=== PATIENT | male | born 1945 | race Caucasian/White ===

== ENCOUNTER 2020-04-02 06:58 | Outpatient (CLI) | payer MEDICARE, OTHER, SELFPAY ==
--- NOTE | 2020-04-02 07:15 | USCV_ITS ---
José Elliott Age: 74 Gender: M : 1945 Exam Date: 04/02/2020 07:18 Ordering Phys: Dada Shafer M.D Technologist: Yanet Burks [place] [facility] [place] [facility] [place]: RECHECK ON AAA HISTORY: Diameter (cm) AP x Transverse x Length Velocity (cm/s) Waveform Prox Aorta: 2.03 x 2.18 x 85.90 Mid Aorta: 3.79 x 4.06 x 85.90 Distal Aorta: 3.06 x 3.67 x 74.20 Right Iliac Prox: 1.58 x 1.61 x 150.40 Left Iliac Prox: 1.53 x 2.27 x 137.50 Stent Prox Landing x x Aneurysmal Sac Max x x Lt Lat Sac Dim Rt Lat Sac Dim Stent Dist Landing x x Right Iliac Stent x x Left Iliac Stent x x Right Renal Art Left Renal Art FINDINGS: CONCLUSIONS Aneursymal Mid and distal aorta measuring 3.7 x 4.1cm and distal aorta 3.1 x 3.6cm Normal common iliac arteries Sulaiman Moore MD (Electronically Signed) Final Date: 04 April 2020 14:47 S
== END 2020-04-02 06:59 | disposition home or self-care (01) ==
LOC: US 07:02
PROVIDERS: PCP Emergency Medicine Emergency Medical Services; Visit Provider Internal Medicine
DX: I71.4 Abdominal aortic aneurysm, without rupture (principal)
CPT/HCPCS: 76706

== ENCOUNTER 2020-07-04 14:55 | Emergency (ER) | payer OTHER, MEDICARE, SELFPAY ==
[2020-07-04 15:45] VITALS: BP 123/73; PULSE 69; RESP 18; TEMP 36.8; O2SAT 95; BMI 38.2
--- NOTE | 2020-07-04 17:10 | W.ED.EXTPRO ---
HPI - Extremity Problem General: Chief complaint: Extremity Problem,Nontraumatic Stated complaint: L LEG INJURY/POSS INFECTION Time Seen by Provider: 07/04/20 17:04 Source: patient and family Mode of arrival: ambulatory Limitations: no limitations History of Present Illness: HPI Narrative: 75-year-old male presents to emergency room chief complaint of having left leg swelling warmth and tenderness. Patient reports that he struck his leg while wearing blue jeans approximately 7 to 10 days ago patient does report being a diabetic. The patient reports moderate warmth and swelling noted to the left anterior tang has been ongoing since that time reports no discharge he does report having a slightly low grade fever as well. MD Complaint: extremity pain and extremity swelling Onset (ago): day(s) (2) Location: left Exacerbating factors: nothing Associated symptoms: Deny chest pain, fever(s) or rash Review of Systems General: Reports: 10 or more systems reviewed and unremarkable except in HPI and below Const: Denies: fever(s), chills, fatigue or malaise Eyes: Denies: change in vision or blurry vision Card: Denies: chest pain or palpitations Resp: Denies: dyspnea or productive cough GI: Denies: abdominal pain, nausea or vomiting : Denies: flank pain Musc: Reports: extremity pain and extremity swelling (Mild swelling and erythema noted to the left tang) Skin/Breast: Denies: rash or pruritus Neuro: Denies: headache(s) Psych: Denies: anxiety or depression Jurgen/Lymph: Denies: easy bleeding All/Imm: Denies: urticaria, throat swelling or facial swelling [facility] [place] ED PFSH: Medical History (Updated 07/04/20 @ 17:24 by Jeffrey Willson) AAA (abdominal aortic aneurysm) ASHD (arteriosclerotic heart disease) Atrial fibrillation CKD (chronic kidney disease) COPD (chronic obstructive pulmonary disease) Diabetes HTN (hypertension) Hyperlipidemia Tobacco abuse, in remission Warfarin anticoagulation Surgical History S/P PTCA (percutaneous transluminal coronary angioplasty) Family History Father CAD (coronary artery disease) Hypertension Myocardial infarction Physical Exam Narrative: EXAM NARRATIVE: Patient appears nontoxic and obviously distressed appearing to have mild cellulitis noted to the left lateral tang neurovascularly intact distally. Const: COMMON NORMALS: no acute distress, patient oriented x3 and healthy appearing HENMT: COMMON NORMALS: normocephalic and atraumatic HEAD & SCALP: normocephalic and atraumatic Eye: COMMON NORMALS: Equal, round and reactive pupils present and EOMs intact bilaterally PUPIL: Yes Equal, round and reactive pupils present Neck/C-Spine: COMMON NORMALS: full ROM, supple and no JVD Lymph: LYMPHATIC: no lymphadenopathy noted Chest: COMMONS NORMALS: normal inspection of the chest and normal palpation of entire chest wall Resp: COMMON NORMALS: normal respiratory effort, No retractions and clear to auscultation bilaterally EFFORT & INSPECTION: Yes able to speak in complete sentences and Yes symmetric chest movement AUSCULTATION: clear to auscultation bilaterally Cardio: COMMON NORMALS: no JVD, regular rate and regular rhythm RATE: regular rate RHYTHM: regular rhythm GI: COMMON NORMALS: Normal to inspection, nondistended, normoactive bowel sounds present, Soft to palpation and non-tender INSPECTION: Yes normal to inspection PALPATION: Yes Soft to palpation : COMMON NORMALS: Yes no CVA tenderness BLADDER/KIDNEY EXAM: Yes no CVA tenderness Back/Pelvis: COMMON NORMALS: no CVA tenderness Extremity: COMMON NORMALS: full ROM and capillary refill normal OTHER: Mild ecchymosis and swelling noted to the left lower extremity consistent with cellulitis small area of an abrasion noted to the anterior left tang. Neurovascularly intact distally Neuro: COMMON NORMALS: patient oriented x3, CN's II-XII intact bilaterally, moves all extremities and no focal motor deficits Psych: COMMON NORMALS: mental status grossly normal, Normal thought process present, cooperative and normal affect THOUGHT PROCESS: Normal thought process present Skin: COMMON NORMALS: no rashes or lesions noted GENERAL SKIN EXAM: no rashes or lesions noted Course Vital Signs: Vital signs: Vital Signs Temperature 98.2 F 07/04/20 15:45 Pulse Rate 69 07/04/20 15:45 Respiratory Rate 18 07/04/20 15:45 Blood Pressure 123/73 07/04/20 15:45 Pulse Oximetry 95 07/04/20 15:45 MDM - Extremity (Nontraumatic) MDM Narrative: Medical decision making narrative: On exam patient appears to have cellulitis will be started him on some Bactrim for it patient was instructed to y follow-up with primary care 5 to 7 days for further assessment. Return in the interim if any of his symptoms persist or worsen. Discharge Plan Discharge Patient Disposition: Home Clinical Impression: Cellulitis of left leg Condition: Stable Prescriptions: New Bactrim DS 800-160 mg tablet 1 tab PO BID 10 Days Qty: 20 RF: 0 No Action Lantus U-100 Insulin 100 unit/mL solution 34 unit SUBCUT DAILY RF: 0 pantoprazole 40 mg tablet,delayed release (DR/EC) 40 mg PO DAILY RF: 0 metoprolol tartrate 50 mg tablet 50 mg PO BID RF: 0 citalopram 40 mg tablet 20 mg PO DAILY RF: 0 nitroglycerin [Nitrostat] 0.4 mg tablet, sublingual 0.4 mg SUBLINGUAL Q5M PRNRF: 0 insulin aspart U-100 [Novolog U-100 Insulin aspart] 100 unit/mL solution 1 sliding scale dose SUBCUT TID RF: 0 sodium bicarbonate 650 mg tablet 650 mg PO BID RF: 0 omega-3 acid ethyl esters 1 gram capsule 1 cap PO DAILY RF: 0 glipizide 10 mg tablet 10 mg PO BID RF: 0 allopurinol 300 mg tablet 300 mg PO DAILY RF: 0 pravastatin 80 mg tablet 80 mg PO DAILY RF: 0 warfarin 1 mg tablet See Rx Instructions PO DAILY RF: 0 tamsulosin 0.4 mg capsule 0.4 mg PO DAILY RF: 0 Spiriva with HandiHaler 18 mcg capsule, w/inhalation device 1 cap INHALATION DAILY RF: 0 cholecalciferol (vitamin D3) PO DAILY RF: 0 furosemide 40 mg tablet 40 mg PO BID RF: 0 psyllium husk PO RF: 0 Discharge Orders: Discharge ED (Routine); Ordered 07/04/20 Ordered By: Jeffrey Willson Referrals: Graeme Felipe DO [Primary Care Provider] - Patient Instructions: Cellulitis (ED) Coding Level of Care Code 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
[2020-07-04 17:34] VITALS: RESP 18
== END 2020-07-04 17:35 | disposition home or self-care (01) ==
PROVIDERS: Emergency Provider Emergency Medicine; PCP Emergency Medicine Emergency Medical Services
DX: L03.116 Cellulitis of left lower limb (principal); Z79.01 Long term (current) use of anticoagulants; Z79.4 Long term (current) use of insulin; I48.91 Unspecified atrial fibrillation; J44.9 Chronic obstructive pulmonary disease, unspecified; E11.9 Type 2 diabetes mellitus without complications; I10 Essential (primary) hypertension; E78.5 Hyperlipidemia, unspecified
CPT/HCPCS: 12345; 99281

== ENCOUNTER 2020-12-18 08:57 | Outpatient (CLI) | payer MEDICARE, OTHER, SELFPAY ==
--- NOTE | 2020-12-18 09:30 | USCV_ITS ---
José Elliott Age: 75 Gender: M : 1945 Exam Date: 12/18/2020 09:21 Ordering Phys: Dada Shafer M.D ([email or web address]) Technologist: RACHELL Exam Location: [facility] – [place] Indication: HISTORY: Diameter (cm) AP x Transverse x Length Velocity (cm/s) Waveform Prox Aorta: 2.18 x 2.18 x 47.40 Mid Aorta: 2.96 x 2.75 x 56.20 Distal Aorta: 3.17 x 3.97 x 48.90 Right Iliac Prox: 1.23 x x 181.30 Left Iliac Prox: 0.76 x x 169.40 Stent Prox Landing x x Aneurysmal Sac Max x x Lt Lat Sac Dim Rt Lat Sac Dim Stent Dist Landing x x Right Iliac Stent x x Left Iliac Stent x x Right Renal Art Left Renal Art FINDINGS: CONCLUSIONS Technically difficult exam due to bowel gas Iliacs not well seen Aneurysmal mid to distal aorta measures 3.1 x 3.9cm in max dimension Sulaiman Moore MD (Electronically Signed) Final Date: 18 December 2020 10:12 S
== END 2020-12-18 08:58 | disposition home or self-care (01) ==
LOC: RAD 09:03
PROVIDERS: PCP Emergency Medicine Emergency Medical Services; Visit Provider Internal Medicine
DX: I71.4 Abdominal aortic aneurysm, without rupture (principal)
CPT/HCPCS: 93978

== ENCOUNTER 2021-01-09 01:57 | Inpatient (IN) | payer MEDICARE, OTHER, SELFPAY ==
[2021-01-09] VITALS (17 sets, daily range): BP systolic 96–120; BP diastolic 59–84; PULSE 61–137; RESP 14–21; TEMP 36.6–37.4; O2SAT 93–97; BMI 37.8
--- NOTE | 2021-01-09 01:58 | XRR_ITS ---
PROCEDURE INFORMATION: Exam: XR Chest Exam date and time: 01/09/2021 1:58 AM Age: 75 years old Clinical indication: Chest pressure; Prior surgery; Surgery type: Cardiac stents; Patient HX: Chest pain; Additional info: Cp TECHNIQUE: Imaging protocol: XR of the chest. Views: 1 view. COMPARISON: CR Chest 2 views* 15600 10/20/2014 4:01 PM FINDINGS: Lungs: Mildly increased lung markings, in association with hazy perihilar airspace opacities, suggestive of mild pulmonary edema. Pneumonia should be excluded clinically. Pleural spaces: Unremarkable. No pleural effusion. No pneumothorax. Heart/Mediastinum: Stable cardiomediastinal silhouette. Bones/joints: Unremarkable. XR/XR chest 1V portable [id number] IMPRESSION: Imaging findings suggestive of mild pulmonary edema. Pneumonia should be excluded clinically.
--- NOTE | 2021-01-09 01:59 | ECG_ITS ---
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1945 Requested By: Fatmata Marina Order Number: [id number] Reading MD: LEONORA UMANZOR Measurements Intervals [place] Rate: 139 P: PA: QRS: 14 QRSD: 100 T: 52 QT: 310 QTc: 472 Interpretive Statements ATRIAL FIBRILLATION WITH RAPID VENTRICULAR RESPONSE LOW QRS VOLTAGE IN PRECORDIAL LEADS [QRS DEFLECTION < 1.0 mV IN CHEST LEADS] NONSPECIFIC ST & T-WAVE ABNORMALITY ABNORMAL RHYTHM ECG INTERPRETATION BASED ON A DEFAULT AGE OF 40 YEARS Compared to ECG 10/20/2014 17:43:01 Low QRS voltage now present T-wave abnormality now present Sinus tachycardia no longer present Electronically Signed On 01-09-2021 14:27:13 CDT by LEONORA UMANZOR [id number] f
--- NOTE | 2021-01-09 02:21 | ED_ITS ---
HPI - Chest Pain General: Chief Complaint: Chest Pain Stated Complaint: Chest Pain Time Seen by Provider: 01/09/21 01:59 Source: patient Mode of arrival: ambulatory Limitations: no limitations History of Present Illness: HPI narrative: 75-year-old male has a history of atrial fib states he woke up roughly 40 minutes ago with a sharp pain in the center of his chest. States the pain is 8 out of 10 originally took an old nitro and pain is now 4 out of 10. He is on metoprolol and Coumadin he is in A. fib with RVR with heart rate in the 130s here. He denies any dyspnea or nausea. Denies any worsening improving factors. MD complaint: chest pain Associated symptoms: Reports palpitations; Deny abdominal pain, dyspnea, fever(s), nausea or vomiting Review of Systems Const: Denies: fever(s), chills, body aches or change in appetite Eyes: Denies: blurry vision or eye discomfort ENMT: Denies: throat pain or dental pain Card: Reports: chest pain and palpitations Resp: Denies: dyspnea GI: Denies: abdominal pain, nausea, vomiting or diarrhea : Denies: dysuria Musc: Denies: neck pain or back pain Skin/Breast: Denies: rash Neuro: Denies: headache(s) Psych: Denies: depression Jurgen/Lymph: Denies: easy bruising All/Imm: Denies: urticaria PFSH ED PFSH: Medical History AAA (abdominal aortic aneurysm) ASHD (arteriosclerotic heart disease) Atrial fibrillation BPH (benign prostatic hyperplasia) CKD (chronic kidney disease) COPD (chronic obstructive pulmonary disease) Depression Diabetes GERD (gastroesophageal reflux disease) Gout [place] HTN (hypertension) Hyperlipidemia Tobacco abuse, in remission Warfarin anticoagulation Surgical History S/P appendectomy S/P cholecystectomy S/P hernia repair S/P knee replacement S/P PTCA (percutaneous transluminal coronary angioplasty) S/P tonsillectomy Family History Father CAD (coronary artery disease) Hypertension Myocardial infarction Social History (Reviewed 01/09/21 @ 17:30 by Maximo Urbano Smoking and tobacco status: former smoker Alcohol intake: never Physical Exam Const: COMMON NORMALS: no acute distress, patient oriented x3 and healthy appearing HENMT: COMMON NORMALS: normocephalic and atraumatic HEAD & SCALP: normocephalic and atraumatic Eye: COMMON NORMALS: Equal, round and reactive pupils present and EOMs intact bilaterally PUPIL: Yes Equal, round and reactive pupils present Neck/C-Spine: COMMON NORMALS: full ROM and supple Chest: COMMONS NORMALS: normal inspection of the chest and normal palpation of entire chest wall Resp: COMMON NORMALS: normal respiratory effort, No retractions, No use of accessory muscles and clear to auscultation bilaterally AUSCULTATION: clear to auscultation bilaterally Cardio: COMMON NORMALS: No murmurs present (Cardio) RATE: tachycardic RHYTHM: abnormal rhythm irregularly irregular GI: COMMON NORMALS: Normal to inspection, nondistended, normoactive bowel sounds present, Soft to palpation, non-tender and no masses PALPATION: Yes Soft to palpation Extremity: COMMON NORMALS: normal to inspection and full ROM Neuro: COMMON NORMALS: patient oriented x3, moves all extremities and no focal motor deficits Psych: COMMON NORMALS: mental status grossly normal, Normal thought process present and cooperative THOUGHT PROCESS: Normal thought process present Skin: COMMON NORMALS: no rashes or lesions noted and no wounds GENERAL SKIN EXAM: no rashes or lesions noted Course Vital Signs: Vital signs: Vital Signs Temperature 98.1 F 01/09/21 02:03 Pulse Rate 115 H 01/09/21 13:10 Respiratory Rate 18 01/09/21 13:10 Blood Pressure 109/62 01/09/21 13:10 Pulse Oximetry 94 01/09/21 13:10 MDM - Chest Pain MDM Narrative: Medical decision making narrative: Patient presents here with A. fib with RVR. Patient did not convert after Cardizem or labetalol. Patient started on a Cardizem drip in the ER. I spoke to hospitalist and will admit. He has been stable in ER. Lab Data: Labs: Lab Results 01/09/21 01/09/21 01/09/21 Range/Units 02:29 02:29 02:29 WBC 10.2 H (4.0-10.0) 10^3/ uL RBC 5.24 (4.1-5.3) 10^6/u L Hgb 15.9 (11.7-16.6) g/dL Hct 48.3 (42.0-52.0) % MCV 92.2 (80-94) fL MCH 30.3 (28.0-34.0) pg MCHC 32.9 (30.0-36.0) g/dL RDW 13.7 (12.1-15.1) % Plt Count 189 (130-400) 10^3/c mm MPV 11.8 H (7.4-10.4) fL Neut % (Auto) 66.3 % Lymph % (Auto) 17.7 % [place] % (Auto) 10.8 % Eos % (Auto) 4.4 % Baso % (Auto) 0.5 % Neut # (Auto) 6.76 (1.8-7.7) 10^3/u L Lymph # (Auto) 1.8 (0.8-4.8) 10^3/u L [place] # (Auto) 1.1 H (0.2-0.9) 10^3/u L Eos # (Auto) 0.5 (0.0-0.8) 10^3/u L Baso # (Auto) 0.1 (0.0-0.1) 10^3/u L Nucleated RBC % (a uto) 0 % Nucleated RBCs # 0.0 /100WBC PT INR Sodium Cancelled Potassium Cancelled Chloride Cancelled Carbon Dioxide Cancelled Anion Gap Cancelled BUN Cancelled Creatinine Cancelled GFR Calculation Cancelled Glucose Cancelled Calculated Osmolal ity Cancelled Calcium Cancelled Magnesium (1.7-2.3) mg/dL Total Bilirubin Cancelled AST Cancelled ALT Cancelled Alkaline Phosphata se Cancelled Troponin T Baselin e Cancelled Troponin T 120 Min [place] (0-15) ng/L Delta Troponin T (0-10) ABS# NT-Pro-B Natriuret Pep (0-125) pg/mL Total Protein Cancelled Albumin Cancelled Globulin Cancelled TSH (0.27-4.20) uIU/ mL 01/09/21 01/09/21 01/09/21 Range/Units 02:29 03:00 03:00 WBC (4.0-10.0) 10^3/ uL RBC (4.1-5.3) 10^6/u L Hgb (11.7-16.6) g/dL Hct (42.0-52.0) % MCV (80-94) fL MCH (28.0-34.0) pg MCHC (30.0-36.0) g/dL RDW (12.1-15.1) % Plt Count (130-400) 10^3/c mm MPV (7.4-10.4) fL Neut % (Auto) % Lymph % (Auto) % [place] % (Auto) % Eos % (Auto) % Baso % (Auto) % Neut # (Auto) (1.8-7.7) 10^3/u L Lymph # (Auto) (0.8-4.8) 10^3/u L [place] # (Auto) (0.2-0.9) 10^3/u L Eos # (Auto) (0.0-0.8) 10^3/u L Baso # (Auto) (0.0-0.1) 10^3/u L Nucleated RBC % (a uto) % Nucleated RBCs # /100WBC PT Cancelled 22.80 H INR Cancelled 1.96 H Sodium Potassium Chloride Carbon Dioxide Anion Gap BUN Creatinine GFR Calculation Glucose Calculated Osmolal ity Calcium Magnesium (1.7-2.3) mg/dL Total Bilirubin AST ALT Alkaline Phosphata se Troponin T Baselin e 15 Troponin T 120 Min [place] (0-15) ng/L Delta Troponin T (0-10) ABS# NT-Pro-B Natriuret Pep (0-125) pg/mL Total Protein Albumin Globulin TSH (0.27-4.20) uIU/ mL 01/09/21 01/09/21 01/09/21 Range/Units 03:00 03:00 03:00 WBC (4.0-10.0) 10^3/ uL RBC (4.1-5.3) 10^6/u L Hgb (11.7-16.6) g/dL Hct (42.0-52.0) % MCV (80-94) fL MCH (28.0-34.0) pg MCHC (30.0-36.0) g/dL RDW (12.1-15.1) % Plt Count (130-400) 10^3/c mm MPV (7.4-10.4) fL Neut % (Auto) % Lymph % (Auto) % [place] % (Auto) % Eos % (Auto) % Baso % (Auto) % Neut # (Auto) (1.8-7.7) 10^3/u L Lymph # (Auto) (0.8-4.8) 10^3/u L [place] # (Auto) (0.2-0.9) 10^3/u L Eos # (Auto) (0.0-0.8) 10^3/u L Baso # (Auto) (0.0-0.1) 10^3/u L Nucleated RBC % (a uto) % Nucleated RBCs # /100WBC PT INR Sodium 141 Potassium 3.5 Chloride 108 H Carbon Dioxide 22 Anion Gap 14.5 BUN 32 H Creatinine 1.9 H GFR Calculation Not Reportable Glucose 178 H Calculated Osmolal ity 303 H Calcium 8.4 L Magnesium 1.9 (1.7-2.3) mg/dL Total Bilirubin 0.4 AST 14 ALT 7 Alkaline Phosphata se 51 Troponin T Baselin e Troponin T 120 [address] [place] (0-15) ng/L Delta Troponin T (0-10) ABS# NT-Pro-B Natriuret Pep 86 (0-125) pg/mL Total Protein 5.6 L Albumin 3.7 Globulin 1.9 TSH 3.34 (0.27-4.20) uIU/ mL 01/09/21 Range/Units 05:00 WBC (4.0-10.0) 10^3/ uL RBC (4.1-5.3) 10^6/u L Hgb (11.7-16.6) g/dL Hct (42.0-52.0) % MCV (80-94) fL MCH (28.0-34.0) pg MCHC (30.0-36.0) g/dL RDW (12.1-15.1) % Plt Count (130-400) 10^3/c mm MPV (7.4-10.4) fL Neut % (Auto) % Lymph % (Auto) % [place] % (Auto) % Eos % (Auto) % Baso % (Auto) % Neut # (Auto) (1.8-7.7) 10^3/u L Lymph # (Auto) (0.8-4.8) 10^3/u L [place] # (Auto) (0.2-0.9) 10^3/u L Eos # (Auto) (0.0-0.8) 10^3/u L Baso # (Auto) (0.0-0.1) 10^3/u L Nucleated RBC % (a uto) % Nucleated RBCs # /100WBC PT INR Sodium Potassium Chloride Carbon Dioxide Anion Gap BUN Creatinine GFR Calculation Glucose Calculated Osmolal ity Calcium Magnesium (1.7-2.3) mg/dL Total Bilirubin AST ALT Alkaline Phosphata se Troponin T Baselin e Troponin T [address] [place] 33.68 H (0-15) ng/L Delta Troponin T 18.68 H* (0-10) ABS# NT-Pro-B Natriuret Pep (0-125) pg/mL Total Protein Albumin Globulin TSH (0.27-4.20) uIU/ mL EKG Data^: EKG 1: Attestation: I personally reviewed and interpreted this EKG as follows: EKG interpretation date: 01/09/21 EKG interpretation time: 02:11 Interpretation: afib with rvr hr [address] or t wave abnormalities qrs 100 qtc 391 EKG 2: Attestation: I personally reviewed and interpreted this EKG as follows: EKG interpretation date: 01/09/21 EKG interpretation time: 03:53 Interpretation: A. 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
[2021-01-09] MEDS: sodium chloride 0.9% 1,000 ML 999 ML IV (02:44)
[2021-01-09 02:52] LABS: Basophils # 0.1 10^3/uL (0.0-0.1); Basophils % 0.5 %; Eosinophils # 0.5 10^3/uL (0.0-0.8); Eosinophils % 4.4 %; Hematocrit 48.3 % (42.0-52.0); Hemoglobin 15.9 g/dL (11.7-16.6); Lymphocytes # 1.8 10^3/uL (0.8-4.8); Lymphocytes % 17.7 %; Mean Corpuscular HGB Conc 32.9 g/dL (30.0-36.0); Mean Corpuscular Hemoglobin 30.3 pg (28.0-34.0); Mean Corpuscular Volume 92.2 fL (80-94); Mean Platelet Volume 11.8 fL (7.4-10.4); Monocytes # 1.1 10^3/uL (0.2-0.9); Monocytes % 10.8 %; Neutrophils # 6.76 10^3/uL (1.8-7.7); Neutrophils % 66.3 %; Nucleated Red Blood Cells % 0 %; Platelet Count 189 10^3/cmm (130-400); Red Blood Count 5.24 10^6/uL (4.1-5.3); Red Cell Distribution Width 13.7 % (12.1-15.1); White Blood Count 10.2 10^3/uL (4.0-10.0)
[2021-01-09 03:24] LABS: INR 1.96 (0.8-1.2)
[2021-01-09 03:31] LABS: Troponin(5th) Baseline 15 ng/L (0-15)
[2021-01-09 03:32] LABS: Alanine Aminotransferase 7 U/L (0-41); Albumin Level 3.7 g/dL (3.5-5.2); Alkaline Phosphatase 51 IU/L (40-130); Anion Gap 14.5 (5-19); Aspartate Amino Transferase 14 U/L (0-40); Blood Urea Nitrogen 32 mg/dL (8-23); Calcium 8.4 mg/dL (8.5-10.5); Carbon Dioxide 22 mmol/L (22-29); Chloride 108 mmol/L (98-107); Globulin 1.9 g/dL (1.3-4.6); Glucose 178 mg/dL (65-115); Osmolality Calculated 303 mOsm/kg (285-295); Potassium 3.5 mmol/L (3.5-5.1); Sodium 141 mmol/L (136-145); Total Bilirubin 0.4 mg/dL (0.15-1.2); Total Protein 5.6 g/dL (6.6-8.7)
--- NOTE | 2021-01-09 03:59 | ECG_ITS ---
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1945 Requested By: Fatmata Marina Order Number: [id number] Reading MD: LEONORA UMANZOR Measurements Intervals [place] Rate: 117 P: AR: QRS: 20 QRSD: 91 T: 75 QT: 330 QTc: 462 Interpretive Statements ATRIAL FIBRILLATION WITH RAPID VENTRICULAR RESPONSE LOW QRS VOLTAGE IN PRECORDIAL LEADS [QRS DEFLECTION < 1.0 mV IN CHEST LEADS] ABNORMAL RHYTHM ECG Compared to ECG 10/20/2014 17:43:01 Low QRS voltage now present Sinus tachycardia no longer present Electronically Signed On 01-09-2021 14:30:15 CDT by LEONORA UMANZOR [id number]
[2021-01-09] MEDS: sodium chloride 0.9% 500 ML 999 ML IV ×2 (04:24→05:04)
[2021-01-09] MEDS: labetalol 5 mg/mL SDV 20mL 10 MG IVP (05:05)
[2021-01-09 05:37] LABS: Troponin 5 2HR 33.68 ng/L (0-15)
[2021-01-09 05:41] LABS: Troponin 5 2HR Delta 18.68 ABS# (0-10)
[2021-01-09 06:28] LABS: NT Pro B Type Natriuretic Pept 86 pg/mL (0-125)
--- NOTE | 2021-01-09 07:59 | ECG_ITS ---
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
[2021-01-09 08:25] LABS: Magnesium 1.9 mg/dL (1.7-2.3); Thyroid Stimulating Hormone 3.34 uIU/mL (0.27-4.20)
[2021-01-09] MEDS: potassium chloride ER 20 mEq Tablet 40 MEQ PO (09:22)
[2021-01-09] MEDS: metoprolol tartrate 50 mg Tablet PO ×2 (09:22→18:40)
--- NOTE | 2021-01-09 09:23 | PM.HP ---
Providers/Chief Complaint Primary Care Provider: Graeme Felipe DO Chief Complaint: Chest Pain History of Present Illness José Elliott is a 75 year old male who presented to the hospital with complaints of chest discomfort. He reports this started at around 1 AM when he was in bed. He is not for sure if this awoke him from sleep. He reported he had some shortness of breath with it. He denied any palpitations. He came into the emergency department and was found to be in atrial fibrillation with rapid ventricular rate. He was placed on a Cardizem drip. He denies any chest discomfort currently. He reports no recent fever, cough. He denies a history of Covid, exposure to it or vaccination for it. He reports his atrial fibrillation is paroxysmal, and last hospitalization many years ago he converted spontaneously when heart rate was lowered. Review of Systems General: Reports: 10 or more systems reviewed and unremarkable except in HPI and below Const: Denies: fever(s) or chills Eyes: Denies: change in vision ENMT: Denies: throat pain Card: Reports: chest pain; Denies: palpitations Resp: Reports: dyspnea GI: Denies: abdominal pain, nausea or vomiting : Denies: flank pain Musc: Denies: neck pain Skin/Breast: Denies: rash Neuro: Denies: headache(s) Psych: Denies: anxiety or depression Endo: Denies: polyuria Jurgen/Lymph: Denies: easy bruising All/Imm: Denies: urticaria Medications/Allergies Home Medications Medication Instructions Recorded Confirmed Last Taken Type allopurinol 300 mg tablet 300 mg PO DAILY 09/03/19 01/09/21 01/08/21 History citalopram 40 mg tablet 20 mg PO DAILY 09/03/19 01/09/21 01/08/21 History glipizide 10 mg tablet 10 mg PO BID 09/03/19 01/09/21 01/08/21 History insulin aspart U-100 100 unit/mL 1 sliding scale dose SUBCUT TID ml 09/03/19 01/09/21 Unknown History subcutaneous solution insulin glargine 100 unit/mL 45 unit SUBCUT DAILY ml 09/03/19 01/09/21 01/08/21 History subcutaneous solution metoprolol tartrate 50 mg tablet 50 mg PO BID 09/03/19 01/09/21 01/08/21 History nitroglycerin 0.4 mg sublingual 0.4 mg SUBLINGUAL Q5M PRN 09/03/19 01/09/21 Unknown History tablet omega-3 acid ethyl esters 1 gram 1 cap PO BID 09/03/19 01/09/21 01/08/21 History capsule pantoprazole 40 mg tablet,delayed 40 mg PO DAILY 09/03/19 01/09/21 01/08/21 History release pravastatin 80 mg tablet 80 mg PO DAILY 09/03/19 01/09/21 01/08/21 History tamsulosin 0.4 mg capsule 0.4 mg PO DAILY 09/03/19 01/09/21 01/08/21 History tiotropium bromide 18 mcg capsule 1 cap INHALATION DAILY 09/03/19 01/09/21 01/08/21 History with inhalation device warfarin 1 mg tablet See Rx Instructions PO DAILY 09/03/19 01/09/21 01/08/21 History 5 mg furosemide 40 mg tablet 40 mg PO BID tab 03/07/20 01/09/21 01/08/21 History albuterol sulfate 1 puff INHALATION QID PRN 01/09/21 01/09/21 Unknown History cholecalciferol (vitamin D3) 25 mcg PO DAILY 01/09/21 01/09/21 01/08/21 History [Vitamin D3] fenofibrate nanocrystallized 48 mg PO DAILY 01/09/21 01/09/21 01/08/21 History multivitamin 1 tab PO DAILY 01/09/21 01/09/21 01/08/21 History Allergies Allergy/AdvReac Type Severity Reaction Status Date / Time No Known Allergies Allergy Verified 10/30/20 13:59 PFSH Acute PFSH: Medical History (Updated 01/09/21 @ 13:01 by Jean Sumner MD) AAA (abdominal aortic aneurysm) ASHD (arteriosclerotic heart disease) Atrial fibrillation BPH (benign prostatic hyperplasia) CKD (chronic kidney disease) COPD (chronic obstructive pulmonary disease) Depression Diabetes GERD (gastroesophageal reflux disease) Gout Horseshoe kidney HTN (hypertension) Hyperlipidemia Tobacco abuse, in remission Warfarin anticoagulation Surgical History (Updated 01/09/21 @ 12:56 by Jean Sumner MD) S/P appendectomy S/P cholecystectomy S/P hernia repair S/P knee replacement S/P PTCA (percutaneous transluminal coronary angioplasty) S/P tonsillectomy Family History Father CAD (coronary artery disease) Hypertension Myocardial infarction Social History (Updated 01/09/21 @ 12:56 by Jean Sumner MD) Smoking and tobacco status: former smoker Alcohol intake: never Vitals/I&O/Wt Last Vital Signs Temp 98.1 F 01/09/21 02:03 Pulse 124 H 01/09/21 07:52 Resp 20 H 01/09/21 07:52 BP 104/84 01/09/21 07:52 Pulse Ox 96 01/09/21 07:52 01/08/21 01/09/21 01/09/21 22:59 06:59 14:59 Intake Total 1999 Balance 1999 Weight last 48 hrs Weight 99.79 kg Physical Exam Narrative: EXAM NARRATIVE: General exam is a pleasant white male in no apparent distress. Heart rate appears to be around 120. This is irregular on telemetry. HEENT: Pupils equally round. Oropharynx clear. Neck is supple no lymphadenopathy or thyromegaly Cardiovascular irregular, irregular with accelerated rate Lungs clear to auscultation bilaterally. No wheezing or crackles Abdomen is soft nontender with positive bowel sounds. No obvious organomegaly exam is deferred Extremities no cyanosis clubbing or edema, cap refill is brisk Skin no rash Neuro no obvious focal deficits. Data : 01/09/21 02:29 01/09/21 03:00 Other data: INR is 1.96 LFTs are normal Initial troponin XVIII with 120-minute troponin of 34 and 6-hour troponin of 49 BNP is 86 TSH is 3.34 Calcium is 8.4 Chest x-ray mild congestion Initial EKG demonstrates atrial fibrillation with rapid ventricular rate around 140 with normal axis and nonspecific ST-T wave changes. A&P Assessment and plan (1) Atrial fibrillation: Presented with atrial fibrillation with rapid ventricular rate. Placed on Cardizem in the emergency department. Potassium slightly on the lower end at 3.5 and will supplement Magnesium checked and normal In addition to Cardizem drip that has been ordered I will restart his home metoprolol at 50 mg twice daily. Hold Coumadin today and recheck INR tomorrow. Consider alternative anticoagulation, in case exploration of atherosclerotic disease as needed. Status: Acute Qualifiers: Atrial fibrillation type: unspecified Qualified Code(s): I48.91 - Unspecified atrial fibrillation (2) Elevated troponin: Patient presented with chest discomfort, not palpitations Increase in troponin is concerning Check echocardiogram TSH checked and normal Will have cardiology evaluate secondary to the increased troponin and presentation with chest discomfort. Aspirin, statin, beta-carl Status: Acute (3) ASHD (arteriosclerotic heart disease): Status: Acute (4) CKD (chronic kidney disease): Continue to monitor Avoid renal toxic medication Status: Acute (5) COPD (chronic obstructive pulmonary disease): DuoNeb as needed Status: Acute (6) HTN (hypertension): Continue patient's home regimen Status: Acute (7) Hyperlipidemia: Continue statin Status: Acute (8) Diabetes: Sliding scale insulin Status: Acute Additional A&P Information Full code Anticoagulated with Coumadin currently for atrial fibrillation. Holding until tomorrow to see if other anticoagulation needs initiated. Attestations Medical Necessity Statement*: Will need greater than 2 midnight stay for treatment of atrial fibrillation with rapid ventricular rate as well as elevated troponin. 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
[2021-01-09 10:20] LABS: Troponin 5 6HR 49.16 ng/L (0-15)
[2021-01-09 10:21] LABS: Troponin 5 6HR Delta 34.16 ng/L (0-12)
--- NOTE | 2021-01-09 13:07 | USCV_ITS ---
José Elliott Age: 75 Gender: M : 1945 Exam Date: 01/09/2021 13:37 Ordering Phys: Jean Sumner MD Technologist: Keon Veliz Exam Location: [facility] [place] Indication: elevated troponin BP: 120 / 80 HR: 111 Rhythm: Sinus Technical Quality: Suboptimal MEASUREMENTS (Male / Female) Normal Values 2D ECHO LV Diastolic Diameter PLAX 3.3 cm 4.2 - 5.9 / 3.9 - 5.3 cm LV Systolic Diameter PLAX 1.9 cm IVS Diastolic Thickness 0.9 cm 0.6 - 1.0 / 0.6 - 0.9 cm IVS Systolic Thickness 0.9 cm LVPW Diastolic Thickness 0.9 cm 0.6 - 1.0 / 0.6 - 0.9 cm LVPW Systolic Thickness 1.1 cm LVOT Diameter 2.0 cm LV Ejection Fraction 2D Teich 73.5 % LV Ejection Fraction MOD 2C 72.9 % LV Ejection Fraction 2C AL 74.2 % LA Diameter 4.3 cm LA Width 3.7 cm LA Height 5.2 cm RA Width 3.1 cm RA Height 4.3 cm M-MODE Aortic Annulus Diameter 3.7 cm LA Ao Ratio MM 1.3 DOPPLER AV Peak Velocity 127.0 cm/s LVOT Peak Velocity 99.0 cm/s AV Area Cont Eq vti 2.5 cm squared AV Area Cont Eq pk 2.5 cm squared MV Area PHT 5.0 cm squared Mitral E to A Ratio 1.6 MV E' Velocity 61.0 cm/s Mitral E to MV E' Ratio 12.9 Mitral E to LV E' Lateral Ratio 14.5 Mitral E to LV E' Septal Ratio 11.6 TR Peak Velocity 297.0 cm/s TR Peak Gradient 35.3 mmHg TV Peak E Velocity 158.0 cm/s Right Atrial Pressure 3.0 mmHg Pulmonary Artery Systolic Pressu 38.3 mmHg FINDINGS Left Ventricle Normal left ventricular size. LV systolic function is normal with EF of 60-65%. No regional wall motion abnormalities. Diastolic function is indeterminate because of atrial fibrillation. Right Ventricle The right ventricle is normal in size and function. Right Atrium Not well visualized Left Atrium Not well visualized Mitral Valve Not well visualized Aortic Valve Not well visualized. No significant aortic stenosis noted Tricuspid Valve Not well visualized. Insufficient TR jet to calculate RVSP Pulmonic Valve Not visualized Pericardium Normal pericardium without effusion. Aorta Aortic root is mildly dilated CONCLUSIONS Limited quality echocardiogram with poor visualization of cardiac structures. LV systolic function is normal with EF of 60-65% Diastolic function is indeterminate because of atrial fibrillation. Valvular structures are not well visualized Mildly dilated aortic root Comparison with prior studies not possible because of limited visualization Dada Shafer MD (Electronically Signed) Final Date: 09 January 2021 17:27 S
[2021-01-09] MEDS: perflutren protein-a microsphr 0.22 mg/mL SDV 3 mL IV (14:05)
[2021-01-09] MEDS: aspirin 325 mg EC Tablet PO (15:36)
--- NOTE | 2021-01-09 16:50 | PC.NURSE ---
notified pharmacy on needed cardizem bag for this pt. they said they will bring it in as soon as they can.
[2021-01-09 17:02] LABS: Glucose Point of Care 164 mg/dL (70-110)
--- NOTE | 2021-01-09 17:06 | P.CONIM_ITS ---
Providers/Reason For Consult Consulting Physician/Specialty*: Dada Shafer MD/Cardiology Reason for Consult*: Atrial fibrillation/chest pain/troponin elevation Requesting Physician: Dr Sumner Attending Physician: Jean Sumner MD Primary Care Provider: Graeme Felipe DO History of Present Illness History of Present Illness José Elliott is a 75 year old male with past medical history of coronary artery disease, atrial fibrillation, diabetes and hypertension who presented last night with chest pain. According to patient he felt chest pain substernally and in the right arm. He was found to be in A. fib with RVR. He is not sure of the right arm pain is from his arthritis. His troponin was mildly elevated and then that trended down at 6 hours. EKG did not reveal ischemic changes. He was put on Cardizem drip that has improved his heart rates. Echo performed today shows normal LV systolic function. Review of Systems General: Reports: 10 or more systems reviewed and unremarkable except in HPI and below Const: Denies: fever(s) or chills Eyes: Denies: change in vision ENMT: Denies: throat pain Card: Reports: chest pain; Denies: palpitations Resp: Reports: dyspnea GI: Denies: abdominal pain, nausea or vomiting : Denies: flank pain Musc: Denies: neck pain Skin/Breast: Denies: rash Neuro: Denies: headache(s) Psych: Denies: anxiety or depression Endo: Denies: polyuria Jurgen/Lymph: Denies: easy bruising All/Imm: Denies: urticaria Meds/Allergies Home Medications and Allergies Home Medications Medication Instructions Recorded Confirmed Last Taken Type allopurinol 300 mg tablet 300 mg PO DAILY 09/03/19 01/09/21 01/08/21 History citalopram 40 mg tablet 20 mg PO DAILY 09/03/19 01/09/21 01/08/21 History glipizide 10 mg tablet 10 mg PO BID 09/03/19 01/09/21 01/08/21 History insulin aspart U-100 100 unit/mL 1 sliding scale dose SUBCUT TID ml 09/03/19 01/09/21 Unknown History subcutaneous solution insulin glargine 100 unit/mL 45 unit SUBCUT DAILY ml 09/03/19 01/09/21 01/08/21 History subcutaneous solution metoprolol tartrate 50 mg tablet 50 mg PO BID 09/03/19 01/09/21 01/08/21 History nitroglycerin 0.4 mg sublingual 0.4 mg SUBLINGUAL Q5M PRN 09/03/19 01/09/21 Unknown History tablet omega-3 acid ethyl esters 1 gram 1 cap PO BID 09/03/19 01/09/21 01/08/21 History capsule pantoprazole 40 mg tablet,delayed 40 mg PO DAILY 09/03/19 01/09/21 01/08/21 History release pravastatin 80 mg tablet 80 mg PO DAILY 09/03/19 01/09/21 01/08/21 History tamsulosin 0.4 mg capsule 0.4 mg PO DAILY 09/03/19 01/09/21 01/08/21 History tiotropium bromide 18 mcg capsule 1 cap INHALATION DAILY 09/03/19 01/09/21 01/08/21 History with inhalation device warfarin 1 mg tablet See Rx Instructions PO DAILY 09/03/19 01/09/21 01/08/21 History 5 mg furosemide 40 mg tablet 40 mg PO BID tab 03/07/20 01/09/21 01/08/21 History albuterol sulfate 1 puff INHALATION QID PRN 01/09/21 01/09/21 Unknown History cholecalciferol (vitamin D3) 25 mcg PO DAILY 01/09/21 01/09/21 01/08/21 History [Vitamin D3] fenofibrate nanocrystallized 48 mg PO DAILY 01/09/21 01/09/21 01/08/21 History multivitamin 1 tab PO DAILY 01/09/21 01/09/21 01/08/21 History Allergies Allergy/AdvReac Type Severity Reaction Status Date / Time No Known Allergies Allergy Verified 10/30/20 13:59 Current Medications Current Medications Generic Name Dose Route Start Last Admin Trade Name Freq PRN Reason Stop Dose Admin Aspirin 325 mg 01/09/21 13:15 01/09/21 15:36 Aspirin 325 Mg Ec Tablet PO 325 mg DAILY OMAR Administration Diltiazem HCl 125 mg/ Sodium 125 mls @ 10 mls/hr 01/09/21 05:30 01/09/21 05:35 Chloride IV 10 mg/hr .[id number] OMAR 10 mls/hr Administration 10 MG/HR Insulin Aspart 0 unit 01/09/21 12:00 01/09/21 15:00 Insulin Aspart 100 Unit/1 Ml SUBCUT Not Given WM&BEDTIME [facility] Protocol Metoprolol Tartrate 50 mg 01/09/21 09:00 01/09/21 09:22 Metoprolol Tartrate 50 Mg Tablet PO 50 mg BID OMAR Administration PFSH Acute PFSH: Medical History AAA (abdominal aortic aneurysm) ASHD (arteriosclerotic heart disease) Atrial fibrillation BPH (benign prostatic hyperplasia) CKD (chronic kidney disease) COPD (chronic obstructive pulmonary disease) Depression Diabetes GERD (gastroesophageal reflux disease) Gout [place]orseshoe kidney HTN (hypertension) Hyperlipidemia Tobacco abuse, in remission Warfarin anticoagulation Surgical History S/P appendectomy S/P cholecystectomy S/P hernia repair S/P knee replacement S/P PTCA (percutaneous transluminal coronary angioplasty) S/P tonsillectomy Family History Father CAD (coronary artery disease) Hypertension Myocardial infarction Social History Smoking and tobacco status: former smoker Alcohol intake: never Vitals/I&O/Wt Last Vital Signs Temp 98.1 F 01/09/21 02:03 Pulse 115 H 01/09/21 13:10 Resp 18 01/09/21 13:10 BP 109/62 01/09/21 13:10 Pulse Ox 94 01/09/21 13:10 01/09/21 01/09/21 01/09/21 06:59 14:59 22:59 Intake Total 1999 Balance 1999 Weight last 48 hrs Weight 220 lb Physical Exam Narrative: EXAM NARRATIVE: GENERAL: Patient is alert, awake and oriented x3. [] NECK: No jugular vein distension. [] HEENT: No cyanosis. No icterus. No pallor. [] HEART: Irregularly irregular, S1 and S2. No murmur, rub or gallop. [] LUNGS: Clear to auscultate bilaterally. [] ABDOMEN: Soft, nontender and nondistended. Positive bowel sounds. No guarding, rebound or tenderness. [] CENTRAL NERVOUS SYSTEM: Grossly nonfocal. [] EXTREMITIES: Lower extremities with 1+ edema bilaterally. Pulses palpable in the lower extremities, both dorsalis pedis and posterior tibial. [] A&P Assessment and plan (1) Elevated troponin: Status: Acute (2) Chest pain: Status: Acute Qualifiers: Chest pain type: unspecified Qualified Code(s): R07.9 - Chest pain, unspecified (3) Tobacco abuse, in remission: Status: Acute (4) Warfarin anticoagulation: Status: Acute (5) Diabetes: Status: Acute (6) CKD (chronic kidney disease): Status: Acute (7) HTN (hypertension): Status: Acute (8) Atrial fibrillation: Status: Acute Qualifiers: Atrial fibrillation type: unspecified Qualified Code(s): I48.91 - Unspecified atrial fibrillation (9) ASHD (arteriosclerotic heart disease): Status: Acute (10) AAA (abdominal aortic aneurysm): Status: Acute Patient has presented with chest discomfort and was found to be in A. fib with RVR. This could be secondary to A. fib or unmasking of ischemia in setting of fast heart rates. Given his significantly elevated creatinine(has CKD with baseline creatinine around 1.9), will recommend performing a stress test initially. If stress test shows significantly area of reversible perfusion abnormality, we will proceed with coronary angiogram. Hold Coumadin. Start heparin drip in anticipation of possible coronary angiogram in case stress test is abnormal. Echocardiogram performed that shows normal LV systolic function. Continue Cardizem drip for now. Heart rate is improved however he is still g oing into 100s. If heart rate is better controlled by tomorrow, can switch to p.o. Cardizem. If patient has continued chest pain symptoms over the weekend, may perform coronary angiogram. Enck you for involving us with care of this patient. We will continue to follow. Please call with questions. 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
[2021-01-09] MEDS: FUROsemide 40 mg Tablet PO (18:40)
[2021-01-09] MEDS: heparin drip 25,000 UNIT/500 ML PREMIX 29 UNIT IV (20:06)
[2021-01-09 20:26] LABS: Glucose Point of Care 148 mg/dL (70-110)
--- NOTE | 2021-01-09 20:45 | PC.NURSE ---
Per Dr. Sumner no bolus upon starting Heparin drip. Follow protocol as normal with boluses after starting.
--- NOTE | 2021-01-09 22:31 | PC.NURSE ---
Patient converted to SR at 2157. Cardizem drip titrated down and off per protocol.
[2021-01-10] VITALS (13 sets, daily range): BP systolic 103–137; BP diastolic 52–80; PULSE 63–73; RESP 14–20; TEMP 36.3–37.1; O2SAT 93–95
[2021-01-10 02:24] LABS: Basophils % 0.3 %; Eosinophils # 0.4 10^3/uL (0.0-0.8); Hematocrit 43.2 % (42.0-52.0); Lymphocytes # 1.7 10^3/uL (0.8-4.8); Lymphocytes % 14.2 %; Mean Corpuscular HGB Conc 32.4 g/dL (30.0-36.0); Mean Corpuscular Hemoglobin 30.6 pg (28.0-34.0); Mean Corpuscular Volume 94.5 fL (80-94); Mean Platelet Volume 10.6 fL (7.4-10.4); Monocytes % 8.7 %; Neutrophils # 8.56 10^3/uL (1.8-7.7); Neutrophils % 73.4 %; Nucleated Red Blood Cells % 0 %; Platelet Count 165 10^3/cmm (130-400); Red Blood Count 4.57 10^6/uL (4.1-5.3); Red Cell Distribution Width 14.1 % (12.1-15.1); White Blood Count 11.7 10^3/uL (4.0-10.0)
[2021-01-10 02:39] LABS: INR 2.22 (0.8-1.2)
[2021-01-10 02:43] LABS: Alanine Aminotransferase 7 U/L (0-41); Albumin Level 3.6 g/dL (3.5-5.2); Alkaline Phosphatase 48 IU/L (40-130); Anion Gap 14.9 (5-19); Aspartate Amino Transferase 16 U/L (0-40); Blood Urea Nitrogen 34 mg/dL (8-23); Calcium 8.6 mg/dL (8.5-10.5); Carbon Dioxide 23 mmol/L (22-29); Chloride 109 mmol/L (98-107); Globulin 1.9 g/dL (1.3-4.6); Glucose 122 mg/dL (65-115); Magnesium 1.7 mg/dL (1.7-2.3); Osmolality Calculated 305 mOsm/kg (285-295); Potassium 3.9 mmol/L (3.5-5.1); Sodium 143 mmol/L (136-145); Total Bilirubin 0.4 mg/dL (0.15-1.2); Total Protein 5.5 g/dL (6.6-8.7)
--- NOTE | 2021-01-10 03:08 | PC.NURSE ---
Dr. Bravo notified of PTT of 205. Ordered to stop drip and redraw PTT.
--- NOTE | 2021-01-10 03:51 | PC.NURSE ---
PTT draw at 0320 is currently pending result.
[2021-01-10 04:08] LABS: Partial Thromboplastin Time 173.1 SECONDS (23.9-36.7)
--- NOTE | 2021-01-10 04:54 | PC.NURSE ---
Dr. Bravo ordered to restarted Heparin drip at 22 ml/hr now.
[2021-01-10 06:39] LABS: Glucose Point of Care 139 mg/dL (70-110)
[2021-01-10] MEDS: allopurinol 300 mg Tablet PO (08:45)
[2021-01-10] MEDS: tamsulosin 0.4 mg Capsule PO (08:45)
[2021-01-10] MEDS: metoprolol tartrate 50 mg Tablet PO ×2 (08:45→17:36)
[2021-01-10] MEDS: citalopram 20 mg Tablet PO (08:45)
[2021-01-10] MEDS: atorvastatin 40 mg Tablet 20 MG PO (08:45)
[2021-01-10] MEDS: aspirin 325 mg EC Tablet PO (08:45)
[2021-01-10] MEDS: pantoprazole DR 40 mg Tablet PO (08:45)
[2021-01-10] MEDS: FUROsemide 40 mg Tablet PO ×2 (08:45→17:36)
--- NOTE | 2021-01-10 08:55 | PC.NURSE ---
Bedside report received from Subha ENG. Patient is resting in bed, A & O. No C/O of pain or other needs at this time.
[2021-01-10 11:28] LABS: Partial Thromboplastin Time 106.7 SECONDS (23.9-36.7)
[2021-01-10 11:39] LABS: Glucose Point of Care 160 mg/dL (70-110)
--- NOTE | 2021-01-10 12:05 | P.PN_ITS ---
Subjective Subjective: Interval history: Patient is doing well. Denies any complaints of chest pain, shortness of breath or palpitations. On heparin drip. Heart rates are better controlled. Vitals/I&O/Wt Last Vital Signs Temp 98.7 F 01/10/21 11:54 Pulse 67 01/10/21 11:54 Resp 19 H 01/10/21 11:54 BP 125/67 01/10/21 11:54 Pulse Ox 95 01/10/21 11:54 01/09/21 01/10/21 01/10/21 22:59 06:59 14:59 Intake Total 352.584 / 352.584 254.933 / 607.517 120 / 120 Output Total 200 / 200 150 / 350 Balance 152.584 / 152.584 104.933 / 257.517 120 / 120 Weight last 48 hrs Weight 222 lb 11.2 oz Weight 226 lb Weight 220 lb Physical Exam Narrative: EXAM NARRATIVE: GENERAL: Patient is alert, awake and oriented x3. [] NECK: No jugular vein distension. [] HEENT: No cyanosis. No icterus. No pallor. [] HEART: Irregularly irregular, S1 and S2. No murmur, rub or gallop. [] LUNGS: Clear to auscultate bilaterally. [] ABDOMEN: Soft, nontender and nondistended. Positive bowel sounds. No guarding, rebound or tenderness. [] CENTRAL NERVOUS SYSTEM: Grossly nonfocal. [] EXTREMITIES: Lower extremities with 1+ edema bilaterally. Pulses palpable in the lower extremities, both dorsalis pedis and posterior tibial. [] Data : 01/11/21 01:55 01/11/21 01:55 A&P Assessment and plan (1) Elevated troponin: Status: Acute (2) Chest pain: Status: Acute Qualifiers: Chest pain type: unspecified Qualified Code(s): R07.9 - Chest pain, unspecified (3) Tobacco abuse, in remission: Status: Acute (4) Warfarin anticoagulation: Status: Acute (5) Diabetes: Status: Acute (6) CKD (chronic kidney disease): Status: Acute (7) HTN (hypertension): Status: Acute (8) Atrial fibrillation: Status: Acute Qualifiers: Atrial fibrillation type: unspecified Qualified Code(s): I48.91 - Unspecified atrial fibrillation (9) ASHD (arteriosclerotic heart disease): Status: Acute (10) AAA (abdominal aortic aneurysm): Status: Acute Patient has presented with chest discomfort and was found to be in A. fib with RVR. This could be secondary to A. fib or unmasking of ischemia in setting of fast heart rates. Given his significantly elevated creatinine(has CKD with baseline creatinine around 1.9), will recommend performing a stress test initially. If stress test shows significantly area of reversible perfusion abnormality, we will proceed with coronary angiogram. Holding coumadin. On Heparin gtt. Continue Echocardiogram performed that shows normal LV systolic function. Switched to PO cardizem. Heart rate is controlled. If patient has continued chest pain symptoms over the weekend, may perform coronary angiogram. Thank you for involving us with care of this patient. We will continue to follow. Please call with questions. Attestations Medical Necessity Statement*: Care expected to cross 2 midnights Coding Level of Care Code Acute Registered Nurse Nursery for g Fwd Diagnoses Elevated troponin R77.8 Chest pain R07.9 Chest pain type: unspecified Tobacco abuse, in remission F17.201 Warfarin anticoagulation Z79.01 Diabetes E11.9 CKD (chronic kidney disease) N18.9 HTN (hypertension) I10 Atrial fibrillation I48.91 Atrial fibrillation type: unspecified ASHD (arteriosclerotic heart disease) I25.10 AAA (abdominal aortic aneurysm) I71.4
--- NOTE | 2021-01-10 13:10 | PC.NURSE ---
Heparin decreased by 6 mL 22 to 16 per Heparin Protocol.
[2021-01-10 16:50] LABS: Glucose Point of Care 150 mg/dL (70-110)
[2021-01-10] MEDS: dilTIAZem 30 mg Tablet PO ×2 (17:36→20:06)
--- NOTE | 2021-01-10 19:29 | P.PN_ITS ---
Subjective Subjective: Interval history: He states he is doing all right currently. Denies any complaints. Denies any chest pain or pressure. Is not short of breath. He has had a good discussion with cardiology today with regards to additional plans, and they have agreed for additional risk stratification with stress testing once it is available on Tuesday. Continued anticoagulation with heparin drip. Vitals/I&O/Wt Last Vital Signs Temp 98.0 F 01/10/21 18:58 Pulse 73 01/10/21 18:58 Resp 20 H 01/10/21 18:58 BP 116/73 01/10/21 18:58 Pulse Ox 94 01/10/21 18:58 01/10/21 01/10/21 01/10/21 06:59 14:59 22:59 Intake Total 254.933 / 607.517 525.867 / 525.867 200 / 725.867 Output Total 150 / 350 Balance 104.933 / 257.517 525.867 / 525.867 200 / 725.867 Weight last 48 hrs Weight 101.015 kg Weight 102.512 kg Weight 99.79 kg Data : 01/10/21 02:15 01/10/21 02:15 A&P Assessment and plan (1) Atrial fibrillation: As per discussion with cardiology transitioned to oral Cardizem. Drip discontinued. Continue metoprolol. Continue telemetry monitoring. Coumadin is on hold. Consider alternative anticoagulation, in case exploration of atherosclerotic disease as needed. Status: Acute Qualifiers: Atrial fibrillation type: unspecified Qualified Code(s): I48.91 - Unspecified atrial fibrillation (2) Elevated troponin: Appreciate cardiology recommendations. Continue heparin drip. Continue cardiac meds. Plans for additional risk stratification with stress test on Tuesday. Concern for possible ischemia unmasked by Madison edward with RVR. Status: Acute (3) ASHD (arteriosclerotic heart disease): Status: Acute (4) CKD (chronic kidney disease): Creatinine with mild elevation to 2.1. Monitor. Baseline not entirely clear. Prior creatinine levels very variable with no recent values available. Continue to monitor Avoid renal toxic medication Status: Acute (5) COPD (chronic obstructive pulmonary disease): DuoNeb as needed Status: Acute (6) HTN (hypertension): Blood pressure slightly soft. Monitor. With Cardizem, metoprolol on board. He is also on tamsulosin. Status: Acute (7) Hyperlipidemia: Continue statin Status: Acute (8) Diabetes: Sliding scale insulin Status: Acute Additional A&P Information Full code Attestations Medical Necessity Statement*: Continue admission for optimization of control of atrial fibrillation with RVR, assessment for coronary artery disease with A. fib with RVR triggered ischemia. Coding Level of Care Code Acute Drug Safety Specialist for [facility] Fwd Diagnoses Atrial fibrillation I48.91 Atrial fibrillation type: unspecified Elevated troponin R77.8 ASHD (arteriosclerotic heart disease) I25.10 CKD (chronic kidney disease) N18.9 COPD (chronic obstructive pulmonary disease) J44.9 HTN (hypertension) I10 Hyperlipidemia E78.5 Diabetes E11.9
[2021-01-10 19:49] LABS: Partial Thromboplastin Time 77.9 SECONDS (23.9-36.7)
[2021-01-10] MEDS: heparin drip 25,000 UNIT/500 ML PREMIX 14 UNIT IV (19:56)
[2021-01-10 20:02] LABS: Glucose Point of Care 150 mg/dL (70-110)
[2021-01-11] VITALS (11 sets, daily range): BP systolic 121–146; BP diastolic 64–75; PULSE 58–74; RESP 13–23; TEMP 36.6–36.9; O2SAT 92–96
[2021-01-11 02:43] LABS: Basophils % 0.4 %; Eosinophils # 0.4 10^3/uL (0.0-0.8); Hematocrit 43.7 % (42.0-52.0); Lymphocytes # 1.2 10^3/uL (0.8-4.8); Lymphocytes % 12.3 %; Mean Corpuscular Hemoglobin 30.1 pg (28.0-34.0); Mean Platelet Volume 11.5 fL (7.4-10.4); Monocytes # 0.9 10^3/uL (0.2-0.9); Monocytes % 9.9 %; Neutrophils # 6.91 10^3/uL (1.8-7.7); Neutrophils % 73.1 %; Nucleated Red Blood Cells % 0 %; Platelet Count 158 10^3/cmm (130-400); Red Blood Count 4.65 10^6/uL (4.1-5.3); Red Cell Distribution Width 13.9 % (12.1-15.1); White Blood Count 9.5 10^3/uL (4.0-10.0)
[2021-01-11 02:54] LABS: Partial Thromboplastin Time 64.7 SECONDS (23.9-36.7)
[2021-01-11 03:03] LABS: Blood Urea Nitrogen 33 mg/dL (8-23); Calcium 8.8 mg/dL (8.5-10.5); Carbon Dioxide 24 mmol/L (22-29); Chloride 108 mmol/L (98-107); Glucose 157 mg/dL (65-115); Osmolality Calculated 305 mOsm/kg (285-295); Sodium 142 mmol/L (136-145)
[2021-01-11 03:05] LABS: Anion Gap 13.6 (5-19); Potassium 3.6 mmol/L (3.5-5.1)
[2021-01-11 06:34] LABS: Glucose Point of Care 157 mg/dL (70-110)
[2021-01-11] MEDS: tamsulosin 0.4 mg Capsule PO (09:37)
[2021-01-11] MEDS: citalopram 20 mg Tablet PO (09:37)
[2021-01-11] MEDS: metoprolol tartrate 50 mg Tablet PO ×2 (09:37→16:47)
[2021-01-11] MEDS: dilTIAZem 30 mg Tablet PO ×4 (09:37→21:28)
[2021-01-11] MEDS: FUROsemide 40 mg Tablet PO ×2 (09:37→16:47)
[2021-01-11] MEDS: pantoprazole DR 40 mg Tablet PO (09:37)
[2021-01-11] MEDS: aspirin 325 mg EC Tablet PO (09:37)
[2021-01-11] MEDS: atorvastatin 40 mg Tablet 20 MG PO (09:37)
[2021-01-11] MEDS: allopurinol 300 mg Tablet PO (09:38)
[2021-01-11 10:20] LABS: Partial Thromboplastin Time 59.4 SECONDS (23.9-36.7)
[2021-01-11 11:33] LABS: Glucose Point of Care 178 mg/dL (70-110)
[2021-01-11 15:32] LABS: Partial Thromboplastin Time 54.2 SECONDS (23.9-36.7)
[2021-01-11 17:16] LABS: Glucose Point of Care 167 mg/dL (70-110)
--- NOTE | 2021-01-11 18:35 | PM.PN ---
Subjective Subjective: Interval history: Patient is doing well. No complaints of chest pain or shortness of breath or palpitations. Creatinine has gone up slightly. Vitals/I&O/Wt Last Vital Signs Temp 97.8 F 01/11/21 15:29 Pulse 65 01/11/21 15:47 Resp 23 H 01/11/21 15:47 BP 129/68 01/11/21 15:47 Pulse Ox 93 01/11/21 15:47 01/11/21 01/11/21 01/11/21 06:59 14:59 22:59 Intake Total 480 / 480 276.5 / 756.5 Output Total 300 / 300 Balance 180 / 180 276.5 / 456.5 Weight last 48 hrs Weight 220 lb 1.6 oz Weight 222 lb 11.2 oz Weight 226 lb Physical Exam Narrative: EXAM NARRATIVE: GENERAL: Patient is alert, awake and oriented x3. [] NECK: No jugular vein distension. [] HEENT: No cyanosis. No icterus. No pallor. [] HEART: Irregularly irregular, S1 and S2. No murmur, rub or gallop. [] LUNGS: Clear to auscultate bilaterally. [] ABDOMEN: Soft, nontender and nondistended. Positive bowel sounds. No guarding, rebound or tenderness. [] CENTRAL NERVOUS SYSTEM: Grossly nonfocal. [] EXTREMITIES: Lower extremities with 1+ edema bilaterally. Pulses palpable in the lower extremities, both dorsalis pedis and posterior tibial. [] Data : 01/11/21 01:55 01/11/21 01:55 A&P Assessment and plan (1) Elevated troponin: Status: Acute (2) Chest pain: Status: Acute Qualifiers: Chest pain type: unspecified Qualified Code(s): R07.9 - Chest pain, unspecified (3) Tobacco abuse, in remission: Status: Acute (4) Warfarin anticoagulation: Status: Acute (5) Diabetes: Status: Acute (6) CKD (chronic kidney disease): Status: Acute (7) HTN (hypertension): Status: Acute (8) Atrial fibrillation: Status: Acute Qualifiers: Atrial fibrillation type: unspecified Qualified Code(s): I48.91 - Unspecified atrial fibrillation (9) ASHD (arteriosclerotic heart disease): Status: Acute (10) AAA (abdominal aortic aneurysm): Status: Acute Patient has presented with chest discomfort and was found to be in A. fib with RVR. This could be secondary to A. fib or unmasking of ischemia in setting of fast heart rates. Given his significantly elevated creatinine(has CKD with baseline creatinine around 1.9), will recommend performing a stress test initially. If stress test shows significantly area of reversible perfusion abnormality, we will proceed with coronary angiogram. Holding coumadin. On Heparin gtt. Continue Echocardiogram performed that shows normal LV systolic function. Switched to PO cardizem. Heart rate is controlled. Creatinine has worsened today. We will hold diuretics for now in anticipation of possible coronary angiogram if stress test is abnormal. Thank you for involving us with care of this patient. We will continue to follow. Please call with questions. Attestations Medical Necessity Statement*: Care expected to cross 2 midnights. 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
--- NOTE | 2021-01-11 21:42 | P.PN_ITS ---
Subjective Subjective: Interval history: Today he is doing well. Denies chest pain or pressure. No shortness of breath. Denies any complaints. Vitals/I&O/Wt Last Vital Signs Temp 98 F 01/11/21 20:00 Pulse 58 L 01/11/21 20:00 Resp 19 H 01/11/21 20:00 BP 131/67 01/11/21 20:00 Pulse Ox 95 01/11/21 20:00 01/11/21 01/11/21 01/11/21 06:59 14:59 22:59 Intake Total 480 / 480 276.5 / 756.5 Output Total 300 / 300 Balance 180 / 180 276.5 / 456.5 Weight last 48 hrs Weight 99.836 kg Weight 101.015 kg Weight 102.512 kg Physical Exam Const: COMMON NORMALS: no acute distress and patient oriented x3 HENMT: COMMON NORMALS: oropharynx normal Neck/C-Spine: COMMON NORMALS: no JVD Resp: COMMON NORMALS: normal respiratory effort and clear to auscultation bilaterally AUSCULTATION: clear to auscultation bilaterally Cardio: COMMON NORMALS: no JVD, regular rhythm, S1 normal heart sound present, S2 normal heart sound present and No murmurs present (Cardio) RHYTHM: regular rhythm HEART SOUNDS: S1 normal heart sound present and S2 normal heart sound present GI: COMMON NORMALS: Normal to inspection, nondistended, normoactive bowel sounds present, Soft to palpation and non-tender PALPATION: Yes Soft to palpa tion Extremity: COMMON NORMALS: no joint enlargement and no pedal edema Neuro: COMMON NORMALS: patient oriented x3 and moves all extremities Skin: COMMON NORMALS: no rashes or lesions noted GENERAL SKIN EXAM: no rashes or lesions noted Data : 01/11/21 01:55 01/11/21 01:55 A&P Assessment and plan (1) Elevated troponin: Stress test scheduled for tomorrow. Discussed with him. Denies any questions. Appreciate cardiology recommendations. Continue heparin drip. Continue cardiac meds. Concern for possible ischemia unmasked by Madison edward with RVR. Status: Acute (2) Atrial fibrillation: Doing well on oral Cardizem. Continue metoprolol. Continue telemetry monitoring. Coumadin is on hold. On heparin drip. Status: Acute Qualifiers: Atrial fibrillation type: unspecified Qualified Code(s): I48.91 - Unspecified atrial fibrillation (3) ASHD (arteriosclerotic heart disease): Status: Acute (4) CKD (chronic kidney disease): Creatinine with mild elevation to 2.2. Monitor. Baseline not entirely clear. Prior creatinine levels very variable with no recent values available. Continue to monitor Avoid renal toxic medication Status: Acute (5) COPD (chronic obstructive pulmonary disease): DuoNeb as needed Status: Acute (6) HTN (hypertension): Blood pressure at goal with Cardizem, metoprolol on board. He is also on tamsulosin. Status: Acute (7) Hyperlipidemia: Continue statin Status: Acute (8) Diabetes: Sliding scale insulin Status: Acute Additional A&P Information Full code Attestations Medical Necessity Statement*: Continue admission for assessment management for progression of coronary disease with troponin elevation, chest discomfort, atrial fibrillation with RVR on presentation. Coding Level of Care Code Acute Data Collection Associate for [facility] Fwd Diagnoses Elevated troponin R77.8 Atrial fibrillation I48.91 Atrial fibrillation type: unspecified ASHD (arteriosclerotic heart disease) I25.10 CKD (chronic kidney disease) N18.9 COPD (chronic obstructive pulmonary disease) J44.9 HTN (hypertension) I10 Hyperlipidemia E78.5 Diabetes E11.9
[2021-01-11 22:22] LABS: Glucose Point of Care 155 mg/dL (70-110)
[2021-01-11 22:28] LABS: Partial Thromboplastin Time 68.1 SECONDS (23.9-36.7)
[2021-01-12] VITALS (9 sets, daily range): BP systolic 120–145; BP diastolic 69–87; PULSE 61–72; RESP 15–18; TEMP 36.6–37.1; O2SAT 94–96; BMI 37.8
[2021-01-12 04:21] LABS: Basophils % 0.3 %; Eosinophils # 0.3 10^3/uL (0.0-0.8); Eosinophils % 2.8 %; Hematocrit 45.4 % (42.0-52.0); Hemoglobin 14.8 g/dL (11.7-16.6); Lymphocytes # 1.4 10^3/uL (0.8-4.8); Lymphocytes % 12.3 %; Mean Corpuscular HGB Conc 32.6 g/dL (30.0-36.0); Mean Corpuscular Hemoglobin 30.6 pg (28.0-34.0); Mean Corpuscular Volume 93.8 fL (80-94); Mean Platelet Volume 11.4 fL (7.4-10.4); Monocytes # 1.1 10^3/uL (0.2-0.9); Monocytes % 9.8 %; Neutrophils # 8.36 10^3/uL (1.8-7.7); Neutrophils % 74.4 %; Nucleated Red Blood Cells % 0 %; Platelet Count 158 10^3/cmm (130-400); Red Blood Count 4.84 10^6/uL (4.1-5.3); Red Cell Distribution Width 13.9 % (12.1-15.1); White Blood Count 11.2 10^3/uL (4.0-10.0)
[2021-01-12 04:42] LABS: Anion Gap 16.7 (5-19); Blood Urea Nitrogen 34 mg/dL (8-23); Calcium 8.3 mg/dL (8.5-10.5); Carbon Dioxide 25 mmol/L (22-29); Chloride 105 mmol/L (98-107); Glucose 151 mg/dL (65-115); Osmolality Calculated 307 mOsm/kg (285-295); Potassium 3.7 mmol/L (3.5-5.1); Sodium 143 mmol/L (136-145)
[2021-01-12 04:55] LABS: INR 1.56 (0.8-1.2); Partial Thromboplastin Time 57.2 SECONDS (23.9-36.7)
[2021-01-12 06:55] LABS: Glucose Point of Care 142 mg/dL (70-110)
--- NOTE | 2021-01-12 07:00 | ECG_ITS ---
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 Interpretive Statements NAME OF STUDY: LEXISCAN SESTAMIBI STRESS TEST INDICATION: [Chest Pain, ] Procedure: At the baseline, the blood pressure was 136/61mmHg with a heart rate of 61 bpm. The electrocardiogram showed normal sinus rhythm, normal axis with normal ST and T's. The Lexiscan was infused over a period of 20 seconds. A total of 0.4 mg of Lexiscan was infused. The stress phase was continued for a total of 5 minutes. Heart rate was at the end of stress phase was 70 bpm and a blood pressure of 143/67 mmHg. The EKG at the peak infusion revealed since normal sinus rhythm with no significant ST-T wave changes. Sestamibi was injected 20 seconds after the Lexiscan infusion. Blood pressure at the end of recovery phase was 129/69 mmHg with a heart rate of 69 bpm. Conclusion: 1. Normal EKG response to Lexiscan infusion 2. No Lexiscan induced chest pain or cardiac arrhythmia. 3. Normal blood pressure and heart rate response. 4. Sestamibi/sestamibi perfusion scan pending; see separate report. Electronically Signed On 01-28-2021 13:20:40 CDT by Dada Shafer M.D. [id number]
--- NOTE | 2021-01-12 08:48 | PC.RESP ---
PULMONARY REHAB INFORMATION SENT TO PATIENT.
[2021-01-12] MEDS: dilTIAZem 30 mg Tablet PO ×2 (09:02→13:47)
[2021-01-12] MEDS: aspirin 325 mg EC Tablet PO (09:02)
[2021-01-12] MEDS: metoprolol tartrate 50 mg Tablet PO (09:02)
[2021-01-12] MEDS: citalopram 20 mg Tablet PO (09:03)
[2021-01-12] MEDS: tamsulosin 0.4 mg Capsule PO (09:03)
[2021-01-12] MEDS: atorvastatin 40 mg Tablet 20 MG PO (09:04)
[2021-01-12] MEDS: allopurinol 300 mg Tablet PO (09:04)
[2021-01-12] MEDS: pantoprazole DR 40 mg Tablet PO (09:04)
[2021-01-12] MEDS: regadenoson 0.4 Mg/5 ml Syringe IVP (11:25)
--- NOTE | 2021-01-12 11:30 | PC.NURSE ---
Stress test Pt left unit at 1020 for stress test
[2021-01-12 12:36] LABS: Glucose Point of Care 171 mg/dL (70-110)
[2021-01-12 13:34] LABS: Partial Thromboplastin Time 51.2 SECONDS (23.9-36.7)
[2021-01-12] MEDS: heparin 5,000 unit/mL INJ 1 mL IV (13:48)
[2021-01-12] MEDS: heparin drip 25,000 UNIT/500 ML PREMIX 18 UNIT IV (13:49)
--- NOTE | 2021-01-12 15:33 | PM.PN ---
Subjective Subjective: Interval history: Patient is doing well. No complaints of chest pain, shortness of breath or palpitations. Stress test was performed today that was normal. Vitals/I&O/Wt Last Vital Signs Temp 98.7 F 01/12/21 12:00 Pulse 70 01/12/21 11:26 Resp 16 01/12/21 12:00 BP 130/85 01/12/21 12:00 Pulse Ox 94 01/12/21 12:00 01/12/21 01/12/21 01/12/21 06:59 14:59 22:59 Intake Total 343.5 / 343.5 Output Total 350 / 1200 200 / 200 Balance -350 / -443.5 143.5 / 143.5 Weight last 48 hrs Weight 220 lb 8 oz Weight 220 lb 1.6 oz Physical Exam Narrative: EXAM NARRATIVE: GENERAL: Patient is alert, awake and oriented x3. [] NECK: No jugular vein distension. [] HEENT: No cyanosis. No icterus. No pallor. [] HEART: Irregularly irregular, S1 and S2. No murmur, rub or gallop. [] LUNGS: Clear to auscultate bilaterally. [] ABDOMEN: Soft, nontender and nondistended. Positive bowel sounds. No guarding, rebound or tenderness. [] CENTRAL NERVOUS SYSTEM: Grossly nonfocal. [] EXTREMITIES: Lower extremities with 1+ edema bilaterally. Pulses palpable in the lower extremities, both dorsalis pedis and posterior tibial. [] Data : 01/12/21 03:45 01/12/21 03:45 A&P Assessment and plan (1) Elevated troponin: Status: Resolved (2) Chest pain: Status: Resolved Qualifiers: Chest pain type: unspecified Qualified Code(s): R07.9 - Chest pain, unspecified (3) Tobacco abuse, in remission: Status: Resolved (4) Warfarin anticoagulation: (5) Diabetes: (6) CKD (chronic kidney disease): (7) HTN (hypertension): (8) Atrial fibrillation: Qualifiers: Atrial fibrillation type: unspecified Qualified Code(s): I48.91 - Unspecified atrial fibrillation (9) ASHD (arteriosclerotic heart disease): (10) AAA (abdominal aortic aneurysm): Patient has presented with chest discomfort and was found to be in A. fib with RVR. We will proceed with a Lexiscan to rule out ischemia. His Lexiscan did not reveal any significant area of ischemia. Resume Coumadin. Echocardiogram performed that shows normal LV systolic function. Switched to PO cardizem. Heart rate is controlled. Thank you for involving us with care of this patient. Patient is ready to be discharged from cardiology standpoint with outpatient followup. Please call with questions. Attestations Medical Necessity Statement*: Care expected to cross 2 midnights. Coding Level of Care Code Acute Personal Computer Network Analyst for [facility] Ila Diagnoses Elevated troponin R77.8 Chest pain R07.9 Chest pain type: unspecified Tobacco abuse, in remission F17.201 Warfarin anticoagulation Z79.01 Diabetes E11.9 CKD (chronic kidney disease) N18.9 HTN (hypertension) I10 Atrial fibrillation I48.91 Atrial fibrillation type: unspecified ASHD (arteriosclerotic heart disease) I25.10 AAA (abdominal aortic aneurysm) I71.4
--- NOTE | 2021-01-12 16:00 | PC.NURSE ---
Called [facility] pharmacy on pt's new med.
--- NOTE | 2021-01-12 16:30 | PC.NURSE ---
Discharge to home Instructed pt to follow-up with his pcp, information security and internet researcher. Notified Dr. Stein via phone regarding his lasix BID to be continued on his discharge meds. Dr. Stein order to let pt hold the lasix until he talk to his internet researcher tomorrow. Pt informed on this and he verbalizes understanding. Informed pt on his new med and the rest of his continued meds. Instructed pt to take his evening meds and his coumadin today as instructed. Pt verbalizes understanding.
--- NOTE | 2021-01-12 18:33 | NMCV_ITS ---
NM indra perf SPECT r/s* [id number] José Elliott Age: 75 Gender: M : 1945 Exam Date: 01/12/2021 10:13 Ordering Phys: Dada Shafer M.D ([email or web address]) Technologist: DONNA Linn Exam Location: [facility] Indications: CHEST PAIN STRESS TEST Please see separate stress test report in [facility] for full findings IMAGE PROTOCOL Rest/Stress 1 Lexiscan Day Radiopharmaceutical Dose (mCi) Administration Site Administered by Rest: Tc-99m 10.7 IV DONNA Linn Sestamibi Stress:Tc-99m 32.5 IV DONNA Linn Sestamibi Rest: 12-Jan-2021 60 Discovery 630 Stress: 12-Jan-2021 30 Discovery 630 0.4mg Lexiscan. Images obtained in supine and prone position. SPECT RESULTS Technical Quality: Excellent Raw Data Analysis: Normal Image Corrections: No attenuation or motion correction applied Summed Stress Score: 2 Summed Rest Score: 6 Summed Difference Score: 0 PERFUSION FINDINGS There is a small area of low radiotracer uptake in the apical and apical inferior waddell. However it improves on stress. Likely represents diaphragmatic attenuation artifact. No evidence of ischemia FUNCTIONAL RESULTS (calculated via Gated SPECT) Stress Image LV EF (%): 82 Stress EDV (mL):73 TID: 1.19 Stress ESV (mL):13 FUNCTIONAL FINDINGS: There is normal left ventricular systolic function. IMPRESSIONS 1. Low radiotracer uptake in the apical and apical inferior waddell. This improves with stress. Likely represents attenuation artifact. No evidence of ischemia. 2. LV systolic function is normal Dada Shafer MD (Electronically Signed) Final Date: 12 January 2021 13:57 S
--- NOTE | 2021-01-19 13:18 | P.DS_ITS ---
Discharge Providers Date of Admission: 01/09/21 07:34 Attending Provider at Admission: Jean Sumner MD Attending Provider at Discharge: Jay Stein MD Primary Care Provider: Graeme Felipe DO Diagnoses at Discharge Discharge Diagnosis (1) Elevated troponin: Status: Resolved (2) Atrial fibrillation: Qualifiers: Atrial fibrillation type: unspecified Qualified Code(s): I48.91 - Unspecified atrial fibrillation (3) ASHD (arteriosclerotic heart disease): (4) CKD (chronic kidney disease): (5) COPD (chronic obstructive pulmonary disease): (6) HTN (hypertension): (7) Hyperlipidemia: (8) Diabetes: Reason for Visit Reason for Visit: Chest Pain Hospital Course Hospital Course José Elliott is a 75 year old male who presented to the hospital with complaints of chest discomfort. He reports this started at around 1 AM when he was in bed. He is not for sure if this awoke him from sleep. He reported he had some shortness of breath with it. He denied any palpitations. He came into the emergency department and was found to be in atrial fibrillation with rapid ventricular rate. He was placed on a Cardizem drip. He denies any chest discomfort currently. He reports no recent fever, cough. He denies a history of Covid, exposure to it or vaccination for it. He reports his atrial fibrillation is paroxysmal, and last hospitalization many years ago he converted spontaneously when heart rate was lowered. date of discharge 01/12 he was admitted for chest pain, seen by cardiology . given ACS medications. Heparin gtt was started medications. had stress test. reviewed by parts salvager. discharged home in stable condition. stress test IMPRESSIONS 1. Low radiotracer uptake in the apical and apical inferior waddell. This improves with stress. Likely represents attenuation artifact. No evidence of ischemia. 2. LV systolic function is normal Physical Exam Const: COMMON NORMALS: no acute distress Chest: COMMONS NORMALS: normal inspection of the chest Resp: COMMON NORMALS: normal respiratory effort and No retractions Cardio: COMMON NORMALS: regular rate and regular rhythm RATE: regular rate RHYTHM: regular rhythm GI: COMMON NORMALS: Soft to palpation and non-tender PALPATION: Yes Soft to palpation Discharge Data Data Completed and Pending: Completed Studies During Hospitalization Category Date Time Status Cardiac Stress Te st MIBI [Sestamibi Stress Test Reque st Exams 01/12/21 07:00 Draft ] Routine XR chest 1V natanael ble [id number] Stat Exams 01/09/21 01:58 Completed NM indra perf SPECT r/s* [id number] Routin e Nuc Med 01/12/21 18:33 Completed CV. echo wo/w con trast [id number] Routin e Ultrasound 01/09/21 13:07 Completed Vitals: Last Vital Signs Temp 98 F 01/12/21 16:13 Pulse 72 01/12/21 16:13 Resp 16 01/12/21 16:13 BP 145/87 01/12/21 16:13 Pulse Ox 94 01/12/21 16:13 Discharge Plan Discharge Patient Disposition: Home Condition: Stable Prescriptions: New Cardizem CD 120 mg capsule,extended release 24hr 120 mg PO DAILY Qty: 30 RF: 0 Continued Lantus U-100 Insulin 100 unit/mL solution 45 unit SUBCUT DAILY RF: 0 pantoprazole 40 mg tablet,delayed release (DR/EC) 40 mg PO DAILY RF: 0 metoprolol tartrate 50 mg tablet 50 mg PO BID RF: 0 citalopram 40 mg tablet 20 mg PO DAILY RF: 0 nitroglycerin [Nitrostat] 0.4 mg tablet, sublingual 0.4 mg SUBLINGUAL Q5M PRN (Reason: Chest Pain) RF: 0 insulin aspart U-100 [Novolog U-100 Insulin aspart] 100 unit/mL solution 1 sliding scale dose SUBCUT TID RF: 0 omega-3 acid ethyl esters 1 gram capsule 1 cap PO BID RF: 0 glipizide 10 mg tablet 10 mg PO BID RF: 0 allopurinol 300 mg tablet 300 mg PO DAILY RF: 0 pravastatin 80 mg tablet 80 mg PO DAILY RF: 0 warfarin 1 mg tablet See Rx Instructions PO DAILY RF: 0 tamsulosin 0.4 mg capsule 0.4 mg PO DAILY RF: 0 Spiriva with HandiHaler 18 mcg capsule, w/inhalation device 1 cap INHALATION DAILY RF: 0 furosemide 40 mg tablet 40 mg PO BID RF: 0 Vitamin D3 25 mcg (1,000 unit) Tablet 25 mcg PO DAILY RF: 0 multivitamin Tablet 1 tab PO DAILY RF: 0 albuterol sulfate 90 mcg/actuation Hfa Aerosol Inhaler 1 puff INHALATION QID PRN (Reason: Shortness Of Breath) RF: 0 fenofibrate nanocrystallized 48 mg Tablet 48 mg PO DAILY RF: 0 Discharge Orders: Discharge Order (Routine); Ordered 01/12/21 Ordered By: Jay Stein Referrals: Dada Shafer M.D [Physician] - 02/12/21 2:45 pm (You Have a cardiology followup with Dr. Shafer at [facility] on February 12 at 2:45pm ) Graeme Felipe DO [Primary Care Provider] - 01/19/21 9:30 am (You have a hospital followup at [facility] with Dr. Jeffery on Tuesday, January 19 at 9:30am) Discharge Diet: Cardiac Discharge Activity: Resume usual activity Patient Instructions: Diltiazem (By mouth), Atrial Fibrillation (DC), Chest Pain Stoplight Discharge Attestations Time Spent in Discharge Care*: less than 30 min Quality Metrics Clinical Quality Measures During this hospital stay, did patient experience: None Coding Level of Care Code Acute Chg FW DC note Diagnoses Elevated troponin R77.8 Atrial fibrillation I48.91 Atrial fibrillation type: unspecified ASHD (arteriosclerotic heart disease) I25.10 CKD (chronic kidney disease) N18.9 COPD (chronic obstructive pulmonary disease) J44.9 HTN (hypertension) I10 Hyperlipidemia E78.5 Diabetes E11.9
== END 2021-01-12 16:55 | disposition home or self-care (01) | DRG 310 ==
LOC: ER 05:23 → CSU 12:23
PROVIDERS: Internal Medicine; Admitting Provider Internal Medicine; Emergency Provider Emergency Medicine; PCP Emergency Medicine Emergency Medical Services; Visit Provider Internal Medicine
DX: I48.0 Paroxysmal atrial fibrillation (principal); I71.4 Abdominal aortic aneurysm, without rupture; I25.10 Atherosclerotic heart disease of native coronary artery without angina pectoris; Z98.61 Coronary angioplasty status; N40.0 Benign prostatic hyperplasia without lower urinary tract symptoms; E11.22 Type 2 diabetes mellitus with diabetic chronic kidney disease; I12.9 Hypertensive chronic kidney disease with stage 1 through stage 4 chronic kidney disease, or unspecified chronic kidney disease; N18.9 Chronic kidney disease, unspecified; J44.9 Chronic obstructive pulmonary disease, unspecified; F32.9 Major depressive disorder, single episode, unspecified; K21.9 Gastro-esophageal reflux disease without esophagitis; M10.9 Gout, unspecified; Q63.1 Lobulated, fused and horseshoe kidney; E78.5 Hyperlipidemia, unspecified; Z87.891 Personal history of nicotine dependence; Z96.659 Presence of unspecified artificial knee joint; Z79.4 Long term (current) use of insulin; Z79.01 Long term (current) use of anticoagulants
CPT/HCPCS: 36415; 36416; 71045; 78452; 80048; 80053; 82962; 83735; 83880; 84443; 84484; 85025; 85610; 85730; 93005; 93017; 96365; 96366; 96372; 99285; A9500; C8929; J1644; J1815; J2250; J2785; J3010; J3490; J7030; J7040; Q9956

== ENCOUNTER → 2021-05-25 10:46 | Outpatient (BNVA) | payer MEDICARE, OTHER, SELFPAY | PROVIDERS: PCP Emergency Medicine Emergency Medical Services; Visit Provider Internal Medicine | DX: E11.22 Type 2 diabetes mellitus with diabetic chronic kidney disease (principal); E11.65 Type 2 diabetes mellitus with hyperglycemia; N18.4 Chronic kidney disease, stage 4 (severe) | CPT/HCPCS: 83036 ==

== ENCOUNTER → 2021-06-09 10:38 | Outpatient (BNVA) | payer MEDICARE, OTHER, SELFPAY | PROVIDERS: PCP Emergency Medicine Emergency Medical Services; Visit Provider Internal Medicine | DX: E11.22 Type 2 diabetes mellitus with diabetic chronic kidney disease (principal); E11.65 Type 2 diabetes mellitus with hyperglycemia; E11.40 Type 2 diabetes mellitus with diabetic neuropathy, unspecified; I25.10 Atherosclerotic heart disease of native coronary artery without angina pectoris; N18.4 Chronic kidney disease, stage 4 (severe); Z79.4 Long term (current) use of insulin | CPT/HCPCS: 99214 ==

== ENCOUNTER 2021-06-24 09:38 | Outpatient (CLI) | payer MEDICARE, OTHER, SELFPAY ==
--- NOTE | 2021-06-24 09:30 | USCV_ITS ---
José Elliott Age: 75 Gender: M : 1945 Exam Date: 06/24/2021 10:05 Ordering Phys: Dada Shafer M.D ([email or web address]) Technologist: Exam Location: [facility] Indication: AAA HISTORY: Diameter (cm) AP x Transverse x Length Velocity (cm/s) Waveform Prox Aorta: 2.35 x 2.42 x 63.30 Biphasic Mid Aorta: 3.45 x 2.67 x 60.30 Biphasic Distal Aorta: 3.48 x 3.70 x 72.80 Biphasic Right Iliac Prox: 1.10 x 1.13 x 85.90 Biphasic Left Iliac Prox: 1.13 x 1.32 x 93.70 Biphasic Stent Prox Landing x x Aneurysmal Sac Max x x Lt Lat Sac Dim Rt Lat Sac Dim Stent Dist Landing x x Right Iliac Stent x x Left Iliac Stent x x Right Renal Art Left Renal Art FINDINGS: Comparison:. 12/18/20 A complete assessment of the abdominal aorta was not possible. Mildly dilated aorta to 3.7 cm. Similar to the prior exam. Mild atherosclerotic plaque. CONCLUSIONS Technically very limited exam. Maximum diameter of the aorta is 3.[address] Sravanthi Collins DO (Electronically Signed) Final Date: 24 June 2021 11:59 S
== END 2021-06-24 09:39 | disposition home or self-care (01) ==
LOC: RAD 09:42
PROVIDERS: PCP Emergency Medicine Emergency Medical Services; Visit Provider Internal Medicine
DX: I71.4 Abdominal aortic aneurysm, without rupture (principal)
CPT/HCPCS: 93978

== ENCOUNTER → 2021-09-08 09:58 | Outpatient (BNVA) | payer MEDICARE, OTHER, SELFPAY | PROVIDERS: PCP Emergency Medicine Emergency Medical Services; Visit Provider Internal Medicine | DX: E11.22 Type 2 diabetes mellitus with diabetic chronic kidney disease (principal); E11.65 Type 2 diabetes mellitus with hyperglycemia; E11.40 Type 2 diabetes mellitus with diabetic neuropathy, unspecified; N18.4 Chronic kidney disease, stage 4 (severe); E78.2 Mixed hyperlipidemia; I25.10 Atherosclerotic heart disease of native coronary artery without angina pectoris; Z79.4 Long term (current) use of insulin; Z87.891 Personal history of nicotine dependence | CPT/HCPCS: 99214 ==

== ENCOUNTER → 2021-12-10 08:16 | Outpatient (BNVA) | payer OTHER, SELFPAY | PROVIDERS: PCP Emergency Medicine Emergency Medical Services; Visit Provider Internal Medicine | DX: E11.22 Type 2 diabetes mellitus with diabetic chronic kidney disease (principal); E11.65 Type 2 diabetes mellitus with hyperglycemia; N18.4 Chronic kidney disease, stage 4 (severe); E78.2 Mixed hyperlipidemia; Z87.891 Personal history of nicotine dependence; Z79.4 Long term (current) use of insulin; Z79.899 Other long term (current) drug therapy | CPT/HCPCS: 99214 ==

== ENCOUNTER 2021-12-19 14:02 | Emergency (ER) | payer OTHER, MEDICARE, SELFPAY ==
[2021-12-19] VITALS (7 sets, daily range): BP systolic 130–161; BP diastolic 68–126; PULSE 59–82; RESP 14–21; TEMP 37.5; O2SAT 94–97
--- NOTE | 2021-12-19 14:42 | ED_ITS ---
HPI - General Adult General: Chief complaint: General Medical Stated complaint: can't urinate Time Seen by Provider: 12/19/21 14:29 Source: patient and family Mode of arrival: ambulatory Limitations: no limitations History of Present Illness: Patient is a nice 76-year-old male who presents to ED today along with 2 other family members for concerns of accidental insulin overdose. Patient states he normally takes 47 units of his basal insulin which he did this morning. He states he also takes 4 units of NovoLog with/after meals but states he accidentally took 47 units of this as well. This occurred approximately 60 minutes prior to the time of my initial examination. Patient states once he noticed he had accidentally overdosed he immediately began drinking juice and peanut butter to keep his sugars up. Glucose in the 190s upon arrival to the ED and during my initial assessment. Patient has no physical complaints currently. Normal blood sugars for him are roughly 200s. Onset (ago): hour(s) Associated symptoms: Deny chest pain, dyspnea, headache(s), nausea, palpitations, syncope or vomiting Review of Systems Eyes: Denies: change in vision or blurry vision Card: Denies: chest pain, palpitations, lightheadedness, syncope or pre- syncope Resp: Denies: dyspnea GI: Denies: abdominal pain, nausea, vomiting or diarrhea Neuro: Denies: headache(s) or dizziness PFS ED PFSH: Medical History AAA (abdominal aortic aneurysm) ASHD (arteriosclerotic heart disease) Atrial fibrillation BPH (benign prostatic hyperplasia) CKD (chronic kidney disease) COPD (chronic obstructive pulmonary disease) Depression Diabetes GERD (gastroesophageal reflux disease) GERD (gastroesophageal reflux disease) Gout Horseshoe kidney HTN (hypertension) Hyperlipidemia Tobacco abuse, in remission Warfarin anticoagulation Surgical History S/P appendectomy S/P cholecystectomy S/P hernia repair S/P knee replacement S/P PTCA (percutaneous transluminal coronary angioplasty) S/P tonsillectomy Family History Father CAD (coronary artery disease) Hypertension Myocardial infarction Social History Smoking and tobacco status: former smoker Alcohol intake: never Physical Exam Const: COMMON NORMALS: no acute distress, patient oriented x3, no limitations and alert GENERAL APPEARANCE: cooperative NUTRITIONAL APPEARANCE: overweight ORIENTATION/CONSCIOUSNESS: Yes awake, Yes oriented to person, Yes oriented to place and Yes oriented to time HENMT: COMMON NORMALS: normocephalic and atraumatic HEAD & SCALP: normal to inspection, normocephalic and atraumatic Resp: COMMON NORMALS: normal respiratory effort and clear to auscultation bilaterally AUSCULTATION: clear to auscultation bilaterally Cardio: COMMON NORMALS: regular rate and regular rhythm RATE: regular rate RHYTHM: regular rhythm Extremity: COMMON NORMALS: normal to inspection GENERAL: Yes normal exam except as noted Neuro: SUNSHINE COMA SCALE: document GCS findings Sunshine coma scale eye openin g: Spontaneous [place] coma scale verbal response: Orientated [place] coma scale motor response: Obey commands Sunshine coma scale total score: 15 COMMON NORMALS: patient oriented x3, moves all extremities, no focal motor deficits and no sensory deficits noted SENSORIUM/ORIENTATION: Yes alert, Yes oriented to person, Yes oriented to place and Yes oriented to time GAIT: Yes Normal gait present Course Vital Signs: Vital signs: Vital Signs Temperature 99.5 F 12/19/21 14:10 Pulse Rate 78 12/19/21 19:30 Respiratory Rate 16 12/19/21 19:30 Blood Pressure 130/68 12/19/21 19:30 Pulse Oximetry 95 12/19/21 19:30 MDM - General Adult Medical Decision Making Patient here after accidental insulin overdose of his NovoLog. Patient was able to eat/drink here and given IV dextrose to keep glucose up. Peak effect of NovoLog is roughly 80 minutes. Patient was kept in our facility for several hours for glucose monitoring. Patient has been stable now over the past two hours and wants to go home. Patient has a continuous glucose monitor he can use to carefully monitor symptoms at home. He has an emergency glucagon pen for cases of severe hypoglycemia. Dr. Butcher has followed along in patient's case throughout his stay and agrees with assessment, treatment, and plan for discharge at this time. Lab Data : 12/19/21 14:34 12/19/21 14:34 Laboratory Results WBC 9.0 10^3/uL (4.0-10.0) 12/19/21 14:34 RBC 5.25 10^6/uL (4.1-5.3) 12/19/21 14:34 Hgb 15.8 g/dL (11.7-16.6) 12/19/21 14:34 Hct 46.9 % (42.0-52.0) 12/19/21 14:34 MCV 89.3 fl (80-94) 12/19/21 14:34 MCH 30.1 pg (28.0-34.0) 12/19/21 14:34 MCHC 33.7 g/dL (30.0-36.0) 12/19/21 14:34 RDW 13.5 % (12.1-15.1) 12/19/21 14:34 Plt Count 233 10^3/cmm (130-400) 12/19/21 14:34 MPV 11.4 fL (7.4-10.4) H 12/19/21 14:34 Neut % (Auto) 73.9 % 12/19/21 14:34 Lymph % (Auto) 15.7 % 12/19/21 14:34 Webb % (Auto) 7.1 % 12/19/21 14:34 Eos % (Auto) 2.5 % 12/19/21 14:34 Baso % (Auto) 0.4 % 12/19/21 14:34 Neut # (Auto) 6.61 10^3/uL (1.8-7.7) 12/19/21 14:34 Lymph # (Auto) 1.4 10^3/uL (0.8-4.8) 12/19/21 14:34 Webb # (Auto) 0.6 10^3/uL (0.2-0.9) 12/19/21 14:34 Eos # (Auto) 0.2 10^3/uL (0.0-0.8) 12/19/21 14:34 Baso # (Auto) 0.0 10^3/uL (0.0-0.1) 12/19/21 14:34 Nucleated RBC % (auto) 0 % 12/19/21 14:34 Nucleated RBCs # 0.0 /100WBC 12/19/21 14:34 Sodium 142 mmol/L (136-145) 12/19/21 14:34 Potassium 3.9 mmol/L (3.5-5.1) 12/19/21 14:34 Chloride 103 mmol/L (98-107) 12/19/21 14:34 Carbon Dioxide 24 mmol/L (22-29) 12/19/21 14:34 Anion Gap 18.9 (5-19) 12/19/21 14:34 BUN 49 mg/dL (8-23) H 12/19/21 14:34 Creatinine 2.3 mg/dL (0.7-1.2) H 12/19/21 14:34 GFR Calculation Not Reportable 12/19/21 14:34 Glucose 151 mg/dL (65-115) H 12/19/21 14:34 POC Glucose 130 mg/dL (70-110) H 12/19/21 16:06 Calculated Osmolality 310 mOsm/kg (285-295) H 12/19/21 14:34 Calcium 9.4 mg/dL (8.5-10.5) 12/19/21 14:34 Total Bilirubin 0.5 mg/dL (0.15-1.2) 12/19/21 14:34 AST 19 U/L (0-40) 12/19/21 14:34 ALT 8 U/L (0-41) 12/19/21 14:34 Alkaline Phosphatase 47 IU/L (40-130) 12/19/21 14:34 Total Protein 7.1 g/dL (6.6-8.7) 12/19/21 14:34 Albumin 4.5 g/dL (3.5-5.2) 12/19/21 14:34 Globulin 2.6 g/dL (1.3-4.6) 12/19/21 14:34 Discharge Plan Discharge Patient Disposition: Home Clinical Impression: Accidental overdose of insulin Condition: Stable Prescriptions: No Action pantoprazole 40 mg tablet,delayed release (DR/EC) 40 mg PO DAILY 0RF metoprolol tartrate 50 mg tablet 50 mg PO BID 0RF citalopram 40 mg tablet 20 mg PO DAILY 0RF insulin aspart U-100 [Novolog U-100 Insulin aspart] 100 unit/mL solution 1 sliding scale dose SUBCUT TID 0RF allopurinol 300 mg tablet 300 mg PO DAILY 0RF warfarin 1 mg tablet See Rx Instructions PO DAILY 0RF Rx Instructions: 2.5 mg po Mon, Weds, Tuesday - 5 mg po on , , Sat, Sun tamsulosin 0.4 mg capsule 0.4 mg PO DAILY 0RF Spiriva with HandiHaler 18 mcg capsule, w/inhalation device 1 cap INHALATION DAILY 0RF furosemide 40 mg tablet 40 mg PO DAILY 0RF Lantus U-100 Insulin 100 unit/mL solution 42 unit SUBCUT DAILY 0RF omega-3 acid ethyl esters 1 gram capsule 2 cap PO BID 0RF nitroglycerin [Nitrostat] 0.4 mg tablet, sublingual 0.4 mg SUBLINGUAL Q5M PRN (Reason: Chest Pain) Qty: 25 1RF (DME) Dexcom G6 Lieutenant Ballistics Misc See Rx Instructions .Route Qty: 1 0RF Rx Instructions: Check BS 4-6 times a day. (DME) Dexcom G6 Sensor Device See Rx Instructions .Route Qty: 3 3RF Rx Instructions: Change every 10 days. (DME) Dexcom G6 Transmitter Device See Rx Instructions .Route Qty: 1 3RF Rx Instructions: Change every 90 days. Glucagon Emergency Kit (human) 1 mg recon soln 1 mg SUBCUT Q20M PRN (Reason: hypoglycemia) Qty: 1 3RF Rx Instructions: until target blood sugar attained Vitamin D3 25 mcg (1,000 unit) Tablet 25 mcg PO DAILY 0RF multivitamin Tablet 1 tab PO DAILY 0RF albuterol sulfate 90 mcg/actuation Hfa Aerosol Inhaler 1 puff INHALATION QID PRN (Reason: Shortness Of Breath) 0RF Cardizem CD 120 mg capsule,extended release 24hr 120 mg PO DAILY Qty: 30 0RF fenofibrate nanocrystallized 48 mg tablet 145 mg PO DAILY 0RF Discharge Orders: Discharge ED (Routine); Ordered 12/19/21 Ordered By: Sally Reyes Referrals: Graeme Felipe DO [Primary Care Provider] - Coding Level of Care Code ED Credit Control Assistant for Chg Fwd Exam Detailed
[2021-12-19 14:45] LABS: Glucose Point of Care 144 mg/dL (70-110)
[2021-12-19] MEDS: dextrose 50% syringe 50 mL 25 ML IVP ×2 (14:50→16:19)
[2021-12-19 14:52] LABS: Basophils % 0.4 %; Eosinophils # 0.2 10^3/uL (0.0-0.8); Eosinophils % 2.5 %; Hematocrit 46.9 % (42.0-52.0); Hemoglobin 15.8 g/dL (11.7-16.6); Lymphocytes # 1.4 10^3/uL (0.8-4.8); Lymphocytes % 15.7 %; Mean Corpuscular HGB Conc 33.7 g/dL (30.0-36.0); Mean Corpuscular Hemoglobin 30.1 pg (28.0-34.0); Mean Corpuscular Volume 89.3 fl (80-94); Mean Platelet Volume 11.4 fL (7.4-10.4); Monocytes # 0.6 10^3/uL (0.2-0.9); Monocytes % 7.1 %; Neutrophils # 6.61 10^3/uL (1.8-7.7); Neutrophils % 73.9 %; Nucleated Red Blood Cells % 0 %; Platelet Count 233 10^3/cmm (130-400); Red Blood Count 5.25 10^6/uL (4.1-5.3); Red Cell Distribution Width 13.5 % (12.1-15.1)
[2021-12-19 15:11] LABS: Alanine Aminotransferase 8 U/L (0-41); Albumin Level 4.5 g/dL (3.5-5.2); Alkaline Phosphatase 47 IU/L (40-130); Anion Gap 18.9 (5-19); Aspartate Amino Transferase 19 U/L (0-40); Blood Urea Nitrogen 49 mg/dL (8-23); Calcium 9.4 mg/dL (8.5-10.5); Carbon Dioxide 24 mmol/L (22-29); Chloride 103 mmol/L (98-107); Globulin 2.6 g/dL (1.3-4.6); Glucose 151 mg/dL (65-115); Osmolality Calculated 310 mOsm/kg (285-295); Potassium 3.9 mmol/L (3.5-5.1); Sodium 142 mmol/L (136-145); Total Bilirubin 0.5 mg/dL (0.15-1.2); Total Protein 7.1 g/dL (6.6-8.7)
--- NOTE | 2021-12-19 15:23 | PC.NURSE ---
blood sugar 163, down from 218. Notified Sally that sugar was going down, instructed to give juice, and to give half of the d50 that is left from first dose if family wants to. Family states they would like to have the d50.
[2021-12-19 16:08] LABS: Glucose Point of Care 130 mg/dL (70-110)
--- NOTE | 2021-12-19 16:20 | PC.NURSE ---
blood sugar of 130, notified Sally. Orders were placed.
--- NOTE | 2021-12-19 16:30 | PC.NURSE ---
Patient blood sugar 180. Dr. Butcher states to give it 30 minutes and then check again if stable can stretch out timing of accu checks.
--- NOTE | 2021-12-19 17:07 | PC.NURSE ---
170 at 1700.
--- NOTE | 2021-12-19 18:27 | PC.NURSE ---
194 at 1800
--- NOTE | 2021-12-19 18:45 | PC.NURSE ---
blood sugar 145.
[2021-12-21 07:28] LABS: Glucose Point of Care 218 mg/dL (70-110)
[2021-12-21 07:28] LABS: Glucose Point of Care 140 mg/dL (70-110)
[2021-12-21 07:28] LABS: Glucose Point of Care 163 mg/dL (70-110)
[2021-12-21 07:28] LABS: Glucose Point of Care 197 mg/dL (70-110)
[2021-12-21 07:28] LABS: Glucose Point of Care 145 mg/dL (70-110)
[2021-12-21 07:28] LABS: Glucose Point of Care 154 mg/dL (70-110)
[2021-12-21 07:28] LABS: Glucose Point of Care 180 mg/dL (70-110)
[2021-12-21 07:28] LABS: Glucose Point of Care 172 mg/dL (70-110)
[2021-12-21 07:28] LABS: Glucose Point of Care 179 mg/dL (70-110)
[2021-12-21 07:28] LABS: Glucose Point of Care 170 mg/dL (70-110)
== END 2021-12-19 19:30 | disposition home or self-care (01) ==
PROVIDERS: Emergency Provider Physician Assistant; PCP Emergency Medicine Emergency Medical Services
DX: T38.3X1A Poisoning by insulin and oral hypoglycemic [antidiabetic] drugs, accidental (unintentional), initial encounter (principal)
CPT/HCPCS: 36416; 80053; 82962; 85025; 96374; 96376; 99284

== ENCOUNTER → 2022-01-01 08:33 | Outpatient (BNVA) | payer OTHER, SELFPAY | PROVIDERS: PCP Emergency Medicine Emergency Medical Services; Visit Provider Internal Medicine | DX: E11.65 Type 2 diabetes mellitus with hyperglycemia (principal); E11.22 Type 2 diabetes mellitus with diabetic chronic kidney disease; N18.4 Chronic kidney disease, stage 4 (severe); E78.2 Mixed hyperlipidemia; Z79.4 Long term (current) use of insulin; Z87.891 Personal history of nicotine dependence | CPT/HCPCS: 99214 ==

== ENCOUNTER → 2022-02-18 15:01 | Outpatient (BNVA) | payer MEDICARE, OTHER, SELFPAY | PROVIDERS: PCP Emergency Medicine Emergency Medical Services; Visit Provider Internal Medicine | DX: I71.4 Abdominal aortic aneurysm, without rupture (principal); E78.5 Hyperlipidemia, unspecified; I12.9 Hypertensive chronic kidney disease with stage 1 through stage 4 chronic kidney disease, or unspecified chronic kidney disease; E11.22 Type 2 diabetes mellitus with diabetic chronic kidney disease; N18.9 Chronic kidney disease, unspecified; Z87.891 Personal history of nicotine dependence; Z79.4 Long term (current) use of insulin; Z79.84 Long term (current) use of oral hypoglycemic drugs; I48.91 Unspecified atrial fibrillation; Z79.01 Long term (current) use of anticoagulants; E11.65 Type 2 diabetes mellitus with hyperglycemia; N18.4 Chronic kidney disease, stage 4 (severe); E78.2 Mixed hyperlipidemia; L25.9 Unspecified contact dermatitis, unspecified cause | CPT/HCPCS: 99214 ==

== ENCOUNTER → 2022-03-16 10:52 | Outpatient (BNVA) | payer MEDICARE, OTHER, SELFPAY | PROVIDERS: PCP Emergency Medicine Emergency Medical Services; Visit Provider Internal Medicine | DX: E11.65 Type 2 diabetes mellitus with hyperglycemia (principal); E11.22 Type 2 diabetes mellitus with diabetic chronic kidney disease; N18.4 Chronic kidney disease, stage 4 (severe); E78.2 Mixed hyperlipidemia; Z79.4 Long term (current) use of insulin; Z87.891 Personal history of nicotine dependence | CPT/HCPCS: 99214 ==

== ENCOUNTER → 2022-04-01 09:47 | Outpatient (BNVA) | payer MEDICARE, OTHER, SELFPAY | PROVIDERS: PCP Emergency Medicine Emergency Medical Services; Visit Provider Internal Medicine | DX: E11.22 Type 2 diabetes mellitus with diabetic chronic kidney disease (principal); E11.65 Type 2 diabetes mellitus with hyperglycemia; E78.2 Mixed hyperlipidemia; N18.4 Chronic kidney disease, stage 4 (severe) | CPT/HCPCS: 80053; 80061; 83036 ==

== ENCOUNTER → 2022-04-05 08:40 | Outpatient (BNVA) | payer MEDICARE, OTHER, SELFPAY | PROVIDERS: PCP Emergency Medicine Emergency Medical Services; Visit Provider Internal Medicine | DX: E11.22 Type 2 diabetes mellitus with diabetic chronic kidney disease (principal); E11.65 Type 2 diabetes mellitus with hyperglycemia; N18.4 Chronic kidney disease, stage 4 (severe); E78.2 Mixed hyperlipidemia; L25.9 Unspecified contact dermatitis, unspecified cause; Z79.4 Long term (current) use of insulin; Z87.891 Personal history of nicotine dependence | CPT/HCPCS: 99214 ==

== ENCOUNTER 2022-05-15 18:46 | Emergency (ER) | payer MEDICARE, OTHER, SELFPAY ==
--- NOTE | 2022-05-15 18:57 | XRR_ITS ---
PROCEDURE INFORMATION: Exam: XR Chest Exam date and time: 05/15/2022 8:20 PM Age: 76 years old Clinical indication: Pain; Chest pressure; Additional info: Cp TECHNIQUE: Imaging protocol: Radiologic exam of the chest. Views: 1 view. COMPARISON: CR (CHEST, ) 01/09/2021 2:18 AM FINDINGS: Lungs: Unremarkable. No consolidation. Pleural spaces: Unremarkable. No pleural effusion. No pneumothorax. Heart/Mediastinum: Unremarkable. No cardiomegaly. Bones/joints: Unremarkable. XR/XR chest 1V portable [id number] IMPRESSION: No acute findings.
[2022-05-15 19:02] VITALS: PULSE 73; RESP 16; TEMP 36.9; O2SAT 94
--- NOTE | 2022-05-15 19:15 | ECG_ITS ---
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 Measurements Intervals Cashion Rate: 66 P: 41 RI: 152 QRS: 7 QRSD: 96 T: 50 QT: 375 QTc: 393 Interpretive Statements SINUS RHYTHM Compared to ECG 01/09/2021 09:22:46 Atrial fibrillation no longer present T-wave abnormality no longer present Electronically Signed On 05-16-2022 22:05:02 CASINO ASSISTANT MANAGER by Maryellen Sierra M.D. [id number]
--- NOTE | 2022-05-15 19:23 | W.ED.CHESTPA ---
HPI - Chest Pain General: Chief Complaint: Chest Pain Stated Complaint: Chest Pain\Fever\Weakness Time Seen by Provider: 05/15/22 19:09 Source: patient History of Present Illness: 76-year-old gentleman here with multiple complaints including chest discomfort, epigastric and back discomfort, and pain in his neck. He had a fever up to 103 at home. Said a mild cough. Some nausea no vomiting. Mild shortness of breath he has a history of coronary disease and atrial fibrillation. MD complaint: chest pain Pertinent past history: coronary artery disease and other Onset (ago): day(s) Timing of current episode: episodic Prior episodes: Yes Pain radiation: back and neck Quality: aching Relieving factors: nothing Exacerbating factors: nothing Context: recent illness Associated symptoms: Reports abdominal pain, dyspnea, fever(s) and nausea; Deny diaphoresis, leg edema, palpitations or vomiting Treatment prior to arrival: none Review of Systems Const: Reports: fever(s); Denies: diaphoresis Eyes: Denies: change in vision ENMT: Reports: throat pain Card: Reports: chest pain; Denies: palpitations Resp: Reports: dyspnea and non-productive cough GI: Reports: abdominal pain and nausea; Denies: vomiting Musc: Reports: neck pain and back pain PFSH ED PFSH: Medical History AAA (abdominal aortic aneurysm) ASHD (arteriosclerotic heart disease) Atrial fibrillation BPH (benign prostatic hyperplasia) CKD (chronic kidney disease) COPD (chronic obstructive pulmonary disease) Depression Diabetes GERD (gastroesophageal reflux disease) GERD (gastroesophageal reflux disease) Gout [place]orseshoe kidney HTN (hypertension) Hyperlipidemia Tobacco abuse, in remission Warfarin anticoagulation Surgical History S/P appendectomy S/P cholecystectomy S/P hernia repair S/P knee replacement S/P PTCA (percutaneous transluminal coronary angioplasty) S/P tonsillectomy Family History Father CAD (coronary artery disease) Hypertension Myocardial infarction Social History Smoking and tobacco status: former smoker Alcohol intake: never Physical Exam Const: COMMON NORMALS: no acute distress GENERAL APPEARANCE: cooperative HENMT: COMMON NORMALS: normocephalic, atraumatic and Normal external nose present HEAD & SCALP: normocephalic and atraumatic FACE & SINUS: normal facial exam NOSE: Normal external nose present Eye: COMMON NORMALS: Equal, round and reactive pupils present and EOMs intact bilaterally PUPIL: Yes Equal, round and reactive pupils present Chest: CHEST: Yes Symmetrical chest wall rise Resp: COMMON NORMALS: normal respiratory effort, No use of accessory muscles and clear to auscultation bilaterally AUSCULTATION: clear to auscultation bilaterally Cardio: COMMON NORMALS: regular rate and regular rhythm RATE: regular rate RHYTHM: regular rhythm GI: COMMON NORMALS: Normal to inspection, nondistended, normoactive bowel sounds present, Soft to palpation and non-tender PALPATION: Yes Soft to palpation Extremity: GENERAL: Yes edema (slight) Neuro: SUNSHINE COMA SCALE: document GCS findings [place] coma scale eye opening: Spontaneous [place] coma scale verbal response: Orientated [place] coma scale motor response: Obey commands [place] coma scale total score: 15 Course Vital Signs: Vital signs: Vital Signs Temperature 98.4 F 05/15/22 19:02 Pulse Rate 58 L 05/15/22 21:47 Respiratory Rate 16 05/15/22 21:47 Blood Pressure 115/68 05/15/22 21:47 Pulse Oximetry 93 05/15/22 21:47 Oxygen Delivery Me thod 05/15/22 21:47 MDM - Chest Pain Medical Decision Making Patient feeling improved after IV fluid here. EKG is not remarkable. Chest x-ray reveals no acute findings. Creatinine is stable at 2.2. CBC is normal. Patient is positive for coronavirus 19. Likely the cause of his fever and symptoms. Because of his comorbid conditions, he will be prescribed antiviral therapy. He was counseled on this. Troponin did not change at 2 hours. Lab Data : 05/15/22 19:15 05/15/22 19:15 Radiology Impressions Chest X-Ray 05/15/22 18:57 IMPRESSION: No acute findings. Laboratory Results WBC 4.6 10^3/uL (4.0-10.0) 05/15/22 19:15 RBC 5.16 10^6/uL (4.1-5.3) 05/15/22 19:15 Hgb 15.6 g/dL (11.7-16.6) 05/15/22 19:15 Hct 47.8 % (42.0-52.0) 05/15/22 19:15 MCV 92.6 fl (80-94) 05/15/22 19:15 MCH 30.2 pg (28.0-34.0) 05/15/22 19:15 MCHC 32.6 g/dL (30.0-36.0) 05/15/22 19:15 RDW 13.9 % (12.1-15.1) 05/15/22 19:15 Plt Count 173 10^3/cmm (130-400) 05/15/22 19:15 MPV 10.8 fL (7.4-10.4) H 05/15/22 19:15 Neut % (Auto) 62.9 % 05/15/22 19:15 Lymph % (Auto) 14.9 % 05/15/22 19:15 [place] % (Auto) 21.2 % 05/15/22 19:15 Eos % (Auto) 0.2 % 05/15/22 19:15 Baso % (Auto) 0.2 % 05/15/22 19:15 Neut # (Auto) 2.91 10^3/uL (1.8-7.7) 05/15/22 19:15 Lymph # (Auto) 0.7 10^3/uL (0.8-4.8) L 05/15/22 19:15 [place] # (Auto) 1.0 10^3/uL (0.2-0.9) H 05/15/22 19:15 Eos # (Auto) 0.0 10^3/uL (0.0-0.8) 05/15/22 19:15 Baso # (Auto) 0.0 10^3/uL (0.0-0.1) 05/15/22 19:15 Nucleated RBC % (auto) 0 % 05/15/22 19:15 Nucleated RBCs # 0.0 /100WBC 05/15/22 19:15 Sodium 134 mmol/L (136-145) L 05/15/22 19:15 Potassium 3.6 mmol/L (3.5-5.1) 05/15/22 19:15 Chloride 98 mmol/L (98-107) 05/15/22 19:15 Carbon Dioxide 23 mmol/L (22-29) 05/15/22 19:15 Anion Gap 16.6 (5-19) 05/15/22 19:15 BUN 36 mg/dL (8-23) H 05/15/22 19:15 Creatinine 2.2 mg/dL (0.7-1.2) H 05/15/22 19:15 GFR Calculation Not Reportable 05/15/22 19:15 Glucose 200 mg/dL (65-115) H 05/15/22 19:15 Calculated Osmolality 292 mOsm/kg (285-295) 05/15/22 19:15 Calcium 9.0 mg/dL (8.5-10.5) 05/15/22 19:15 Total Bilirubin 0.3 mg/dL (0.15-1.2) 05/15/22 19:15 AST 87 U/L (0-40) H 05/15/22 19:15 ALT 24 U/L (0-41) 05/15/22 19:15 Alkaline Phosphatase 43 U/L (40-130) 05/15/22 19:15 Troponin T Baseline 20 ng/L (0-15) H 05/15/22 19:15 Troponin T 120 Minute 18.69 ng/L (0-15) H 05/15/22 21:00 Delta Troponin T -1.31 ABS# (0-10) L 05/15/22 21:00 Total Protein 6.2 g/dL (6.6-8.7) L 05/15/22 19:15 Albumin 4.2 g/dL (3.5-5.2) 05/15/22 19:15 Globulin 2.0 g/dL (1.3-4.6) 05/15/22 19:15 Lipase 74 U/L (13-60) H 05/15/22 19:15 Nasal Influ A H1 2009 PCR Not detected (NOT DETECT) 05/15/22 19:25 Adenovirus (PCR) Not detected (NOT DETECT) 05/15/22:25 C. pneumoniae DNA (PCR) Not detected (NOT DETECT) 05/15/22 19:25 Coronavirus 229E (PCR) Not detected (NOT DETECT) 05/15/22:25 Human Metapneumovir PCR Not detected (NOT DETECT) 05/15/22 19:25 Influenza A (H1) PCR Not detected (NOT DETECT) 05/15/22 19:25 Influenza A (H3) PCR Not detected (NOT DETECT) 05/15/22 19:25 Influenza Type A (PCR) Not detected (NOT DETECT) 05/15/22 19:25 Influenza Type B (PCR) Not detected (NOT DETECT) 05/15/22 19:25 M. pneumoniae (PCR) Not detected (NOT DETECT) 05/15/22 19:25 Parainfluenza 1 (PCR) Not detected (NOT DETECT) 05/15/22 19:25 Parainfluenza 2 (PCR) Not detected (NOT DETECT) 05/15/22 19:25 Parainfluenza 3 (PCR) Not detected (NOT DETECT) 05/15/22 19:25 Parainfluenza 4 (PCR) Not detected (NOT DETECT) 05/15/22 19:25 RSV Type A (PCR) Not detected (NOT DETECT) 05/15/22 19:25 RSV Type B (PCR) Not detected (NOT DETECT) 05/15/22 19:25 Entero/Rhino (PCR) Not detected (NOT DETECT) 05/15/22 19:25 SARS-CoV-2 (PCR) Detected (NOT DETECT) A 05/15/22 19:25 Discharge Plan Discharge Patient Disposition: Home Clinical Impression: COVID-19 Condition: Stable Prescriptions: New Paxlovid (EUA) 300 mg (150 mg x 2)-100 mg tablets,dose pack See Rx Instructions .ROUTE .COMPLEX Qty: 30 0RF Rx Instructions: take TWO 150 mg tablets of nirmatrelvir with ONE 100 mg tablet of ritonavir twice daily for 5 days No Action pantoprazole 40 mg tablet,delayed release (DR/EC) 40 mg PO DAILY metoprolol tartrate 50 mg tablet 50 mg PO BID citalopram 40 mg tablet 20 mg PO DAILY insulin aspart U-100 [Novolog U-100 Insulin aspart] 100 unit/mL solution 1 sliding scale dose SUBCUT TID allopurinol 300 mg tablet 300 mg PO DAILY tamsulosin 0.4 mg capsule 0.4 mg PO DAILY Spiriva with HandiHaler 18 mcg capsule, w/inhalation device 1 cap INHALATION DAILY furosemide 40 mg tablet 40 mg PO DAILY Lantus U-100 Insulin 100 unit/mL solution 42 unit SUBCUT DAILY omega-3 acid ethyl esters 1 gram capsule 2 cap PO BID nitroglycerin [Nitrostat] 0.4 mg tablet, sublingual 0.4 mg SUBLINGUAL Q5M PRN (Reason: Chest Pain) Qty: 25 1RF (DME) Dexcom G6 Core Blower Misc See Rx Instructions .Route Qty: 1 0RF Rx Instructions: Check BS 4-6 times a day. Glucagon Emergency Kit (human) 1 mg recon soln 1 mg SUBCUT Q20M PRN (Reason: hypoglycemia) Qty: 1 3RF Rx Instructions: until target blood sugar attained Eliquis 2.5 mg tablet 2.5 mg PO BID (DME) Dexcom G6 Sensor Device See Rx Instructions .Route Qty: 9 3RF Rx Instructions: Change every 10 days. (DME) Dexcom G6 Transmitter Device See Rx Instructions .Route Qty: 1 3RF Rx Instructions: Change every 90 days. atorvastatin 20 mg tablet 20 mg PO DAILY Qty: 30 3RF Vitamin D3 25 mcg (1,000 unit) Tablet 25 mcg PO DAILY multivitamin Tablet 1 tab PO DAILY albuterol sulfate 90 mcg/actuation Hfa Aerosol Inhaler 1 puff INHALATION QID PRN (Reason: Shortness Of Breath) Cardizem CD 120 mg capsule,extended release 24hr 120 mg PO DAILY Qty: 30 0RF fenofibrate nanocrystallized 48 mg tablet 145 mg PO DAILY Discharge Orders: Discharge ED (Routine); Ordered 05/15/22 Ordered By: Craig Hayden Referrals: Graeme Felipe, [Primary Care Provider] - Patient Instructions: COVID-19 (Coronavirus Disease 2019) (ED) Activity Restrictions/Additional Instructions: Monitor your temperature and treat accordingly. Continue to hydrate. Return for worsening pain, shortness of breath, any other concerning symptoms. Medications as directed. Coding Level of Care Code ED Ammunition Assembly Laborer for Faridag 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
[2022-05-15 19:25] LABS: Basophils % 0.2 %; Eosinophils % 0.2 %; Hematocrit 47.8 % (42.0-52.0); Hemoglobin 15.6 g/dL (11.7-16.6); Lymphocytes # 0.7 10^3/uL (0.8-4.8); Lymphocytes % 14.9 %; Mean Corpuscular HGB Conc 32.6 g/dL (30.0-36.0); Mean Corpuscular Hemoglobin 30.2 pg (28.0-34.0); Mean Corpuscular Volume 92.6 fl (80-94); Mean Platelet Volume 10.8 fL (7.4-10.4); Monocytes % 21.2 %; Neutrophils # 2.91 10^3/uL (1.8-7.7); Neutrophils % 62.9 %; Nucleated Red Blood Cells % 0 %; Platelet Count 173 10^3/cmm (130-400); Red Blood Count 5.16 10^6/uL (4.1-5.3); Red Cell Distribution Width 13.9 % (12.1-15.1); White Blood Count 4.6 10^3/uL (4.0-10.0)
[2022-05-15 19:50] LABS: Alanine Aminotransferase 24 U/L (0-41); Albumin Level 4.2 g/dL (3.5-5.2); Alkaline Phosphatase 43 U/L (40-130); Anion Gap 16.6 (5-19); Aspartate Amino Transferase 87 U/L (0-40); Blood Urea Nitrogen 36 mg/dL (8-23); Carbon Dioxide 23 mmol/L (22-29); Chloride 98 mmol/L (98-107); Glucose 200 mg/dL (65-115); Lipase 74 U/L (13-60); Osmolality Calculated 292 mOsm/kg (285-295); Potassium 3.6 mmol/L (3.5-5.1); Sodium 134 mmol/L (136-145); Total Bilirubin 0.3 mg/dL (0.15-1.2); Total Protein 6.2 g/dL (6.6-8.7)
[2022-05-15 19:56] LABS: Troponin(5th) Baseline 20 ng/L (0-15)
[2022-05-15 20:05] VITALS: BP 133/87; PULSE 61; RESP 16; O2SAT 92
[2022-05-15] MEDS: sodium chloride 0.9% 500 ML 999 ML IV (20:47)
[2022-05-15] MEDS: ketorolac 30 mg/mL INJ 15 MG IVP (21:09)
[2022-05-15 21:16] LABS: Adenovirus Not Detected (NOT DETECT); Chlamydia Pneumoniae Not Detected (NOT DETECT); Coronavirus 229E,HKU1,NL63,OC4 Not Detected (NOT DETECT); Human Metapneumovirus Not Detected (NOT DETECT); Human Rhinovirus/Enterovirus Not Detected (NOT DETECT); Influenza A Not Detected (NOT DETECT); Influenza A H1 Not Detected (NOT DETECT); Influenza A H1-2009 Not Detected (NOT DETECT); Influenza A H3 Not Detected (NOT DETECT); Influenza B Not Detected (NOT DETECT); Mycoplasma Pneumoniae Not Detected (NOT DETECT); Parainfluenza Virus Type 1 Not Detected (NOT DETECT); Parainfluenza Virus Type 2 Not Detected (NOT DETECT); Parainfluenza Virus Type 3 Not Detected (NOT DETECT); Parainfluenza Virus Type 4 Not Detected (NOT DETECT); Respiratory Syncytial Virus A Not Detected (NOT DETECT); Respiratory Syncytial Virus B Not Detected (NOT DETECT); SARS-COV-2 Detected (NOT DETECT)
[2022-05-15 21:20] LABS: Troponin 5 2HR 18.69 ng/L (0-15)
[2022-05-15 21:47] VITALS: BP 115/68; PULSE 58; RESP 16; O2SAT 93
[2022-05-15 22:08] LABS: Troponin 5 2HR Delta -1.31 ABS# (0-10)
[2022-05-15 23:02] VITALS: BP 122/76; PULSE 61; RESP 18; O2SAT 93
== END 2022-05-15 22:45 | disposition home or self-care (01) ==
PROVIDERS: Emergency Medicine; Emergency Provider Emergency Medicine; PCP Emergency Medicine Emergency Medical Services
DX: U07.1 COVID-19 (principal); Z79.01 Long term (current) use of anticoagulants; Z79.4 Long term (current) use of insulin; J44.9 Chronic obstructive pulmonary disease, unspecified; I12.9 Hypertensive chronic kidney disease with stage 1 through stage 4 chronic kidney disease, or unspecified chronic kidney disease; N18.9 Chronic kidney disease, unspecified; Z87.891 Personal history of nicotine dependence
CPT/HCPCS: 71045; 80053; 83690; 84484; 85025; 87486; 87581; 87633; 93005; 96361; 96374; 99285; J1885; J7040

== ENCOUNTER → 2022-07-01 10:10 | Outpatient (BNVA) | payer MEDICARE, OTHER, SELFPAY | PROVIDERS: PCP Emergency Medicine Emergency Medical Services; Visit Provider Internal Medicine | DX: E11.22 Type 2 diabetes mellitus with diabetic chronic kidney disease (principal); E11.65 Type 2 diabetes mellitus with hyperglycemia; E78.2 Mixed hyperlipidemia; N18.4 Chronic kidney disease, stage 4 (severe) | CPT/HCPCS: 80053; 80061; 82043; 83036 ==

== ENCOUNTER → 2022-07-07 10:15 | Outpatient (BNVA) | payer MEDICARE, OTHER, SELFPAY | PROVIDERS: PCP Emergency Medicine Emergency Medical Services; Visit Provider Internal Medicine | DX: E11.22 Type 2 diabetes mellitus with diabetic chronic kidney disease (principal); E11.65 Type 2 diabetes mellitus with hyperglycemia; N18.4 Chronic kidney disease, stage 4 (severe); E78.2 Mixed hyperlipidemia; L25.9 Unspecified contact dermatitis, unspecified cause | CPT/HCPCS: 99214 ==

== ENCOUNTER → 2022-08-26 13:44 | Outpatient (BNVA) | payer MEDICARE, OTHER, SELFPAY | PROVIDERS: PCP Emergency Medicine Emergency Medical Services; Visit Provider Internal Medicine | DX: I71.40 Abdominal aortic aneurysm, without rupture, unspecified (principal); E78.5 Hyperlipidemia, unspecified; I48.91 Unspecified atrial fibrillation; Z79.01 Long term (current) use of anticoagulants; I12.9 Hypertensive chronic kidney disease with stage 1 through stage 4 chronic kidney disease, or unspecified chronic kidney disease; E11.22 Type 2 diabetes mellitus with diabetic chronic kidney disease; N18.9 Chronic kidney disease, unspecified; Z79.4 Long term (current) use of insulin; F17.201 Nicotine dependence, unspecified, in remission | CPT/HCPCS: 99213 ==

== ENCOUNTER → 2022-10-01 10:49 | Outpatient (BNVA) | payer MEDICARE, OTHER, SELFPAY | PROVIDERS: PCP Emergency Medicine Emergency Medical Services; Visit Provider Internal Medicine | DX: E11.22 Type 2 diabetes mellitus with diabetic chronic kidney disease (principal); E11.65 Type 2 diabetes mellitus with hyperglycemia; E78.2 Mixed hyperlipidemia; N18.4 Chronic kidney disease, stage 4 (severe) | CPT/HCPCS: 80053; 80061; 82043; 83036 ==

== ENCOUNTER 2022-10-05 23:28 | Outpatient (CLI) | payer MEDICARE, OTHER, SELFPAY ==
--- NOTE | 2022-10-05 | US_ITS ---
WS: [id number] LEFT LOWER EXTREMITY VENOUS ULTRASOUND EXAMINATION CLINICAL INFORMATION: PAIN IN LEFT LOWER LEG. COMPARISON: None. FINDINGS: The left common femoral, femoral, popliteal, proximal medial saphenous, deep femoral veins are patent and free of thrombus. The veins are normally compressible, and have normal phasic flow and augmentat ion response. Calf veins The paired peroneal and posterior tibial calf veins are patent bilaterally. US/ROR venous duplex LE LT IMPRESSION: No deep vein thrombosis of the left lower extremity.
== END 2022-10-05 23:29 | disposition home or self-care (01) ==
LOC: RADOUTREAD 23:31
PROVIDERS: PCP Emergency Medicine Emergency Medical Services; Visit Provider Nurse Practitioner
DX: M79.662 Pain in left lower leg (principal); E11.22 Type 2 diabetes mellitus with diabetic chronic kidney disease; N18.4 Chronic kidney disease, stage 4 (severe); E11.65 Type 2 diabetes mellitus with hyperglycemia; E78.2 Mixed hyperlipidemia; R60.0 Localized edema; Z79.4 Long term (current) use of insulin
CPT/HCPCS: 99214

== ENCOUNTER 2022-10-20 15:32 | Emergency (ER) | payer OTHER, MEDICARE, SELFPAY ==
[2022-10-20 15:57] VITALS: BP 115/66; PULSE 61; TEMP 36.6; O2SAT 94; BMI 36.2
--- NOTE | 2022-10-20 16:39 | W.ED.EXTPRO ---
HPI - Extremity Problem General: Chief complaint: Extremity Problem,Nontraumatic Stated complaint: Lump [facility] Time Seen by Provider: 10/20/22 16:14 Source: patient Mode of arrival: ambulatory History of Present Illness: 77-year-old male presents to the emergency room with complaints of a red knot and swelling on his right leg. It is minimally tender he denies any chest pain or shortness of breath minimal redness, but no thickening of the skin no chest pain or discomfort. Patient has a history of previous peripheral artery disease and has currently been on anticoagulants. Patient reports his legs are chronically swollen. This has been ongoing for couple weeks on October 05 he had a venous duplex which was negative. No recent trauma. MD Complaint: extremity pain and extremity swelling Onset (ago): minute(s) Pain Consistency: constant Location: left and lower extremity Quality: aching Radiation: none Relieving factors: nothing Exacerbating factors: nothing Associated symptoms: Reports no associated symptoms; Deny chest pain, fever(s) or rash Review of Systems Const: Denies: fever(s), chills, body aches, change in appetite, fatigue or malaise ENMT: Denies: throat pain, ear or mastoid pain, nasal discharge or nasal congestion Card: Denies: chest pain, edema, dyspnea on exertion or orthopnea Resp: Denies: dyspnea, productive cough or non-productive cough GI: Denies: abdominal pain, nausea, vomiting, hematemesis, coffee ground emesis, diarrhea, constipation, bloating, hematochezia or melena : Denies: flank pain, dysuria, urinary frequency or urinary urgency Skin/Breast: Denies: rash or pruritus [facility] ED PFSH: Medical History AAA (abdominal aortic aneurysm) ASHD (arteriosclerotic heart disease) Atrial fibrillation BPH (benign prostatic hyperplasia) CKD (chronic kidney disease) COPD (chronic obstructive pulmonary disease) Depression Diabetes GERD (gastroesophageal reflux disease) GERD (gastroesophageal reflux disease) Gout [place] HTN (hypertension) Hyperlipidemia Tobacco abuse, in remission Warfarin anticoagulation Surgical History S/P appendectomy S/P cholecystectomy S/P hernia repair S/P knee replacement S/P PTCA (percutaneous transluminal coronary angioplasty) S/P tonsillectomy Family History Father CAD (coronary artery disease) Hypertension Myocardial infarction Social History Smoking and tobacco status: former smoker Alcohol intake: never Substance/Drug Use: never Physical Exam Const: GENERAL APPEARANCE: cooperative and comfortable ORIENTATION/CONSCIOUSNESS: Yes awake, Yes oriented to person, Yes oriented to place and Yes oriented to time HENMT: COMMON NORMALS: normocephalic, atraumatic and hearing grossly normal bilaterally HEAD & SCALP: normocephalic and atraumatic Resp: COMMON NORMALS: normal respiratory effort, No retractions, No use of accessory muscles and clear to auscultation bilaterally AUSCULTATION: clear to auscultation bilaterally Cardio: COMMON NORMALS: regular rate, regular rhythm and No murmurs present (Cardio) RATE: regular rate RHYTHM: regular rhythm GI: COMMON NORMALS: Soft to palpation and No hepatosplenomegaly present AUSCULTATION: Yes normoactive bowel sounds PALPATION: Yes Soft to palpation, No Tenderness to palpation present (GI), No Guarding due to palpation present (GI) and Yes No hepatosplenomegaly present Extremity: OTHER: Moderate swelling of the left lower extremity. Tender to the touch mildly warm. Dorsalis pedis posterior tibialis pulses present. Capillary refill good. Homans negative. No significant pain with passive range of motion. Neuro: SENSORIUM/ORIENTATION: Yes oriented to person, Yes oriented to place and Yes oriented to time Skin: COMMON NORMALS: no rashes or lesions noted GENERAL SKIN EXAM: no rashes or lesions noted Course Vital Signs: Vital signs: Vital Signs Temperature 97.8 F 10/20/22 15:57 Pulse Rate 60 10/20/22 18:16 Respiratory Rate 16 10/20/22 18:16 Blood Pressure 135/74 10/20/22 18:16 Pulse Oximetry 95 10/20/22 18:16 Oxygen Delivery Me thod Room Air 10/20/22 17:16 MDM - Extremity (Nontraumatic) Medical Decision Making Patient has good palpable pulses lower extremities no believe this is any arterial occlusion legs are warm to the touch with good capillary refill there is mild erythema on the anterior portion of the left lower leg no induration to the skin no drainage no open wounds. He has had this for some time he is on oral anticoagulation and rate recently within the same timeframe of this issue had a normal venous duplex. No history of trauma and his x-ray is negative for fracture appears to be more of a mild cellulitis we will start him on some doxycycline. Labs and imaging reviewed. Note he does have some chronic kidney injury which is at his baseline. Follow-up with his primary care doctor. Medical Records I reviewed the patient's medical records. Lab Data I reviewed the patient's lab results. 10/20/22 17:10 10/20/22 17:10 Radiology Impressions Tibia/Fibula X-Ray 10/20/22 17:15 IMPRESSION: 1. Negative for acute bony abnormality. 2. Medial collateral ligament degenerative calcification. 3. Severe tricompartmental osteoarthritis of the knee. Laboratory Results WBC 10.2 10^3/uL (4.0-10.0) H 10/20/22 17:10 RBC 4.92 10^6/uL (4.1-5.3) 10/20/22 17:10 Hgb 14.7 g/dL (11.7-16.6) 10/20/22 17:10 Hct 45.2 % (42.0-52.0) 10/20/22 17:10 MCV 91.9 fl (80-94) 10/20/22 17:10 MCH 29.9 pg (28.0-34.0) 10/20/22 17:10 MCHC 32.5 g/dL (30.0-36.0) 10/20/22 17:10 RDW 13.5 % (12.1-15.1) 10/20/22 17:10 Plt Count 244 10^3/cmm (130-400) 10/20/22 17:10 MPV 10.8 fL (7.4-10.4) H 10/20/22 17:10 Neut % (Auto) 68.3 % 10/20/22 17:10 Lymph % (Auto) 16.7 % 10/20/22 17:10 [place] % (Auto) 10.3 % 10/20/22 17:10 Eos % (Auto) 3.6 % 10/20/22 17:10 Baso % (Auto) 0.5 % 10/20/22 17:10 Neut # (Auto) 6.98 10^3/uL (1.8-7.7) 10/20/22 17:10 Lymph # (Auto) 1.7 10^3/uL (0.8-4.8) 10/20/22 17:10 [place] # (Auto) 1.1 10^3/uL (0.2-0.9) H 10/20/22 17:10 Eos # (Auto) 0.4 10^3/uL (0.0-0.8) 10/20/22 17:10 Baso # (Auto) 0.1 10^3/uL (0.0-0.1) 10/20/22 17:10 Nucleated RBC % (auto) 0 % 10/20/22 17:10 Nucleated RBCs # 0.0 /100WBC 10/20/22 17:10 Sodium 138 mmol/L (136-145) 10/20/22 17:10 Potassium 4.6 mmol/L (3.5-5.1) 10/20/22 17:10 Chloride 101 mmol/L (98-107) 10/20/22 17:10 Carbon Dioxide 25 mmol/L (22-29) 10/20/22 17:10 Anion Gap 16.6 (5-19) 10/20/22 17:10 BUN 47 mg/dL (8-23) H 10/20/22 17:10 Creatinine 2.3 mg/dL (0.7-1.2) H 10/20/22 17:10 GFR Calculation Not Reportable 10/20/22 17:10 Glucose 154 mg/dL (65-115) H 10/20/22 17:10 Calculated Osmolality 301 mOsm/kg (285-295) H 10/20/22 17:10 Calcium 9.1 mg/dL (8.5-10.5) 10/20/22 17:10 C-Reactive Protein 3.0 mg/L (0.0-4.9) 10/20/22 17:10 Urine Color Yellow (Yellow) 10/20/22 17:03 Urine Appearance Clear (CLEAR) 10/20/22 17:03 Urine pH 5 (5-7) 10/20/22 17:03 Ur Specific [place] 1.015 (1.005-1.030) 10/20/22 17:03 Urine Protein Neg (Negative) 10/20/22 17:03 Urine Glucose (UA) Norm (Normal) 10/20/22 17:03 Urine Ketones Negative (Negative) 10/20/22 17:03 Urine Blood Neg (Negative) 10/20/22 17:03 Urine Nitrate Negative (Negative) 10/20/22 17:03 Urine Bilirubin Neg (Negative) 10/20/22 17:03 Urine Urobilinogen Neg mg/dL (Negative) 10/20/22 17:03 Ur Leukocyte Esterase Negative (Negative) 10/20/22 17:03 Discharge Plan Discharge Patient Disposition: Home Clinical Impression: Cellulitis Condition: Stable Prescriptions: New doxycycline hyclate 100 mg capsule 100 mg PO BID 10 Days Qty: 20 0RF No Action pantoprazole 40 mg tablet,delayed release (DR/EC) 40 mg PO DAILY metoprolol tartrate 50 mg tablet 50 mg PO BID citalopram 40 mg tablet 20 mg PO DAILY insulin aspart U-100 [Novolog U-100 Insulin aspart] 100 unit/mL solution 1 sliding scale dose SUBCUT TID allopurinol 300 mg tablet 300 mg PO DAILY tamsulosin 0.4 mg capsule 0.4 mg PO DAILY Spiriva with HandiHaler 18 mcg capsule, w/inhalation device 1 cap INHALATION DAILY furosemide 40 mg tablet 40 mg PO DAILY omega-3 acid ethyl esters 1 gram capsule 2 cap PO BID nitroglycerin [Nitrostat] 0.4 mg tablet, sublingual 0.4 mg SUBLINGUAL Q5M PRN (Reason: Chest Pain) Qty: 25 1RF (DME) Dexcom G6 Catcher Helper Misc See Rx Instructions .Route Qty: 1 0RF Rx Instructions: Check BS 4-6 times a day. Glucagon Emergency Kit (human) 1 mg recon soln 1 mg SUBCUT Q20M PRN (Reason: hypoglycemia) Qty: 1 3RF Rx Instructions: until target blood sugar attained Eliquis 2.5 mg tablet 2.5 mg PO BID (DME) Dexcom G6 Sensor Device See Rx Instructions .Route Qty: 9 3RF Rx Instructions: Change every 10 days. Levemir FlexPen 100 unit/mL (3 mL) insulin pen 48 unit SUBCUT DAILY 90 Days Qty: 44 0RF (DME) Dexcom G6 Transmitter Device See Rx Instructions .Route Qty: 1 3RF Rx Instructions: Change every 90 days. atorvastatin 20 mg tablet 20 mg PO DAILY Qty: 30 3RF Vitamin D3 25 mcg (1,000 unit) Tablet 25 mcg PO DAILY multivitamin Tablet 1 tab PO DAILY albuterol sulfate 90 mcg/actuation Hfa Aerosol Inhaler 1 puff INHALATION QID PRN (Reason: Shortness Of Breath) Cardizem CD 120 mg capsule,extended release 24hr 120 mg PO DAILY Qty: 30 0RF fenofibrate nanocrystallized 48 mg tablet 145 mg PO DAILY Discharge Orders: Discharge ED (Routine); Ordered 10/20/22 Ordered By: Santiago Garcia Referrals: Graeme Felipe, [Primary Care Provider] - Patient Instructions: Opioid Safety, Pain Management Activity Restrictions/Additional Instructions: You are seen today for redness and swelling in your left lower leg. Your white count is slightly elevated. 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
--- NOTE | 2022-10-20 17:15 | XRR_ITS ---
PROCEDURE INFORMATION: Exam: XR Left Tibia and Fibula Exam date and time: 10/20/2022 5:21 PM Age: 77 years old Clinical indication: Pain; Lower leg; Left; Additional info: Pain sweling TECHNIQUE: Imaging protocol: Radiologic exam of the left tibia and fibula. Views: 2 views. COMPARISON: No relevant prior studies available. FINDINGS: Bones/joints: Medial collateral ligament degenerative calcification. Severe tricompartmental osteoarthritis of the knee. Soft tissues: Normal. XR/XR tibia fibula LT 2V [id number] IMPRESSION: 1. Negative for acute bony abnormality. 2. Medial collateral ligament degenerative calcification. 3. Severe tricompartmental osteoarthritis of the knee.
[2022-10-20 17:16] VITALS: BP 135/74; PULSE 60; RESP 16; O2SAT 95
[2022-10-20 17:25] LABS: Add Urine Microscopic? NO; Charge for UA Resulting for Rev
[2022-10-20 17:27] LABS: Basophils # 0.1 10^3/uL (0.0-0.1); Basophils % 0.5 %; Eosinophils # 0.4 10^3/uL (0.0-0.8); Eosinophils % 3.6 %; Hematocrit 45.2 % (42.0-52.0); Hemoglobin 14.7 g/dL (11.7-16.6); Lymphocytes # 1.7 10^3/uL (0.8-4.8); Lymphocytes % 16.7 %; Mean Corpuscular HGB Conc 32.5 g/dL (30.0-36.0); Mean Corpuscular Hemoglobin 29.9 pg (28.0-34.0); Mean Corpuscular Volume 91.9 fl (80-94); Mean Platelet Volume 10.8 fL (7.4-10.4); Monocytes # 1.1 10^3/uL (0.2-0.9); Monocytes % 10.3 %; Neutrophils # 6.98 10^3/uL (1.8-7.7); Neutrophils % 68.3 %; Nucleated Red Blood Cells % 0 %; Platelet Count 244 10^3/cmm (130-400); Red Blood Count 4.92 10^6/uL (4.1-5.3); Red Cell Distribution Width 13.5 % (12.1-15.1); White Blood Count 10.2 10^3/uL (4.0-10.0)
[2022-10-20 17:43] LABS: Bilirubin Urine Neg (Negative); Blood Urine Neg (Negative); Glucose Urine UA Norm (Normal); Ketones Urine Negative (Negative); Leukocyte Esterase Urine Negative (Negative); Nitrate Urine Negative (Negative); Protein Urine Neg (Negative); Specific Gravity, Urine 1.015 (1.005-1.030); Urine Appearance Clear (CLEAR); Urine Color Yellow (Yellow); Urobilinogen Urine Neg (Negative); pH Urine 5 (5-7)
[2022-10-20 17:52] LABS: Anion Gap 16.6 (5-19); Blood Urea Nitrogen 47 mg/dL (8-23); Calcium 9.1 mg/dL (8.5-10.5); Carbon Dioxide 25 mmol/L (22-29); Chloride 101 mmol/L (98-107); Glucose 154 mg/dL (65-115); Osmolality Calculated 301 mOsm/kg (285-295); Potassium 4.6 mmol/L (3.5-5.1); Sodium 138 mmol/L (136-145)
[2022-10-20 18:16] VITALS: BP 135/74; PULSE 60; RESP 16; O2SAT 95
== END 2022-10-20 18:19 | disposition home or self-care (01) ==
PROVIDERS: Emergency Provider Family Medicine; PCP Emergency Medicine Emergency Medical Services
DX: L03.116 Cellulitis of left lower limb (principal); Z87.891 Personal history of nicotine dependence; I12.9 Hypertensive chronic kidney disease with stage 1 through stage 4 chronic kidney disease, or unspecified chronic kidney disease; E11.22 Type 2 diabetes mellitus with diabetic chronic kidney disease; N18.9 Chronic kidney disease, unspecified; J44.9 Chronic obstructive pulmonary disease, unspecified; E78.5 Hyperlipidemia, unspecified; Z79.01 Long term (current) use of anticoagulants; Z79.4 Long term (current) use of insulin
CPT/HCPCS: 36415; 73590; 80048; 81003; 85025; 86140; 99284

== ENCOUNTER 2022-10-28 15:54 | Outpatient (CLI) | payer MEDICARE, OTHER, SELFPAY ==
--- NOTE | 2022-10-28 16:05 | USCV_ITS ---
José Elliott Age: 77 Gender: M : 1945 Exam Date: 10/28/2022 16:27 Ordering Phys: Cande Jacobson TONGER Technologist: CT Exam Location: [facility] [place] Indication: PROCEDURES: Venous duplex imaging was performed in only the left lower extremity. In addition, the posterior tibial and peroneal trunk were evaluated. On the left side, the common femoral, superficial femoral, profunda femoral, popliteal, posterior tibial, greater saphenous veins, and the peroneal trunk were identified and interrogated in the standard fashion. These veins were found to be easily compressible with spontaneous blood flow. No evidence of insufficiency or thrombus noted. FINDINGS: no dvt CONCLUSIONS No evidence of left lower extremity DVT. Sulaiman Moore MD (Electronically Signed) Final Date: 28 October 2022 17:25 S
== END 2022-10-28 15:55 | disposition home or self-care (01) ==
LOC: RAD 15:58
PROVIDERS: PCP Emergency Medicine Emergency Medical Services; Visit Provider Nurse Practitioner Family
DX: M79.605 Pain in left leg (principal)
CPT/HCPCS: 93971

== ENCOUNTER → 2023-01-07 10:37 | Outpatient (BNVA) | payer MEDICARE, OTHER, SELFPAY | PROVIDERS: PCP Emergency Medicine Emergency Medical Services; Visit Provider Internal Medicine | DX: E11.22 Type 2 diabetes mellitus with diabetic chronic kidney disease (principal); E11.65 Type 2 diabetes mellitus with hyperglycemia; E78.2 Mixed hyperlipidemia; N18.4 Chronic kidney disease, stage 4 (severe); E11.9 Type 2 diabetes mellitus without complications | CPT/HCPCS: 80053; 80061; 82043; 83036 ==

== ENCOUNTER → 2023-02-07 13:15 | Outpatient (BNVA) | payer MEDICARE, OTHER, SELFPAY | PROVIDERS: PCP Emergency Medicine Emergency Medical Services; Visit Provider Internal Medicine | DX: E78.2 Mixed hyperlipidemia (principal); E11.22 Type 2 diabetes mellitus with diabetic chronic kidney disease; E11.65 Type 2 diabetes mellitus with hyperglycemia; N18.4 Chronic kidney disease, stage 4 (severe); Z79.4 Long term (current) use of insulin | CPT/HCPCS: 99214 ==

== ENCOUNTER → 2023-02-24 15:14 | Outpatient (BNVA) | payer MEDICARE, OTHER, SELFPAY | PROVIDERS: PCP Emergency Medicine Emergency Medical Services; Visit Provider Internal Medicine | DX: I71.40 Abdominal aortic aneurysm, without rupture, unspecified (principal); E78.2 Mixed hyperlipidemia; I25.10 Atherosclerotic heart disease of native coronary artery without angina pectoris; I12.9 Hypertensive chronic kidney disease with stage 1 through stage 4 chronic kidney disease, or unspecified chronic kidney disease; E11.22 Type 2 diabetes mellitus with diabetic chronic kidney disease; N18.9 Chronic kidney disease, unspecified; Z87.891 Personal history of nicotine dependence; Z79.4 Long term (current) use of insulin | CPT/HCPCS: 99214 ==

== ENCOUNTER 2023-03-11 08:56 | Outpatient (CLI) | payer MEDICARE, OTHER, SELFPAY ==
--- NOTE | 2023-03-11 09:15 | USCV_ITS ---
José Elliott Age: 77 Gender: M : 1945 Exam Date: 03/11/2023 09:46 Ordering Phys: Dada Shafer M.D ([email or web address]) Technologist: Nilo Torres [place]am Location[place] [facility] [place] Indication: AAA HISTORY: Diameter (cm) AP x Transverse x Length Velocity (cm/s) Waveform Prox Aorta: 1.57 x 1.69 x 53.50 Mid Aorta: 2.42 x 3.44 x 55.40 Distal Aorta: 4.06 x 3.98 x 5.06 72.80 Right Iliac Prox: x x Left Iliac Prox: x x Stent Prox Landing x x Aneurysmal Sac Max x x Lt Lat Sac Dim Rt Lat Sac Dim Stent Dist Landing x x Right Iliac Stent x x Left Iliac Stent x x Right Renal Art Left Renal Art FINDINGS: comp 06/24/21 CONCLUSIONS Fusiform AAA measuring 4.1 x 3.9 x 5.1cm AP x transverse x CC. This appears progressed compared to previous. This can be further evaluated with CTA Iliac arteries not well visualized Sulaiman Moore MD (Electronically Signed) Final Date: 11 March 2023 10:23 S
== END 2023-03-11 08:57 | disposition home or self-care (01) ==
PROVIDERS: PCP Emergency Medicine Emergency Medical Services; Visit Provider Internal Medicine
DX: I71.40 Abdominal aortic aneurysm, without rupture, unspecified (principal)
CPT/HCPCS: 93978

== ENCOUNTER 2023-05-05 11:01 | Outpatient (CLI) | payer MEDICARE, OTHER, SELFPAY ==
[2023-05-05 12:00] LABS: Creatinine Urine, Random 91 mg/dL (39-259); Microalbum Creatinine Ratio Ur 11 mg/dL (0-20); Microalbumin Random Urine 1 ug/dL (0-20)
[2023-05-05 12:03] LABS: Estmated Average Glucose 186; Hemoglobin A1C 8.1 % (4.0-6.0)
[2023-05-05 12:09] LABS: Alanine Aminotransferase 9 U/L (0-41); Albumin Level 4.2 g/dL (3.5-5.2); Alkaline Phosphatase 46 U/L (40-130); Anion Gap 12.5 (5-19); Aspartate Amino Transferase 27 U/L (0-40); Blood Urea Nitrogen 29 mg/dL (8-23); Calcium 9.2 mg/dL (8.5-10.5); Carbon Dioxide 28 mmol/L (22-29); Chloride 105 mmol/L (98-107); Chol HDL Ratio 6.32 mg/dL (1.0-5.00); Cholesterol 177 mg/dL (0-200); Globulin 2.1 g/dL (1.3-4.6); Glucose 202 mg/dL (65-115); HDL Cholesterol 28 mg/dL (60-100); LDL Cholesterol Calculated 104 mg/dL (50-129); LDL HDL Ratio 3.71 RATIO (0.00-3.22); Osmolality Calculated 304 mOsm/kg (285-295); Potassium 4.5 mmol/L (3.5-5.1); Sodium 141 mmol/L (136-145); Total Bilirubin 0.7 mg/dL (0.15-1.2); Total Protein 6.3 g/dL (6.6-8.7); Triglycerides 226 mg/dL (0-150)
== END 2023-05-05 11:02 | disposition home or self-care (01) ==
LOC: LAB 11:02
PROVIDERS: PCP Emergency Medicine Emergency Medical Services; Visit Provider Internal Medicine
DX: E11.22 Type 2 diabetes mellitus with diabetic chronic kidney disease (principal); N18.4 Chronic kidney disease, stage 4 (severe); E11.65 Type 2 diabetes mellitus with hyperglycemia
CPT/HCPCS: 36415; 80053; 80061; 82044; 83036

== ENCOUNTER → 2023-05-11 09:30 | Outpatient (BNVA) | payer MEDICARE, OTHER, SELFPAY | PROVIDERS: PCP Emergency Medicine Emergency Medical Services; Visit Provider Internal Medicine | DX: E78.2 Mixed hyperlipidemia (principal); E11.22 Type 2 diabetes mellitus with diabetic chronic kidney disease; E11.65 Type 2 diabetes mellitus with hyperglycemia; N18.4 Chronic kidney disease, stage 4 (severe); Z79.4 Long term (current) use of insulin | CPT/HCPCS: 99214 ==

== ENCOUNTER 2023-08-12 12:43 | Outpatient (CLI) | payer MEDICARE, OTHER, SELFPAY ==
[2023-08-12 13:20] LABS: Alanine Aminotransferase 9 U/L (0-41); Alkaline Phosphatase 49 U/L (40-130); Anion Gap 14.5 (5-19); Aspartate Amino Transferase 22 U/L (0-40); Blood Urea Nitrogen 43 mg/dL (8-23); Carbon Dioxide 27 mmol/L (22-29); Chloride 102 mmol/L (98-107); Chol HDL Ratio 6.33 mg/dL (1.0-5.00); Cholesterol 171 mg/dL (0-200); Globulin 2.2 g/dL (1.3-4.6); Glucose 307 mg/dL (65-115); HDL Cholesterol 27 mg/dL (60-100); LDL Cholesterol Calculated 95 mg/dL (50-129); LDL HDL Ratio 3.52 RATIO (0.00-3.22); Osmolality Calculated 310 mOsm/kg (285-295); Potassium 4.5 mmol/L (3.5-5.1); Sodium 139 mmol/L (136-145); Total Bilirubin 0.6 mg/dL (0.15-1.2); Total Protein 6.2 g/dL (6.6-8.7); Triglycerides 246 mg/dL (0-150)
[2023-08-12 13:21] LABS: Creatinine Urine, Random 56 mg/dL (39-259); Microalbum Creatinine Ratio Ur 18 mg/dL (0-20); Microalbumin Random Urine 1 ug/dL (0-20)
[2023-08-12 13:37] LABS: Estmated Average Glucose 217; Hemoglobin A1C 9.2 % (4.0-6.0)
== END 2023-08-12 12:44 | disposition home or self-care (01) ==
LOC: LAB 12:44
PROVIDERS: PCP Emergency Medicine Emergency Medical Services; Visit Provider Internal Medicine
DX: E11.22 Type 2 diabetes mellitus with diabetic chronic kidney disease (principal); N18.4 Chronic kidney disease, stage 4 (severe); E11.65 Type 2 diabetes mellitus with hyperglycemia
CPT/HCPCS: 36415; 80053; 80061; 82044; 83036

== ENCOUNTER → 2023-08-17 10:13 | Outpatient (BNVA) | payer MEDICARE, OTHER, SELFPAY | PROVIDERS: PCP Emergency Medicine Emergency Medical Services; Visit Provider Internal Medicine | DX: E11.22 Type 2 diabetes mellitus with diabetic chronic kidney disease (principal); E11.65 Type 2 diabetes mellitus with hyperglycemia; N18.4 Chronic kidney disease, stage 4 (severe); E78.2 Mixed hyperlipidemia; L25.9 Unspecified contact dermatitis, unspecified cause; Z79.4 Long term (current) use of insulin | CPT/HCPCS: 99214 ==

== ENCOUNTER → 2023-09-01 15:03 | Outpatient (BNVA) | payer MEDICARE, OTHER, SELFPAY | PROVIDERS: PCP Emergency Medicine Emergency Medical Services; Visit Provider Internal Medicine | DX: I12.9 Hypertensive chronic kidney disease with stage 1 through stage 4 chronic kidney disease, or unspecified chronic kidney disease (principal); E11.22 Type 2 diabetes mellitus with diabetic chronic kidney disease; N18.9 Chronic kidney disease, unspecified; Z87.891 Personal history of nicotine dependence; Z79.4 Long term (current) use of insulin; E78.5 Hyperlipidemia, unspecified; I25.10 Atherosclerotic heart disease of native coronary artery without angina pectoris; I71.40 Abdominal aortic aneurysm, without rupture, unspecified | CPT/HCPCS: 99214 ==

== ENCOUNTER 2023-09-22 08:59 | Outpatient (CLI) | payer MEDICARE, OTHER, SELFPAY ==
--- NOTE | 2023-09-22 09:15 | USCV_ITS ---
José Elliott Age: 78 Gender: M : 1945 Exam Date: 09/22/2023 09:31 Ordering Phys: Dada Shafer M.D ([email or web address]) Technologist: AMARILIS Exam Location: [facility] [place] Indication: AAA HISTORY: Diameter (cm) AP x Transverse x Length Velocity (cm/s) Waveform Prox Aorta: 2.08 x 2.52 x 85.50 Triphasic Mid Aorta: 3.17 x 3.89 x 43.10 Triphasic Distal Aorta: 3.80 x 3.89 x 8.00 32.70 Triphasic Right Iliac Prox: 1.19 x 1.28 x 199.00 Triphasic Left Iliac Prox: 1.04 x 1.12 x 145.90 Triphasic Stent Prox Landing x x Aneurysmal Sac Max x x Lt Lat Sac Dim Rt Lat Sac Dim Stent Dist Landing x x Right Iliac Stent x x Left Iliac Stent x x Right Renal Art Left Renal Art FINDINGS: CONCLUSIONS Infrarenal AAA measuring 3.8 x 3.8 x 8.0cm AP x trans x cc Moderate atheromatous disease Normal common iliac arteries Sulaiman Moore MD (Electronically Signed) Final Date: 22 September 2023 14:18 S
== END 2023-09-22 09:00 | disposition home or self-care (01) ==
LOC: RAD 08:59
PROVIDERS: PCP Emergency Medicine Emergency Medical Services; Visit Provider Internal Medicine
DX: I71.43 Infrarenal abdominal aortic aneurysm, without rupture (principal); I70.90 Unspecified atherosclerosis
CPT/HCPCS: 93978

== ENCOUNTER 2023-11-14 10:53 | Outpatient (CLI) | payer MEDICARE, OTHER, SELFPAY ==
[2023-11-14 11:44] LABS: Estmated Average Glucose 151; Hemoglobin A1C 6.9 % (4.0-6.0)
[2023-11-14 11:55] LABS: Alanine Aminotransferase 6 U/L (0-41); Alkaline Phosphatase 43 U/L (40-130); Anion Gap 14.3 (5-19); Aspartate Amino Transferase 20 U/L (0-40); Blood Urea Nitrogen 36 mg/dL (8-23); Calcium 8.5 mg/dL (8.5-10.5); Carbon Dioxide 26 mmol/L (22-29); Chloride 105 mmol/L (98-107); Chol HDL Ratio 5.47 mg/dL (1.0-5.00); Cholesterol 164 mg/dL (0-200); Globulin 2.2 g/dL (1.3-4.6); Glucose 167 mg/dL (65-115); HDL Cholesterol 30 mg/dL (60-100); LDL Cholesterol Calculated 104 mg/dL (50-129); LDL HDL Ratio 3.47 RATIO (0.00-3.22); Osmolality Calculated 304 mOsm/kg (285-295); Potassium 4.3 mmol/L (3.5-5.1); Sodium 141 mmol/L (136-145); Total Bilirubin 0.5 mg/dL (0.15-1.2); Total Protein 6.2 g/dL (6.6-8.7); Triglycerides 152 mg/dL (0-150)
[2023-11-14 12:00] LABS: Creatinine Urine, Random 72 mg/dL (39-259); Microalbum Creatinine Ratio Ur 14 mg/dL (0-20); Microalbumin Random Urine 1 ug/dL (0-20)
== END 2023-11-14 10:54 | disposition home or self-care (01) ==
LOC: LAB 10:57
PROVIDERS: PCP Emergency Medicine Emergency Medical Services; Visit Provider Internal Medicine
DX: E11.65 Type 2 diabetes mellitus with hyperglycemia (principal); E78.2 Mixed hyperlipidemia; E11.9 Type 2 diabetes mellitus without complications; N18.4 Chronic kidney disease, stage 4 (severe); E11.22 Type 2 diabetes mellitus with diabetic chronic kidney disease
CPT/HCPCS: 36415; 80053; 80061; 82044; 83036

== ENCOUNTER → 2023-11-16 09:15 | Outpatient (BNVA) | payer MEDICARE, OTHER, SELFPAY | PROVIDERS: PCP Emergency Medicine Emergency Medical Services; Visit Provider Internal Medicine | DX: E78.2 Mixed hyperlipidemia (principal); E11.22 Type 2 diabetes mellitus with diabetic chronic kidney disease; E11.65 Type 2 diabetes mellitus with hyperglycemia; N18.4 Chronic kidney disease, stage 4 (severe); L25.9 Unspecified contact dermatitis, unspecified cause; Z79.4 Long term (current) use of insulin | CPT/HCPCS: 99214 ==

== ENCOUNTER 2024-02-05 13:44 | Emergency (ER) | payer MEDICARE, OTHER, SELFPAY ==
--- NOTE | 2024-02-05 13:58 | XRR_ITS ---
PROCEDURE INFORMATION: Exam: XR Chest Exam date and time: 02/05/2024 2:16 PM Age: 78 years old Clinical indication: Chest pressure; Prior surgery; Surgery date: 6+ months; Surgery type: Cardiac stent x 2 (2013); Patient HX: Chest pain TECHNIQUE: Imaging protocol: Radiologic exam of the chest. Views: 1 view. COMPARISON: CR XR chest 1V portable [id number] 05/15/2022 8:20 PM FINDINGS: Lungs: No focal consolidation. Pleural spaces: No evidence of pneumothorax. No evidence of pleural effusion. Heart/Mediastinum: Cardiomediastinal silhouette is within normal limits. Bones/joints: No evidence of acute osseous abnormality. XR/XR chest 1V portable [id number] IMPRESSION: 1. No acute cardiopulmonary abnormality.
--- NOTE | 2024-02-05 13:58 | ECG_ITS ---
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 Measurements Intervals [place] Rate: 68 P: 29 DC: 145 QRS: 0 QRSD: 106 T: -1 QT: 397 QTc: 425 Interpretive Statements SINUS RHYTHM MODERATE VOLTAGE CRITERIA FOR LVH, CONSIDER NORMAL VARIANT [MEETS CRITERIA IN ONE OF: R(aVL), S(V1), R(V5), R(V5/V6)+S(V1)] Compared to ECG 05/15/2022 19:15:31 No significant changes Electronically Signed On 02-06-2024 14:07:25 CDT by Floyd Bansal M.D. [email or web address]
[2024-02-05 13:59] VITALS: BMI 36.0
--- NOTE | 2024-02-05 14:18 | ED_ITS ---
HPI - Chest Pain 2 General: Chief Complaint: Chest Pain Stated Complaint: CP Time Seen by Provider: 02/05/24 14:10 Source: patient and family Mode of arrival: ambulatory Limitations: no limitations History of Present Illness: This patient made his way to the emergency department today because he was concerned about some chest pain symptoms. His family also expressed concern and prompted him to come as well. It is a little difficult to discern how long the chest pains been going on his family states that he told them about it yesterday but he states he has been having it for few days and told the nurse he only had it today. He is not currently having any chest pain. He states the episodes are very fleeting and lasts for less than a minute. They tend to be in his left chest a seem to be associated with certain movements and activity. He denies any associated shortness of breath or fevers or chills. There is some question of whether he had a cough for few days. He does not have any known history of coronary artery disease. He does have atrial fibrillation and takes apixaban for stroke risk reduction. Family also noted that when they were at the house today that his blood pressure was elevated in the 190 range systolic and that concerned them and also prompted them to come with his history of having chest pain symptoms. He denies any nausea vomiting sweating or ripping tearing or radiation of his chest pain. He states he does exercise in the pool but is unaware of cannot remember if he did anything to strain his chest etc. He has not any falls or trauma. His chest pain is never associated with activity according to him. He states that he can walk and does not get chest pain or shortness of breath. Onset: during rest Pain location: left chest Associated symptoms: Deny abdominal pain, dyspnea, fever(s), nausea, palpitations, syncope or vomiting Risk Factors: Coronary artery disease risk factors: diabetes Review of Systems 2 Const: Denies: fever(s) or chills ENMT: Reports: nasal congestion; Denies: throat pain or odynophagia Card: Reports: chest pain; Denies: palpitations, edema, syncope or pre-syncope Resp: Denies: dyspnea, productive cough, wheezing or stridor GI: Denies: abdominal pain, nausea, vomiting or diarrhea : Denies: flank pain, difficulty urinating, dysuria or urinary frequency Musc: Denies: neck pain, back pain, extremity pain or extremity swelling Skin/Breast: Denies: rash or pruritus Neuro: Denies: headache(s), numbness in extremities or weakness in extremities Psych: Denies: anxiety or depression Endo: Denies: polyuria or polydipsia PFSH ED 2 PFSH: Medical History GERD (gastroesophageal reflux disease) Horseshoe kidney Depression BPH (benign prostatic hyperplasia) GERD (gastroesophageal reflux disease) Gout Tobacco abuse, in remission Warfarin anticoagulation Diabetes CKD (chronic kidney disease) COPD (chronic obstructive pulmonary disease) Hyperlipidemia HTN (hypertension) Atrial fibrillation ASHD (arteriosclerotic heart disease) AAA (abdominal aortic aneurysm) Surgical History S/P appendectomy S/P cholecystectomy S/P knee replacement S/P tonsillectomy S/P hernia repair S/P PTCA (percutaneous transluminal coronary angioplasty) Family History Father CAD (coronary artery disease) Hypertension Myocardial infarction Social History Smoking and tobacco/nicotine status: never used tobacco/nicotine Alcohol intake: never Substance/Drug Use: never Physical Exam 2 Narrative: EXAM NARRATIVE: He is alert interactive and appears to be in no acute distress. Const: COMMON NORMALS: no acute distress, patient oriented x3, healthy appearing and alert NUTRITIONAL APPEARANCE: overweight HENMT: COMMON NORMALS: normocephalic, Normal nasal mucous membranes and turbinates present, moist oral mucous membranes and oropharynx normal HEAD & SCALP: normocephalic NOSE: Normal nasal mucous membranes and turbinates present Eye: COMMON NORMALS: Equal, round and reactive pupils present, EOMs intact bilaterally and conjunctivae normal CONJUNCTIVA: Yes conjunctivae normal P UPIL: Yes Equal, round and reactive pupils present Neck/C-Spine: COMMON NORMALS: full ROM, no lymphadenopathy, supple and no JVD Chest: COMMONS NORMALS: normal inspection of the chest OTHER: He has tenderness to his left superior anterior chest. No ecchymosis or subcutaneous emphysema or crepitance noted. Abduction of his left arm against resistance tends to exacerbate symptoms. Resp: COMMON NORMALS: normal respiratory effort, No use of accessory muscles and clear to auscultation bilaterally AUSCULTATION: clear to auscultation bilaterally Cardio: COMMON NORMALS: no JVD, regular rate, regular rhythm, No murmurs present (Cardio) and Peripheral pulses 2+ throughout RATE: regular rate R HYTHM: regular rhythm PERIPHERAL PULSES: Peripheral pulses 2+ throughout GI: COMMON NORMALS: Normal to inspection, nondistended, normoactive bowel sounds present, Soft to palpation and non-tender PALPATION: Yes Soft to palpation Back/Pelvis: COMMON NORMALS: thoracic and lumbar spine normal to inspection, no thoracic nor lumbar tenderness and thoraco-lumbar ROM normal Extremity: COMMON NORMALS: normal to inspection, full ROM, capillary refill normal, no calf tenderness and no pedal edema Neuro: COMMON NORMALS: patient oriented x3, moves all extremities, no focal motor deficits and no sensory deficits noted SENSORIUM/ORIENTATION: Yes alert CRANIAL NERVES: Yes CN normal except as noted Psych: COMMON NORMALS: mental status grossly normal Skin: COMMON NORMALS: turgor normal, no jaundice and no petechiae GENERAL SKIN EXAM: turgor normal TRAUMA: abrasion (Linear abrasion distal left medial thigh without erythema or drainage) Course 2 Reevaluation(s): Reevaluation #1: Patient was reevaluated. He states he feels fine without any ongoing chest pain or other symptoms. We reviewed his history again to ensure that there was no evidence of acute infectious symptoms. He states he has had surgical scratchy throat but again no fevers documented and he states his current congestion and hoarseness is due to is more postnasal drip type symptoms according to him. No significant cough abdominal pain dysuria etc. No skin rashes or evidence of other sources of infection. Repeat clinical examination reveals no abdominal tenderness and no other focal findings other than his previously documented left anterior chest wall tenderness. Will await his second troponin and then make disposition decision at that time. Time: 16:06 Reevaluation #2: Remains clinically stable. Discussed current findings their implications and limitations with patient and family. At this time no evidence of an ongoing emergency medical condition stable for to be discharged. Time: 17:50 Vital Signs: Vital signs: Vital Signs Pulse Rate 69 02/05/24 16:05 Respiratory Rate 16 02/05/24 16:05 Blood Pressure 136/98 02/05/24 16:05 Pulse Oximetry 94 02/05/24 16:05 [facility] - Chest Pain Medical Decision Making Patient presented to the emergency department as noted in the history of present illness because of some intermittent fleeting left-sided chest pain that seem to be worse with certain position and movement. No recent fevers chills sustained chest pain shortness of breath or other change in his usual constitution other than has had some mild hoarseness and postnasal drainage. Differential included such things as ACS, pneumonia, congestive heart failure etc. Patient is currently on apixaban for stroke risk reduction because of intermittent atrial fibrillation. Chest x-ray was reassuring serial EKGs were also reassuring without any evidence of ongoing ischemia or arrhythmias at this time. Initial troponin was slightly elevated over the URL but even though this is likely due to his chronic kidney disease a repeat troponin was obtained to ensure that there was no ongoing ACS. Second troponin was actually lower than initial troponin making ACS less likely. He was not tachycardic, hypoxic etc. making any other potential etiologies less likely as well. Did have a leukocytosis which is unexplained chest x-ray showed no signs of pneumonia, urinalysis was normal, and he had no other physical stigmata that suggested acute infection. Patient had no abdominal pain on by history and on clinical examination and has had a prior cholecystectomy as well as an appendectomy and had no perturbations in his chemistries other than his elevated serum creatinine. This is a chronic elevation and represents chronic kidney disease and he has apparent history of horseshoe kidney which is likely a contributing factor. As noted in his clinical notes that much of his pain was reproducible with clinical examination. Patient is active and does not pool exercises and this may or may not have contributed to his current presentation. At this time he does not have a representation of an ongoing emergency medical condition however return precautions were discussed in detail with both the patient and family. They acknowledged these recommendations and voiced understanding. They were appreciative of care and is being discharged in stable condition. Lab Data I reviewed the patient's lab results. 02/05/24 14:27 02/05/24 14:27 Radiology Impressions Chest X-Ray 02/05/24 13:58 IMPRESSION: 1. No acute cardiopulmonary abnormality. Laboratory Results WBC 18.44 10^3/uL (3.29-11.43) H 02/05/24 14:27 RBC 5.11 10^6/uL (3.85-5.65) 02/05/24 14:27 Hgb 15.40 g/dL (11.27-16.99) 02/05/24 14:27 Hct 47.0 % (37-53) 02/05/24 14:27 MCV 92.0 fl (82-101) 02/05/24 14:27 MCH 30.1 pg (27-33) 02/05/24 14: MCHC 32.8 g/dL (30-55) 02/05/24 14:27 RDW 14.4 % (12.1-15.1) 02/05/24 14:27 Plt Count 267 10^3/cmm (157-399) 02/05/24 14:27 MPV 10.7 fL (7.4-10.4) H 02/05/24 14:27 Neut % (Auto) 83.5 % 02/05/24 14:27 Lymph % (Auto) 6.9 % 02/05/24 14:27 [place] % (Auto) 7.6 % 02/05/24 14:27 Eos % (Auto) 1.0 % 02/05/24 14:27 Baso % (Auto) 0.3 % 02/05/24 14:27 Neut # (Auto) 15.40 10^3/uL (1.8-7.7) H 02/05/24 14:27 Lymph # (Auto) 1.3 10^3/uL (0.8-4.8) 02/05/24 14:27 [place] # (Auto) 1.4 10^3/uL (0.2-0.9) H 02/05/24 14:27 Eos # (Auto) 0.2 10^3/uL (0.0-0.8) 02/05/24 14:27 Baso # (Auto) 0.1 10^3/uL (0.0-0.1) 02/05/24 14: Nucleated RBC % (auto) 0 % 02/05/24 14: Nucleated RBCs # 0.0 /100WBC 02/05/24 14:27 Sodium 141 mmol/L (136-145) 02/05/24 14:27 Potassium 4.4 mmol/L (3.5-5.1) 02/05/24 14: Chloride 99 mmol/L (98-107) 02/05/24 14:27 Carbon Dioxide 26 mmol/L (22-29) 02/05/24 14:27 Anion Gap 20.4 (5-19) H 02/05/24 14:27 BUN 31 mg/dL (8-23) H 02/05/24 14:27 Creatinine 1.9 mg/dL (0.7-1.2) H 02/05/24 14:27 GFR Calculation Not Reportable 02/05/24 14:27 Glucose 260 mg/dL (65-115) H 02/05/24 14:27 Calculated Osmolality 308 mOsm/kg (285-295) H 02/05/24 14:27 Calcium 9.8 mg/dL (8.5-10.5) 02/05/24 14:27 Total Bilirubin 0.8 mg/dL (0.15-1.2) 02/05/24 14:27 AST 23 U/L (0-40) 02/05/24 14:27 ALT 9 U/L (0-41) 02/05/24 14:27 Alkaline Phosphatase 65 U/L (40-130) 02/05/24 14:27 Troponin T Baseline 20 ng/L (0-15) H 02/05/24 14:27 Troponin T 120 Minute 15.01 ng/L (0-15) H 02/05/24 16:27 Delta Troponin T -4.99 ABS# (0-10) L 02/05/24 16:27 NT-Pro-B Natriuret Pep 304 pg/mL (0-450) 02/05/24 14:27 Total Protein 6.9 g/dL (6.6-8.7) 02/05/24 14:27 Albumin 4.6 g/dL (3.5-5.2) 02/05/24 14:27 Globulin 2.3 g/dL (1.3-4.6) 02/05/24 14:27 Urine Color Yellow (Yellow) 02/05/24 15:31 Urine Appearance Clear (CLEAR) 02/05/24 15:31 Urine pH 5.5 (5-7) 02/05/24 15:31 Ur Specific [place] 1.009 (1.005-1.030) 02/05/24 15:31 Urine Protein Negative (Negative) 02/05/24 15:31 Urine Glucose (UA) Negative (Normal) 02/05/24 15:31 Urine Ketones Negative (Negative) 02/05/24 15:31 Urine Blood Negative (Negative) 02/05/24 15:31 Urine Nitrate Negative (Negative) 02/05/24 15:31 Urine Bilirubin Negative (Negative) 02/05/24 15:31 Urine Urobilinogen 0.2 mg/dL (Negative) 02/05/24 15:31 Ur Leukocyte Esterase Negative (Negative) 02/05/24 15:31 Amorphous Sediment Not Reportable 02/05/24 15:31 SARS-CoV-2 Ag (Rapid) negative (Negative) 02/05/24 15:27 All radiology interpretation(s) finalized by discharge EKG Data EKG 2: I personally reviewed and interpreted this EKG as follows: Interpretation: Repeat electrocardiogram this visit reveals a ventricular rate of 67 bpm. Normal TN interval, QRS duration, corrected QT interval. Normal axis. No acute ST-T wave changes. Discharge Plan Discharge Patient Disposition: Home Clinical Impression: Chest pain Qualifiers: Chest pain type: unspecified Qualified Code(s): R07.9 - Chest pain, unspecified Chronic kidney disease Qualifiers: Chronic kidney disease stage: unspecified stage Qualified Code(s): N18.9 - Chronic kidney disease, unspecified Leukocytosis, unspecified Qualifiers: Leukocytosis type: unspecified Qualified Code(s): D72.829 - Elevated white blood cell count, unspecified Condition: Stable Prescriptions: No Action pantoprazole 40 mg tablet,delayed release (DR/EC) 40 mg PO DAILY metoprolol tartrate 50 mg tablet 50 mg PO BID citalopram 40 mg tablet 20 mg PO DAILY allopurinol 300 mg tablet 300 mg PO DAILY tamsulosin 0.4 mg capsule 0.4 mg PO DAILY Spiriva with HandiHaler 18 mcg capsule, w/inhalation device 1 cap INHALATION DAILY furosemide 40 mg tablet 40 mg PO DAILY omega-3 acid ethyl esters 1 gram capsule 2 cap PO BID nitroglycerin [Nitrostat] 0.4 mg tablet, sublingual 0.4 mg SUBLINGUAL Q5M PRN (Reason: Chest Pain) Qty: 25 1RF Glucagon Emergency Kit (human) 1 mg recon soln 1 mg SUBCUT Q20M PRN (Reason: hypoglycemia) Qty: 1 3RF Rx Instructions: until target blood sugar attained Eliquis 2.5 mg tablet 2.5 mg PO BID atorvastatin 20 mg tablet 20 mg PO DAILY Qty: 30 3RF (DME) Dexcom G7 Bird Raiser Misc See Rx Instructions .Route Qty: 1 0RF Rx Instructions: sending DME form Levemir FlexPen 100 unit/mL (3 mL) insulin pen 52 unit SUBCUT DAILY 90 Days Qty: 46.8 1RF insulin aspart U-100 [Novolog U-100 Insulin aspart] 100 unit/mL solution 4 - 5 unit SUBCUT TID Qty: 20 1RF insulin glargine-yfgn [Semglee(insulin glarg-yfgn)Pen] 100 unit/mL (3 mL) insulin pen 52 unit SUBCUT DAILY Qty: 46.8 1RF (DME) Dexcom G7 Sensor Device See Rx Instructions .ROUTE .MEDSUPPLY Qty: 9 0RF Rx Instructions: Change every 10days Vitamin D3 25 mcg (1,000 unit) Tablet 25 mcg PO DAILY multivitamin Tablet 1 tab PO DAILY albuterol sulfate 90 mcg/actuation Hfa Aerosol Inhaler 1 puff INHALATION QID PRN (Reason: Shortness Of Breath) Cardizem CD 120 mg capsule,extended release 24hr 120 mg PO DAILY Qty: 30 0RF fenofibrate nanocrystallized 48 mg tablet 145 mg PO DAILY Discharge Orders: Discharge ED (Routine); Ordered 02/05/24 Ordered By: Ketan Navarrete Discharge Diet: Usual diet Discharge Activity: Increase activity as tolerated Patient Instructions: Opioid Safety, Pain Management Activity Restrictions/Additional Instructions: As we discussed today while you are in the emergency department there was no evidence for having a heart attack or other serious cause of your chest pain. We also discussed the fact that your creatinine level is elevated which is indicative of chronic kidney disease but this is essentially unchanged from previous results that we have seen in the past. We recommend continuing on your usual medications and if you develop any new or worsening symptoms such as shortness of breath with activity, persistent chest pain with activity, fevers chills etc. should return to the emergency department for reevaluation otherwise follow-up with your regular doctor in the next 7 to 10 days for reevaluation. Coding Level of Care Code ED Consumer Electronic Retail Specialist for Lesa Thorpe
[2024-02-05 14:34] LABS: Basophils # 0.1 10^3/uL (0.0-0.1); Basophils % 0.3 %; Eosinophils # 0.2 10^3/uL (0.0-0.8); Lymphocytes # 1.3 10^3/uL (0.8-4.8); Lymphocytes % 6.9 %; Mean Corpuscular HGB Conc 32.8 g/dL (30-55); Mean Corpuscular Hemoglobin 30.1 pg (27-33); Mean Platelet Volume 10.7 fL (7.4-10.4); Monocytes # 1.4 10^3/uL (0.2-0.9); Monocytes % 7.6 %; Neutrophils % 83.5 %; Nucleated Red Blood Cells % 0 %; Platelet Count 267 10^3/cmm (157-399); Red Blood Count 5.11 10^6/uL (3.85-5.65); Red Cell Distribution Width 14.4 % (12.1-15.1); White Blood Count 18.44 10^3/uL (3.29-11.43)
[2024-02-05 14:36] VITALS: BP 127/80; PULSE 66; RESP 27; O2SAT 92
[2024-02-05 14:53] LABS: Troponin(5th) Baseline 20 ng/L (0-15)
[2024-02-05 14:59] LABS: Alanine Aminotransferase 9 U/L (0-41); Albumin Level 4.6 g/dL (3.5-5.2); Alkaline Phosphatase 65 U/L (40-130); Aspartate Amino Transferase 23 U/L (0-40); Blood Urea Nitrogen 31 mg/dL (8-23); Calcium 9.8 mg/dL (8.5-10.5); Carbon Dioxide 26 mmol/L (22-29); Chloride 99 mmol/L (98-107); Globulin 2.3 g/dL (1.3-4.6); Glucose 260 mg/dL (65-115); NT Pro B Type Natriuretic Pept 304 pg/mL (0-450); Osmolality Calculated 308 mOsm/kg (285-295); Sodium 141 mmol/L (136-145); Total Bilirubin 0.8 mg/dL (0.15-1.2); Total Protein 6.9 g/dL (6.6-8.7)
[2024-02-05 15:02] LABS: Anion Gap 20.4 (5-19); Creatinine Clr Calc Pharmacy 34.4429; Potassium 4.4 mmol/L (3.5-5.1)
[2024-02-05 15:05] VITALS: BP 150/74; PULSE 68; RESP 16; O2SAT 91
[2024-02-05 15:43] LABS: Charge for UA Resulting for Rev
[2024-02-05 15:44] LABS: Bilirubin Urine Negative (Negative); Blood Urine Negative (Negative); Glucose Urine UA Negative (Normal); Ketones Urine Negative (Negative); Leukocyte Esterase Urine Negative (Negative); Nitrate Urine Negative (Negative); Protein Urine Negative (Negative); Specific Gravity, Urine 1.009 (1.005-1.030); Urine Appearance Clear (CLEAR); Urine Color Yellow (Yellow); Urobilinogen Urine 0.2 mg/dL (Negative); pH Urine 5.5 (5-7)
[2024-02-05 15:56] LABS: SARS Covid-2 Antigen negative (Negative)
--- NOTE | 2024-02-05 15:56 | ECG_ITS ---
[facility] Test Date: 2024-02-05 Pat Name: José Elliott Department: Room: Gender: Male Voice Pathologist: : 1945 Requested By: Ketan Navarrete Order Number: [id number] Brennen MD: Floyd Basnal M.D. Measurements Intervals [place] Rate: 67 P: 42 GA: 145 QRS: 0 QRSD: 103 T: 48 QT: 398 QTc: 422 Interpretive Statements SINUS RHYTHM Compared to ECG 02/05/2024 13:55:05 No significant changes Electronically Signed On 02-06-2024 14:13:14 CDT by Floyd Bansal M.D. [id number]
[2024-02-05 16:05] VITALS: BP 136/98; PULSE 69; RESP 16; O2SAT 94
[2024-02-05 16:30] VITALS: BP 136/98; PULSE 71; RESP 15; O2SAT 94
[2024-02-05 17:05] VITALS: BP 150/75; PULSE 70; RESP 15; O2SAT 93
[2024-02-05 17:24] LABS: Troponin 5 2HR 15.01 ng/L (0-15); Troponin 5 2HR Delta -4.99 ABS# (0-10)
[2024-02-05 17:35] VITALS: BP 168/93; PULSE 76; RESP 13; O2SAT 94
== END 2024-02-05 18:06 | disposition home or self-care (01) ==
PROVIDERS: Emergency Provider Emergency Medicine
DX: R07.9 Chest pain, unspecified (principal); D72.829 Elevated white blood cell count, unspecified; Z79.01 Long term (current) use of anticoagulants; Z79.4 Long term (current) use of insulin; Z11.52 Encounter for screening for COVID-19; J44.9 Chronic obstructive pulmonary disease, unspecified; E78.5 Hyperlipidemia, unspecified; I12.9 Hypertensive chronic kidney disease with stage 1 through stage 4 chronic kidney disease, or unspecified chronic kidney disease; E11.22 Type 2 diabetes mellitus with diabetic chronic kidney disease; N18.9 Chronic kidney disease, unspecified
CPT/HCPCS: 71045; 80053; 81003; 81015; 83880; 84484; 85025; 87426; 93005; 99285

== ENCOUNTER 2024-04-03 06:30 | Outpatient (RCR) | payer OTHER, MEDICARE, SELFPAY | END 2024-05-03 23:59 | disposition home or self-care (01) | LOC: TPT 06:30 | PROVIDERS: Visit Provider Orthopaedic Surgery Adult Reconstructive Orthopaedic Surgery | DX: M17.12 Unilateral primary osteoarthritis, left knee (principal) | CPT/HCPCS: 97110; 97162 ==

== ENCOUNTER 2024-04-23 11:13 | Inpatient (IN) | payer OTHER, MEDICARE, SELFPAY ==
[2024-04-23] VITALS (9 sets, daily range): BP systolic 125–166; BP diastolic 69–93; PULSE 74–106; RESP 15–18; TEMP 36.7–37.1; O2SAT 93–95; BMI 36.0
--- NOTE | 2024-04-23 11:16 | ECG_ITS ---
[facility] Test Date: 2024-04-23 Pat Name: José Elliott Department: Room: Gender: Male Pipe Threader: : 1945 Requested By: Santiago Lombardi Order Number: [id number] Reading MD: LEONORA UMANZOR Measurements Intervals [place] Rate: 98 P: 42 NV: 135 QRS: -6 QRSD: 96 T: 15 QT: 346 QTc: 442 Interpretive Statements SINUS RHYTHM MINIMAL VOLTAGE CRITERIA FOR LVH, CONSIDER NORMAL VARIANT [MEETS CRITERIA IN ONE OF: R(aVL), S(V1), R(V5), R(V5/V6)+S(V1)] POSSIBLE INFERIOR MYOCARDIAL INFARCTION , PROBABLY OLD [30 ms Q WAVE IN II/aVF] Compared to ECG 02/05/2024 15:56:18 Myocardial infarct finding now present Electronically Signed On 04-24-2024 21:01:01 CDT by LEONORA UMANZOR [id number]
--- NOTE | 2024-04-23 11:20 | XRR_ITS ---
PROCEDURE INFORMATION: Exam: XR Chest Exam date and time: 04/23/2024 11:31 AM Age: 78 years old Clinical indication: Cough and dyspnea; Additional info: Dyspnea/cough TECHNIQUE: Imaging protocol: Radiologic exam of the chest. Views: 1 view. COMPARISON: CR XR chest 1V portable [id number] 02/05/2024 2:16 PM FINDINGS: Lungs: Shallow inspiration with low lung volumes. Slight probable atelectasis and/or crowding portions of lungs bilaterally. Slight opacity left lung base laterally of cardiac apex may be due to overlap and accentuated by shallow inspiration, low lung volumes, rotation, though subtle infiltrate not excluded. Pleural spaces: No large or obvious pneumothorax nor pleural effusion seen. Heart/Mediastinum: Heart size appears within normal. Bones/joints: Degenerative changes spine. Prior right rib fracture. Other findings: Patient appears rotated slightly to the left. XR/XR chest 1V portable [id number] IMPRESSION: Slight opacity left lung base laterally of cardiac apex may be due to overlap and accentuated by shallow inspiration, low lung volumes, rotation, though subtle infiltrate not excluded. Follow-up standard upright PA and lateral views of the chest with deep inspiration recommended when possible.
--- NOTE | 2024-04-23 11:41 | ED_ITS ---
HPI - Chest Pain 2 General: Chief Complaint: Chest Pain Stated Complaint: cp, htn Time Seen by Provider: 04/23/24 11:17 History of Present Illness: 78-year-old male presents emergency room complaining of chest discomfort and shortness of breath. Patient recently had a left knee arthroplasty he is on Eliquis post arthroplasty has a history of atrial fibrillation and his Eliquis was held briefly before surgery and then restarted. No history of DVT or PE in the past. He has noticed increased shortness of breath and chest discomfort with exertion he has a known history of coronary disease he had an stents placed around 2009 or and then had a repeat stress test done in January 2021 that did not show any acute ischemia. Associated symptoms: Deny abdominal pain, dyspnea or fever(s) Related Data Home Medications Medication Instructions Recorded Confirmed allopurinol 300 mg tablet 300 mg PO DAILY 09/03/19 04/23/24 citalopram 40 mg tablet 20 mg PO DAILY 09/03/19 04/23/24 metoprolol tartrate 50 mg tablet 50 mg PO BID 09/03/19 04/23/24 pantoprazole 40 mg tablet,delayed 40 mg PO DAILY 09/03/19 04/23/24 release tamsulosin 0.4 mg capsule 0.4 mg PO DAILY 09/03/19 04/23/24 tiotropium bromide 18 mcg capsule 1 cap inhalation DAILY 09/03/19 04/23/24 with inhalation device (Spiriva with HandiHaler) cholecalciferol (vitamin D3) 25 25 mcg PO DAILY 01/09/21 04/23/24 mcg (1,000 unit) tablet (Vitamin D3) multivitamin 1 tab PO DAILY 01/09/21 04/23/24 furosemide 40 mg tablet 40 mg PO DAILY 02/12/21 04/23/24 fenofibrate nanocrystallized 48 mg 145 mg PO DAILY 12/10/21 04/23/24 tablet omega-3 acid ethyl esters 1 gram 2 cap PO BID 12/10/21 04/23/24 capsule apixaban 5 mg tablet (Eliquis) 5 mg PO BID 04/23/24 04/23/24 atorvastatin 80 mg tablet 80 mg PO BEDTIME 04/23/24 04/23/24 cyclobenzaprine 10 mg tablet 10 mg PO TID 04/23/24 04/23/24 diclofenac sodium 1 % topical gel 4 g topical QID 04/23/24 04/23/24 fluticasone propionate 50 2 spray intranasal DAILY 04/23/24 04/23/24 mcg/actuation nasal spray,suspension mupirocin 2 % topical ointment 1 applic topical BID PRN infection 04/23/24 04/23/24 Previous Rx's Medication Instructions Recorded diltiazem HCl 120 mg 120 mg PO DAILY #30 caps 01/12/21 capsule,extended release 24 hr (Cardizem CD) nitroglycerin 0.4 mg sublingual 0.4 mg sublingual Q5M PRN Chest 04/30/21 tablet (Nitrostat) Pain #25 tabs glucagon 1 mg solution for 1 mg SUBCUT Q20M PRN hypoglycemia 12/10/21 injection (Glucagon Emergency Kit) #1 ea 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 meter,continuous #1 ea 05/11/23 (Dexcom G7 Dowel Pin Worker) insulin aspart U-100 100 unit/mL 4 - 5 unit (0.04 - 0.05 mL) SUBCUT 11/16/23 subcutaneous solution (Novolog TID #20 mL U-100 Insulin aspart) insulin glargine-yfgn 100 unit/mL 52 unit (0.52 mL) SUBCUT DAILY 11/21/23 (3 mL) subcutaneous pen (Semglee #46.8 mL (insulin glargine-yfgn) Pen) 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 sensor (Dexcom G7 #3 ea 02/22/24 Sensor device) Allergies Allergy/AdvReac Type Severity Reaction Status Date / Time vancomycin Allergy Severe ALGY-Anaphy Verified 04/18/24 09:45 laxis Opioids - Morphine Analogues Allergy Unknown Verified 04/18/24 09:45 Review of Systems 2 Const: Denies: fever(s) or chills Card: Reports: chest pain; Denies: edema or swelling of feet/ankles Resp: Denies: dyspnea GI: Denies: abdominal pain : Denies: dysuria, urinary frequency or urinary urgency Musc: Denies: neck pain or back pain Skin/Breast: Denies: rash PFSH ED 2 PFSH: Medical History COVID-19 05/2022 GERD (gastroesophageal reflux disease) Horseshoe kidney Depression BPH (benign prostatic hyperplasia) Gout Tobacco abuse, in remission Diabetes CKD (chronic kidney disease) COPD (chronic obstructive pulmonary disease) Hyperlipidemia HTN (hypertension) Atrial fibrillation ASHD (arteriosclerotic heart disease) AAA (abdominal aortic aneurysm) Surgical History S/P appendectomy S/P cholecystectomy S/P knee replacement right, had post operative infection with repeat surgeries needed S/P tonsillectomy S/P hernia repair S/P PTCA (percutaneous transluminal coronary angioplasty) Family History Father CAD (coronary artery disease) Hypertension Myocardial infarction Social History Smoking and tobacco/nicotine status: never used tobacco/nicotine Alcohol intake: never Substance/Drug Use: never Physical Exam 2 Const: GENERAL APPEARANCE: cooperative ORIENTATION/CONSCIOUSNESS: Yes awake, Yes oriented to person, Yes oriented to place and Yes oriented to time HENMT: COMMON NORMALS: normocephalic, atraumatic and hearing grossly normal bilaterally HEAD & SCALP: normocephalic and atraumatic Resp: COMMON NORMALS: normal respiratory effort, No retractions, No use of accessory muscles and clear to auscultation bilaterally AUSCULTATION: clear to auscultation bilaterally Cardio: COMMON NORMALS: regular rate, regular rhythm and No murmurs present (Cardio) RATE: regular rate RHYTHM: regular rhythm GI: COMMON NORMALS: Soft to palpation and No hepatosplenomegaly present A USCULTATION: Yes normoactive bowel sounds PALPATION: Yes Soft to palpation, No Tenderness to palpation present (GI), No Guarding due to palpation present (GI) and Yes No hepatosplenomegaly present Extremity: COMMON NORMALS: normal to inspection, capillary refill normal, no clubbing, cyanosis or edema, no calf tenderness and no pedal edema Neuro: SENSORIUM/ORIENTATION: Yes oriented to person, Yes oriented to place and Yes oriented to time Skin: COMMON NORMALS: no rashes or lesions noted GENERAL SKIN EXAM: no rashes or lesions noted Course 2 Vital Signs: Vital signs: Vital Signs Temperature 98.5 F 04/26/24 00:00 Pulse Rate 80 04/26/24 04:00 Respiratory Rate 18 04/26/24 04:00 Blood Pressure 135/70 04/26/24 04:00 Pulse Oximetry 90 04/26/24 04:00 Oxygen Delivery Me thod Room Air 04/26/24 04:00 MDM - Chest Pain Medical Decision Making Patient has a history of coronary artery disease. He is not having exertional dyspnea and chest discomfort. He has been on Eliquis. Family is very concerned for possible PE however when reviewing his labs and history and was concerned about a PE then a.m. about coronary artery disease as a cause. He does have a left lower lobe pneumonia antibiotics were started for this. Continue his anticoagulation. He does have some chronic kidney disease and very concerned about stressing his kidneys especially so that should the patient need a heart catheter think may be a priority a gradient is normal. His initial troponin was elevated second troponin however did decrease with a negative delta. Discussed with the hospitalist will admit to antibody antibiotics have been started consult cardiology. Continue Levaquin manage renal issues. Lab Data 04/26/24 04:41 04/25/24 05:07 Radiology Impressions Chest X-Ray 04/24/24 06:00 IMPRESSION: 1. Small LEFT lower lobe infiltrate essentially unchanged. Laboratory Results WBC 15.33 10^3/uL (3.29-11.43) H 04/23/24 11:42 RBC 4.19 10^6/uL (3.85-5.65) 04/23/24 11:42 Hgb 12.30 g/dL (11.27-16.99) 04/23/24 11:42 Hct 38.4 % (37-53) 04/23/24 11:42 MCV 91.6 fl (82-101) 04/23/24 11:42 MCH 29.4 pg (27-33) 04/23/24 11:42 MCHC 32.0 g/dL (30-55) 04/23/24 11:42 RDW 14.2 % (12.1-15.1) 04/23/24 11:42 Plt Count 391 10^3/cmm (157-399) 04/23/24 11:42 MPV 10.6 fL (7.4-10.4) H 04/23/24 11:42 Neut % (Auto) 87.4 % 04/23/24 11:42 Lymph % (Auto) 4.2 % 04/23/24 11:42 [place]mort[place] % (Auto) 6.8 % 04/23/24 11:42 Eos % (Auto) 0.3 % 04/23/24 11:42 Baso % (Auto) 0.3 % 04/23/24 11:42 Neut # (Auto) 13.41 10^3/uL (1.8-7.7) H 04/23/24 11:42 Lymph # (Auto) 0.6 10^3/uL (0.8-4.8) L 04/23/24 11:42 [place]morton # (Auto) 1.0 10^3/uL (0.2-0.9) H 04/23/24 11:42 Eos # (Auto) 0.0 10^3/uL (0.0-0.8) 04/23/24 11:42 Baso # (Auto) 0.1 10^3/uL (0.0-0.1) 04/23/24 11:42 Nucleated RBC % (auto) 0 % 04/23/24 11:42 Nucleated RBCs # 0.0 /100WBC 04/23/24 11:42 Specimen Type Arterial 04/23/24 13:28 Sample Site Radial, left 04/23/24 13:28 ABG pH 7.48 (7.35-7.45) H 04/23/24 13:28 ABG pCO2 35.5 mmHg (35-45) 04/23/24 13:28 ABG pO2 65.9 mmHg (80.0-100.0) L 04/23/24 13:28 ABG PO2/FiO2 Ratio 313 04/23/24 13:28 ABG HCO3 26.5 mmol/L (22-26) H 04/23/24 13:28 ABG O2 Saturation 94.2 04/23/24 13:28 ABG Base Excess 3.2 mmol/L (-2.0-2.0) H 04/23/24 13:28 Arnaud Test Pos 04/23/24 13:28 A-a O2 Gradient 5.3 mmHg (5-10) 04/23/24 13:28 Hematocrit 37.4 % (42-52) L 04/23/24 13:28 Hgb O2 Saturation 91.6 % (95-100) L 04/23/24 13:28 Carboxyhemoglobin 1.7 %THgb (0.4-20.1) 04/23/24 13:28 Methemoglobin 1.0 % (0.4-1.5) 04/23/24 13:28 Total Hemoglobin 12.2 g/dL (14-18) L 04/23/24 13:28 Sodium 140.0 mmol/L (131-143) 04/23/24 13:28 Potassium 3.4 mmol/L (3.5-5.0) L 04/23/24 13:28 Glucose 170.0 mg/dL (70-115) H 04/23/24 13:28 Ionized Calcium 1.2 mmol/L (1.1-1.4) 04/23/24 13:28 O2 Delivery Device Room air 04/23/24 13:28 FiO2 21.0 % 04/23/24 13:28 Agriculture Department Chair ID [place] 04/23/24 13:28 Sodium 135 mmol/L (136-145) L 04/23/24 11:42 Potassium 3.7 mmol/L (3.5-5.1) 04/23/24 11:42 Chloride 98 mmol/L (98-107) 04/23/24 11:42 Carbon Dioxide 23 mmol/L (22-29) 04/23/24 11:42 Anion Gap 17.7 (5-19) 04/23/24 11:42 BUN 37 mg/dL (8-23) H 04/23/24 11:42 Creatinine 2.0 mg/dL (0.7-1.2) H 04/23/24 11:42 GFR Calculation Not Reportable 04/23/24 11:42 Glucose 233 mg/dL (65-115) H 04/23/24 11:42 Calculated Osmolality 296 mOsm/kg (285-295) H 04/23/24 11:42 Calcium 8.7 mg/dL (8.5-10.5) 04/23/24 11:42 Total Bilirubin 1.3 mg/dL (0.15-1.2) H 04/23/24 11:42 AST 28 U/L (0-40) 04/23/24 11:42 ALT 8 U/L (0-41) 04/23/24 11:42 Alkaline Phosphatase 65 U/L (40-130) 04/23/24 11:42 Troponin T Baseline 27 ng/L (0-15) H 04/23/24 11:42 NT-Pro-B Natriuret Pep 266 pg/mL (0-450) 04/23/24 11:42 Total Protein 5.5 g/dL (6.6-8.7) L 04/23/24 11:42 Albumin 3.6 g/dL (3.5-5.2) 04/23/24 11:42 Globulin 1.9 g/dL (1.3-4.6) 04/23/24 11:42 Urine Color Yellow (Yellow) 04/23/24 11:32 Urine Appearance Clear (CLEAR) 04/23/24 11:32 Urine pH 5.0 (5-7) 04/23/24 11:32 Ur Specific Dexter 1.011 (1.005-1.030) 04/23/24 11:32 Urine Protein Negative (Negative) 04/23/24 11:32 Urine Glucose (UA) Negative (Normal) 04/23/24 11:32 Urine Ketones Negative (Negative) 04/23/24 11:32 Urine Blood Negative (Negative) 04/23/24 11:32 Urine Nitrate Negative (Negative) 04/23/24 11:32 Urine Bilirubin Negative (Negative) 04/23/24 11:32 Urine Urobilinogen 0.2 mg/dL (Negative) 04/23/24 11:32 Ur Leukocyte Esterase Trace (Negative) A 04/23/24 11:32 Urine RBC 0-2 /hpf (0-2) 04/23/24 11:32 Urine WBC 0-5 /hpf (0-5) 04/23/24 11:32 Ur Squamous Epith Cells 0-5 /hpf (0-5) 04/23/24 11:32 Amorphous Sediment Not Reportable 04/23/24 11:32 Urine Bacteria None seen /hpf (NONE) 04/23/24 11:32 Hyaline Casts 12.38 /lpf 04/23/24 11:32 All radiology interpretation(s) finalized by discharge Clincial Decision Support The following clinical decision support tools were used to aid in care of the patient HEART Score -> History: Highly Suspicious, EKG: Normal, Age: 65 or more yrs, Risk Factors: >/=3 Risk Factors, Troponin: Baseline Trop 16-45 ng/L. Resulting HEART Score: 7. Discharge Plan Discharge Patient Disposition: Admitted As Inpatient Admit Provider: Alysha Bravo Clinical Impression: Pneumonia, Stable angina, 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 GFR 15-29, AAA (abdominal aortic aneurysm), Atrial fibrillation, CKD (chronic kidney disease), COPD (chronic obstructive pulmonary disease), Chronic anticoagulation Condition: Stable Coding Level of Care Code ED Pot Annealer for Lesa Thorpe
[2024-04-23 11:44] LABS: Bilirubin Urine Negative (Negative); Blood Urine Negative (Negative); Glucose Urine UA Negative (Normal); Ketones Urine Negative (Negative); Leukocyte Esterase Urine Trace (Negative); Nitrate Urine Negative (Negative); Protein Urine Negative (Negative); Specific Gravity, Urine 1.011 (1.005-1.030); Urine Appearance Clear (CLEAR); Urine Color Yellow (Yellow); Urobilinogen Urine 0.2 mg/dL (Negative)
[2024-04-23 11:47] LABS: Add Urine Microscopic? YES; Bacteria Urine None Seen /hpf; Hyaline Casts Urine 12.38 /lpf; RBC Urine 0-2 /hpf (0-2); Squamous Epithelial Cell Urine 0-5 /hpf (0-5); WBC Urine 0-5 /hpf (0-5)
[2024-04-23 12:03] LABS: Basophils # 0.1 10^3/uL (0.0-0.1); Basophils % 0.3 %; Eosinophils % 0.3 %; Hematocrit 38.4 % (37-53); Lymphocytes # 0.6 10^3/uL (0.8-4.8); Lymphocytes % 4.2 %; Mean Corpuscular Hemoglobin 29.4 pg (27-33); Mean Corpuscular Volume 91.6 fl (82-101); Mean Platelet Volume 10.6 fL (7.4-10.4); Monocytes % 6.8 %; Neutrophils # 13.41 10^3/uL (1.8-7.7); Neutrophils % 87.4 %; Nucleated Red Blood Cells % 0 %; Platelet Count 391 10^3/cmm (157-399); Red Blood Count 4.19 10^6/uL (3.85-5.65); Red Cell Distribution Width 14.2 % (12.1-15.1); White Blood Count 15.33 10^3/uL (3.29-11.43)
[2024-04-23 12:03] LABS: UA Slide Review UA Slide Review Perf
[2024-04-23 12:28] LABS: Troponin(5th) Baseline 27 ng/L (0-15)
[2024-04-23 12:33] LABS: Alanine Aminotransferase 8 U/L (0-41); Albumin Level 3.6 g/dL (3.5-5.2); Alkaline Phosphatase 65 U/L (40-130); Anion Gap 17.7 (5-19); Aspartate Amino Transferase 28 U/L (0-40); Blood Urea Nitrogen 37 mg/dL (8-23); Calcium 8.7 mg/dL (8.5-10.5); Carbon Dioxide 23 mmol/L (22-29); Chloride 98 mmol/L (98-107); Creatinine Clr Calc Pharmacy 32.7207; Globulin 1.9 g/dL (1.3-4.6); Glucose 233 mg/dL (65-115); Osmolality Calculated 296 mOsm/kg (285-295); Potassium 3.7 mmol/L (3.5-5.1); Sodium 135 mmol/L (136-145); Total Bilirubin 1.3 mg/dL (0.15-1.2); Total Protein 5.5 g/dL (6.6-8.7)
--- NOTE | 2024-04-23 13:13 | PC.PHAR ---
patient is from [place], sent fax at 1:15pm
--- NOTE | 2024-04-23 13:21 | ECG_ITS ---
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
--- NOTE | 2024-04-23 13:36 | PC.NURSE ---
DELAY OF ADMINISTRATION OF ANTIBIOTICS DUE TO BLOOD CULTURES BEING ORDERED. LAB AWARE.
[2024-04-23 13:40] LABS: ABG PCO2 35.5 mmHg (35-45); ABG PH Result 7.48 (7.35-7.45); Alveolar-Arterial Oxygen Gradi 5.3 mmHg (5-10); Arterial Blood Gas Hematocrit 37.4 % (42-52); Base Excess ABG 3.2 mmol/L (-2.0-2.0); Blood Gas Allen Test Pos; Blood Gas Operator Identificat WALCI; Blood Gas Sample Site Radial, left; Blood Gas Sample Type Arterial; Carboxyhemoglobin 1.7 %THgb (0.4-20.1); HCO3 ABG 26.5 mmol/L (22-26); HGB O2 Sat 91.6 % (95-100); Ionized Calcium Level - ABG 1.2 mmol/L (1.1-1.4); Oxygen Device ROOM AIR; Oxygen Saturation ABG 94.2; PO2 ABG 65.9 mmHg (80.0-100.0); PO2 FiO2 Ratio Arterial Blood 313; Potassium Level - ABG 3.4 mmol/L (3.5-5.0); Total Hemoglobin 12.2 g/dL (14-18)
[2024-04-23] MEDS: piperacillin-tazobactam 2.25 GM in sodium chloride 0.9% (plus) 50 ML IV (14:56)
[2024-04-23 15:12] LABS: Troponin 5 2HR 28.25 ng/L (0-15); Troponin 5 2HR Delta 1.25 ABS# (0-10)
--- NOTE | 2024-04-23 17:00 | P.HP_ITS ---
Providers/Chief Complaint 2 Admitting Physician: Alysha Bravo MD Chief Complaint: cp, htn History of Present Illness José Elliott is a 78 year old male who presented to the emergency room with chief complaint of some chest tightness, shortness of breath, high blood pressures. Mr. Elliott underwent left total knee replacement by Dr. Emil Menjivar at [facility] in [place] on April 13. He had some fever 2 days postoperatively and really since then has had significant fatigue and difficulty getting around. At times he has been confused. He had been having some low blood sugars into the 60s frequently in part due to decreased oral intake prompting his family to hold his long-acting insulin. They were seen by clinic recently and recommended to have resumption of long-acting insulin at half of usual home dose with close monitoring of blood sugars. Since then he has had episodes of vomiting with physical therapy, periods of chest tightness and shortness of breath with exertion that have been concerning to both him and the family. They have been worried about possibility of pulmonary embolism. Mr. Elliott also has a history of coronary artery disease with prior stents and a history of atrial fibrillation for which she is on rate controlling agents and chronic anticoagulation though currently in sinus rhythm. There is also some degree of anxiety as the last time Mr. Elliott had a knee replacement he had postoperative complications to include infection and repeat surgical requirements. In the emergency room today he was found to have a left lower lobe opacity on chest x-ray and an elevated white count and borderline low normal oxygen levels clinically felt to represent pneumonia. He was given Rocephin and azithromycin. He has been on doxycycline since surgery having finished that course of antibiotics within the last day or 2. Initial troponin was 27. proBNP was 266. Given chronic conditions and recent surgery combined with presentation request was made for admission for further evaluation and treatment. Review of Systems 2 Narrative: - Cardiovascular: Reports chest tightnes s and elevated blood pressure. - Respiratory: Reports shortness of dorothy th on exertion; some cough with non- bloody sputum. - Gastrointestinal: Reports nausea and e pisodes of vomiting, especially during physical therapy. - Musculoskeletal: Denies leg swelling; reports fatigue. - Endocrinology: Reports frequent urinat ion and difficulty controlling blood glucose levels. - Neurological: Denies dizziness or conf usion but mentions episodes of tiredness and unclear thoughts. Medications/Allergies Home Medications Medication Instructions Recorded Confirmed Last Taken Type allopurinol 300 mg tablet 300 mg PO DAILY 09/03/19 04/23/24 01/08/21 History citalopram 40 mg tablet 20 mg PO DAILY 09/03/19 04/23/24 01/08/21 History metoprolol tartrate 50 mg tablet 50 mg PO BID 09/03/19 04/23/24 01/08/21 History pantoprazole 40 mg tablet,delayed 40 mg PO DAILY 09/03/19 04/23/24 01/08/21 History release tamsulosin 0.4 mg capsule 0.4 mg PO DAILY 09/03/19 04/23/24 01/08/21 History tiotropium bromide 18 mcg capsule 1 cap inhalation DAILY 09/03/19 04/23/24 01/08/21 History with inhalation device (Spiriva with HandiHaler) cholecalciferol (vitamin D3) 25 25 mcg PO DAILY 01/09/21 04/23/24 01/08/21 History mcg (1,000 unit) tablet (Vitamin D3) multivitamin 1 tab PO DAILY 01/09/21 04/23/24 01/08/21 History diltiazem HCl 120 mg 120 mg PO DAILY #30 caps 01/12/21 04/23/24 Unknown Rx capsule,extended release 24 hr (Cardizem CD) furosemide 40 mg tablet 40 mg PO DAILY 02/12/21 04/23/24 Unknown History nitroglycerin 0.4 mg sublingual 0.4 mg sublingual Q5M PRN Chest 04/30/21 04/23/24 Unknown Rx tablet (Nitrostat) Pain #25 tabs fenofibrate nanocrystallized 48 mg 145 mg PO DAILY 12/10/21 04/23/24 Unknown History tablet glucagon 1 mg solution for 1 mg SUBCUT Q20M PRN hypoglycemia 12/10/21 04/23/24 Unknown Rx injection (Glucagon Emergency Kit) #1 ea omega-3 acid ethyl esters 1 gram 2 cap PO BID 12/10/21 04/23/24 Unknown History capsule 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 meter,continuous #1 ea 05/11/23 04/23/24 Unknown Rx (Dexcom G7 Wastewater Technician) insulin aspart U-100 100 unit/mL 4 - 5 unit (0.04 - 0.05 mL) SUBCUT 11/16/23 04/23/24 Unknown Rx subcutaneous solution (Novolog TID #20 mL U-100 Insulin aspart) insulin glargine-yfgn 100 unit/mL 52 unit (0.52 mL) SUBCUT DAILY 11/21/23 04/23/24 Unknown Rx (3 mL) subcutaneous pen (Semglee #46.8 mL (insulin glargine-yfgn) Pen) 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 sensor (Dexcom G7 #3 ea 02/22/24 04/23/24 Unknown Rx Sensor device) apixaban 5 mg tablet (Eliquis) 5 mg PO BID 04/23/24 04/23/24 Unknown History atorvastatin 80 mg tablet 80 mg PO BEDTIME 04/23/24 04/23/24 Unknown History cyclobenzaprine 10 mg tablet 10 mg PO TID 04/23/24 04/23/24 Unknown History diclofenac sodium 1 % topical gel 4 g topical QID 04/23/24 04/23/24 Unknown History fluticasone propionate 50 2 spray intranasal DAILY 04/23/24 04/23/24 Unknown History mcg/actuation nasal spray,suspension mupirocin 2 % topical ointment 1 applic topical BID PRN infection 04/23/24 04/23/24 Unknown History Allergies Allergy/AdvReac Type Severity Reaction Status Date / Time vancomycin Allergy Severe ALGY-Anaphy Verified 04/18/24 09:45 laxis Opioids - Morphine Analogues Allergy Unknown Verified 04/18/24 09:45 PFSH Acute 2 PFSH: Medical History (Updated 04/23/24 @ 22:32 by Alysha Bravo MD) COVID-19 05/2022 GERD (gastroesophageal reflux disease) Horseshoe kidney Depression BPH (benign prostatic hyperplasia) Gout Tobacco abuse, in remission Diabetes CKD (chronic kidney disease) COPD (chronic obstructive pulmonary disease) Hyperlipidemia HTN (hypertension) Atrial fibrillation ASHD (arteriosclerotic heart disease) AAA (abdominal aortic aneurysm) Surgical History (Updated 04/23/24 @ 22:14 by Alysha Bravo MD) S/P appendectomy S/P cholecystectomy S/P knee replacement right, had post operative infection with repeat surgeries needed S/P tonsillectomy S/P hernia repair S/P PTCA (percutaneous transluminal coronary angioplasty) Family History Father CAD (coronary artery disease) Hypertension Myocardial infarction Social History Smoking and tobacco/nicotine status: never used tobacco/nicotine Alcohol intake: never Substance/Drug Use: never Vitals/I&O/Wt Last Vital Signs Temp 98.0 F 04/23/24 11:20 Pulse 98 04/23/24 13:38 Resp 18 04/23/24 11:20 BP 158/85 04/23/24 13:38 Pulse Ox 95 04/23/24 13:38 O2 Del Method Room Air 04/23/24 14:17 04/23/24 04/23/24 04/23/24 06:59 14:59 22:59 Intake Total 50 / 50 Output Total 100 / 100 Balance -100 / -100 50 / -50 Weight last 48 hrs Weight 87.226 kg Weight 95.254 kg Physical Exam 2 Narrative: Constitutional: Awake and alert, cooperative HEENT: Normocephalic, atraumatic, pupils are equally reactive, oropharynx with moist mucous membranes Neck: Supple Respiratory: Clear to auscultation bilaterally without any rales rhonchi or wheezes noted Cardiovascular: Regular rate and rhythm, no murmurs, gallops, or rubs Abdomen: Soft, nontender, nondistended with positive bowel sounds Extremities: Left lower extremities with some swelling in the thigh and knee area as expected postoperatively. Dressing is intact to surgical site with no significant surrounding erythema. Bruising noted to posterior knee, posterior thigh and calf. No palpable cords in the calf. No pitting edema at the ankle. Neuro: Speech clear, face symmetric, moves all extremities Psych: Normal affect, oriented x3 Data 04/23/24 11:42 04/23/24 11:42 Other Labs: Radiology Impressions Chest X-Ray 04/23/24 11:20 IMPRESSION: Slight opacity left lung base laterally of cardiac apex may be due to overlap and accentuated by shallow inspiration, low lung volumes, rotation, though subtle infiltrate not excluded. Follow-up standard upright PA and lateral views of the chest with deep inspiration recommended when possible. Laboratory Results WBC 15.33 10^3/uL (3.29-11.43) H 04/23/24 11:42 RBC 4.19 10^6/uL (3.85-5.65) 04/23/24 11:42 Hgb 12.30 g/dL (11.27-16.99) 04/23/24 11:42 Hct 38.4 % (37-53) 04/23/24 11:42 MCV 91.6 fl (82-101) 04/23/24 11:42 MCH 29.4 pg (27-33) 04/23/24 11:42 MCHC 32.0 g/dL (30-55) 04/23/24 11:42 RDW 14.2 % (12.1-15.1) 04/23/24 11:42 Plt Count 391 10^3/cmm (157-399) 04/23/24 11:42 MPV 10.6 fL (7.4-10.4) H 04/23/24 11:42 Neut % (Auto) 87.4 % 04/23/24 11:42 Lymph % (Auto) 4.2 % 04/23/24 11:42 [place] % (Auto) 6.8 % 04/23/24 11:42 Eos % (Auto) 0.3 % 04/23/24 11:42 Baso % (Auto) 0.3 % 04/23/24 11:42 Neut # (Auto) 13.41 10^3/uL (1.8-7.7) H 04/23/24 11:42 Lymph # (Auto) 0.6 10^3/uL (0.8-4.8) L 04/23/24 11:42 [place] # (Auto) 1.0 10^3/uL (0.2-0.9) H 04/23/24 11:42 Eos # (Auto) 0.0 10^3/uL (0.0-0.8) 04/23/24 11:42 Baso # (Auto) 0.1 10^3/uL (0.0-0.1) 04/23/24 11:42 Nucleated RBC % (auto) 0 % 04/23/24 11:42 Nucleated RBCs # 0.0 /100WBC 04/23/24 11:42 Specimen Type Arterial 04/23/24 13:28 Sample Site Radial, left 04/23/24 13:28 ABG pH 7.48 (7.35-7.45) H 04/23/24 13:28 ABG pCO2 35.5 mmHg (35-45) 04/23/24 13:28 ABG pO2 65.9 mmHg (80.0-100.0) L 04/23/24 13:28 ABG PO2/FiO2 Ratio 313 04/23/24 13:28 ABG HCO3 26.5 mmol/L (22-26) H 04/23/24 13:28 ABG O2 Saturation 94.2 04/23/24 13:28 ABG Base Excess 3.2 mmol/L (-2.0-2.0) H 04/23/24 13:28 Arnaud Test Pos 04/23/24 13:28 A-a O2 Gradient 5.3 mmHg (5-10) 04/23/24 13:28 Hematocrit 37.4 % (42-52) L 04/23/24 13:28 Hgb O2 Saturation 91.6 % (95-100) L 04/23/24 13:28 Carboxyhemoglobin 1.7 %THgb (0.4-20.1) 04/23/24 13:28 Methemoglobin 1.0 % (0.4-1.5) 04/23/24 13:28 Total Hemoglobin 12.2 g/dL (14-18) L 04/23/24 13:28 Sodium 140.0 mmol/L (131-143) 04/23/24 13:28 Potassium 3.4 mmol/L (3.5-5.0) L 04/23/24 13:28 Glucose 170.0 mg/dL (70-115) H 04/23/24 13:28 Ionized Calcium 1.2 mmol/L (1.1-1.4) 04/23/24 13:28 O2 Delivery Device Room air 04/23/24 13:28 FiO2 21.0 % 04/23/24 13:28 Molding Press Operator ID [place] 04/23/24 13:28 Sodium 135 mmol/L (136-145) L 04/23/24 11:42 Potassium 3.7 mmol/L (3.5-5.1) 04/23/24 11:42 Chloride 98 mmol/L (98-107) 04/23/24 11:42 Carbon Dioxide 23 mmol/L (22-29) 04/23/24 11:42 Anion Gap 17.7 (5-19) 04/23/24 11:42 BUN 37 mg/dL (8-23) H 04/23/24 11:42 Creatinine 2.0 mg/dL (0.7-1.2) H 04/23/24 11:42 GFR Calculation Not Reportable 04/23/24 11:42 Glucose 233 mg/dL (65-115) H 04/23/24 11:42 Calculated Osmolality 296 mOsm/kg (285-295) H 04/23/24 11:42 Calcium 8.7 mg/dL (8.5-10.5) 04/23/24 11:42 Total Bilirubin 1.3 mg/dL (0.15-1.2) H 04/23/24 11:42 AST 28 U/L (0-40) 04/23/24 11:42 ALT 8 U/L (0-41) 04/23/24 11:42 Alkaline Phosphatase 65 U/L (40-130) 04/23/24 11:42 Troponin T Baseline 27 ng/L (0-15) H 04/23/24 11:42 Troponin T 120 Minute 28.25 ng/L (0-15) H 04/23/24 14:46 Delta Troponin T 1.25 ABS# (0-10) 04/23/24 14:46 Total Protein 5.5 g/dL (6.6-8.7) L 04/23/24 11:42 Albumin 3.6 g/dL (3.5-5.2) 04/23/24 11:42 Globulin 1.9 g/dL (1.3-4.6) 04/23/24 11:42 Urine Color Yellow (Yellow) 04/23/24 11:32 Urine Appearance Clear (CLEAR) 04/23/24 11:32 Urine pH 5.0 (5-7) 04/23/24 11:32 Ur Specific [place] 1.011 (1.005-1.030) 04/23/24 11:32 Urine Protein Negative (Negative) 04/23/24 11:32 Urine Glucose (UA) Negative (Normal) 04/23/24 11:32 Urine Ketones Negative (Negative) 04/23/24 11:32 Urine Blood Negative (Negative) 04/23/24 11:32 Urine Nitrate Negative (Negative) 04/23/24 11:32 Urine Bilirubin Negative (Negative) 04/23/24 11:32 Urine Urobilinogen 0.2 mg/dL (Negative) 04/23/24 11:32 Ur Leukocyte Esterase Trace (Negative) A 04/23/24 11:32 Urine RBC 0-2 /hpf (0-2) 04/23/24 11:32 Urine WBC 0-5 /hpf (0-5) 04/23/24 11:32 Ur Squamous Epith Cells 0-5 /hpf (0-5) 04/23/24 11:32 Amorphous Sediment Not Reportable 04/23/24 11:32 Urine Bacteria None seen /hpf (NONE) 04/23/24 11:32 Hyaline Casts 12.38 /lpf 04/23/24 11:32 Micro: Microbiology 04/23/24 14:46 Blood Culture - Preliminary Blood SPECIMEN COLLECTED 04/23/24 14:42 Blood Culture - Preliminary Blood SPECIMEN COLLECTED Other data: Echo 01/2021 CONCLUSIONS Limited quality echocardiogram with poor visualization of cardiac structures. LV systolic function is normal with EF of 60-65% Diastolic function is indeterminate because of atrial fibrillation. Valvular structures are not well visualized Mildly dilated aortic root Comparison with prior studies not possible because of limited visualization A&P Assessment and plan (1) Pneumonia: Left lower lobe opacity, present on admission in a patient who has been on antibiotics in the outpatient setting. Chest x-ray is a portable film and not optimal. Has elevation in white count which incidentally was noted prior to surgery though exact value unknown as well as a couple of months prior to surgery per review of old records. Not currently requiring oxygen though sats low normal at times. Has had a cough productive of sputum without blood, shortness of breath on exertion and chest tightness along with excessive sleepiness and fatigue that is not like him along with intermittent episodes of confusion. Does not have a pleuritic chest pain. Component of COPD likely contributing to overall presentation. Impact of undiagnosed sleep apnea also within the differential. Repeat chest x-ray with PA and lateral films Continue Rocephin and azithromycin Breathing treatments as needed Home Spiriva currently held as nonformulary Monitor need for oxygen therapy (2) Chest pain: Precordial tightness. Family concern for possibility of postoperative pulmonary embolism. Chronic kidney disease limits ability to safely use contrast and with known horseshoe kidney risk currently higher than potential benefit given that he is chronically on Eliquis and has a normal AA gradient. Though initial troponin was elevated above normal, 2-hour troponin delta is unremarkable. He does have a history of known coronary artery disease with prior percutaneous intervention, AAA and atrial fibrillation. Continue serial cardiac enzymes and EKGs Nitroglycerin if needed Received aspirin in the emergency room, will continue enteric coated aspirin for now daily Continue home statin and fenofibrate Qualifiers: Chest pain type: precordial pain Qualified Code(s): R07.2 - Precordial pain (3) S/P total knee arthroplasty: Postop day 10 from left total knee arthroplasty performed at [facility]. Follow-up appointment is scheduled for this coming Tuesday. Swelling is gone down significantly. Bruising is appropriate for current postoperative status and no areas of erythema extending outside of the region of dressing which is intact. Pain is appropriate for postoperative status as well. Patient surgeon in [place] requested that dressing over surgical site remain intact and at this point in time do not see reason to remove dressing Will check sed rate and CRP in the morning to have as a baseline going forward Pain control as per postoperative plan PT/OT as needed during course of stay if unable to perform exercises as instructed by his surgeon/PT post-operateively Qualifiers: Laterality: left Qualified Code(s): Z96.652 - Presence of left artificial knee joint (4) HTN (hypertension): Primary hypertension that has been suboptimally controlled lately. Chronically on diltiazem, Lasix, metoprolol. BNP within normal range and does not have evidence of swelling beyond in the knee/thigh area which is appropriate postoperatively. Pain may be a current factor also but family states was present prior to admission. Continue usual antihypertensive medication Monitor blood pressures for need to adjust Qualifiers: Hypertension type: primary hypertension Qualified Code(s): I10 - Essential (primary) hypertension (5) COPD (chronic obstructive pulmonary disease): Chronic with possible acute component related to #1 Breathing treatments as needed Qualifiers: COPD type: emphysema Emphysema type: panlobular Qualified Code(s): J 43.1 - Panlobular emphysema (6) Atrial fibrillation: Currently in sinus rhythm, rate controlled Continue beta-blockade and calcium channel carl both of which are chronic medications Qualifiers: Atrial fibrillation type: unspecified chronic Qualified Code(s): I48.20 - Chronic atrial fibrillation, unspecified (7) Chronic anticoagulation: On Eliquis due to history of atrial fibrillation which is also currently serving as postoperative DVT prophylaxis Continue home Eliquis (8) 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 In the days immediately postoperatively blood sugars were running very low due to decreased oral intake without adjustment and long-acting insulin. Current blood sugars are running high which may be impacting healing from surgery. I suspect fluctuations in blood sugar likely contributing to some degree to excessive sleepiness and not being himself, confused at times that family was noticing in addition to any impacts of anesthesia and such. 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 Low-dose sliding scale insulin Decrease usual long-acting insulin dosage to 25 and monitor response Watch for hypoglycemia Renal dosing of medications as indicated (9) GERD (gastroesophageal reflux disease): Continue home PPI Qualifiers: Esophagitis presence: without esophagitis Qualified Code(s): K21.9 - Gastro-esophageal reflux disease without esophagitis (10) BPH (benign prostatic hyperplasia): Continue home Flomax Qualifiers: Lower urinary tract symptom presence: symptoms present Lower urinary tract symptom detail: urinary frequency Qualified Code(s): N40.1 - Benign prostatic hyperplasia with lower urinary tract symptoms; R35.0 - Frequency of micturition Plan Continue home allopurinol for gout Continue home citalopram Currently holding diclofenac topical VTE prophylaxis: Eliquis GI Prophylaxis: PPI Antibiotics: Rocephin and Azithromycin, status post doxycycline prior to admission Pending studies: MRSA swab, repeat chest x-ray PA and lateral Telemetry: ordered secondary to chest pain and shortness of breath with cardiac history Rosen: not currently indicated Line(s): peripheral IVs Disposition plan: Home with outpatient follow up anticipated along with ongoing support by twin daughters. Has follow up with orthopedics currently shceduled for 04/25 which may have to be rescheduled if still in hospital. Also recommend follow up to PC regarding blood pressure and other medicaal issues needing ongoing managment Code Status: Full Code Supportive care otherwise Findings, concerns and plans were discussed with patient and they were given an opportunity to ask questions Attestations 2 Medical Necessity Statement*: Anticipated stay greater than 2 midnights currently. The patient presents with multiple complex conditions requiring integrative management in his postoperative state. The chest tightness is suspected to be related to a known underlying COPD exacerbated by surgery stress and probable post-operative pain. Initial impression of pneumonia in a patient who has already been on antibiotics. The decision to treat, repeat chest xray and monitor rather than pursue aggressive diagnostic testing is due to the normal findings and existing renal limitations preventing CT angiography. Immediate management focuses on maintaining respiratory stability, pain control, and addressing the elevated blood pressure without compromising renal function. We are also continuing to evaluate cardiac enzymes. Given his diabetes, adjustments to insulin previously initiated due to postoperative anorexia and hypoglycemia. The patient is on Eliquis, thus not suspected of contributing to thromboembolic complications at present. His discharge will be considered upon stabilization of these conditions, ensuring adequate home support and outpatient follow-up arrangements. Coding Level of Care Code Acute Code for [facility] Diagnoses Pneumonia J18.9 Precordial pain R07.2 Chest pain type: precordial pain Status post total left knee replacement Z96.652 Laterality: left Primary hypertension I10 Hypertension type: primary hypertension Panlobular emphysema J43.1 COPD type: emphysema Emphysema type: panlobular Chronic atrial fibrillation I48.20 Atrial fibrillation type: unspecified chronic Chronic anticoagulation Z79.01 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
--- NOTE | 2024-04-23 17:21 | ECG_ITS ---
[employer] Test Date: 2024-04-23 Pat Name: José Elliott Department: Room: 107 Gender: Male Senior It Business Analyst: : 1945 Requested By: Santiago Lomabrdi Order Number: [id number] Reading MD: LEONORA UMANZOR Measurements Intervals [place] Rate: 86 P: 37 MD: 146 QRS: -3 QRSD: 98 T: 9 QT: 374 QTc: 449 Interpretive Statements SINUS RHYTHM POSSIBLE INFERIOR MYOCARDIAL INFARCTION , PROBABLY OLD [30 ms Q WAVE IN II/aVF] Compared to ECG 04/23/2024 13:32:30 Myocardial infarct finding now present Electronically Signed On 04-24-2024 21:18:05 CDT by LEONORA UMANZOR [email or web address]
[2024-04-23] MEDS: docusate sodium 100 mg Capsule PO (17:35)
[2024-04-23] MEDS: apixaban 5 mg Tablet PO (17:35)
[2024-04-23 17:54] LABS: Troponin 5 6HR 28.11 ng/L (0-15); Troponin 5 6HR Delta 1.11 ng/L (0-12)
[2024-04-23 17:55] LABS: NT Pro B Type Natriuretic Pept 266 pg/mL (0-450)
[2024-04-23 18:30] LABS: Covid PCR NEGATIVE (Negative); Influenza A NEGATIVE (Negative); Influenza B NEGATIVE (Negative); Respiratory Syncytial Virus Ce NEGATIVE (Negative)
[2024-04-23 21:20] LABS: Glucose Point of Care 206 mg/dL (70-110)
[2024-04-23] MEDS: insulin lispro 100 unit/1 mL SUBCUT (21:54)
[2024-04-23] MEDS: atorvastatin 40 mg Tablet PO (21:54)
[2024-04-23] MEDS: metoprolol tartrate 50 mg Tablet PO (21:54)
[2024-04-24] VITALS (10 sets, daily range): BP systolic 118–169; BP diastolic 58–84; PULSE 67–88; RESP 14–22; TEMP 36.4–37.2; O2SAT 92–97
[2024-04-24] MEDS: piperacillin-tazobactam 3.375 GM in sodium chloride 0.9% (plus) 50 ML IV ×3 (00:58→16:16)
[2024-04-24 04:46] LABS: Basophils # 0.1 10^3/uL (0.0-0.1); Basophils % 0.5 %; Eosinophils # 0.3 10^3/uL (0.0-0.8); Eosinophils % 1.7 %; Hematocrit 36.5 % (37-53); Lymphocytes % 7.2 %; Mean Corpuscular HGB Conc 32.3 g/dL (30-55); Mean Corpuscular Hemoglobin 29.6 pg (27-33); Mean Corpuscular Volume 91.5 fl (82-101); Mean Platelet Volume 9.9 fL (7.4-10.4); Monocytes # 1.3 10^3/uL (0.2-0.9); Monocytes % 9.3 %; Neutrophils # 11.51 10^3/uL (1.8-7.7); Neutrophils % 80.3 %; Nucleated Red Blood Cells % 0 %; Platelet Count 389 10^3/cmm (157-399); Red Blood Count 3.99 10^6/uL (3.85-5.65); Red Cell Distribution Width 14.5 % (12.1-15.1); White Blood Count 14.34 10^3/uL (3.29-11.43)
[2024-04-24 05:05] LABS: Alanine Aminotransferase 8 U/L (0-41); Albumin Level 3.3 g/dL (3.5-5.2); Alkaline Phosphatase 58 U/L (40-130); Anion Gap 13.6 (5-19); Aspartate Amino Transferase 29 U/L (0-40); Blood Urea Nitrogen 35 mg/dL (8-23); Calcium 8.8 mg/dL (8.5-10.5); Carbon Dioxide 27 mmol/L (22-29); Chloride 104 mmol/L (98-107); Creatinine Clr Calc Pharmacy 31.2935; Globulin 2.4 g/dL (1.3-4.6); Glucose 171 mg/dL (65-115); Osmolality Calculated 304 mOsm/kg (285-295); Potassium 3.6 mmol/L (3.5-5.1); Sodium 141 mmol/L (136-145); Total Bilirubin 1.1 mg/dL (0.15-1.2); Total Protein 5.7 g/dL (6.6-8.7)
[2024-04-24 05:14] LABS: NT Pro B Type Natriuretic Pept 288 pg/mL (0-450)
[2024-04-24] MEDS: levoFLOXacin 750 mg Tablet PO (05:51)
--- NOTE | 2024-04-24 06:00 | XR_ITS ---
WS: [id number] Exam: XR chest 2V* [id number] Date/Time of Exam: 04/24/2024 8:28 AM Reason For Exam: opacity of portable cxr, elevated wbc Comparison 04/23/2024. Small infiltrate again noted in the LEFT lower lobe. Remaining lung spence are clear. Chronic RIGHT p erihilar changes. Scattered calcified granulomas. Heart size is normal. The mediastinum is normal in contour. No pleural effusion or pneumothorax. XR/XR chest 2V* [id number] IMPRESSION: 1. Small LEFT lower lobe infiltrate essentially unchanged.
[2024-04-24 06:02] LABS: Glucose Point of Care 164 mg/dL (70-110)
[2024-04-24 07:00] LABS: MRSA PCR OZH (swab) MRSA Not Detected (Negative)
[2024-04-24] MEDS: metoprolol tartrate 50 mg Tablet PO ×2 (08:51→20:23)
[2024-04-24] MEDS: fenofibrate 145 mg Tablet PO (08:51)
[2024-04-24] MEDS: allopurinol 300 mg Tablet PO (08:51)
[2024-04-24] MEDS: apixaban 5 mg Tablet PO ×2 (08:52→18:21)
[2024-04-24] MEDS: cyclobenzaprine 10 mg Tablet PO ×2 (08:52→16:14)
[2024-04-24] MEDS: fluticasone nasal spray 16gm Btl 2 SPRAY INTRANASAL (08:52)
[2024-04-24] MEDS: tamsulosin 0.4 mg Capsule PO ×2 (08:52→20:23)
[2024-04-24] MEDS: dilTIAZem ER (24HR) 120 mg Capsule PO (08:52)
[2024-04-24] MEDS: pantoprazole DR 40 mg Tablet PO (08:52)
[2024-04-24] MEDS: FUROsemide 40 mg Tablet PO (08:52)
[2024-04-24] MEDS: citalopram 20 mg Tablet PO (08:52)
[2024-04-24] MEDS: aspirin 81 mg EC Tablet PO (08:52)
[2024-04-24] MEDS: insulin lispro 100 unit/1 mL SUBCUT ×2 (08:53→21:52)
--- NOTE | 2024-04-24 09:03 | USCV_ITS ---
José Elliott Age: 78 Gender: M : 1945 Exam Date: 04/24/2024 09:36 Ordering Phys: Landon Horn MD Technologist: [employer] Exam Location: [facility] [place] Indication: LE PAIN HISTORY: Lower extremity swelling. PROCEDURES: Venous duplex imaging was performed in bilateral lower extremities. The following venous structures were evaluated: common femoral vein, profunda vein, proximal portion of the greater saphenous vein, superficial femoral vein, and the popliteal vein. In addition, the posterior tibial and peroneal trunk were evaluated. Serial compression, augmentation maneuvers, and spectral Doppler flow evaluation were performed. FINDINGS: No evidence of DVT seen in any vessel visualized at this time. CONCLUSIONS No evidence of right lower extremity DVT. No evidence of left lower extremity DVT. Sulaiman Moore MD (Electronically Signed) Final Date: 24 April 2024 16:01 S
--- NOTE | 2024-04-24 09:03 | USCV_ITS ---
José Elliott Age: 78 Gender: M : 1945 Exam Date: 04/24/2024 11:36 Ordering Phys: Landon Horn MD Technologist: CT Exam Location: [facility] – [place] Indication: cp BP: 167 / 78 HR: 71 Rhythm: Sinus Technical Quality: Adequate MEASUREMENTS (Male / Female) Normal Values 2D ECHO LVOT Diameter 2.0 cm LV Ejection Fraction MOD 4C 61.5 % LV Ejection Fraction MOD 2C 49.5 % LV Ejection Fraction 2C AL 51.7 % LA Diameter 4.3 cm RA Systolic Volume 4C AL 28.0 ml RA Systolic Volume 4C MOD 28.0 ml LA Sys Volume AL 50.6 cm cubed LA Sys Volume Index AL 25.2 cm cubed/m squared Aorta at Sinotubular Diameter 2.6 cm M-MODE LA Ao Ratio MM 1.4 AV Cusp Separation MM 1.7 cm DOPPLER AV Peak Velocity 148.0 cm/s LVOT Peak Velocity 139.0 cm/s AV Area Cont Eq vti 3.4 cm squared AV Area Cont Eq pk 3.0 cm squared MV Peak Velocity 118.0 cm/s MV Area PHT 3.4 cm squared Mitral E to A Ratio 0.6 TV Peak Velocity 146.0 cm/s TR Peak Velocity 152.0 cm/s TR Peak Gradient 9.2 mmHg TV Peak E Velocity 69.0 cm/s Right Atrial Pressure 3.0 mmHg Pulmonary Artery Systolic Pressu 12.2 mmHg PV Peak Velocity 109.0 cm/s FINDINGS Left Ventricle Mild left ventricular hypertrophy. Normal left ventricular size and systolic function, EF 60%. Grade I/IV diastolic dysfunction (abnormal relaxation filling pattern), normal to mildly elevated filling pressures. Right Ventricle Possibly of normal size and ejection fraction Right Atrium Possibly of normal size Left Atrium Possibly of normal size Mitral Valve Moderate mitral annular calcification. Aortic Valve Thickened aortic valve. Peak velocity of the aortic valve was 1.48 m/s Tricuspid Valve no gross abnormalities noted Pulmonic Valve no gross abnormalities noted Pericardium No pericardial effusion. Aorta Normal aortic annulus size. IVC Inferior vena cava not visualized. CONCLUSIONS Normal left ventricular size and systolic function, EF 60%. Mild left ventricular hypertrophy. Features of grade 1 left-ventricular diastolic dysfunction No significant wall motion abnormalities Moderate mitral annular calcification. Moderate mitral valve regurgitation. Thickened aortic valve. Technically somewhat difficult study because of poor ultrasonic windows Dr Maryellen Sierra MD FACC (Electronically Signed) Final Date: 24 April 2024 19:01 S
--- NOTE | 2024-04-24 09:53 | PC.CHAP ---
Pastoral Care Encounter/Spiritual Assessment Type of Contact [] Declined remediation consultant visit [] Patient/Family/Request visit [] Outpatient visit [] Follow-up visit [] Physician referral [] Code/Alert [] Routine visit [] Staff referral [] Actively dying [] Patient sleeping [] Family support [] [] Out of room [] Palliative care [] [x] Receiving care in room [] Pre-surgical visit [] Trauma [] Long length of stay [] ICU visit [] Other: Relational/Emotional Strength [] Patient feels connected with others/family/visitors/staff [] Distress [] Loneliness/isolation [] Abandonment Spirituality of Patient [] Person of Elizabeth [] Attends Mu-Ism of their Elizabeth [] Believes in Prayer [] Reads Bible or Christian materials [] There are Spiritual issues to be addressed Major Account Representative Interventions [] Prayer [] Active listening [] Non-anxious presence [] Spiritual/emotional support [] Crisis/trauma care [] Spiritual counseling [] Bereavement support [] Provided bereavement packet [] Provided Bible/devotional materials [] Provided toy/stuffed animal, coloring book to patient or family member [] Provided Communion [] Anointing/[place] [] Salvation [] Completed spiritual assessment [] Other: Impact on Illness or Injury [] Angry [] Fearful [] Anxious [] Often cries [] Exhaustion [] Unable to work [] Unable to attend voodoo [] Unable to walk/stand [] Unable to read [] Unable to drive [] Unable to eat/drink [] Unable to sleep [] Unable to be with family [] Patient intubated [] Other: Summary Time spent with patient
[2024-04-24] MEDS: insulin glargine 100 units/1 mL 25 UNIT SUBCUT (10:33)
[2024-04-24 12:03] LABS: Glucose Point of Care 118 mg/dL (70-110)
--- NOTE | 2024-04-24 14:31 | P.PN_ITS ---
Subjective 2 Subjective: Patient was seen this morning, family members at bedside, he does report feeling more winded recently with exertion, chest pain with exertion, denies any nausea, no vomiting, he is taking his Eliquis as prescribed, reports a history of CAD status post stenting x 2 back in 2010, he also has a history of atrial fibrillation, after he was taken off Plavix many years ago for his right knee replacement, he also reports that he had a right knee replacement with resulting hardware infection requiring removal, spacer for almost 11 months, he had to seek a another surgeon for knee replacement Vitals/I&O/Wt Last Vital Signs Temp 99.0 F 04/24/24 11:45 Pulse 72 04/24/24 11:45 Resp 16 04/24/24 11:45 BP 118/58 04/24/24 11:45 Pulse Ox 94 04/24/24 11:45 O2 Del Method Room Air 04/24/24 11:45 04/23/24 04/24/24 04/24/24 22:59 06:59 14:59 Intake Total 290 / 290 290 / 580 290 / 290 Output Total 250 / 350 375 / 725 300 / 300 Balance 40 / -60 -85 / -145 -10 / -10 Weight last 48 hrs Weight 87.997 kg Weight 87.226 kg Weight 95.254 kg Physical Exam 2 Const: COMMON NORMALS: no acute distress and patient oriented x3 Resp: COMMON NORMALS: normal respiratory effort, No retractions, No use of accessory muscles and clear to auscultation bilaterally AUSCULTATION: clear to auscultation bilaterally Cardio: COMMON NORMALS: regular rate, regular rhythm, S1 normal heart sound present and S2 normal heart sound present RATE: regular rate RHYTHM: r egular rhythm HEART SOUNDS: S1 normal heart sound present and S2 normal heart sound present GI: COMMON NORMALS: Normal to inspection, nondistended, normoactive bowel sounds present and non-tender Extremity: COMMON NORMALS: no pedal edema Neuro: COMMON NORMALS: patient oriented x3 Psych: COMMON NORMALS: mental status grossly normal Data 04/24/24 04:27 04/24/24 04:27 Micro: Microbiology 04/23/24 14:46 Blood Culture - Preliminary Blood SPECIMEN COLLECTED 04/23/24 14:42 Blood Culture - Preliminary Blood SPECIMEN COLLECTED A&P Assessment and plan (1) Pneumonia: - Continue Zosyn -Monitor respiratory status closely (2) Chest pain: - History of stenting x 2 -Reports chest pain with exertion -Serial EKGs, serial troponins, telemetry monitoring -Continue aspirin, statin, Eliquis, metoprolol -Cardiac echo -Will monitor closely Qualifiers: Chest pain type: precordial pain Qualified Code(s): R07.2 - Precordial pain (3) S/P total knee arthroplasty: Postop day 10 from left total knee arthroplasty performed at [facility]. Follow-up appointment is scheduled for this coming Tuesday. Swelling is gone down significantly. Bruising is appropriate for current postoperative status and no areas of erythema extending outside of the region of dressing which is intact. Pain is appropriate for postoperative status as well. Patient surgeon in [place] requested that dressing over surgical site remain intact and at this point in time do not see reason to remove dressing Pain control as per postoperative plan PT/OT as needed during course of stay if unable to perform exercises as instructed by his surgeon/PT post-operateively Qualifiers: Laterality: left Qualified Code(s): Z96.652 - Presence of left artificial knee joint (4) HTN (hypertension): Primary hypertension that has been suboptimally controlled lately. Chronically on diltiazem, Lasix, metoprolol. BNP within normal range and does not have evidence of swelling beyond in the knee/thigh area which is appropriate postoperatively. Pain may be a current factor also but family states was present prior to admission. Continue usual antihypertensive medication Monitor blood pressures for need to adjust Qualifiers: Hypertension type: primary hypertension Qualified Code(s): I10 - Essential (primary) hypertension (5) COPD (chronic obstructive pulmonary disease): Chronic with possible acute component related to #1 Breathing treatments as needed Qualifiers: COPD type: emphysema Emphysema type: panlobular Qualified Code(s): J 43.1 - Panlobular emphysema (6) Atrial fibrillation: Currently in sinus rhythm, rate controlled Continue beta-blockade and calcium channel carl both of which are chronic medications Qualifiers: Atrial fibrillation type: unspecified chronic Qualified Code(s): I48.20 - Chronic atrial fibrillation, unspecified (7) Chronic anticoagulation: On Eliquis due to history of atrial fibrillation which is also currently serving as postoperative DVT prophylaxis Continue home Eliquis (8) 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 In the days immediately postoperatively blood sugars were running very low due to decreased oral intake without adjustment and long-acting insulin. Current blood sugars are running high which may be impacting healing from surgery. I suspect fluctuations in blood sugar likely contributing to some degree to excessive sleepiness and not being himself, confused at times that family was noticing in addition to any impacts of anesthesia and such. 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 Low-dose sliding scale insulin Decrease usual long-acting insulin dosage to 25 and monitor response Watch for hypoglycemia Renal dosing of medications as indicated (9) GERD (gastroesophageal reflux disease): Continue home PPI Qualifiers: Esophagitis presence: without esophagitis Qualified Code(s): K21.9 - Gastro-esophageal reflux disease without esophagitis (10) BPH (benign prostatic hyperplasia): Continue home Flomax Qualifiers: Lower urinary tract symptom presence: symptoms present Lower urinary tract symptom detail: urinary frequency Qualified Code(s): N40.1 - Benign prostatic hyperplasia with lower urinary tract symptoms; R35.0 - Frequency of micturition Plan Continue home allopurinol for gout Continue home citalopram Currently holding diclofenac topical VTE prophylaxis: Eliquis GI Prophylaxis: PPI Antibiotics: Rocephin and Azithromycin, status post doxycycline prior to admission Pending studies: MRSA swab, repeat chest x-ray PA and lateral Telemetry: ordered secondary to chest pain and shortness of breath with cardiac history Rosen: not currently indicated Line(s): peripheral IVs Disposition plan: Home with outpatient follow up anticipated along with ongoing support by twin daughters. Has follow up with orthopedics currently shceduled for 04/25 which may have to be rescheduled if still in hospital. Also recommend follow up to PC regarding blood pressure and other medicaal issues needing ongoing managment Code Status: Full Code Supportive care otherwise Findings, concerns and plans were discussed with patient and they were given an opportunity to ask questions Plan for today continue IV antibiotics continue IV Zosyn cardiac echo, will order venous ultrasound for lower extremity Attestations 2 Medical Necessity Statement*: Patient requires hospitalization for pneumonia, chest pain Diagnoses Pneumonia J18.9 Precordial pain R07.2 Chest pain type: precordial pain Status post total left knee replacement Z96.652 Laterality: left Primary hypertension I10 Hypertension type: primary hypertension Panlobular emphysema J43.1 COPD type: emphysema Emphysema type: panlobular Chronic atrial fibrillation I48.20 Atrial fibrillation type: unspecified chronic Chronic anticoagulation Z79.01 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
[2024-04-24] MEDS: acetaminophen 325 mg Tablet 650 MG PO (16:13)
[2024-04-24 17:23] LABS: Glucose Point of Care 134 mg/dL (70-110)
[2024-04-24] MEDS: tamsulosin 0.4 mg Capsule 0.8 MG PO (20:23)
[2024-04-24] MEDS: atorvastatin 40 mg Tablet PO (20:23)
[2024-04-24 20:49] LABS: Glucose Point of Care 151 mg/dL (70-110)
[2024-04-25] VITALS (10 sets, daily range): BP systolic 104–157; BP diastolic 59–103; PULSE 67–96; RESP 15–22; TEMP 36.6–37.2; O2SAT 91–95
[2024-04-25] MEDS: piperacillin-tazobactam 3.375 GM in sodium chloride 0.9% (plus) 50 ML IV ×3 (00:08→16:02)
[2024-04-25 05:43] LABS: Basophils % 0.3 %; Eosinophils # 0.3 10^3/uL (0.0-0.8); Eosinophils % 2.4 %; Hematocrit 37.6 % (37-53); Lymphocytes # 1.3 10^3/uL (0.8-4.8); Mean Corpuscular HGB Conc 31.9 g/dL (30-55); Mean Corpuscular Hemoglobin 29.5 pg (27-33); Mean Corpuscular Volume 92.4 fl (82-101); Mean Platelet Volume 10.4 fL (7.4-10.4); Monocytes # 1.1 10^3/uL (0.2-0.9); Monocytes % 8.5 %; Neutrophils # 10.05 10^3/uL (1.8-7.7); Neutrophils % 77.9 %; Nucleated Red Blood Cells % 0 %; Platelet Count 404 10^3/cmm (157-399); Red Blood Count 4.07 10^6/uL (3.85-5.65); Red Cell Distribution Width 14.5 % (12.1-15.1); White Blood Count 12.89 10^3/uL (3.29-11.43)
[2024-04-25 06:02] LABS: Anion Gap 17.6 (5-19); Blood Urea Nitrogen 35 mg/dL (8-23); Carbon Dioxide 25 mmol/L (22-29); Chloride 102 mmol/L (98-107); Creatinine Clr Calc Pharmacy 29.3503; Glucose 134 mg/dL (65-115); Osmolality Calculated 302 mOsm/kg (285-295); Potassium 3.6 mmol/L (3.5-5.1); Sodium 141 mmol/L (136-145)
[2024-04-25 06:29] LABS: Glucose Point of Care 140 mg/dL (70-110)
[2024-04-25] MEDS: apixaban 5 mg Tablet PO ×2 (08:35→18:37)
[2024-04-25] MEDS: aspirin 81 mg EC Tablet PO (08:35)
[2024-04-25] MEDS: FUROsemide 40 mg Tablet PO (08:35)
[2024-04-25] MEDS: allopurinol 300 mg Tablet PO (08:35)
[2024-04-25] MEDS: citalopram 20 mg Tablet PO (08:35)
[2024-04-25] MEDS: fenofibrate 145 mg Tablet PO (08:35)
[2024-04-25] MEDS: dilTIAZem ER (24HR) 120 mg Capsule PO (08:35)
[2024-04-25] MEDS: pantoprazole DR 40 mg Tablet PO (08:35)
[2024-04-25] MEDS: fluticasone nasal spray 16gm Btl 2 SPRAY INTRANASAL (08:36)
[2024-04-25] MEDS: insulin glargine 100 units/1 mL 25 UNIT SUBCUT (08:41)
[2024-04-25] MEDS: metoprolol tartrate 50 mg Tablet PO ×2 (08:41→20:04)
--- NOTE | 2024-04-25 09:35 | PC.CHAP ---
Pastoral Care Encounter/Spiritual Assessment Type of Contact [] Declined factory laborer visit [] Patient/Family/Request visit [] Outpatient visit [] Follow-up visit [] Physician referral [] Code/Alert [] Routine visit [] Staff referral [] Actively dying [] Patient sleeping [] Family support [] [] Out of room [] Palliative care [] [x] Receiving care in room [] Pre-surgical visit [] Trauma [] Long length of stay [] ICU visit [] Other: Relational/Emotional Strength [] Patient feels connected with others/family/visitors/staff [] Distress [] Loneliness/isolation [] Abandonment Spirituality of Patient [] Person of Elizabeth [] Attends Zoroastrianism of their Elizabeth [] Believes in Prayer [] Reads Bible or Mormonism materials [] There are Spiritual issues to be addressed [employer] Department Chair Interventions [] Prayer [] Active listening [] Non-anxious presence [] Spiritual/emotional support [] Crisis/trauma care [] Spiritual counseling [] Bereavement support [] Provided bereavement packet [] Provided Bible/devotional materials [] Provided toy/stuffed animal, coloring book to patient or family member [] Provided Communion [] Anointing/[place] [] Salvation [] Completed spiritual assessment [] Other: Impact on Illness or Injury [] Angry [] Fearful [] Anxious [] Often cries [] Exhaustion [] Unable to work [] Unable to attend bahai [] Unable to walk/stand [] Unable to read [] Unable to drive [] Unable to eat/drink [] Unable to sleep [] Unable to be with family [] Patient intubated [] Other: Summary Time spent with patient
--- NOTE | 2024-04-25 09:36 | PC.SOCIAL ---
IMM Update Pg. 2 of IMM updated and reviewed with patient, who verbalized understanding. Copy provided.
[2024-04-25 12:20] LABS: Glucose Point of Care 158 mg/dL (70-110)
[2024-04-25] MEDS: insulin lispro 100 unit/1 mL SUBCUT ×3 (12:31→21:23)
--- NOTE | 2024-04-25 12:39 | ECG_ITS ---
Center'd Test Date: 2024-04-26 Pat Name: José Elliott Department: Room: 107 Gender: Male Voicer: : 1945 Requested By: Landon Horn Order Number: [id number] Brennen MD: Maryellen Sierra M.D. Interpretive Statements Lung unchanged pre/post procedure; Intraprocedure shortess of breath; Symptoms resoled by discharge. PROCEDURE: At the baseline, the EKG revealed normal sinus rhythm with some nonspecific changes.. The baseline heart was 91 bpm with a blood pressue of 142/66 mm of Hg Lexiscan was infused over a period of 20 seconds. A total of 0.4 milligrams of Lexiscan was infused. The stress phase was continued for a total of 5 minutes. Heart rate at the end of the stress phase was 97 bpm with a blood pressure 105/58 mm of Hg. The EKG at the peak infusion revealed no significant changes. Rare PVCs were noted during the Lexiscan infusion. Sestamibi was injected 20 seconds after the Lexiscan infusion. Heart rate at the end of the recovery phase was 96 bpm with a blood pressure of 141/48 mm of Hg. CONCLUSION: 1. No significant EKG changes with the LexiScan infusion 2. No LexiScan induced chest pain or cardiac arrhythmia 3. Normal blood pressure and heart rate response 4. Sestamibi/sestamibi perfusion scan pending; see separate report. Electronically Signed On 04-29-2024 21:58:30 CDT by Maryellen Sierra M.D. [email or web address]
--- NOTE | 2024-04-25 16:04 | P.PN_ITS ---
Subjective 2 Subjective: Patient was seen this morning, patient tells me that he when he ambulated with physical therapy down the [place] he had increased shortness of breath, and chest pain with exertion, he still feels winded about 30 minutes after his physical therapy session, no wheezing on examination no nasal flaring, no intercostal retractions he is on room air no pitting edema but does report intermittent episodes of chest tightness, we discussed that as he continues to have chest tightness especially with exertion Vitals/I&O/Wt Last Vital Signs Temp 98.0 F 04/25/24 12:00 Pulse 82 04/25/24 12:00 Resp 22 H 04/25/24 12:00 BP 120/75 04/25/24 12:00 Pulse Ox 94 04/25/24 12:00 O2 Del Method Room Air 04/25/24 12:00 04/25/24 04/25/24 04/25/24 06:59 14:59 22:59 Intake Total 450 / 1310 770 / 770 Output Total 1035 / 1785 450 / 450 Balance -585 / -475 320 / 320 Weight last 48 hrs Weight 84.55 kg Weight 87.997 kg Physical Exam 2 Const: COMMON NORMALS: no acute distress and patient oriented x3 Resp: COMMON NORMALS: normal respiratory effort, No retractions, No use of accessory muscles and clear to auscultation bilaterally AUSCULTATION: clear to auscultation bilaterally Cardio: COMMON NORMALS: regular rate, regular rhythm, S1 normal heart sound present and S2 normal heart sound present RATE: regular rate RHYTHM: r egular rhythm HEART SOUNDS: S1 normal heart sound present and S2 normal heart sound present GI: COMMON NORMALS: Normal to inspection, nondistended, normoactive bowel sounds present and non-tender Extremity: COMMON NORMALS: no pedal edema Neuro: COMMON NORMALS: patient oriented x3 Psych: COMMON NORMALS: mental status grossly normal Data 04/25/24 05:07 04/25/24 05:07 Micro: Microbiology 04/23/24 14:42 Blood Culture - Preliminary Blood NEGATIVE TO DATE 04/23/24 14:46 Blood Culture - Preliminary Blood NEGATIVE TO DATE A&P Assessment and plan (1) Pneumonia: - Continue Zosyn -Monitor respiratory status closely (2) Chest pain: - History of stenting x 2 -Reports chest pain with exertion -Serial EKGs, serial troponins, telemetry monitoring -Continue aspirin, statin, Eliquis, metoprolol -Cardiac echo CONCLUSIONS Normal left ventricular size and systolic function, EF 60%. Mild left ventricular hypertrophy. Features of grade 1 left-ventricular diastolic dysfunction No significant wall motion abnormalities Moderate mitral annular calcification. Moderate mitral valve regurgitation. Thickened aortic valve. Technically somewhat difficult study because of poor ultrasonic windows -As patient continues to have chest pain with exertion, we will proceed with cardiac stress testing tomorrow -Will monitor closely Qualifiers: Chest pain type: precordial pain Qualified Code(s): R07.2 - Precordial pain (3) S/P total knee arthroplasty: Postop day 10 from left total knee arthroplasty performed at [facility]. Follow-up appointment is scheduled for this coming Tuesday. Swelling is gone down significantly. Bruising is appropriate for current postoperative status and no areas of erythema extending outside of the region of dressing which is intact. Pain is appropriate for postoperative status as well. Patient surgeon in [place] requested that dressing over surgical site remain intact and at this point in time do not see reason to remove dressing Pain control as per postoperative plan PT/OT as needed during course of stay if unable to perform exercises as instructed by his surgeon/PT post-operateively Qualifiers: Laterality: left Qualified Code(s): Z96.652 - Presence of left artificial knee joint (4) HTN (hypertension): Primary hypertension that has been suboptimally controlled lately. Chronically on diltiazem, Lasix, metoprolol. BNP within normal range and does not have evidence of swelling beyond in the knee/thigh area which is appropriate postoperatively. Pain may be a current factor also but family states was present prior to admission. Continue usual antihypertensive medication Monitor blood pressures for need to adjust Qualifiers: Hypertension type: primary hypertension Qualified Code(s): I10 - Essential (primary) hypertension (5) COPD (chronic obstructive pulmonary disease): Chronic with possible acute component related to #1 Breathing treatments as needed Qualifiers: COPD type: emphysema Emphysema type: panlobular Qualified Code(s): J 43.1 - Panlobular emphysema (6) Atrial fibrillation: Currently in sinus rhythm, rate controlled Continue beta-blockade and calcium channel carl both of which are chronic medications Qualifiers: Atrial fibrillation type: unspecified chronic Qualified Code(s): I48.20 - Chronic atrial fibrillation, unspecified (7) Chronic anticoagulation: On Eliquis due to history of atrial fibrillation which is also currently serving as postoperative DVT prophylaxis Continue home Eliquis (8) 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 In the days immediately postoperatively blood sugars were running very low due to decreased oral intake without adjustment and long-acting insulin. Current blood sugars are running high which may be impacting healing from surgery. I suspect fluctuations in blood sugar likely contributing to some degree to excessive sleepiness and not being himself, confused at times that family was noticing in addition to any impacts of anesthesia and such. 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 Low-dose sliding scale insulin Decrease usual long-acting insulin dosage to 25 and monitor response Watch for hypoglycemia Renal dosing of medications as indicated (9) GERD (gastroesophageal reflux disease): Continue home PPI Qualifiers: Esophagitis presence: without esophagitis Qualified Code(s): K21.9 - Gastro-esophageal reflux disease without esophagitis (10) BPH (benign prostatic hyperplasia): Continue home Flomax Qualifiers: Lower urinary tract symptom presence: symptoms present Lower urinary tract symptom detail: urinary frequency Qualified Code(s): N40.1 - Benign prostatic hyperplasia with lower urinary tract symptoms; R35.0 - Frequency of micturition Plan Continue home allopurinol for gout Continue home citalopram Currently holding diclofenac topical VTE prophylaxis: Eliquis GI Prophylaxis: PPI Antibiotics: Rocephin and Azithromycin, status post doxycycline prior to admission Pending studies: MRSA swab, repeat chest x-ray PA and lateral Telemetry: ordered secondary to chest pain and shortness of breath with cardiac history Rosen: not currently indicated Line(s): peripheral IVs Disposition plan: Home with outpatient follow up anticipated along with ongoing support by twin daughters. Has follow up with orthopedics currently shceduled for 04/25 which may have to be rescheduled if still in hospital. Also recommend follow up to PC regarding blood pressure and other medicaal issues needing ongoing managment Code Status: Full Code Supportive care otherwise Findings, concerns and plans were discussed with patient and they were given an opportunity to ask questions Plan for today continue IV antibiotics, proceeding with cardiac stress test tomorrow morning Attestations 2 Medical Necessity Statement*: Patient requires hospitalization with chest pain with exertion Diagnoses Pneumonia J18.9 Precordial pain R07.2 Chest pain type: precordial pain Status post total left knee replacement Z96.652 Laterality: left Primary hypertension I10 Hypertension type: primary hypertension Panlobular emphysema J43.1 COPD type: emphysema Emphysema type: panlobular Chronic atrial fibrillation I48.20 Atrial fibrillation type: unspecified chronic Chronic anticoagulation Z79.01 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
[2024-04-25 17:00] LABS: Glucose Point of Care 151 mg/dL (70-110)
[2024-04-25] MEDS: tamsulosin 0.4 mg Capsule 0.8 MG PO (20:04)
[2024-04-25] MEDS: atorvastatin 40 mg Tablet PO (20:05)
[2024-04-25 20:47] LABS: Glucose Point of Care 174 mg/dL (70-110)
[2024-04-26] VITALS (11 sets, daily range): BP systolic 124–142; BP diastolic 48–89; PULSE 72–96; RESP 13–20; TEMP 36.7–36.9; O2SAT 87–95
[2024-04-26] MEDS: piperacillin-tazobactam 3.375 GM in sodium chloride 0.9% (plus) 50 ML IV ×2 (00:20→08:27)
[2024-04-26 05:39] LABS: Basophils # 0.1 10^3/uL (0.0-0.1); Basophils % 0.4 %; Eosinophils # 0.4 10^3/uL (0.0-0.8); Hematocrit 38.1 % (37-53); Lymphocytes # 1.8 10^3/uL (0.8-4.8); Lymphocytes % 9.8 %; Mean Corpuscular HGB Conc 32.5 g/dL (30-55); Mean Corpuscular Hemoglobin 29.9 pg (27-33); Mean Corpuscular Volume 91.8 fl (82-101); Mean Platelet Volume 10.3 fL (7.4-10.4); Monocytes # 1.3 10^3/uL (0.2-0.9); Monocytes % 7.3 %; Neutrophils # 14.24 10^3/uL (1.8-7.7); Neutrophils % 79.7 %; Nucleated Red Blood Cells % 0 %; Platelet Count 531 10^3/cmm (157-399); Red Blood Count 4.15 10^6/uL (3.85-5.65); Red Cell Distribution Width 14.5 % (12.1-15.1); White Blood Count 17.88 10^3/uL (3.29-11.43)
[2024-04-26 06:05] LABS: Anion Gap 17.6 (5-19); Blood Urea Nitrogen 39 mg/dL (8-23); Calcium 8.9 mg/dL (8.5-10.5); Carbon Dioxide 26 mmol/L (22-29); Chloride 102 mmol/L (98-107); Creatinine Clr Calc Pharmacy 25.6815; Glucose 151 mg/dL (65-115); Osmolality Calculated 306 mOsm/kg (285-295); Potassium 3.6 mmol/L (3.5-5.1); Sodium 142 mmol/L (136-145)
[2024-04-26 06:33] LABS: Glucose Point of Care 141 mg/dL (70-110)
[2024-04-26] MEDS: regadenoson 0.4 Mg/5 ml Syringe IVP (07:20)
[2024-04-26] MEDS: cyclobenzaprine 10 mg Tablet PO ×2 (07:38→14:44)
[2024-04-26] MEDS: dilTIAZem ER (24HR) 120 mg Capsule PO (08:27)
[2024-04-26] MEDS: apixaban 5 mg Tablet PO ×2 (08:27→18:22)
[2024-04-26] MEDS: docusate sodium 100 mg Capsule PO ×2 (08:28→18:22)
[2024-04-26] MEDS: insulin glargine 100 units/1 mL 25 UNIT SUBCUT (08:28)
[2024-04-26] MEDS: allopurinol 300 mg Tablet PO (08:28)
[2024-04-26] MEDS: fenofibrate 145 mg Tablet PO (08:28)
[2024-04-26] MEDS: pantoprazole DR 40 mg Tablet PO (08:28)
[2024-04-26] MEDS: aspirin 81 mg EC Tablet PO (08:28)
[2024-04-26] MEDS: citalopram 20 mg Tablet PO (08:28)
[2024-04-26] MEDS: metoprolol tartrate 50 mg Tablet PO ×2 (08:28→20:36)
[2024-04-26] MEDS: FUROsemide 40 mg Tablet PO (08:28)
--- NOTE | 2024-04-26 08:39 | XR_ITS ---
WS: [id number] Exam: XR chest 1V portable [id number] Date/Time of Exam: 04/26/2024 8:42 AM Reason For Exam: sob Comparison with the latest exam 04/24/2024. Previously noted LEFT lower lobe infiltrate has resolved. The lungs are clear and fully expanded. Nor mal cardiomediastinal silhouette. No pleural effusions. Bony structures are intact. XR/XR chest 1V portable [id number] IMPRESSION: 1. Resolved LEFT lower lobe infiltrate since previous exam. No acute process.
[2024-04-26 09:51] LABS: Erythrocyte Sedimentation Rate 37 mm/hr (0-10)
[2024-04-26] MEDS: oxyCODONE 5 mg IR Tab/Cap PO ×2 (09:53→16:31)
[2024-04-26] MEDS: sodium chloride 0.9% 1,000 ML 75 ML IV (09:55)
[2024-04-26 09:57] LABS: C Reactive Protein 43.8 mg/L (0.0-4.9)
[2024-04-26 10:03] LABS: Procalcitonin 0.11 ng/mL (0-0.5)
--- NOTE | 2024-04-26 10:03 | XR_ITS ---
WS: [id number] Exam: XR lumbar spine 2-3V* [id number] Date/Time of Exam: 04/26/2024 10:03 AM Reason For Exam: pain No acute fracture noted. Old low-grade compression fracture of the upper plate of L1 noted. Pars defe ct of L5 with grade 2 spondylolisthesis of L5 on S1. Degeneration of the L5-S1 disc. Osteopenia. Mild levoscoliosis at the thoracolumbar junction. Probable aneurysmal dilatation of the lower abdominal a braydon. XR/XR lumbar spine 2-3V* [id number] IMPRESSION: 1. Pars defect of L5 with grade 2 spondylolisthesis of L5 on S1. 2. Old low-grade nondisplaced compression fracture of L1. No acute fracture not ed. 3. Findings suspicious for lower abdominal aortic aneurysm. Further work-up wit h ultrasound is suggested unless this has been recently performed.
--- NOTE | 2024-04-26 10:03 | US_ITS ---
WS: [id number] ULTRASOUND RENAL TECHNIQUE: Ultrasound examination of both kidneys. CLINICAL INFORMATION: domo COMPARISON: None. FINDINGS: Limited evaluation due to bowel gas and prior hernia surgery. 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 No hydronephrosis in either kidney. Limited kidney views Enlarged prostate better visualized on recent CT. Mild bladder wall thickening likely due to bladder outlet obstruction. US/US renal BI* [id number] IMPRESSION: 1. Limited evaluation due to bowel gas and prior hernia surgery. 2. Horseshoe kidneys. No hydronephrosis.
--- NOTE | 2024-04-26 10:03 | XR_ITS ---
WS: [id number] Exam: XR KUB portable [id number] Date/Time of Exam: 04/26/2024 10:03 AM Reason For Exam: back pain No bowel obstruction or free air. No sign of organ enlargement. Moderate distention of urinary bladde r. Pars defect of L5 with grade 2 spondylolisthesis of L5 on S1. Degeneration of the L5-S1 disc. Prob able aneurysmal dilatation of the lower abdominal aorta. XR/XR KUB portable [id number] IMPRESSION: 1. No acute abdominal process. 2. Abdominal aortic aneurysm. Further work-up with ultrasound is recommended un less this has been recently performed. 3. Pars defect of L5 with grade 2 spondylolisthesis of L5 on S1. This has been reported on previous imaging studies as far back as 08/26/2014.
[2024-04-26 10:57] LABS: Alanine Aminotransferase 7 U/L (0-41); Albumin Level 3.6 g/dL (3.5-5.2); Alkaline Phosphatase 62 U/L (40-130); Aspartate Amino Transferase 25 U/L (0-40); Globulin 2.4 g/dL (1.3-4.6); Total Bilirubin 1.2 mg/dL (0.15-1.2)
[2024-04-26 11:00] LABS: Bilirubin Urine Negative (Negative); Blood Urine Negative (Negative); Glucose Urine UA Negative (Normal); Ketones Urine Negative (Negative); Leukocyte Esterase Urine Trace (Negative); Nitrate Urine Negative (Negative); Protein Urine Negative (Negative); Specific Gravity, Urine 1.015 (1.005-1.030); Urine Appearance Clear (CLEAR); Urine Color Yellow (Yellow); Urobilinogen Urine 0.2 mg/dL (Negative)
[2024-04-26 11:02] LABS: Add Urine Microscopic? YES; Bacteria Urine None Seen /hpf; Hyaline Casts Urine 5.36 /lpf; RBC Urine 0-2 /hpf (0-2); Squamous Epithelial Cell Urine 0-5 /hpf (0-5); WBC Urine 0-5 /hpf (0-5)
[2024-04-26 11:17] LABS: Covid PCR NEGATIVE (Negative); Influenza A NEGATIVE (Negative); Influenza B NEGATIVE (Negative); Respiratory Syncytial Virus Ce NEGATIVE (Negative)
--- NOTE | 2024-04-26 11:23 | CT_ITS ---
WS: [id number] CT ABDOMEN PELVIS TECHNIQUE: Noncontrast CT of the abdomen and pelvis with coronal and sagittal reformatted images. CLINICAL INFORMATION: abdominal pain, back pain COMPARISON: 2015 DLP: 873.[address] scans at [place] use at least one of these dose optimization techniques: automated e xposure control; mA and/or kV adjustment per patient size (includes targeted exams where dose is matc hed to clinical indication); or iterative reconstruction. FINDINGS: Large abdominal aortic aneurysm progressed since 2014. This measures approximately 3.8 x 4. 1 x 7.9 cm AP by transverse by craniocaudal. No surrounding fluid. Horseshoe kidney configuration. A few renal cysts. Small hemorrhagic RIGHT renal cyst. Markedly enlarged prostate suspicious for neoplasia/hyperplasia measuring up to 5.0 cm. Recommend cor relation PSA. Sigmoid diverticulosis. No evidence of acute diverticulitis. Normal noncontrast liver a nd spleen. Tiny esophageal hernia. Calcified granuloma RIGHT lower lobe. Normal noncontrast pancreas. Splenic artery calcification. Adrenal glands are normal. No hydronephrosis in either kidney. Fat-con taining LEFT inguinal hernia. Chronic spondylolisthesis L5 on S1 similar to 2015. CT/CT abdomen pelvis wo con [id number] IMPRESSION: 1. Large fusiform abdominal aortic aneurysm progressed since 2014 described ab ove. 2. 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 No hydronephrosis. 3. Markedly enlarged prostate. Recommend correlation PSA. 4. Sigmoid diverticulosis. 5. Chronic spondylolisthesis L5-S1 similar to 2015.
[2024-04-26 12:14] LABS: Glucose Point of Care 149 mg/dL (70-110)
--- NOTE | 2024-04-26 12:39 | NMCV_ITS ---
NM indra perf SPECT r/s* [id number] José Elliott Age: 78 Gender: M : 1945 Exam Date: 04/26/2024 12:39 Ordering Phys: Landon Horn MD Technologist: DONNA Perdomo Exam Location: [facility] Indications: CP STRESS TEST Please see separate stress test report in [facility] for full findings IMAGE PROTOCOL Rest/Stress 1 Lexiscan Day Radiopharmaceutical Dose (mCi) Administration Site Administered by Rest: Tc-99m 8.0 IV DONNA Perdomo Sestamibi Stress:Tc-99m 31.6 IV DONNA Chan Sestamibi Rest: 26-Apr-2024 60 Discovery 630 Stress: 26-Apr-2024 30 Discovery 630 0.4mg Lexiscan. Supine position only as patient was unable to lay prone. SPECT RESULTS Technical Quality: Good Raw Data Analysis: Normal Image Corrections: No attenuation or motion correction applied Summed Stress Score: 3 Summed Rest Score: 2 Summed Difference Score: 2 PERFUSION FINDINGS Small to moderate area of minimally decreased tracer uptake involving the mid inferolateral, apical lateral and apical inferior regions. Some reversibility was noted in the apical lateral and mid inferolateral regions. FUNCTIONAL RESULTS (calculated via Gated SPECT) Stress Image LV EF (%): 83 Stress EDV (mL):53 TID: 1.2 Stress ESV (mL):9 FUNCTIONAL FINDINGS: Segmental wall motion analysis revealing no gross wall motion abnormalities IMPRESSIONS 1. MPI revealing a small area of reversible defect in the apical lateral and mid inferolateral region, suggestive of ischemia in the distribution of the left circumflex artery 2. Normal LV ejection fraction of 83%. 3. LV wall motion analysis revealing no gross wall motion abnormalities. 4. Normal LV volume Compared to the study from 01/12/2021, the ischemia appears to be new Dr Maryellen Sierra MD [facility] (Electronically Signed) Final Date: 26 April 2024 09:35 S
[2024-04-26 14:52] LABS: Blood Urea Nitrogen 39 mg/dL (8-23); Calcium 8.9 mg/dL (8.5-10.5); Carbon Dioxide 24 mmol/L (22-29); Chloride 102 mmol/L (98-107); Creatinine Clr Calc Pharmacy 25.6815; Glucose 149 mg/dL (65-115); Osmolality Calculated 300 mOsm/kg (285-295); Sodium 139 mmol/L (136-145)
[2024-04-26 14:55] LABS: Anion Gap 16.7 (5-19); Potassium 3.7 mmol/L (3.5-5.1)
--- NOTE | 2024-04-26 15:37 | P.PN_ITS ---
Subjective 2 Subjective: Patient was seen this morning, was seen after his stress test, he is complaining of severe lower back pain, back spasms, he cannot lie still due to back pain, he has never had back pain before he tells me, he tells me that when he had to lie on the stress test machine table the seat was small, and he thinks that that might have exacerbated his back pain no dysuria, no hematuria no history of kidney stones, no nausea, no vomiting but does complain of abdominal pain, diffuse abdominal pain in addition no flank pain, no lightheadedness, no dizziness, he tells me he did okay with the stress test, no chest pain complaints -I had a discussion with him about his c reatinine, he has a history of CKD, but when he came in his creatinine was 2.0 it is up to 2.4 today, his baseline creatinine is about at 2, I have held his Lasix -The other concern is that his white blo od cell count has increased to 17.88 and he does have some reactive thrombocytosis at 531, he has been on Zosyn, for UTI, he show he should be appropriately covered with antibiotics, ESR 37, CRP is 43.8 will do further investigation potentially x-ray of the back, x-ray of the belly and depending on the results might do a CT of abdomen pelvis to look for infectious etiology, his chest x-ray this morning shows improvement of his pneumonia he is not really complaining of shortness of breath he is on room air, afebrile -We also discussed his stress test we wi ll see how he does with the stress test, currently denies any chest pain, no chest pain overnight, discuss intervention of stress test results, but I am worried that any interventions might be hampered by his MARGARITA and his chronic kidney disease -Discussed de-escalating his antibiotic therapy to Rocephin -We discussed his left knee surgery, on examination his left knee surgical site looks clean and dry it is slightly erythematous, warm, nontender to touch he really does not have any complaints of any specific pain, but we did discuss that if his white blood cell count persistently remains elevated we might have to do further imaging of the knee to excluded as a possibility as an infectious source, he has had a history of a right knee replacement that resulted in infection and he is quite anxious about this being a possibility Vitals/I&O/Wt Last Vital Signs Temp 98.5 F 04/26/24 00:00 Pulse 78 04/26/24 12:00 Resp 17 04/26/24 12:00 BP 140/67 04/26/24 12:00 Pulse Ox 90 04/26/24 12:00 O2 Del Method Room Air 04/26/24 12:00 04/26/24 04/26/24 04/26/24 06:59 14:59 22:59 Intake Total 50 / 870 382 / 382 Output Total 250 / 900 310 / 310 Balance -200 / -30 72 / 72 Weight last 48 hrs Weight 84.55 kg Weight 84.55 kg Physical Exam 2 Const: COMMON NORMALS: no acute distress and patient oriented x3 Resp: COMMON NORMALS: normal respiratory effort, No retractions, No use of accessory muscles and clear to auscultation bilaterally AUSCULTATION: clear to auscultation bilaterally Cardio: COMMON NORMALS: regular rate, regular rhythm, S1 normal heart sound present and S2 normal heart sound present RATE: regular rate RHYTHM: r egular rhythm HEART SOUNDS: S1 normal heart sound present and S2 normal heart sound present GI: COMMON NORMALS: Normal to inspection, nondistended, normoactive bowel sounds present and non-tender Back/Pelvis: LUMBAR SPINE/LOWER BACK: Yes normal to inspection, Yes lumbar ROM normal, No lumbar spinal tenderness, Yes paraspinal muscle tenderness, Yes paraspinal muscle spasm and Yes straight leg raise negative bilaterally O THER: Left knee replacement surgical site is clean and dry, does have slight erythema, swelling, warmth over surgical site Extremity: COMMON NORMALS: no pedal edema Neuro: COMMON NORMALS: patient oriented x3 Psych: COMMON NORMALS: mental status grossly normal Data 04/26/24 04:41 04/26/24 14:17 Micro: Microbiology 04/26/24 09:11 Blood Culture - Preliminary Blood SPECIMEN COLLECTED 04/26/24 09:14 Blood Culture - Preliminary Blood SPECIMEN COLLECTED A&P Assessment and plan (1) Pneumonia: - Continue Zosyn -Monitor respiratory status closely (2) Chest pain: - History of stenting x 2 -Reports chest pain with exertion -Serial EKGs, serial troponins, telemetry monitoring -Continue aspirin, statin, Eliquis, metoprolol -Cardiac echo CONCLUSIONS Normal left ventricular size and systolic function, EF 60%. Mild left ventricular hypertrophy. Features of grade 1 left-ventricular diastolic dysfunction No significant wall motion abnormalities Moderate mitral annular calcification. Moderate mitral valve regurgitation. Thickened aortic valve. Technically somewhat difficult study because of poor ultrasonic windows -As patient continues to have chest pain with exertion, we will proceed with cardiac stress testing tomorrow -Will monitor closely Qualifiers: Chest pain type: precordial pain Qualified Code(s): R07.2 - Precordial pain (3) S/P total knee arthroplasty: Postop day 10 from left total knee arthroplasty performed at [facility]. Follow-up appointment is scheduled for this coming Tuesday. Swelling is gone down significantly. Bruising is appropriate for current postoperative status and no areas of erythema extending outside of the region of dressing which is intact. Pain is appropriate for postoperative status as well. Patient surgeon in [place] requested that dressing over surgical site remain intact and at this point in time do not see reason to remove dressing Pain control as per postoperative plan PT/OT as needed during course of stay if unable to perform exercises as instructed by his surgeon/PT post-operateively Qualifiers: Laterality: left Qualified Code(s): Z96.652 - Presence of left artificial knee joint (4) HTN (hypertension): Primary hypertension that has been suboptimally controlled lately. Chronically on diltiazem, Lasix, metoprolol. BNP within normal range and does not have evidence of swelling beyond in the knee/thigh area which is appropriate postoperatively. Pain may be a current factor also but family states was present prior to admission. Continue usual antihypertensive medication Monitor blood pressures for need to adjust Qualifiers: Hypertension type: primary hypertension Qualified Code(s): I10 - Essential (primary) hypertension (5) COPD (chronic obstructive pulmonary disease): Chronic with possible acute component related to #1 Breathing treatments as needed Qualifiers: COPD type: emphysema Emphysema type: panlobular Qualified Code(s): J 43.1 - Panlobular emphysema (6) Atrial fibrillation: Currently in sinus rhythm, rate controlled Continue beta-blockade and calcium channel carl both of which are chronic medications Qualifiers: Atrial fibrillation type: unspecified chronic Qualified Code(s): I48.20 - Chronic atrial fibrillation, unspecified (7) Chronic anticoagulation: On Eliquis due to history of atrial fibrillation which is also currently serving as postoperative DVT prophylaxis Continue home Eliquis (8) 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 In the days immediately postoperatively blood sugars were running very low due to decreased oral intake without adjustment and long-acting insulin. Current blood sugars are running high which may be impacting healing from surgery. I suspect fluctuations in blood sugar likely contributing to some degree to excessive sleepiness and not being himself, confused at times that family was noticing in addition to any impacts of anesthesia and such. 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 Low-dose sliding scale insulin Decrease usual long-acting insulin dosage to 25 and monitor response Watch for hypoglycemia Renal dosing of medications as indicated (9) GERD (gastroesophageal reflux disease): Continue home PPI Qualifiers: Esophagitis presence: without esophagitis Qualified Code(s): K21.9 - Gastro-esophageal reflux disease without esophagitis (10) BPH (benign prostatic hyperplasia): Continue home Flomax Qualifiers: Lower urinary tract symptom presence: symptoms present Lower urinary tract symptom detail: urinary frequency Qualified Code(s): N40.1 - Benign prostatic hyperplasia with lower urinary tract symptoms; R35.0 - Frequency of micturition Plan Continue home allopurinol for gout Continue home citalopram Currently holding diclofenac topical VTE prophylaxis: Eliquis GI Prophylaxis: PPI Antibiotics: Rocephin and Azithromycin, status post doxycycline prior to admission Pending studies: MRSA swab, repeat chest x-ray PA and lateral Telemetry: ordered secondary to chest pain and shortness of breath with cardiac history Rosen: not currently indicated Line(s): peripheral IVs Disposition plan: Home with outpatient follow up anticipated along with ongoing support by twin daughters. Has follow up with orthopedics currently shceduled for 04/25 which may have to be rescheduled if still in hospital. Also recommend follow up to PC regarding blood pressure and other medicaal issues needing ongoing managment Code Status: Full Code Supportive care otherwise Findings, concerns and plans were discussed with patient and they were given an opportunity to ask questions Plan for today -Back pain imaging, x-ray lumbar spine, add oxycodone, Flexeril for pain -Will order KUB -Will likely order CT scan of abdomen pelvis given his abdominal pain complaints, he has persistent leukocytosis, need to rule out abdominal source for leukocytosis -I had a discussion with him about his creatinine, he has a history of CKD, but when he came in his creatinine was 2.0 it is up to 2.4 today, his baseline creatinine is about at 2, I have held his Lasix -The other concern is that his white blood cell count has increased to 17.88 and he does have some reactive thrombocytosis at 531, he has been on Zosyn, for UTI, he show he should be appropriately covered with antibiotics, ESR 37, CRP is 43.8 will do further investigation potentially x-ray of the back, x-ray of the belly and depending on the results might do a CT of abdomen pelvis to look for infectious etiology, his chest x-ray this morning shows improvement of his pneumonia he is not really complaining of shortness of breath he is on room air, afebrile -We also discussed his stress test we will see how he does with the stress test, currently denies any chest pain, no chest pain overnight, discuss intervention of stress test results, but I am worried that any interventions might be hampered by his MARGARITA and his chronic kidney disease -Discussed de-escalating his antibiotic therapy to Rocephin -We discussed his left knee surgery, on examination his left knee surgical site looks clean and dry it is slightly erythematous, warm, nontender to touch he really does not have any complaints of any specific pain, but we did discuss that if his white blood cell count persistently remains elevated we might have to do further imaging of the knee to excluded as a possibility as an infectious source, he has had a history of a right knee replacement that resulted in infection and he is quite anxious about this being a possibility Attestations 2 Medical Necessity Statement*: Patient requires hospitalization due to intractable back pain, persistent leukocytosis, MARGARITA, Diagnoses Pneumonia J18.9 Precordial pain R07.2 Chest pain type: precordial pain Status post total left knee replacement Z96.652 Laterality: left Primary hypertension I10 Hypertension type: primary hypertension Panlobular emphysema J43.1 COPD type: emphysema Emphysema type: panlobular Chronic atrial fibrillation I48.20 Atrial fibrillation type: unspecified chronic Chronic anticoagulation Z79.01 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
[2024-04-26 17:31] LABS: Glucose Point of Care 147 mg/dL (70-110)
[2024-04-26 17:35] LABS: C.Diff PCR (Lab) NEGATIVE (Negative)
[2024-04-26] MEDS: insulin lispro 100 unit/1 mL SUBCUT (18:22)
[2024-04-26 20:32] LABS: Glucose Point of Care 127 mg/dL (70-110)
[2024-04-26] MEDS: atorvastatin 40 mg Tablet PO (20:35)
[2024-04-26] MEDS: tamsulosin 0.4 mg Capsule 0.8 MG PO (20:36)
[2024-04-27] VITALS: BP 123/102; PULSE 70; RESP 20; TEMP 37; O2SAT 92
[2024-04-27 04:00] VITALS: BP 146/86; PULSE 75; RESP 14; TEMP 36.9; O2SAT 99
[2024-04-27 05:24] LABS: Basophils # 0.1 10^3/uL (0.0-0.1); Basophils % 0.4 %; Eosinophils # 0.3 10^3/uL (0.0-0.8); Eosinophils % 2.2 %; Hematocrit 36.2 % (37-53); Lymphocytes % 8.6 %; Mean Corpuscular Hemoglobin 29.7 pg (27-33); Mean Corpuscular Volume 92.6 fl (82-101); Mean Platelet Volume 10.3 fL (7.4-10.4); Monocytes # 0.9 10^3/uL (0.2-0.9); Neutrophils % 79.9 %; Nucleated Red Blood Cells % 0 %; Platelet Count 406 10^3/cmm (157-399); Red Blood Count 3.91 10^6/uL (3.85-5.65); Red Cell Distribution Width 14.6 % (12.1-15.1); White Blood Count 11.77 10^3/uL (3.29-11.43)
[2024-04-27 05:51] LABS: Anion Gap 15.4 (5-19); Blood Urea Nitrogen 36 mg/dL (8-23); Calcium 8.6 mg/dL (8.5-10.5); Carbon Dioxide 25 mmol/L (22-29); Chloride 104 mmol/L (98-107); Creatinine Clr Calc Pharmacy 28.4486; Glucose 140 mg/dL (65-115); Osmolality Calculated 303 mOsm/kg (285-295); Potassium 3.4 mmol/L (3.5-5.1); Sodium 141 mmol/L (136-145)
[2024-04-27 06:29] LABS: Glucose Point of Care 142 mg/dL (70-110)
[2024-04-27] MEDS: cefTRIAXone 1,000 mg SDV 1000 MG IVP (06:33)
[2024-04-27 07:17] VITALS: PULSE 83; RESP 20; O2SAT 94
[2024-04-27] MEDS: acetaminophen 325 mg Tablet 650 MG PO (07:31)
[2024-04-27] MEDS: cyclobenzaprine 10 mg Tablet PO (07:34)
[2024-04-27 07:43] VITALS: BP 158/81; PULSE 82; RESP 15; TEMP 36.8; O2SAT 94
--- NOTE | 2024-04-27 08:13 | PC.SOCIAL ---
IMM Update Pg. 2 of IMM updated. Copy provided at bedside.
[2024-04-27] MEDS: apixaban 5 mg Tablet PO (09:35)
[2024-04-27] MEDS: pantoprazole DR 40 mg Tablet PO (09:35)
[2024-04-27] MEDS: docusate sodium 100 mg Capsule PO (09:35)
[2024-04-27] MEDS: fenofibrate 145 mg Tablet PO (09:35)
[2024-04-27] MEDS: aspirin 81 mg EC Tablet PO (09:35)
[2024-04-27] MEDS: metoprolol tartrate 50 mg Tablet PO (09:35)
[2024-04-27] MEDS: dilTIAZem ER (24HR) 120 mg Capsule PO (09:35)
[2024-04-27] MEDS: allopurinol 300 mg Tablet PO (09:35)
[2024-04-27] MEDS: citalopram 20 mg Tablet PO (09:35)
[2024-04-27] MEDS: insulin glargine 100 units/1 mL 25 UNIT SUBCUT (09:36)
--- NOTE | 2024-04-27 11:47 | P.DS_ITS ---
Discharge Providers Date of Admission: 04/23/24 13:46 Date of Discharge: April 27, 2024 Attending Provider at Admission: Alysha Bravo MD Attending Provider at Discharge: Landon Horn MD Diagnoses at Discharge Discharge Diagnosis (1) Pneumonia: Status: Acute (2) Chest pain: Status: Acute Qualifiers: Chest pain type: precordial pain Qualified Code(s): R07.2 - Precordial pain (3) S/P total knee arthroplasty: Status: Acute Qualifiers: Laterality: left Qualified Code(s): Z96.652 - Presence of left artificial knee joint Permanent problem details: left (4) HTN (hypertension): Status: Chronic Qualifiers: Hypertension type: primary hypertension Qualified Code(s): I10 - Essential (primary) hypertension (5) COPD (chronic obstructive pulmonary disease): Status: Chronic Qualifiers: COPD type: emphysema Emphysema type: panlobular Qualified Code(s): J43.1 - Panlobular emphysema (6) Atrial fibrillation: Status: Chronic Qualifiers: Atrial fibrillation type: unspecified chronic Qualified Code(s): I48.20 - Chronic atrial fibrillation, unspecified (7) Chronic anticoagulation: Status: Chronic (8) 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 GFR 15-29: Status: Chronic (9) GERD (gastroesophageal reflux disease): Status: Chronic Qualifiers: Esophagitis presence: without esophagitis Qualified Code(s): K21.9 - Ga stro-esophageal reflux disease without esophagitis (10) BPH (benign prostatic hyperplasia): Status: Chronic Qualifiers: Lower urinary tract symptom presence: symptoms present Lower urinary tract symptom detail: urinary frequency Qualified Code(s): N40.1 - Benign prostatic hyperplasia with lower urinary tract symptoms; R35.0 - Frequency of micturition Reason for Visit Reason for Visit: cp, htn Hospital Course Hospital Course This is a 78-year-old male with a past medical history of abdominal aortic aneurysm, CKD, type 2 diabetes mellitus, recent history of left knee replacement, who presents [facility] for shortness of breath, chest tightness, high blood pressures For patient's shortness of breath, secondary to pneumonia, chest x-ray showing small left lower lobe infiltrate, received IV antibiotics, overall clinically improved, remains on room air remains afebrile, discharged on p.o. antibiotics For patient's chest tightness -Reports chest pain upon exertion -No resting chest pain -Testing as below, no clinically significant delta troponin, 6-hour troponin 28, no acute ST-T wave changes on EKG cardiac echo CONCLUSIONS Normal left ventricular size and systolic function, EF 60%. Mild left ventricular hypertrophy. Features of grade 1 left-ventricular diastolic dysfunction No significant wall motion abnormalities Moderate mitral annular calcification. Moderate mitral valve regurgitation. Thickened aortic valve. Technically somewhat difficult study because of poor ultrasonic windows stress test IMPRESSIONS 1. MPI revealing a small area of reversible defect in the apical lateral and mid inferolateral region, suggestive of ischemia in the distribution of the left circumflex artery 2. Normal LV ejection fraction of 83%. 3. LV wall motion analysis revealing no gross wall motion abnormalities. 4. Normal LV volume Compared to the study from 01/12/2021, the ischemia appears to be new -Had extensive discussion with the patient and his family -He remained chest pain-free -We discussed complicating factors of his hospitalization for pneumonia, and his MARGARITA on CKD -As his creatinine is 2.2, he has a horseshoe kidney, has CKD proceeding with a coronary angiogram would carry significant risk, specifically increased risk of dialysis and contrast-induced nephropathy -As now he is chest pain-free the plan would be to medically manage him continue aspirin, statin, beta-carl, Eliquis add on Imdur and monitor as outpatient -Have him follow-up with cardiology as outpatient -If he does develop recurrent chest pain, with exertion, or severe substernal chest pain for him to immeddiately call 911 -However if the benefits outweigh the risk, would proceed with coronary angiogram, as certainly his stress test shows reversible ischemia in the distribution of the left circumflex, and he has had a history of CAD and stenting -After discussing with him the risk and benefits of all options, shared decision making, family members at bedside, decision was made to pursue medical management for now -If patient does have chest pain that is persistent with exertion or severe substernal chest pain at rest then certainly we could go ahead and proceed with coronary angiography understanding the risk and benefits, he voiced understanding, all questions answered FOR AAA ct abdomen and pelvis wo contrast Large abdominal aortic aneurysm progressed since 2014. This measures approximately 3.8 x 4.1 x 7.9 cm AP by transverse by craniocaudal. No surrounding fluid. Patient's hospitalization was complicated with MARGARITA on CKD requiring IV fluids FOR CKD AND HORSHOE KIDNEY ct shows 2. 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 No hydronephrosis. -Creatinine on discharge 2.[address] scan showed 3. Markedly enlarged prostate -Will have a follow-up with urology as outpatient, PSA for back pain ct scan showed 5. Chronic spondylolisthesis L5-S1 similar to 2015. -He did have exacerbation of his back pain during this hospitalization, after his stress test, he did require pain medication ? On discharge I have advised him to use oxycodone sparingly for pain due to overuse with Flexeril, do not drive or operate heavy machinery or drink while taking medication For his left knee replacement -On examination he does not complain of any left knee pain or swelling or tenderness -But on examination his left knee is slightly swollen, slightly erythematous, but nontender -Discussed with him to follow-up with Ortho as outpatient -He has a history of right knee replacement with resulting right knee infection and removal and then replacement a few years ago -Continue to monitor closely if his left knee becomes swollen, erythematous, tender, warm and I would be concerned for a knee infection or if he continues to have a leukocytosis -Patient voiced understanding all questions answered Physical Exam Const: COMMON NORMALS: no acute distress and patient oriented x3 Resp: COMMON NORMALS: normal respiratory effort, No retractions, No use of accessory muscles and clear to auscultation bilaterally AUSCULTATION: clear to auscultation bilaterally Cardio: COMMON NORMALS: regular rate, regular rhythm, S1 normal heart sound present and S2 normal heart sound present RATE: regular rate RHYTHM: regular rhythm HEART SOUNDS: S1 normal heart sound present and S2 normal heart sound present GI: COMMON NORMALS: Normal to inspection, nondistended, normoactive bowel sounds present and non-tender Extremity: COMMON NORMALS: no pedal edema Neuro: COMMON NORMALS: patient oriented x3 Psych: COMMON NORMALS: mental status grossly normal Discharge Data Studies Completed and Pending Completed Studies During Hospitalization Category Date Time Status CT abdomen pelvis wo con [id number] Stat Cat Scan 04/26/24 11:23 Completed Sestamibi Stress Test Request Routine Exams 04/25/24 12:39 Draft XR KUB portable [id number] Routine Exams 04/26/24 10:03 Completed XR chest 1V portable [id number] Routine Exams 04/26/24 08:39 Completed XR chest 1V portable [id number] Stat Exams 04/23/24 11:20 Completed XR chest 2V* [id number] DAILY Exams 04/24/24 06:00 Completed XR lumbar spine 2-3V* [id number] Routine Exams 04/26/24 10:03 Completed NM indra perf SPECT r/s* [id number] Routine Nuc Med 04/26/24 12:39 [place] [id number] Routine Ultrasound 04/24/24 09:03 Completed CV. echo complete* [id number] Routine Ultrasound 04/24/24 09:03 Completed US renal BI* [id number] Routine Ultrasound 04/26/24 10:03 Completed Pending at discharge Category Date Time Status Blood Culture Stat Lab 04/23/24 14:46 Results Blood Culture Stat Lab 04/26/24 09:11 Results Radiology Impressions Chest X-Ray 04/26/24 08:39 IMPRESSION: 1. Resolved LEFT lower lobe infiltrate since previous exam. No acute process. KUB X-Ray 04/26/24 10:03 IMPRESSION: 1. No acute abdominal process. 2. Abdominal aortic aneurysm. Further work-up with ultrasound is recommended unless this has been recently performed. 3. Pars defect of L5 with grade 2 spondylolisthesis of L5 on S1. This has been reported on previous imaging studies as far back as 08/26/2014. Lumbar Spine X-Ray 04/26/24 10:03 IMPRESSION: 1. Pars defect of L5 with grade 2 spondylolisthesis of L5 on S1. 2. Old low-grade nondisplaced compression fracture of L1. No acute fracture noted. 3. Findings suspicious for lower abdominal aortic aneurysm. Further work-up with ultrasound is suggested unless this has been recently performed. Renal Ultrasound 04/26/24 10:03 IMPRESSION: 1. Limited evaluation due to bowel gas and prior hernia surgery. 2. Horseshoe kidneys. No hydronephrosis. Abdomen/Pelvis CT 04/26/24 11:23 IMPRESSION: 1. Large fusiform abdominal aortic aneurysm progressed since 2014 described above. 2. 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 No hydronephrosis. 3. Markedly enlarged prostate. Recommend correlation PSA. 4. Sigmoid diverticulosis. 5. Chronic spondylolisthesis L5-S1 similar to 2015. Laboratory Results WBC 11.77 10^3/uL (3.29-11.43) H 04/27/24 04:57 RBC 3.91 10^6/uL (3.85-5.65) 04/27/24 04:57 Hgb 11.60 g/dL (11.27-16.99) 04/27/24 04:57 Hct 36.2 % (37-53) L 04/27/24 04:57 MCV 92.6 fl (82-101) 04/27/24 04:57 MCH 29.7 pg (27-33) 04/27/24 04:57 MCHC 32.0 g/dL (30-55) 04/27/24 04:57 RDW 14.6 % (12.1-15.1) 04/27/24 04:57 Plt Count 406 10^3/cmm (157-399) H 04/27/24 04:57 MPV 10.3 fL (7.4-10.4) 04/27/24 04:57 Neut % (Auto) 79.9 % 04/27/24 04:57 Lymph % (Auto) 8.6 % 04/27/24 04:57 [place] % (Auto) 8.0 % 04/27/24 04:57 Eos % (Auto) 2.2 % 04/27/24 04:57 Baso % (Auto) 0.4 % 04/27/24 04:57 Neut # (Auto) 9.40 10^3/uL (1.8-7.7) H 04/27/24 04:57 Lymph # (Auto) 1.0 10^3/uL (0.8-4.8) 04/27/24 04:57 [place] # (Auto) 0.9 10^3/uL (0.2-0.9) 04/27/24 04:57 Eos # (Auto) 0.3 10^3/uL (0.0-0.8) 04/27/24 04:57 Baso # (Auto) 0.1 10^3/uL (0.0-0.1) 04/27/24 04:57 Nucleated RBC % (auto) 0 % 04/27/24 04:57 Nucleated RBCs # 0.0 /100WBC 04/27/24 04:57 ESR 37 mm/hr (0-10) H 04/26/24 09:11 Specimen Type Arterial 04/23/24 13:28 Sample Site Radial, left 04/23/24 13:28 ABG pH 7.48 (7.35-7.45) H 04/23/24 13:28 ABG pCO2 35.5 mmHg (35-45) 04/23/24 13:28 ABG pO2 65.9 mmHg (80.0-100.0) L 04/23/24 13:28 ABG PO2/FiO2 Ratio 313 04/23/24 13:28 ABG HCO3 26.5 mmol/L (22-26) H 04/23/24 13:28 ABG O2 Saturation 94.2 04/23/24 13:28 ABG Base Excess 3.2 mmol/L (-2.0-2.0) H 04/23/24 13:28 Arnaud Test Pos 04/23/24 13:28 A-a O2 Gradient 5.3 mmHg (5-10) 04/23/24 13:28 Hematocrit 37.4 % (42-52) L 04/23/24 13:28 Hgb O2 Saturation 91.6 % (95-100) L 04/23/24 13:28 Carboxyhemoglobin 1.7 %THgb (0.4-20.1) 04/23/24 13:28 Methemoglobin 1.0 % (0.4-1.5) 04/23/24 13:28 Total Hemoglobin 12.2 g/dL (14-18) L 04/23/24 13:28 Sodium 140.0 mmol/L (131-143) 04/23/24 13:28 Potassium 3.4 mmol/L (3.5-5.0) L 04/23/24 13:28 Glucose 170.0 mg/dL (70-115) H 04/23/24 13:28 Ionized Calcium 1.2 mmol/L (1.1-1.4) 04/23/24 13:28 O2 Delivery Device Room air 04/23/24 13:28 FiO2 21.0 % 04/23/24 13:28 [employer] ID [place] 04/23/24 13:28 Sodium 141 mmol/L (136-145) 04/27/24 04:57 Potassium 3.4 mmol/L (3.5-5.1) L 04/27/24 04:57 Chloride 104 mmol/L (98-107) 04/27/24 04:57 Carbon Dioxide 25 mmol/L (22-29) 04/27/24 04:57 Anion Gap 15.4 (5-19) 04/27/24 04:57 BUN 36 mg/dL (8-23) H 04/27/24 04:57 Creatinine 2.2 mg/dL (0.7-1.2) H 04/27/24 04:57 GFR Calculation Not Reportable 04/27/24 04:57 Glucose 140 mg/dL (65-115) H 04/27/24 04:57 POC Glucose 142 mg/dL (70-110) H 04/27/24 06:24 Calculated Osmolality 303 mOsm/kg (285-295) H 04/27/24 04:57 Calcium 8.6 mg/dL (8.5-10.5) 04/27/24 04:57 Phosphorus 4.0 mg/dL (2.5-4.5) 04/24/24 04:27 Magnesium 2.0 mg/dL (1.7-2.3) 04/24/24 04:27 Total Bilirubin 1.2 mg/dL (0.15-1.2) 04/26/24 09:11 Direct Bilirubin 0.40 mg/dL (0.00-0.30) H 04/26/24 09:11 AST 25 U/L (0-40) 04/26/24 09:11 ALT 7 U/L (0-41) 04/26/24 09:11 Alkaline Phosphatase 62 U/L (40-130) 04/26/24 09:11 Troponin T Baseline 27 ng/L (0-15) H 04/23/24 11:42 Troponin T 120 Minute 28.25 ng/L (0-15) H 04/23/24 14:46 Delta Troponin T 1.25 ABS# (0-10) 04/23/24 14:46 Troponin T Hi Sens 6Hr 28.11 ng/L (0-15) H 04/23/24 17:26 Troponin T Hi Sens 6Hr Delta 1.11 ng/L (0-12) 04/23/24 17:26 C-Reactive Protein 43.8 mg/L (0.0-4.9) H 04/26/24 09:11 NT-Pro-B Natriuret Pep 288 pg/mL (0-450) 04/24/24 04:27 Total Protein 6.0 g/dL (6.6-8.7) L 04/26/24 09:11 Albumin 3.6 g/dL (3.5-5.2) 04/26/24 09:11 Globulin 2.4 g/dL (1.3-4.6) 04/26/24 09:11 Procalcitonin 0.11 ng/mL (0-0.5) 04/26/24 09:11 Urine Color Yellow (Yellow) 04/26/24 10:30 Urine Appearance Clear (CLEAR) 04/26/24 10:30 Urine pH 5.0 (5-7) 04/26/24 10:30 Ur Specific [place] 1.015 (1.005-1.030) 04/26/24 10:30 Urine Protein Negative (Negative) 04/26/24 10:30 Urine Glucose (UA) Negative (Normal) 04/26/24 10:30 Urine Ketones Negative (Negative) 04/26/24 10:30 Urine Blood Negative (Negative) 04/26/24 10:30 Urine Nitrate Negative (Negative) 04/26/24 10:30 Urine Bilirubin Negative (Negative) 04/26/24 10:30 Urine Urobilinogen 0.2 mg/dL (Negative) 04/26/24 10:30 Ur Leukocyte Esterase Trace (Negative) A 04/26/24 10:30 Urine RBC 0-2 /hpf (0-2) 04/26/24 10:30 Urine WBC 0-5 /hpf (0-5) 04/26/24 10:30 Ur Squamous Epith Cells 0-5 /hpf (0-5) 04/26/24 10:30 Amorphous Sediment Not Reportable 04/26/24 10:30 Urine Bacteria None seen /hpf (NONE) 04/26/24 10:30 Hyaline Casts 5.36 /lpf 04/26/24 10:30 Nasal MRSA (PCR) Mrsa not detected (Negative) 04/24/24 01:05 C. difficile (PCR) Negative (Negative) 04/26/24 16:10 Coronavirus (PCR) Negative (Negative) 04/26/24 10:00 Influenza A (PCR) Negative (Negative) 04/26/24 10:00 Influenza Type B (PCR) Negative (Negative) 04/26/24 10:00 RSV (PCR) Negative (Negative) 04/26/24 10:00 Vitals Last Vital Signs Temp 98.2 F 04/27/24 07:43 Pulse 82 04/27/24 07:43 Resp 15 04/27/24 07:43 BP 158/81 04/27/24 07:43 Pulse Ox 94 04/27/24 07:43 O2 Del Method Room Air 04/27/24 07:43 Discharge Plan Discharge Patient Disposition: Home Condition: Stable Prescriptions: New oxycodone 5 mg Tablet 5 mg PO BID PRN (Reason: Moderate Pain) 5 Days Qty: 10 0RF docusate sodium 100 mg Capsule 100 mg PO BID 30 Days Qty: 60 0RF aspirin 81 mg Tablet,Delayed Release (Dr/Ec) 81 mg PO DAILY 30 Days Qty: 30 0RF cefdinir 300 mg capsule 300 mg PO BID 5 Days Qty: 10 0RF isosorbide mononitrate 30 mg tablet extended release 24 hr 30 mg PO DAILY 30 Days Qty: 30 0RF Continued pantoprazole 40 mg tablet,delayed release (DR/EC) 40 mg PO DAILY metoprolol tartrate 50 mg tablet 50 mg PO BID citalopram 40 mg tablet 20 mg PO DAILY allopurinol 300 mg tablet 300 mg PO DAILY tamsulosin 0.4 mg capsule 0.4 mg PO DAILY Spiriva with HandiHaler 18 mcg capsule, w/inhalation device 1 cap INHALATION DAILY omega-3 acid ethyl esters 1 gram capsule 2 cap PO BID nitroglycerin [Nitrostat] 0.4 mg tablet, sublingual 0.4 mg SUBLINGUAL Q5M PRN (Reason: Chest Pain) Qty: 25 1RF Glucagon Emergency Kit (human) 1 mg recon soln 1 mg SUBCUT Q20M PRN (Reason: hypoglycemia) Qty: 1 3RF Rx Instructions: until target blood sugar attained (DME) Dexcom G7 Livestock Speculator Misc See Rx Instructions .Route Qty: 1 0RF Rx Instructions: sending DME form insulin aspart U-100 [Novolog U-100 Insulin aspart] 100 unit/mL solution 4 - 5 unit SUBCUT TID Qty: 20 1RF (DME) Dexcom G7 Sensor Device See Rx Instructions .ROUTE .COMPLEX Qty: 3 2RF Dose Instruction: USE 1 SENSOR EVERY 10 DAYS . CHANGE SENSOR/SITE EVERY 10 DAYS. CONTACT [facility] AT FOR REPLACEMENT OF DAMAGED/MALFUNCTIONING SENSORS. CONTACT [facility] AT FOR REPLACEMENT OF DAMAGED/MALFUNCTIONING SENSORS. Rx Instructions: USE 1 SENSOR EVERY 10 DAYS cholecalciferol (vitamin D3) [Vitamin D3] 25 mcg (1,000 unit) Tablet 25 mcg PO DAILY multivitamin Tablet 1 tab PO DAILY diltiazem HCl [Cardizem CD] 120 mg capsule,extended release 24hr 120 mg PO DAILY Qty: 30 0RF fenofibrate nanocrystallized 48 mg tablet 145 mg PO DAILY cyclobenzaprine 10 mg Tablet 10 mg PO TID atorvastatin 80 mg Tablet 80 mg PO BEDTIME mupirocin 2 % Ointment 1 applic TOPICAL BID PRN (Reason: infection) fluticasone propionate 50 mcg/actuation [place],Suspension 2 spray INTRANASAL DAILY Rx Instructions: administer into each nostril Eliquis 5 mg Tablet 5 mg PO BID Changed insulin glargine-yfgn [Semglee(insulin glarg-yfgn)Pen] 100 unit/mL (3 mL) insulin pen 25 unit SUBCUT DAILY Qty: 46.8 1RF Held furosemide 40 mg tablet 40 mg PO DAILY Hold Instructions: Resume on 04/30/24. Discontinued diclofenac sodium 1 % Gel 4 g TOPICAL QID Rx Instructions: apply to single knee, ankle, foot; for foot includes sole/toes/top of foot Discharge Orders: Discharge Order (Routine); Ordered 04/27/24 Ordered By: Landon Horn Referrals: Todd Schmidt MD [Referring] - 1 month Dada Shafer M.D [Physician] - 1-3 days Discharge Diet: Cardiac Discharge Activity: Resume usual activity Patient Instructions: Oxycodone/Acetaminophen (By mouth), Aspirin (By mouth), Cefdinir (By mouth), Docusate (Into the rectum), Opioid Safety Activity Restrictions/Additional Instructions: - Your creatinine on discharge is 2.2, monitor kidney function through primary care, -resume your Lasix on Tuesday -Remember you have a horseshoe kidney, and chronic kidney disease please monitor kidney function closely see your primary care provider about possibly being referred to nephrology for close monitoring, whenever you receive contrast make sure your provider knows -Follow-up with your complaint evaluation supervisor in 1 to 2 months -Continue antibiotics for 5 more days for your pneumonia -Please continue to monitor your left knee replacement, if it starts to become swollen, red, you start developing fevers please go to the emergency room ? Follow-up with orthopedics for left knee replacement -If you develop severe substernal chest pain please immediately go to the emergency room -Continue aspirin, statin, metoprolol, Eliquis -Please ambulate with assistance such as a wheeled walker, if you develop chest pain with exertion please rest, use nitroglycerin as needed -Please follow with cardiology in a week -For your abdominal aortic aneurysm please follow-up with Dr. Shafer, measures 3.8 x 4.1 x 7.9 cm, this has progressed in size A-fib sudden onset abdominal pain please go to the emergency room -You also have prostate enlargement, your prostate is enlarged up to 5 cm, please have primary care provider check your PSA in 1 month, I have referred you to urology -For your back you do have chronic spondylolisthesis at L5-S1, please use hydrocodone sparingly for pain do not drive or operate machinery or drink while taking medication do not use with muscle relaxer - Discharge Attestations Time Spent in Discharge Care*: greater than 30 min Quality Metrics Clinical Quality Measures [ No reported AMI, CVA or VTE this stay] Coding Level of Care Code 08831 Total time (in minutes) for Discharge: 45 Diagnoses Pneumonia J18.9 Precordial pain R07.2 Chest pain type: precordial pain Status post total left knee replacement Z96.652 Laterality: left Primary hypertension I10 Hypertension type: primary hypertension Panlobular emphysema J43.1 COPD type: emphysema Emphysema type: panlobular Chronic atrial fibrillation I48.20 Atrial fibrillation type: unspecified chronic Chronic anticoagulation Z79.01 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
[2024-04-27 11:49] LABS: Glucose Point of Care 241 mg/dL (70-110)
[2024-04-27] MEDS: isosorbide mononitrate ER 30 mg Tablet PO (11:55)
[2024-04-27] MEDS: insulin lispro 100 unit/1 mL SUBCUT (11:57)
[2024-04-27 12:00] VITALS: BP 129/67; PULSE 78; TEMP 36.8; O2SAT 91
[2024-04-27 12:17] VITALS: BP 129/67; PULSE 78; RESP 19; TEMP 36.8; O2SAT 91
== END 2024-04-27 12:40 | disposition home or self-care (01) | DRG 190 ==
LOC: ER 12:30 → CSU 13:46
PROVIDERS: Admitting Provider Hospitalist; Emergency Provider Family Medicine; Visit Provider Family Medicine
DX: J44.0 Chronic obstructive pulmonary disease with (acute) lower respiratory infection (principal); J18.9 Pneumonia, unspecified organism; I48.20 Chronic atrial fibrillation, unspecified; N17.9 Acute kidney failure, unspecified; N18.4 Chronic kidney disease, stage 4 (severe); J43.1 Panlobular emphysema; R07.89 Other chest pain; I12.9 Hypertensive chronic kidney disease with stage 1 through stage 4 chronic kidney disease, or unspecified chronic kidney disease; E11.22 Type 2 diabetes mellitus with diabetic chronic kidney disease; J44.9 Chronic obstructive pulmonary disease, unspecified; K21.9 Gastro-esophageal reflux disease without esophagitis; N40.1 Benign prostatic hyperplasia with lower urinary tract symptoms; R35.0 Frequency of micturition; I71.40 Abdominal aortic aneurysm, without rupture, unspecified; I25.10 Atherosclerotic heart disease of native coronary artery without angina pectoris; F41.9 Anxiety disorder, unspecified; F32.A Depression, unspecified; E78.5 Hyperlipidemia, unspecified; M10.9 Gout, unspecified; M54.50 Low back pain, unspecified; Q63.1 Lobulated, fused and horseshoe kidney; Z96.652 Presence of left artificial knee joint; Z79.01 Long term (current) use of anticoagulants; Z79.4 Long term (current) use of insulin; Z95.5 Presence of coronary angioplasty implant and graft
CPT/HCPCS: 0241U; 36415; 36416; 36600; 71045; 71046; 72100; 74018; 74176; 76770; 78452; 80048; 80051; 80053; 80076; 81001; 82330; 82805; 82962; 83735; 83880; 84100; 84145; 84484; 85025; 85651; 86140; 87040; 87493; 93005; 93017; 93306; 93970; 96365; 96372; 96375; 97110; 97116; 97161; 97165; 99285; A9270; A9500; J0696; J1815; J2543; J2785; J7030

== ENCOUNTER 2024-05-10 10:32 | Outpatient (CLI) | payer MEDICARE, OTHER, SELFPAY ==
[2024-05-10 11:12] LABS: Basophils # 0.1 10^3/uL (0.0-0.1); Basophils % 0.6 %; Eosinophils # 0.3 10^3/uL (0.0-0.8); Eosinophils % 2.9 %; Hematocrit 43.2 % (37-53); Lymphocytes # 1.3 10^3/uL (0.8-4.8); Lymphocytes % 15.3 %; Mean Corpuscular HGB Conc 30.8 g/dL (30-55); Mean Corpuscular Hemoglobin 29.3 pg (27-33); Mean Corpuscular Volume 95.2 fl (82-101); Monocytes # 0.7 10^3/uL (0.2-0.9); Monocytes % 8.3 %; Neutrophils # 6.13 10^3/uL (1.8-7.7); Neutrophils % 72.3 %; Nucleated Red Blood Cells % 0 %; Platelet Count 316 10^3/cmm (157-399); Red Blood Count 4.54 10^6/uL (3.85-5.65); Red Cell Distribution Width 14.5 % (12.1-15.1); White Blood Count 8.48 10^3/uL (3.29-11.43)
[2024-05-10 11:26] LABS: Estmated Average Glucose 151; Hemoglobin A1C 6.9 % (4.0-6.0)
[2024-05-10 11:49] LABS: Creatinine Urine, Random 98 mg/dL (39-259); Microalbum Creatinine Ratio Ur 10 mg/dL (0-20); Microalbumin Random Urine 1 ug/dL (0-20)
[2024-05-10 11:51] LABS: 25 Hydroxy Vitamin D 47 ng/mL (30-100); Alanine Aminotransferase < 5 U/L (0-41); Albumin Level 3.8 g/dL (3.5-5.2); Alkaline Phosphatase 63 U/L (40-130); Anion Gap 13.9 (5-19); Aspartate Amino Transferase 19 U/L (0-40); Blood Urea Nitrogen 30 mg/dL (8-23); Calcium 9.2 mg/dL (8.5-10.5); Carbon Dioxide 28 mmol/L (22-29); Chloride 100 mmol/L (98-107); Chol HDL Ratio 5.81 mg/dL (1.0-5.00); Cholesterol 157 mg/dL (0-200); Globulin 1.7 g/dL (1.3-4.6); Glucose 185 mg/dL (65-115); HDL Cholesterol 27 mg/dL (60-100); LDL Cholesterol Calculated 87 mg/dL (50-129); LDL HDL Ratio 3.22 RATIO (0.00-3.22); Osmolality Calculated 297 mOsm/kg (285-295); Phosphorus 3.3 mg/dL (2.5-4.5); Potassium 3.9 mmol/L (3.5-5.1); Sodium 138 mmol/L (136-145); Total Bilirubin 0.6 mg/dL (0.15-1.2); Total Protein 5.5 g/dL (6.6-8.7); Triglycerides 213 mg/dL (0-150)
[2024-05-10 11:59] LABS: Calcium 9.3 mg/dL (8.5-10.5); Parathyroid Hormone 27.7 pg/mL (15-65)
== END 2024-05-10 10:33 | disposition home or self-care (01) ==
PROVIDERS: Absent Provider Internal Medicine; PCP Nurse Practitioner Family; Visit Provider Registered Nurse
DX: N18.32 Chronic kidney disease, stage 3b (principal); N25.81 Secondary hyperparathyroidism of renal origin; R80.9 Proteinuria, unspecified
CPT/HCPCS: 36415; 80053; 80061; 80069; 82044; 82306; 82310; 83036; 83970; 85025

== ENCOUNTER → 2024-05-16 13:49 | Outpatient (BNVA) | payer OTHER, SELFPAY | PROVIDERS: PCP Nurse Practitioner Family; Visit Provider Nurse Practitioner Family | DX: I48.20 Chronic atrial fibrillation, unspecified (principal); R07.9 Chest pain, unspecified; R06.02 Shortness of breath; Z87.891 Personal history of nicotine dependence; N18.9 Chronic kidney disease, unspecified; I51.89 Other ill-defined heart diseases; J18.9 Pneumonia, unspecified organism; I42.8 Other cardiomyopathies; R94.39 Abnormal result of other cardiovascular function study | CPT/HCPCS: 93005; 99214 ==

== ENCOUNTER 2024-05-29 11:44 | Outpatient (CLI) | payer OTHER, SELFPAY | END 2024-05-29 11:45 | disposition home or self-care (01) | LOC: LAB 11:46 | PROVIDERS: PCP Nurse Practitioner Family; Visit Provider Nurse Practitioner Family | DX: N40.0 Benign prostatic hyperplasia without lower urinary tract symptoms (principal); R97.20 Elevated prostate specific antigen [PSA] | CPT/HCPCS: 84153 ==

== ENCOUNTER → 2024-06-05 09:00 | Outpatient (BNVA) | payer OTHER, SELFPAY | PROVIDERS: PCP Nurse Practitioner Family; Visit Provider Internal Medicine | DX: E11.22 Type 2 diabetes mellitus with diabetic chronic kidney disease (principal); E11.65 Type 2 diabetes mellitus with hyperglycemia; N18.4 Chronic kidney disease, stage 4 (severe); E78.2 Mixed hyperlipidemia; L25.9 Unspecified contact dermatitis, unspecified cause; Z79.4 Long term (current) use of insulin | CPT/HCPCS: 99214 ==

== ENCOUNTER 2024-06-28 21:32 | Inpatient (IN) | payer OTHER, MEDICARE, SELFPAY ==
[2024-06-28] VITALS (7 sets, daily range): BP systolic 77–131; BP diastolic 55–76; PULSE 121–165; RESP 15–21; TEMP 37; O2SAT 93–96
--- NOTE | 2024-06-28 21:36 | XRR_ITS ---
PROCEDURE INFORMATION: Exam: XR Chest Exam date and time: 06/28/2024 9:42 PM Age: 78 years old Clinical indication: Pain; Chest pressure; Additional info: Cp TECHNIQUE: Imaging protocol: Radiologic exam of the chest. Views: 1 view. COMPARISON: CR XR chest 1V portable [id number] 04/26/2024 8:49 AM FINDINGS: Lungs: Patchy left basilar opacities have increased from prior. Pleural spaces: Unremarkable. No pleural effusion. No pneumothorax. Heart/Mediastinum: Unremarkable. No cardiomegaly. Bones/joints: Unremarkable. XR/XR chest 1V portable [id number] IMPRESSION: Patchy left basilar opacities could represent atelectasis versus infiltrate.
[2024-06-28 21:59] LABS: Basophils # 0.1 10^3/uL (0.0-0.1); Basophils % 0.5 %; Eosinophils # 0.2 10^3/uL (0.0-0.8); Eosinophils % 1.8 %; Hematocrit 42.9 % (37-53); Lymphocytes # 1.3 10^3/uL (0.8-4.8); Lymphocytes % 11.5 %; Mean Corpuscular HGB Conc 31.5 g/dL (30-55); Mean Corpuscular Hemoglobin 29.5 pg (27-33); Mean Corpuscular Volume 93.9 fl (82-101); Mean Platelet Volume 10.9 fL (7.4-10.4); Monocytes # 1.1 10^3/uL (0.2-0.9); Monocytes % 9.3 %; Neutrophils # 8.89 10^3/uL (1.8-7.7); Neutrophils % 76.6 %; Nucleated Red Blood Cells % 0 %; Platelet Count 327 10^3/cmm (157-399); Red Blood Count 4.57 10^6/uL (3.85-5.65); Red Cell Distribution Width 15.2 % (12.1-15.1); White Blood Count 11.62 10^3/uL (3.29-11.43)
--- NOTE | 2024-06-28 22:00 | ED_ITS ---
HPI - Chest Pain 2 General: Chief Complaint: Chest Pain Stated Complaint: chest pain Time Seen by Provider: 06/28/24 21:48 History of Present Illness: Patient presents to the ER with a fast heart rate approximate 145 beats minute. Started around 4 to 5 PM today. Patient took 1 nitro that did not help. Patient does have a history of A-fib with RVR and he says been off his metoprolol for over a month since knee surgery. Patient does have stent cardiac x 2, patient is on Eliquis, Lasix Related Data Home Medications Medication Instructions Recorded Confirmed allopurinol 300 mg tablet 300 mg PO DAILY 09/03/19 06/05/24 citalopram 40 mg tablet 20 mg PO DAILY 09/03/19 06/05/24 pantoprazole 40 mg tablet,delayed 40 mg PO DAILY 09/03/19 06/05/24 release tamsulosin 0.4 mg capsule 0.4 mg PO DAILY 09/03/19 06/05/24 tiotropium bromide 18 mcg capsule 1 cap inhalation DAILY 09/03/19 06/05/24 with inhalation device (Spiriva with HandiHaler) cholecalciferol (vitamin D3) 25 25 mcg PO DAILY 01/09/21 06/05/24 mcg (1,000 unit) tablet (Vitamin D3) multivitamin 1 tab PO DAILY 01/09/21 06/05/24 furosemide 40 mg tablet 40 mg PO DAILY 02/12/21 06/05/24 fenofibrate nanocrystallized 48 mg 145 mg PO DAILY 12/10/21 06/05/24 tablet omega-3 acid ethyl esters 1 gram 2 cap PO BID 12/10/21 06/05/24 capsule apixaban 5 mg tablet (Eliquis) 5 mg PO BID 04/23/24 06/05/24 atorvastatin 80 mg tablet 80 mg PO BEDTIME 04/23/24 06/05/24 cyclobenzaprine 10 mg tablet 10 mg PO TID 04/23/24 06/05/24 fluticasone propionate 50 2 spray intranasal DAILY 04/23/24 06/05/24 mcg/actuation nasal spray,suspension mupirocin 2 % topical ointment 1 applic topical BID PRN infection 04/23/24 06/05/24 Previous Rx's Medication Instructions Recorded diltiazem HCl 120 mg 120 mg PO DAILY #30 caps 01/12/21 capsule,extended release 24 hr (Cardizem CD) glucagon 1 mg solution for 1 mg SUBCUT Q20M PRN hypoglycemia 12/10/21 injection (Glucagon Emergency Kit) #1 ea 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 meter,continuous #1 ea 05/11/23 (Dexcom G7 Product Coordinator) insulin aspart U-100 100 unit/mL 4 - 5 unit (0.04 - 0.05 mL) SUBCUT 11/16/23 subcutaneous solution (Novolog TID #20 mL U-100 Insulin aspart) insulin glargine-yfgn 100 unit/mL 25 unit (0.25 mL) SUBCUT DAILY 04/27/24 (3 mL) subcutaneous pen (Semglee #46.8 mL (insulin glargine-yfgn) Pen) 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 sensor (Dexcom G7 #3 ea 05/16/24 Sensor device) metoprolol tartrate 50 mg tablet 75 mg (1.5 x 50 mg) PO BID #180 05/16/24 tabs nitroglycerin 0.4 mg sublingual 0.4 mg sublingual Q5M PRN Chest 05/16/24 tablet (Nitrostat) Pain #25 tabs Allergies Allergy/AdvReac Type Severity Reaction Status Date / Time vancomycin Allergy Severe ALGY-Anaphy Verified 06/05/24 07:48 laxis Opioids - Morphine Analogues Allergy Unknown Verified 06/05/24 07:48 Review of Systems 2 General: Reports: 10 or more systems reviewed and unremarkable except in HPI and below PFSH ED 2 PFSH: Medical History (Updated 06/28/24 @ 23:32 by Eriberto Martinez DO) COVID-19 05/2022 GERD (gastroesophageal reflux disease) Horseshoe kidney Depression BPH (benign prostatic hyperplasia) Gout Tobacco abuse, in remission Diabetes CKD (chronic kidney disease) COPD (chronic obstructive pulmonary disease) Hyperlipidemia HTN (hypertension) Atrial fibrillation ASHD (arteriosclerotic heart disease) AAA (abdominal aortic aneurysm) Surgical History (Updated 06/29/24 @ 01:03 by Ryann Plascencia MD) S/P appendectomy S/P cholecystectomy S/P knee replacement right, had post operative infection with repeat surgeries needed in approximately 2011 L. knee replacement in 04/2024 S/P tonsillectomy S/P hernia repair umbilical hernia repair, and R. inguinal hernia repair S/P PTCA (percutaneous transluminal coronary angioplasty) 2 stents in 2010 [facility] [place] Family History Father CAD (coronary artery disease) Hypertension Myocardial infarction Social History (Updated 06/29/24 @ 01:00 by Ryann Plascencia MD) Smoking and tobacco/nicotine status: former use of tobacco/nicotine Alcohol intake: never Substance/Drug Use: never Additional social history: smoked 2 ppd for apprixmately 50yrs. Physical Exam 2 Const: COMMON NORMALS: no acute distress, average body habitus, patient oriented x3, no limitations, healthy appearing, alert and well nourished HENMT: COMMON NORMALS: normocephalic, atraumatic, hearing grossly normal bilaterally, external ears normal, Normal external nose present and moist oral mucous membranes HEAD & SCALP: normocephalic and atraumatic NOSE: Normal external nose present EXTERNAL EAR: Yes external ears normal Neck/C-Spine: COMMON NORMALS: no JVD Chest: COMMONS NORMALS: normal inspection of the chest and normal palpation of entire chest wall Resp: COMMON NORMALS: normal respiratory effort, No retractions, No use of accessory muscles and clear to auscultation bilaterally AUSCULTATION: clear to auscultation bilaterally Cardio: COMMON NORMALS: no JVD, S1 normal heart sound present, S2 normal heart sound present, No gallops present (Cardio), No clicks present (Cardio), No murmurs present (Cardio) and No rub (Cardio); negative for regular rate (Irregularly irregular tachycardia) and negative for regular rhythm RATE: abnormal rate (Irregularly irregular tachycardia) R HYTHM: abnormal rhythm HEART SOUNDS: S1 normal heart sound present and S2 normal heart sound present GI: COMMON NORMALS: Normal to inspection, nondistended, normoactive bowel sounds present, Soft to palpation, non-tender, No hepatosplenomegaly present and no masses PALPATION: Yes Soft to palpation and Yes No hepatosplenomegaly present Neuro: COMMON NORMALS: patient oriented x3 SENSORIUM/ORIENTATION: Yes alert Course 2 Vital Signs: Vital signs: Vital Signs Temperature 98.6 F 06/28/24 21:46 Pulse Rate 129 H 06/29/24 01:43 Respiratory Rate 17 06/29/24 01:43 Blood Pressure 116/89 12/27/24 01:43 Pulse Oximetry 95 06/29/24 01:43 Oxygen Delivery Me thod Room Air 06/29/24 01:55 MDM - Chest Pain Medical Decision Making Patient given 20 mg Cardizem IV bolus for heart rate of approximate 150 bpm in A-fib with RVR, this dropped him down to about 110 beats a minute but then he started climbing back up. Patient was put on a Cardizem drip. The Cardizem bolus also dropped his blood pressure and patient was given 1 L bolus normal saline, lab work was reviewed, the hospitalist was consulted Dr. Amado Roberts who agreed to come see the patient Lab Data 06/28/24 21:51 06/28/24 21:51 Radiology Impressions Chest X-Ray 06/28/24 21:36 IMPRESSION: Patchy left basilar opacities could represent atelectasis versus infiltrate. Laboratory Results WBC 11.62 10^3/uL (3.29-11.43) H 06/28/24 21:51 RBC 4.57 10^6/uL (3.85-5.65) 06/28/24 21:51 Hgb 13.50 g/dL (11.27-16.99) 06/28/24 21:51 Hct 42.9 % (37-53) 06/28/24 21:51 MCV 93.9 fl (82-101) 06/28/24 21:51 MCH 29.5 pg (27-33) 06/28/24 21:51 MCHC 31.5 g/dL (30-55) 06/28/24 21:51 RDW 15.2 % (12.1-15.1) H 06/28/24 21:51 Plt Count 327 10^3/cmm (157-399) 06/28/24 21:51 MPV 10.9 fL (7.4-10.4) H 06/28/24 21:51 Neut % (Auto) 76.6 % 06/28/24 21:51 Lymph % (Auto) 11.5 % 06/28/24 21:51 Pope % (Auto) 9.3 % 06/28/24 21:51 Eos % (Auto) 1.8 % 06/28/24 21:51 Baso % (Auto) 0.5 % 06/28/24 21:51 Neut # (Auto) 8.89 10^3/uL (1.8-7.7) H 06/28/24 21:51 Lymph # (Auto) 1.3 10^3/uL (0.8-4.8) 06/28/24 21:51 Pope # (Auto) 1.1 10^3/uL (0.2-0.9) H 06/28/24 21:51 Eos # (Auto) 0.2 10^3/uL (0.0-0.8) 06/28/24 21:51 Baso # (Auto) 0.1 10^3/uL (0.0-0.1) 06/28/24 21:51 Nucleated RBC % (auto) 0 % 06/28/24 21:51 Nucleated RBCs # 0.0 /100WBC 06/28/24 21:51 PT 14.80 SECONDS (12.1-14.9) 06/28/24 21:51 INR 1.12 (0.8-1.2) 06/28/24 21:51 Sodium 139 mmol/L (136-145) 06/28/24 21:51 Potassium 3.9 mmol/L (3.5-5.1) 06/28/24 21:51 Chloride 104 mmol/L (98-107) 06/28/24 21:51 Carbon Dioxide 22 mmol/L (22-29) 06/28/24 21:51 Anion Gap 16.9 (5-19) 06/28/24 21:51 BUN 24 mg/dL (8-23) H 06/28/24 21:51 Creatinine 1.7 mg/dL (0.7-1.2) H 06/28/24 21:51 GFR Calculation Not Reportable 06/28/24 21:51 Glucose 209 mg/dL (65-115) H 06/28/24 21:51 Calculated Osmolality 298 mOsm/kg (285-295) H 06/28/24 21:51 Calcium 9.1 mg/dL (8.5-10.5) 06/28/24 21:51 Magnesium 1.6 mg/dL (1.7-2.3) L 06/28/24 21:51 Total Bilirubin 0.3 mg/dL (0.15-1.2) 06/28/24 21:51 AST 24 U/L (0-40) 06/28/24 21:51 ALT 7 U/L (0-41) 06/28/24 21:51 Alkaline Phosphatase 53 U/L (40-130) 06/28/24 21:51 Troponin T Baseline 73 ng/L (0-15) H 06/28/24 21:51 Troponin T 120 Minute 88.38 ng/L (0-15) H 06/28/24 23:46 Delta Troponin T 15.38 ABS# (0-10) H* 06/28/24 23:46 NT-Pro-B Natriuret Pep 572 pg/mL (0-450) H 06/28/24 21:51 Total Protein 5.8 g/dL (6.6-8.7) L 06/28/24 21:51 Albumin 3.8 g/dL (3.5-5.2) 06/28/24 21:51 Globulin 2.0 g/dL (1.3-4.6) 06/28/24 21:51 TSH 4.23 uIU/mL (0.27-4.20) H 06/28/24 21:51 All radiology interpretation(s) finalized by discharge Discharge Plan Discharge Patient Disposition: Admitted As Inpatient Admit Provider: Ryann Plascencia Clinical Impression: Atrial fibrillation with rapid ventricular response Condition: Stable Coding Level of Care Code ED De Icer Kit Assembler for Lesa Thorpe
--- NOTE | 2024-06-28 22:02 | ECG_ITS ---
[facility] Test Date: 2024-06-28 Pat Name: José Elliott Department: Room: Gender: Male Sales Support Advisor: : 1945 Requested By: Nael Martins Order Number: [id number] Brennen MD: Dada Shafer M.D. Measurements Intervals [place] Rate: 156 P: 0 ID: 0 QRS: -1 QRSD: 89 T: 86 QT: 279 QTc: 450 Interpretive Statements ATRIAL FIBRILLATION WITH RAPID VENTRICULAR RESPONSE NONSPECIFIC ST & T-WAVE ABNORMALITY Compared to ECG 05/16/2024 13:55:50 Sinus tachycardia no longer present Ventricular premature complex(es) no longer present T-wave abnormality still present Electronically Signed On 06-29-2024 18:30:11 TOOL POLISHING MACHINE OPERATOR by Dada Shafer M.D. [id number]
[2024-06-28 22:10] LABS: INR 1.12 (0.8-1.2)
[2024-06-28 22:16] LABS: Alanine Aminotransferase 7 U/L (0-41); Albumin Level 3.8 g/dL (3.5-5.2); Alkaline Phosphatase 53 U/L (40-130); Aspartate Amino Transferase 24 U/L (0-40); Blood Urea Nitrogen 24 mg/dL (8-23); Calcium 9.1 mg/dL (8.5-10.5); Carbon Dioxide 22 mmol/L (22-29); Chloride 104 mmol/L (98-107); Creatinine Clr Calc Pharmacy 35.4591; Glucose 209 mg/dL (65-115); Osmolality Calculated 298 mOsm/kg (285-295); Sodium 139 mmol/L (136-145); Total Bilirubin 0.3 mg/dL (0.15-1.2); Total Protein 5.8 g/dL (6.6-8.7)
[2024-06-28 22:19] LABS: Anion Gap 16.9 (5-19); Potassium 3.9 mmol/L (3.5-5.1)
[2024-06-28] MEDS: dilTIAZem 5 mg/mL SDV 5 mL 20 MG IVP (22:20)
[2024-06-28] MEDS: sodium chloride 0.9% 1,000 ML 999 ML IV (22:21)
[2024-06-28 22:29] LABS: Magnesium 1.6 mg/dL (1.7-2.3); NT Pro B Type Natriuretic Pept 572 pg/mL (0-450); Thyroid Stimulating Hormone 4.23 uIU/mL (0.27-4.20)
[2024-06-28 22:30] LABS: Troponin(5th) Baseline 73 ng/L (0-15)
[2024-06-28] MEDS: dilTIAZem 100 MG in sodium chloride 0.9% (add-van) 100 ML IV (23:10)
--- NOTE | 2024-06-28 23:26 | PM.HP ---
Providers/Chief Complaint Admitting Physician: Ryann Plascencia I. Primary Care Provider: Maureen Samson APRN Chief Complaint: chest pain History of Present Ill[facility] 78 [facility] male w/ BPH who was brought by his daughter for substernal chest pain. The patient states that he was cleaning the big pot after cooking ham when he started experiencing non-radiating, non-pleuritic non-positional substernal chest pain. He ate 2 popsicles hoping for relief; however, without relief after eating the popiscles, he lay down in his bedroom hoping that the chest pain would improve. With unimprovement of his chest pain, he got up and took a possibly SL NTG. Associated symptoms including feeling flushed when changing positions and palpitations. He denies SOB, dizziness, light headedness, fever, chills, visual disturbances, abdominal pain, n/v, diarrhea, melena, hematochezia, dysuria, hematuria, . He endorsed increased urinary urgency/frequency, nocturia, dribbling, and the need to urinate. He called his daughter, who brought him to the hospital, and by the time he arrived at the hospital, the chest pain resolved. The chest pain lasted for 4 hrs. He denies SOB. Daughter states that since his knee replacement in [place], [place], in 04/2024, he becomes dyspneic, with minimal exertion, and he experiences chest tightness. The patient and daughter state that after his L. knee replacement, he had episodes where he became light headed, so his metoprolol was discontinued. He tells me that he eats 2 eggs, sausage, hash browns for breakfast and about half way through breakfast, he vomits, then he continues to eat then finishes it. He attributes his symptoms to his insulin, despite being reassured by his machine adjuster leader case trim. In the ED, the patient's EKG showed Afib w/ RVR, but no ST changes. He was given Diltiazem 20mg IVP and his HR decreased from 140bpm to 110bpm; however, his BP decreased to the 90s, so he was given Fluids and put back on a drip at 5mg/hr. During admission interview, his Diltiazem drip rate was increased to 10mg/hr, but he developed hypotension, so it was d/c'ed and he was given a 500cc NS bolus. Review of Systems Const: Reports: other (flushed); Denies: fever(s) or chills Eyes: Denies: change in vision ENMT: Reports: other (no sore throat); Denies: odynophagia, ear or mastoid pain, ear discharge, nasal discharge or nasal congestion Card: Reports: chest pain and palpitations; Denies: syncope Resp: Denies: dyspnea, productive cough or wheezing GI: Denies: abdominal pain, nausea, vomiting, diarrhea, constipation, hematochezia or melena : Reports: urinary frequency, urinary urgency, urinary dribbling, change in urine stream and nocturia; Denies: difficulty urinating Musc: Reports: other (no myalgias); Denies: joint pain Skin/Breast: Denies: rash or changing lesions Neuro: Reports: other; Denies: headache(s) or dizziness Psych: Reports: depression; Denies: suicidal ideation or homicidal ideation Endo: Reports: cold intolerance; Denies: heat intolerance Jurgen/Lymph: Reports: easy bruising (On apixaban) and easy bleeding (On apixaban) All/Imm: Denies: food intolerance Medications/Allergies Home Medications Medication Instructions Recorded Confirmed Last Taken Type allopurinol 300 mg tablet 300 mg PO DAILY 09/03/19 06/05/24 01/08/21 History citalopram 40 mg tablet 20 mg PO DAILY 09/03/19 06/05/24 01/08/21 History pantoprazole 40 mg tablet,delayed 40 mg PO DAILY 09/03/19 06/05/24 01/08/21 History release tamsulosin 0.4 mg capsule 0.4 mg PO DAILY 09/03/19 06/05/24 01/08/21 History tiotropium bromide 18 mcg capsule 1 cap inhalation DAILY 09/03/19 06/05/24 01/08/21 History with inhalation device (Spiriva with HandiHaler) cholecalciferol (vitamin D3) 25 25 mcg PO DAILY 01/09/21 06/05/24 01/08/21 History mcg (1,000 unit) tablet (Vitamin D3) multivitamin 1 tab PO DAILY 01/09/21 06/05/24 01/08/21 History diltiazem HCl 120 mg 120 mg PO DAILY #30 caps 01/12/21 06/05/24 Unknown Rx capsule,extended release 24 hr (Cardizem CD) furosemide 40 mg tablet 40 mg PO DAILY 02/12/21 06/05/24 Unknown History fenofibrate nanocrystallized 48 mg 145 mg PO DAILY 12/10/21 06/05/24 Unknown History tablet glucagon 1 mg solution for 1 mg SUBCUT Q20M PRN hypoglycemia 12/10/21 06/05/24 Unknown Rx injection (Glucagon Emergency Kit) #1 ea omega-3 acid ethyl esters 1 gram 2 cap PO BID 12/10/21 06/05/24 Unknown History capsule 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 meter,continuous #1 ea 05/11/23 06/05/24 Unknown Rx (Dexcom G7 Stock Manager) insulin aspart U-100 100 unit/mL 4 - 5 unit (0.04 - 0.05 mL) SUBCUT 11/16/23 06/05/24 Unknown Rx subcutaneous solution (Novolog TID #20 mL U-100 Insulin aspart) apixaban 5 mg tablet (Eliquis) 5 mg PO BID 04/23/24 06/05/24 Unknown History atorvastatin 80 mg tablet 80 mg PO BEDTIME 04/23/24 06/05/24 Unknown History cyclobenzaprine 10 mg tablet 10 mg PO TID 04/23/24 06/05/24 Unknown History fluticasone propionate 50 2 spray intranasal DAILY 04/23/24 06/05/24 Unknown History mcg/actuation nasal spray,suspension mupirocin 2 % topical ointment 1 applic topical BID PRN infection 04/23/24 06/05/24 Unknown History insulin glargine-yfgn 100 unit/mL 25 unit (0.25 mL) SUBCUT DAILY 04/27/24 06/05/24 Unknown Rx (3 mL) subcutaneous pen (Semglee #46.8 mL (insulin glargine-yfgn) Pen) 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 sensor (Dexcom G7 #3 ea 05/16/24 06/05/24 Unknown Rx Sensor device) metoprolol tartrate 50 mg tablet 75 mg (1.5 x 50 mg) PO BID #180 05/16/24 06/05/24 Unknown Rx tabs nitroglycerin 0.4 mg sublingual 0.4 mg sublingual Q5M PRN Chest 05/16/24 06/05/24 Unknown Rx tablet (Nitrostat) Pain #25 tabs Allergies Allergy/AdvReac Type Severity Reaction Status Date / Time vancomycin Allergy Severe ALGY-Anaphy Verified 06/05/24 07:48 laxis Opioids - Morphine Analogues Allergy Unknown Verified 06/05/24 07:48 PFSH Acute PFSH: Medical History (Updated 06/29/24 @ 04:21 by Ryann Plascencia MD) COVID-19 05/2022 GERD (gastroesophageal reflux disease) Horseshoe kidney Depression BPH (benign prostatic hyperplasia) Gout Tobacco abuse, in remission Diabetes CKD (chronic kidney disease) COPD (chronic obstructive pulmonary disease) Hyperlipidemia HTN (hypertension) Atrial fibrillation ASHD (arteriosclerotic heart disease) AAA (abdominal aortic aneurysm) Surgical History (Updated 06/29/24 @ 01:03 by Ryann Plascencia MD) S/P appendectomy S/P cholecystectomy S/P knee replacement right, had post operative infection with repeat surgeries needed in approximately 2011 L. knee replacement in 04/2024 S/P tonsillectomy S/P hernia repair umbilical hernia repair, and R. inguinal hernia repair S/P PTCA (percutaneous transluminal coronary angioplasty) 2 stents in 2009 placed at the [place] in [place] Family History Father CAD (coronary artery disease) Hypertension Myocardial infarction Social History (Updated 06/29/24 @ 01:00 by Ryann Plascencia MD) Smoking and tobacco/nicotine status: former use of tobacco/nicotine Alcohol intake: never Substance/Drug Use: never Additional social history: smoked 2 ppd for apprixmately 50yrs. Vitals/I&O/Wt Last Vital Signs Temp 98.6 F 06/28/24 21:46 Pulse 121 H 06/28/24 23:12 Resp 21 H 06/28/24 23:12 BP 113/76 06/28/24 23:12 Pulse Ox 96 06/28/24 23:12 O2 Del Method Room Air 06/28/24 23:12 Weight last 48 hrs Weight 80.739 kg Physical Exam Const: GENERAL APPEARANCE: cooperative and comfortable ORIENTATION/CONSCIOUSNESS: Yes awake, Yes oriented to person, Yes oriented to place and Yes oriented to time HENMT: HEAD & SCALP: normocephalic and atraumatic NOSE: Normal external nose present EXTERNAL EAR: Yes external ears normal MOUTH: Normal oral and palatal mucosa present THROAT: posterior oropharynx normal Eye: CONJUNCTIVA: Yes conjunctivae normal PUPIL: Yes Equal, round and reactive pupils present EOM: No EOM abnormal Neck/C-Spine: GENERAL: Yes normal visual inspection and Yes trachea midline THYROID: Thyroid normal CAROTIDS: No bruit CERVICAL SPINE: Yes cervical ROM normal Lymph: OTHER: No cervical or supraclavicular LAD. Resp: OTHER: Diminished but clear in the bilateral lower lung bases. Cardio: OTHER: Irregular rate and rhythm, tachycardic, no m/r/g or clicks GI: OTHER: BS+, NT, ND, no rigidity, no guarding, no rebound tenderness, no hepatosplenomegaly Extremity: NARRATIVE EXTREMITY EXAM: L. 2+ pitting edema up to the mid tibia, Mildly swollen L. knee, but scar healing. GENERAL: No clubbing and No cyanosis Neuro: CRANIAL NERVES: Yes CN normal except as noted SPEECH: speech normal SENSORY EXAM: Yes sensory level loss detected Psych: APPEARANCE: Yes grossly normal ATTITUDE: Yes calm and Yes engaged ACTIVITY/MOTOR BEHAVIOR: Yes appropriate eye contact SPEECH: Yes normal speech MOOD & AFFECT: Yes euthymic mood THOUGHT PROCESS: Normal thought process present THOUGHT CONTENT: Yes Normal thought content present ATTENTION/CONCENTRATION: Yes attention grossly intact MEMORY/COGNITION: Yes memory grossly intact Skin: GENERAL SKIN EXAM: no rashes or lesions noted Data 06/28/24 21:51 06/28/24 21:51 A&P Assessment and plan (1) Chest pain: Qualifiers: Chest pain type: precordial pain Qualified Code(s): R07.2 - Precordial pain Plan José Elliott is a 78 year old male w/ BPH, CAD s/p 2 stents in 2009, Atrial fibrillation, CKD, COPD, who was brought by his daughter for substernal chest pain. The patient states that he was cleaning the big pot after cooking ham when he started experiencing non-radiating, non-pleuritic non-positional substernal chest pain. #Chest pain #CAD #HTN #HLD - Ordered full dose aspirin & lovenox. Continue atorvastatin. Continue telemonitoring. - Patient's daughter states that he was supposed to get a heart catheterization in his 04/27/2024 hospitalization here at [facility], but he declined b/c it may push him into dialysis. He is willing to reconsider - Consult Cardiology in the AM - F/u Trop T #Afib w/ RVR - Started Amio bolus/drip. - Held ordering ECHO because of the patient's Afib w/ RVR - F/u BCx, UA/possible UCx, TSH/free T4, Utox #COPD: Not on O2 - Resume home meds. #IDDM2: Resumed home insulin glargine but at 15units daily plus medium dosse SSI at day and large dose SSI at nightl #GERD: Resume home med - #BPH - Resume home meds #Gout: Hold home meds at this time. #Depression: Resume home Citalopram Daughter Sylvia Mustafa Daughter Kenya Mustafa at bedside Son Craig Elliott Attestations Medical Necessity Statement*: Patient needs to be hospitalized for >2midnights for his Afib w/ RVR, and chest pain. Time Spent in Patient Care: >75mins spent on patient/family interview, patient exam, lab/image review, plan formulation and coordination of care. Coding Level of Care Code 19586 Diagnoses Precordial pain R07.2 Chest pain type: precordial pain
--- NOTE | 2024-06-28 23:36 | ECG_ITS ---
[employer] [facility] Test Date: 2024-06-28 Pat Name: José Elliott Department: Room: Gender: Male Automotive Product Engineer: : 1945 Requested By: Nael Martins Order Number: [id number] Brennen MD: Dada Shafer M.D. Measurements Intervals [place] Rate: 153 P: 0 ND: 0 QRS: 5 QRSD: 88 T: 124 QT: 272 QTc: 435 Interpretive Statements ATRIAL FIBRILLATION WITH RAPID VENTRICULAR RESPONSE MINIMAL VOLTAGE CRITERIA FOR LVH, CONSIDER NORMAL VARIANT [MEETS CRITERIA IN ONE OF: R(aVL), S(V1), R(V5), R(V5/V6)+S(V1)] ST DEVIATION AND MODERATE T-WAVE ABNORMALITY, CONSIDER LATERAL ISCHEMIA [-0.1+ mV T-WAVE IN I/aVL/V5/V6] Compared to ECG 05/16/2024 13:55:50 Possible ischemia now present Sinus tachycardia no longer present Ventricular premature complex(es) no longer present T-wave abnormality still present Electronically Signed On 06-29-2024 18:38:48 WATER CONSERVATION SPECIALIST by Dada Shafer M.D. [id number]
[2024-06-29] VITALS (10 sets, daily range): BP systolic 101–136; BP diastolic 56–89; PULSE 100–130; RESP 13–29; TEMP 36.5–37.2; O2SAT 92–97; BMI 30.5
[2024-06-29 00:06] LABS: Troponin 5 2HR 88.38 ng/L (0-15)
[2024-06-29 00:09] LABS: Troponin 5 2HR Delta 15.38 ABS# (0-10)
[2024-06-29] MEDS: sodium chloride 0.9% 500 ML 999 ML IV (02:41)
[2024-06-29] MEDS: aspirin 325 mg Tablet PO (03:36)
[2024-06-29] MEDS: enoxaparin 80 mg/0.8 mL Syringe SUBCUT ×2 (03:36→14:53)
[2024-06-29] MEDS: amiodarone 150 MG/100 ML PREMIX 400 MG IV (03:36)
--- NOTE | 2024-06-29 03:51 | ECG_ITS ---
[facility] Test Date: 2024-06-29 Pat Name: José Elliott Department: Room: 108 Gender: Male Director Of Speech Pathology: : 1945 Requested By: Nael Martins Order Number: [id number] Brennen MD: Dada Shafer M.D. Measurements Intervals [place] Rate: 126 P: 0 GA: 0 QRS: 22 QRSD: 91 T: 80 QT: 309 QTc: 448 Interpretive Statements ATRIAL FIBRILLATION WITH RAPID VENTRICULAR RESPONSE Compared to ECG 06/28/2024 22:02:31 T-wave abnormality no longer present Electronically Signed On 06-29-2024 18:38:16 MIRROR MACHINE FEEDER by Dada Shafer M.D. [id number]
[2024-06-29] MEDS: magnesium sulfate premix 4 GM/100 ML PREMIX IV (04:03)
[2024-06-29 04:14] LABS: Basophils # 0.1 10^3/uL (0.0-0.1); Basophils % 0.6 %; Eosinophils # 0.2 10^3/uL (0.0-0.8); Eosinophils % 2.7 %; Hematocrit 38.6 % (37-53); Lymphocytes # 1.3 10^3/uL (0.8-4.8); Lymphocytes % 16.1 %; Mean Corpuscular HGB Conc 30.1 g/dL (30-55); Mean Corpuscular Hemoglobin 29.4 pg (27-33); Mean Platelet Volume 10.5 fL (7.4-10.4); Monocytes # 0.9 10^3/uL (0.2-0.9); Monocytes % 10.8 %; Neutrophils % 69.2 %; Nucleated Red Blood Cells % 0 %; Platelet Count 252 10^3/cmm (157-399); Red Blood Count 3.94 10^6/uL (3.85-5.65); Red Cell Distribution Width 15.2 % (12.1-15.1); White Blood Count 8.24 10^3/uL (3.29-11.43)
[2024-06-29 04:14] LABS: Bilirubin Urine Negative (Negative); Blood Urine Negative (Negative); Glucose Urine UA Negative (Normal); Ketones Urine Negative (Negative); Leukocyte Esterase Urine Trace (Negative); Nitrate Urine Negative (Negative); Protein Urine Negative (Negative); Specific Gravity, Urine 1.017 (1.005-1.030); Urine Appearance Clear (CLEAR); Urine Color Yellow (Yellow); pH Urine 5.5 (5-7)
[2024-06-29 04:19] LABS: Add Urine Microscopic? YES; Bacteria Urine None Seen /hpf; Hyaline Casts Urine 3.71 /lpf; RBC Urine 0-2 /hpf (0-2); Squamous Epithelial Cell Urine 0-5 /hpf (0-5); WBC Urine 0-5 /hpf (0-5)
[2024-06-29 04:21] LABS: Amphetamines Screen Urine Negative (Negative); Barbiturates Screen Urine Negative (Negative); Benzodiazepines Screen Urine Negative (Negative); Cocaine Screen Urine Negative (Negative); Opiate Screen Urine Negative (Negative); PCP Screen Urine Negative (Negative); THC Screen Urine Negative (Negative)
[2024-06-29 04:21] LABS: Alanine Aminotransferase 6 U/L (0-41); Albumin Level 3.5 g/dL (3.5-5.2); Alkaline Phosphatase 42 U/L (40-130); Anion Gap 14.7 (5-19); Aspartate Amino Transferase 21 U/L (0-40); Blood Urea Nitrogen 23 mg/dL (8-23); Calcium 8.5 mg/dL (8.5-10.5); Carbon Dioxide 23 mmol/L (22-29); Chloride 109 mmol/L (98-107); Creatinine Clr Calc Pharmacy 35.4591; Globulin 1.3 g/dL (1.3-4.6); Glucose 127 mg/dL (65-115); Magnesium 1.5 mg/dL (1.7-2.3); Osmolality Calculated 301 mOsm/kg (285-295); Potassium 3.7 mmol/L (3.5-5.1); Sodium 143 mmol/L (136-145); Total Bilirubin 0.3 mg/dL (0.15-1.2); Total Protein 4.8 g/dL (6.6-8.7)
[2024-06-29 04:32] LABS: Troponin 5 6HR 103.1 ng/L (0-15); Troponin 5 6HR Delta 30.1 ng/L (0-12)
[2024-06-29 04:36] LABS: Free T4 Free Thyroxine 1.23 ng/dL (0.82-1.77); Thyroid Stimulating Hormone 2.94 uIU/mL (0.27-4.20)
--- NOTE | 2024-06-29 07:06 | PC.PHAR ---
Addendum entered by Danae Valerio 06/29/24 08:56: No staffing at [facility] today. Med rec completed with last discharge list 04/27/24 and [facility]. Received new rx med list from [facility] from 04/27/24. Combined the 3 lists into 1. Original Note: [facility] 06/29/24 7:06am
[2024-06-29 07:38] LABS: Glucose Point of Care 138 mg/dL (70-110)
[2024-06-29] MEDS: docusate sodium 100 mg Capsule 200 MG PO (09:13)
[2024-06-29] MEDS: insulin glargine 100 units/1 mL 15 UNIT SUBCUT (09:13)
--- NOTE | 2024-06-29 09:40 | PC.PHAR ---
contacted [facility] and they sent current med list.
[2024-06-29] MEDS: metoprolol tartrate 50 mg Tablet PO (10:44)
[2024-06-29] MEDS: pantoprazole DR 40 mg Tablet PO (10:44)
[2024-06-29] MEDS: tamsulosin 0.4 mg Capsule PO (10:52)
[2024-06-29 11:13] LABS: Glucose Point of Care 179 mg/dL (70-110)
[2024-06-29] MEDS: insulin lispro 100 unit/1 mL SUBCUT ×2 (11:53→17:29)
--- NOTE | 2024-06-29 11:57 | PC.SOCIAL ---
IMM Updated Updated pt on IMM. No questions voiced. Provided pt a copy. Initialed, dated, & timed a copy & placed in chart.
--- NOTE | 2024-06-29 12:15 | PM.CONSULT ---
Providers/Reason For Consult Consulting Physician/Specialty*: Dada Shafer MD/ Cardiology Reason for Consult*: Chest pain/ atrial fibrillation with RVR Requesting Physician: Dr Trujillo Attending Physician: Yohannes Trujillo MD Primary Care Provider: Maureen Samson APRN History of Present Illness History of Present Illness José Elliott is a 78 year old male with past medical history of CAD, atrial fibrillation who presented to the hospital with substernal chest pain. He also felt palpitations. EKG shows atrial fibrillation with RVR. Initial troponin was 73 that trended up to 103 at 6 hours. Patient had abnormal stress test 2 months ago. However he has CKD and medical therapy was pursued at that time Review of Systems Const: Reports: other (flushed); Denies: fever(s) or chills Eyes: Denies: change in vision Card: Reports: chest pain and palpitations; Denies: syncope Resp: Denies: dyspnea, productive cough or wheezing : Reports: urinary frequency, urinary urgency, urinary dribbling, change in urine stream and nocturia; Denies: difficulty urinating Skin/Breast: Denies: rash or changing lesions Jurgen/Lymph: Reports: easy bruising (On apixaban) and easy bleeding (On apixaban) All/Imm: Denies: food intolerance Medications/Allergies Home Medications Medication Instructions Recorded Confirmed Last Taken Type allopurinol 300 mg tablet 300 mg PO DAILY 09/03/19 06/29/24 06/28/24 History citalopram 40 mg tablet 20 mg PO DAILY 09/03/19 06/29/24 06/28/24 History pantoprazole 40 mg tablet,delayed 40 mg PO DAILY 09/03/19 06/29/24 06/28/24 History release tamsulosin 0.4 mg capsule 0.4 mg PO DAILY 09/03/19 06/29/24 06/27/24 History tiotropium bromide 18 mcg capsule 1 cap inhalation DAILY 09/03/19 06/29/24 06/28/24 History with inhalation device (Spiriva with HandiHaler) cholecalciferol (vitamin D3) 25 25 mcg PO DAILY 01/09/21 06/29/24 06/28/24 History mcg (1,000 unit) tablet (Vitamin D3) diltiazem HCl 120 mg 120 mg PO DAILY #30 caps 01/12/21 06/29/24 06/28/24 Rx capsule,extended release 24 hr (Cardizem CD) furosemide 40 mg tablet 40 mg PO DAILY 02/12/21 06/29/24 06/28/24 History fenofibrate nanocrystallized 48 mg 145 mg PO DAILY 12/10/21 06/29/24 06/28/24 History tablet glucagon 1 mg solution for 1 mg SUBCUT Q20M PRN hypoglycemia 12/10/21 06/29/24 Unknown Rx injection (Glucagon Emergency Kit) #1 ea omega-3 acid ethyl esters 1 gram 2 cap PO BID 12/10/21 06/29/24 06/28/24 History capsule 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 meter,continuous #1 ea 05/11/23 06/29/24 Unknown Rx (Dexcom G7 In Home Baby Sitter) insulin aspart U-100 100 unit/mL 4 - 5 unit (0.04 - 0.05 mL) SUBCUT 11/16/23 06/29/24 06/28/24 Rx subcutaneous solution (Novolog TID #20 mL U-100 Insulin aspart) apixaban 5 mg tablet (Eliquis) 5 mg PO BID 04/23/24 06/29/24 06/28/24 History atorvastatin 80 mg tablet 80 mg PO BEDTIME 04/23/24 06/29/24 06/27/24 History cyclobenzaprine 10 mg tablet 10 mg PO TID 04/23/24 06/29/24 06/28/24 History fluticasone propionate 50 2 spray intranasal DAILY 04/23/24 06/29/24 06/28/24 History mcg/actuation nasal spray,suspension mupirocin 2 % topical ointment 1 applic topical BID PRN infection 04/23/24 06/29/24 Unknown History insulin glargine-yfgn 100 unit/mL 25 unit (0.25 mL) SUBCUT DAILY 04/27/24 06/29/24 06/28/24 Rx (3 mL) subcutaneous pen (Semglee #46.8 mL (insulin glargine-yfgn) Pen) 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 sensor (Dexcom G7 #3 ea 05/16/24 06/29/24 Unknown Rx Sensor device) metoprolol tartrate 50 mg tablet 75 mg (1.5 x 50 mg) PO BID #180 05/16/24 06/29/24 06/28/24 Rx tabs nitroglycerin 0.4 mg sublingual 0.4 mg sublingual Q5M PRN Chest 05/16/24 06/29/24 06/28/24 Rx tablet (Nitrostat) Pain #25 tabs aspirin 81 mg tablet,delayed 81 mg PO DAILY 06/29/24 06/29/24 06/28/24 History release cetirizine 10 mg tablet (Zyrtec) 10 mg PO DAILY PRN allergies 06/29/24 06/29/24 Unknown History docusate sodium 100 mg capsule 100 mg PO BID 06/29/24 06/29/24 Unknown History isosorbide mononitrate 30 mg 30 mg PO DAILY 06/29/24 06/29/24 06/28/24 History tablet,extended release 24 hr megestrol 20 mg tablet 20 mg PO DAILY 06/29/24 06/29/24 06/28/24 History oxycodone 5 mg tablet 5 mg PO BID PRN moderate pain. 06/29/24 06/29/24 Unknown History vit C 250 mg-vit E 90 mg-zinc 40 1 tab PO BID 06/29/24 06/29/24 06/28/24 History mg-copper 1 et-roabdk-rdshle capsule (PreserVision AREDS-2) Allergies Allergy/AdvReac Type Severity Reaction Status Date / Time vancomycin Allergy Severe ALGY-Anaphy Verified 06/05/24 07:48 laxis Opioids - Morphine Analogues Allergy Unknown Verified 06/05/24 07:48 Current Medications Generic Name Dose Route Start Last Admin Trade Name Stefani PRN Reason Stop Dose Admin Docusate Sodium 200 mg 06/29/24 09:00 06/29/24 09:13 Docusate Sodium 100 Mg Capsule PO 200 mg DAILY OMAR Administration Enoxaparin Sodium 80 mg 06/29/24 03:15 06/29/24 03:36 Enoxaparin 80 Mg/0.8 Ml Syringe SUBCUT 80 mg Q12H OMAR Administration Amiodarone HCl/Dextrose 360 mg in 200 mls @ 0 mls/hr 06/29/24 02:45 06/29/24 10:00 Nexterone IV 0.5 mg/min .Q0M OMAR 16.67 mls/hr Titration Protocol Per Protocol Insulin Glargine 15 unit 06/29/24 09:00 06/29/24 09:13 Insulin Glargine 100 Units/1 Ml SUBCUT 15 unit DAILY OMAR Administration Insulin Human Lispro 0 unit 06/29/24 12:00 06/29/24 11:53 Insulin Lispro 100 Unit/1 Ml SUBCUT 4 unit WM&BEDTIME OMAR Administration Protocol Metoprolol Tartrate 50 mg 06/29/24 09:45 06/29/24 10:44 Metoprolol Tartrate 50 Mg Tablet PO 50 mg BID OMAR Administration Pantoprazole Sodium 40 mg 06/29/24 10:00 06/29/24 10:[address] 40 Mg Tablet PO 40 mg DAILY OMAR Administration Tamsulosin HCl 0.4 mg 06/29/24 10:45 06/29/24 10:52 Tamsulosin 0.4 Mg Capsule PO 0.4 mg DAILY OMAR Administration PFSH Acute PFSH: Medical History COVID-19 05/2022 GERD (gastroesophageal reflux disease) [place] kidney Depression BPH (benign prostatic hyperplasia) Gout Tobacco abuse, in remission Diabetes CKD (chronic kidney disease) COPD (chronic obstructive pulmonary disease) Hyperlipidemia HTN (hypertension) Atrial fibrillation ASHD (arteriosclerotic heart disease) AAA (abdominal aortic aneurysm) Surgical History S/P total knee arthroplasty (04/13/24) left S/P appendectomy S/P cholecystectomy S/P knee replacement right, had post operative infection with repeat surgeries needed in approximately 2011 L. knee replacement in 04/2024 S/P tonsillectomy S/P hernia repair umbilical hernia repair, and R. inguinal hernia repair S/P PTCA (percutaneous transluminal coronary angioplasty) 2 stents in 2009 placed at the [facility] in [place] Family History Father CAD (coronary artery disease) Hypertension Myocardial infarction Social History Smoking and tobacco/nicotine status: former use of tobacco/nicotine Alcohol intake: never Substance/Drug Use: never Additional social history: smoked 2 ppd for apprixmately 50yrs. Vitals/I&O/Wt Last Vital Signs Temp 97.7 F 06/29/24 11:45 Pulse 107 H 06/29/24 11:45 Resp 20 H 06/29/24 11:45 BP 109/75 06/29/24 11:45 Pulse Ox 97 06/29/24 11:45 O2 Del Method Room Air 06/29/24 11:45 06/28/24 06/29/24 06/29/24 22:59 06:59 14:59 Intake Total 1763.250 / 1763.250 197.758 / 197.758 Output Total 200 / 200 Balance 1563.250 / 1563.250 197.758 / 197.758 Weight last 48 hrs Weight 189 lb 14.4 oz Weight 178 lb Weight 178 lb Weight 178 lb Data 06/30/24 03:20 06/30/24 03:20 Micro: Microbiology 06/29/24 03:41 Blood Culture - Preliminary Blood SPECIMEN COLLECTED 06/29/24 03:47 Blood Culture - Preliminary Blood SPECIMEN COLLECTED A&P Assessment and plan (1) NSTEMI (non-ST elevated myocardial infarction): (2) Atrial fibrillation with rapid ventricular response: (3) HTN (hypertension): Qualifiers: Hypertension type: primary hypertension Qualified Code(s): I10 - Essential (primary) hypertension (4) Hyperlipemia, mixed: (5) CAD (coronary artery disease): Qualifiers: Coronary Disease-Associated Artery/Lesion type: torres martinez artery [place] vs. transplanted heart: torres martinez heart Associated angina: without angina Qualified Code(s): I25.10 - Atherosclerotic heart disease of torres martinez coronary artery without angina pectoris (6) AAA (abdominal aortic aneurysm): (7) CKD (chronic kidney disease): Plan Patient has atrial fibrillation with RVR. Continue amiodarone gtt. Continue anticoagulation. If heart rate is uncontrolled, can start digoxin and uptitrate metoprolol Patient has significant troponin elevation. Had abnormal stress test 2 months ago. Once heart rates are controlled, we will proceed with coronary angiogram with possible PCI. Thank you for involving us with care of this patient. We will continue to follow. please call with questions. Consult Attestations Medical Necessity Statement: Care expected to cross 2 midnights. Coding Level of Care Code Acute Code for [facility] Fwd Diagnoses NSTEMI (non-ST elevated myocardial infarction) I21.4 Atrial fibrillation with rapid ventricular response I48.91 Primary hypertension I10 Hypertension type: primary hypertension Hyperlipemia, mixed E78.2 Coronary artery disease involving torres martinez coronary artery of torres martinez heart without angina pectoris I25.10 Coronary Disease-Associated Artery/Lesion type: torres martinez artery [place] vs. transplanted heart: torres martinez heart Associated angina: without angina AAA (abdominal aortic aneurysm) I71.4 CKD (chronic kidney disease) N18.9
--- NOTE | 2024-06-29 13:15 | P.PN_ITS ---
Subjective 2 Subjective: No acute events overnight. Patient seen with multiple family numbers at bedside. Laying comfortably in bed. Denies any nausea, vomiting, headache, chest pain, difficulty breathing. Has remained in A-fib with RVR. Amiodarone drip running at 0.5. Vitals/I&O/Wt Last Vital Signs Temp 98.4 F 06/30/24 12:00 Pulse 123 H 06/30/24 12:00 Resp 22 H 06/30/24 12:00 BP 103/82 06/30/24 12:00 Pulse Ox 94 06/30/24 12:00 O2 Del Method Room Air 06/30/24 12:00 06/29/24 06/30/24 06/30/24 22:59 06:59 14:59 Intake Total 196.984 / 446.984 270 / 270 Output Total 200 / 200 200 / 400 200 / 200 Balance -200 / 50.000 -3.016 / 46.984 70 / 70 Weight last 48 hrs Weight 86.137 kg Weight 86.137 kg Weight 80.739 kg Weight 80.739 kg Weight 80.739 kg Physical Exam 2 Const: GENERAL APPEARANCE: cooperative and comfortable O RIENTATION/CONSCIOUSNESS: Yes awake, Yes oriented to person, Yes oriented to place and Yes oriented to time HENMT: COMMON NORMALS: normocephalic, atraumatic, external ears normal and Normal external nose present HEAD & SCALP: normocephalic and atraumatic N OSE: Normal external nose present EXTERNAL EAR: Yes external ears normal M OUTH: Normal oral and palatal mucosa present THROAT: posterior oropharynx normal Eye: COMMON NORMALS: Equal, round and reactive pupils present and conjunctivae normal CONJUNCTIVA: Yes conjunctivae normal PUPIL: Yes Equal, round and reactive pupils present EOM: No EOM abnormal Neck/C-Spine: COMMON NORMALS: Thyroid normal GENERAL: Yes normal visual inspection and Yes trachea midline THYROID: Thyroid normal CAROTIDS: No bruit CERVICAL SPINE: Yes cervical ROM normal Lymph: OTHER: No cervical or supraclavicular LAD. Resp: OTHER: Diminished but clear in the bilateral lower lung bases. Cardio: OTHER: Irregular rate and rhythm, tachycardic, no m/r/g or clicks GI: OTHER: BS+, NT, ND, no rigidity, no guarding, no rebound tenderness, no hepatosplenomegaly Extremity: NARRATIVE EXTREMITY EXAM: L. 2+ pitting edema up to the mid tibia, Mildly swollen L. knee, but scar healing. GENERAL: No clubbing and No cyanosis Neuro: SENSORIUM/ORIENTATION: Yes oriented to person, Yes oriented to place and Yes oriented to time CRANIAL NERVES: Yes CN normal except as noted S PEECH: speech normal SENSORY EXAM: Yes sensory level loss detected Psych: COMMON NORMALS: Normal thought process present and speech normal A PPEARANCE: Yes grossly normal ATTITUDE: Yes calm and Yes engaged A CTIVITY/MOTOR BEHAVIOR: Yes appropriate eye contact SPEECH: Yes normal speech MOOD & AFFECT: Yes euthymic mood THOUGHT PROCESS: Normal thought process present THOUGHT CONTENT: Yes Normal thought content present A TTENTION/CONCENTRATION: Yes attention grossly intact MEMORY/COGNITION: Yes memory grossly intact Skin: COMMON NORMALS: no rashes or lesions noted GENERAL SKIN EXAM: no rashes or lesions noted Data 06/30/24 03:20 06/30/24 03:20 Micro: Microbiology 06/29/24 03:41 Blood Culture - Preliminary Blood NEGATIVE TO DATE 06/29/24 03:47 Blood Culture - Preliminary Blood NEGATIVE TO DATE A&P Assessment and plan (1) Atrial fibrillation with rapid ventricular response: Chronic history. Currently in RVR. Takes metoprolol 75 mg twice daily and Cardizem 120 mg daily at home. Blood pressure soft currently. Continue with metoprolol 50 mg twice daily for now. Blood pressure stable will try to uptitrate. Continue with amiodarone drip. Will transition over to oral as per gtt. Continue with full dose Lovenox for anticoagulation. (2) NSTEMI (non-ST elevated myocardial infarction): Appreciate troponin cycled. Appreciate recent A1c, lipid panel. Lexiscan stress test positive on 04/26. Again discussed in detail with the patient regarding possible need for cardiac angiogram and PCI if needed given recurrent concerns for non-ST elevation CA given recent positive stress test. Patient after discussing with family is agreeable to go ahead for angiogram. He is aware of risk of worsening renal functions given his baseline CKD. Will consult cardiology for possible need of cardiac angiogram. Continue with aspirin, statin, full dose Lovenox 1 mg/kg body weight every 12 hourly. Continue with metoprolol 75 mg twice daily for now. Hold off on Imdur given soft blood pressures. Will plan for limited echocardiogram once heart rate better controlled. (3) HTN (hypertension): Goal blood pressure less than 140/90 mmHg with mean over 65. Blood pressures stable but on the softer side. Holding off on home dose of Cardizem and Imdur. Continue with metoprolol. Qualifiers: Hypertension type: primary hypertension Qualified Code(s): I10 - Essential (primary) hypertension (4) Hyperlipemia, mixed: (5) Chronic anticoagulation: Takes Eliquis 5 mg twice daily at home. Continue Lovenox as above. (6) Diabetes type 2, controlled: Insulin sliding scale before meals and at bedtime. Lantus 15 units every morning. Carb consistent diet. Last A1c was 6.9. (7) CKD (chronic kidney disease): Baseline creatinine seems to be 1.9-2.2. Currently 1.7. Medical reconciliation done for nephrotoxic drugs. Monitor BMP daily. No concerns for electrolyte abnormality or metabolic acidosis for now. Strict input output charting. (8) Positive cardiac stress test: Plan Care discussed in detail with multiple family was at bedside. All the questions were answered. Full code Carb consistent diet, n.p.o. as per cardiology team when needed Protonix for PUD prophylaxis Full dose Lovenox will be sufficient for DVT prophylaxis. Attestations 2 Medical Necessity Statement*: Requires further hospitalization for management of A-fib with RVR, non-ST elevation CA in a patient with recent history of positive stress test requiring cardiac angiogram Diagnoses Atrial fibrillation with rapid ventricular response I48.91 NSTEMI (non-ST elevated myocardial infarction) I21.4 Primary hypertension I10 Hypertension type: primary hypertension Hyperlipemia, mixed E78.2 Chronic anticoagulation Z79.01 Diabetes type 2, controlled E11.9 CKD (chronic kidney disease) N18.9 Positive cardiac stress test R94.39
[2024-06-29] MEDS: magnesium sulfate premix 2 GM/50 ML PIGGYBACK IV (13:37)
[2024-06-29 17:11] LABS: Glucose Point of Care 150 mg/dL (70-110)
[2024-06-29 20:26] LABS: Glucose Point of Care 128 mg/dL (70-110)
[2024-06-29] MEDS: sennosides 8.6 mg Tablet 17.2 MG PO (20:36)
[2024-06-29] MEDS: atorvastatin 40 mg Tablet 80 MG PO (20:36)
[2024-06-30] VITALS (65 sets, daily range): BP systolic 93–124; BP diastolic 61–86; PULSE 101–144; RESP 7–28; TEMP 36.8–37.1; O2SAT 90–97; BMI 32.5
[2024-06-30 03:54] LABS: Basophils # 0.1 10^3/uL (0.0-0.1); Basophils % 0.5 %; Eosinophils # 0.4 10^3/uL (0.0-0.8); Eosinophils % 3.6 %; Hematocrit 38.5 % (37-53); Lymphocytes # 1.3 10^3/uL (0.8-4.8); Lymphocytes % 12.2 %; Mean Corpuscular HGB Conc 31.7 g/dL (30-55); Mean Corpuscular Hemoglobin 29.5 pg (27-33); Mean Corpuscular Volume 93.2 fl (82-101); Mean Platelet Volume 10.9 fL (7.4-10.4); Monocytes % 9.3 %; Neutrophils # 8.13 10^3/uL (1.8-7.7); Nucleated Red Blood Cells % 0 %; Platelet Count 272 10^3/cmm (157-399); Red Blood Count 4.13 10^6/uL (3.85-5.65); Red Cell Distribution Width 15.5 % (12.1-15.1); White Blood Count 10.97 10^3/uL (3.29-11.43)
[2024-06-30 04:17] LABS: Alanine Aminotransferase < 5 U/L (0-41); Albumin Level 3.3 g/dL (3.5-5.2); Alkaline Phosphatase 43 U/L (40-130); Anion Gap 11.8 (5-19); Aspartate Amino Transferase 21 U/L (0-40); Blood Urea Nitrogen 23 mg/dL (8-23); Calcium 8.8 mg/dL (8.5-10.5); Carbon Dioxide 26 mmol/L (22-29); Chloride 109 mmol/L (98-107); Creatinine Clr Calc Pharmacy 38.8749; Globulin 1.9 g/dL (1.3-4.6); Glucose 111 mg/dL (65-115); Magnesium 2.6 mg/dL (1.7-2.3); Osmolality Calculated 300 mOsm/kg (285-295); Phosphorus 3.1 mg/dL (2.5-4.5); Potassium 3.8 mmol/L (3.5-5.1); Sodium 143 mmol/L (136-145); Total Bilirubin 0.3 mg/dL (0.15-1.2); Total Protein 5.2 g/dL (6.6-8.7)
[2024-06-30] MEDS: fenofibrate 145 mg Tablet PO (08:12)
[2024-06-30] MEDS: pantoprazole DR 40 mg Tablet PO (08:13)
[2024-06-30] MEDS: citalopram 20 mg Tablet PO (08:13)
[2024-06-30] MEDS: metoprolol tartrate 50 mg Tablet PO (08:13)
[2024-06-30] MEDS: tamsulosin 0.4 mg Capsule PO (08:13)
[2024-06-30] MEDS: aspirin 81 mg Chew Tablet PO (08:13)
[2024-06-30] MEDS: FUROsemide 10 mg/mL SDV 4mL 40 MG IVP (08:58)
[2024-06-30] MEDS: amiodarone 200 mg Tablet PO ×2 (08:58→18:21)
[2024-06-30] MEDS: digoxin 250 mcg/ml INJ 2 mL IVP (11:03)
[2024-06-30] MEDS: insulin glargine 100 units/1 mL 15 UNIT SUBCUT (11:03)
[2024-06-30 11:14] LABS: NT Pro B Type Natriuretic Pept 5164 pg/mL (0-450)
[2024-06-30 12:04] LABS: Glucose Point of Care 110 mg/dL (70-110)
[2024-06-30 12:14] LABS: Troponin T (5th) Once 128 ng/L (0-15)
--- NOTE | 2024-06-30 12:54 | P.PN_ITS ---
Subjective 2 Subjective: No acute events overnight. Patient seen with multiple family numbers at bedside. Laying comfortably in bed. Denies any nausea, vomiting, headache, chest pain, difficulty breathing. Has remained in A-fib with RVR. Amiodarone drip running at 0.5. Vitals/I&O/Wt Last Vital Signs Temp 98.4 F 06/30/24 12:00 Pulse 123 H 06/30/24 12:00 Resp 22 H 06/30/24 12:00 BP 103/82 06/30/24 12:00 Pulse Ox 94 06/30/24 12:00 O2 Del Method Room Air 06/30/24 12:00 06/29/24 06/30/24 06/30/24 22:59 06:59 14:59 Intake Total 196.984 / 446.984 270 / 270 Output Total 200 / 200 200 / 400 200 / 200 Balance -200 / 50.000 -3.016 / 46.984 70 / 70 Weight last 48 hrs Weight 86.137 kg Weight 86.137 kg Weight 80.739 kg Weight 80.739 kg Weight 80.739 kg Physical Exam 2 Const: GENERAL APPEARANCE: cooperative and comfortable O RIENTATION/CONSCIOUSNESS: Yes awake, Yes oriented to person, Yes oriented to place and Yes oriented to time HENMT: COMMON NORMALS: normocephalic, atraumatic, external ears normal and Normal external nose present HEAD & SCALP: normocephalic and atraumatic N OSE: Normal external nose present EXTERNAL EAR: Yes external ears normal M OUTH: Normal oral and palatal mucosa present THROAT: posterior oropharynx normal Eye: COMMON NORMALS: Equal, round and reactive pupils present and conjunctivae normal CONJUNCTIVA: Yes conjunctivae normal PUPIL: Yes Equal, round and reactive pupils present EOM: No EOM abnormal Neck/C-Spine: COMMON NORMALS: Thyroid normal GENERAL: Yes normal visual inspection and Yes trachea midline THYROID: Thyroid normal CAROTIDS: No bruit CERVICAL SPINE: Yes cervical ROM normal Lymph: OTHER: No cervical or supraclavicular LAD. Resp: OTHER: Diminished but clear in the bilateral lower lung bases. Cardio: OTHER: Irregular rate and rhythm, tachycardic, no m/r/g or clicks GI: OTHER: BS+, NT, ND, no rigidity, no guarding, no rebound tenderness, no hepatosplenomegaly Extremity: NARRATIVE EXTREMITY EXAM: L. 2+ pitting edema up to the mid tibia, Mildly swollen L. knee, but scar healing. GENERAL: No clubbing and No cyanosis Neuro: SENSORIUM/ORIENTATION: Yes oriented to person, Yes oriented to place and Yes oriented to time CRANIAL NERVES: Yes CN normal except as noted S PEECH: speech normal SENSORY EXAM: Yes sensory level loss detected Psych: COMMON NORMALS: Normal thought process present and speech normal A PPEARANCE: Yes grossly normal ATTITUDE: Yes calm and Yes engaged A CTIVITY/MOTOR BEHAVIOR: Yes appropriate eye contact SPEECH: Yes normal speech MOOD & AFFECT: Yes euthymic mood THOUGHT PROCESS: Normal thought process present THOUGHT CONTENT: Yes Normal thought content present A TTENTION/CONCENTRATION: Yes attention grossly intact MEMORY/COGNITION: Yes memory grossly intact Skin: COMMON NORMALS: no rashes or lesions noted GENERAL SKIN EXAM: no rashes or lesions noted Data 06/30/24 03:20 06/30/24 03:20 Micro: Microbiology 06/29/24 03:41 Blood Culture - Preliminary Blood NEGATIVE TO DATE 06/29/24 03:47 Blood Culture - Preliminary Blood NEGATIVE TO DATE A&P Assessment and plan (1) Atrial fibrillation with rapid ventricular response: Heart rate continues to remain elevated. Switch from amiodarone drip to 200 mg twice daily. Continue with home dose of metoprolol 75 mg twice daily. Patient also takes Cardizem 120 mg oral daily. Blood pressures have been running soft around 100?110 systolic. Will hold off on adding Cardizem for now. Mild concerns of congestive heart failure. Check proBNP. IV Lasix 40 mg one- time. Strict input output charting, daily weights. Fluid restriction less than 1500 cc. 250 mcg digoxin 1 time. Depending on the response we will plan for completing the digoxin load. (2) NSTEMI (non-ST elevated myocardial infarction): Appreciate troponin cycled. Appreciate recent A1c, lipid panel. Cardiology consulted. Lexiscan stress test positive on 04/26. Again discussed in detail with the patient regarding possible need for cardiac angiogram and PCI if needed given recurrent concerns for non-ST elevation LA given recent positive stress test. Patient after discussing with family is agreeable to go ahead for angiogram. He is aware of risk of worsening renal functions given his baseline CKD. Continue with aspirin, statin, full dose Lovenox 1 mg/kg body weight every 12 hourly. Repeat troponin level today morning. Continue with metoprolol 75 mg twice daily for now. Hold off on Imdur given soft blood pressures. Will plan for limited echocardiogram once heart rate better controlled. (3) HTN (hypertension): Goal blood pressure less than 140/90 MAG with mean over 65. Blood pressures stable but on the softer side. Holding off on home dose of Cardizem and Imdur. Continue with metoprolol. Qualifiers: Hypertension type: primary hypertension Qualified Code(s): I10 - Essential (primary) hypertension (4) Hyperlipemia, mixed: (5) Chronic anticoagulation: Takes Eliquis 5 mg twice daily at home. Continue Lovenox as above. (6) Diabetes type 2, controlled: Insulin sliding scale before meals and at bedtime. Lantus 15 units every morning. Carb consistent diet. Last A1c was 6.9. (7) CKD (chronic kidney disease): Baseline creatinine seems to be 1.9-2.2. Currently 1.6. Medical reconciliation done for nephrotoxic drugs. Monitor BMP daily. No concerns for electrolyte abnormality or metabolic acidosis for now. Strict input output charting. Plan Congestive heart failure: History of congestive heart failure with preserved ejection fraction. Last echocardiogram showed EF 60% grade 1 diastolic dysfunction, thickened aortic valve. Check proBNP. IV Lasix 40 mg one-time as above. Full code Carb consistent diet, n.p.o. as per cardiology team when needed Protonix for PUD prophylaxis Full dose Lovenox will be sufficient for DVT prophylaxis. Attestations 2 Medical Necessity Statement*: Requires further hospitalization for management of non-ST elevation LA, A-fib with RVR in a patient with baseline CKD Diagnoses Atrial fibrillation with rapid ventricular response I48.91 NSTEMI (non-ST elevated myocardial infarction) I21.4 Primary hypertension I10 Hypertension type: primary hypertension Hyperlipemia, mixed E78.2 Chronic anticoagulation Z79.01 Diabetes type 2, controlled E11.9 CKD (chronic kidney disease) N18.9
--- NOTE | 2024-06-30 13:08 | PM.PN ---
Subjective Subjective: Patient has palpitations and heart rate is uncontrolled. Vitals/I&O/Wt Last Vital Signs Temp 98.4 F 06/30/24 12:00 Pulse 123 H 06/30/24 12:00 Resp 22 H 06/30/24 12:00 BP 103/82 06/30/24 12:00 Pulse Ox 94 06/30/24 12:00 O2 Del Method Room Air 06/30/24 12:00 06/29/24 06/30/24 06/30/24 22:59 06:59 14:59 Intake Total 196.984 / 446.984 270 / 270 Output Total 200 / 200 200 / 400 200 / 200 Balance -200 / 50.000 -3.016 / 46.984 70 / 70 Weight last 48 hrs Weight 189 lb 14.4 oz Weight 189 lb 14.4 oz Weight 178 lb Weight 178 lb Weight 178 lb Physical Exam Narrative: GENERAL: Patient is alert, awake and oriented x3. [] NECK: No jugular vein distension. [] HEENT: No cyanosis. No icterus. No pallor. [] HEART: Irregularly irregular, S1 and S2. No murmur, rub or gallop. [] LUNGS: Clear to auscultate bilaterally. [] CENTRAL NERVOUS SYSTEM: Grossly nonfocal. [] EXTREMITIES: Lower extremities with 1+ edema bilaterally. Data 07/01/24 05:12 07/01/24 05:12 Micro: Microbiology 06/29/24 03:41 Blood Culture - Preliminary Blood NEGATIVE TO DATE 06/29/24 03:47 Blood Culture - Preliminary Blood NEGATIVE TO DATE A&P Assessment and plan (1) NSTEMI (non-ST elevated myocardial infarction): (2) Atrial fibrillation with rapid ventricular response: (3) HTN (hypertension): Qualifiers: Hypertension type: primary hypertension Qualified Code(s): I10 - Essential (primary) hypertension (4) Hyperlipemia, mixed: (5) CAD (coronary artery disease): Qualifiers: Coronary Disease-Associated Artery/Lesion type: [place] artery [place] vs. transplanted heart: [place] heart Associated angina: without angina Qualified Code(s): I25.10 - Atherosclerotic heart disease of [place] coronary artery without angina pectoris (6) AAA (abdominal aortic aneurysm): (7) CKD (chronic kidney disease): Plan Heart rate is still uncontrolled. Uptitrate metoprolol. Continue amiodarone and digoxin. If heart rate is not controlled by tomorrow, we will plan for LALITA cardioversion. Cardiac catheterization post rate/rhythm control Continue anticoagulation with lovenox Thank you for involving us with care of this patient. We will continue to follow. please call with questions. Attestations Medical Necessity Statement*: Care expected to cross 2 midnights. Coding Level of Care Code Acute Code for [facility] Diagnoses NSTEMI (non-ST elevated myocardial infarction) I21.4 Atrial fibrillation with rapid ventricular response I48.91 Primary hypertension I10 Hypertension type: primary hypertension Hyperlipemia, mixed E78.2 Coronary artery disease involving [place] coronary artery of [place] heart without angina pectoris I25.10 Coronary Disease-Associated Artery/Lesion type: [place] artery [place] vs. transplanted heart: [place] heart Associated angina: without angina AAA (abdominal aortic aneurysm) I71.4 CKD (chronic kidney disease) N18.9
[2024-06-30] MEDS: enoxaparin 80 mg/0.8 mL Syringe SUBCUT (15:26)
[2024-06-30] MEDS: digoxin 250 mcg/ml INJ 2 mL 100 MCG IVP ×2 (16:18→22:24)
[2024-06-30 16:58] LABS: Glucose Point of Care 93 mg/dL (70-110)
[2024-06-30] MEDS: metoprolol tartrate 50 mg Tablet 75 MG PO (18:21)
[2024-06-30 20:31] LABS: Glucose Point of Care 93 mg/dL (70-110)
[2024-06-30] MEDS: sennosides 8.6 mg Tablet 17.2 MG PO (20:33)
[2024-06-30] MEDS: atorvastatin 40 mg Tablet 80 MG PO (20:33)
[2024-07-01] VITALS (17 sets, daily range): BP systolic 91–127; BP diastolic 51–81; PULSE 71–133; RESP 14–23; TEMP 36.5–37; O2SAT 91–97
[2024-07-01] MEDS: enoxaparin 80 mg/0.8 mL Syringe SUBCUT ×2 (03:05→15:15)
--- NOTE | 2024-07-01 04:10 | PC.NURSE ---
Stool softeners Patient refusing further stool softeners and requesting to hold at this time.
[2024-07-01 05:48] LABS: Basophils % 0.4 %; Eosinophils # 0.3 10^3/uL (0.0-0.8); Eosinophils % 2.7 %; Hematocrit 42.5 % (37-53); Lymphocytes # 1.2 10^3/uL (0.8-4.8); Lymphocytes % 12.3 %; Mean Corpuscular HGB Conc 31.3 g/dL (30-55); Mean Corpuscular Hemoglobin 29.4 pg (27-33); Mean Platelet Volume 10.8 fL (7.4-10.4); Monocytes # 1.1 10^3/uL (0.2-0.9); Monocytes % 11.3 %; Neutrophils # 7.22 10^3/uL (1.8-7.7); Neutrophils % 72.8 %; Nucleated Red Blood Cells % 0 %; Platelet Count 283 10^3/cmm (157-399); Red Blood Count 4.52 10^6/uL (3.85-5.65); Red Cell Distribution Width 15.7 % (12.1-15.1); White Blood Count 9.92 10^3/uL (3.29-11.43)
[2024-07-01 06:00] LABS: Alanine Aminotransferase < 5 U/L (0-41); Albumin Level 3.3 g/dL (3.5-5.2); Alkaline Phosphatase 45 U/L (40-130); Anion Gap 12.7 (5-19); Aspartate Amino Transferase 19 U/L (0-40); Blood Urea Nitrogen 25 mg/dL (8-23); Calcium 9.1 mg/dL (8.5-10.5); Carbon Dioxide 25 mmol/L (22-29); Chloride 106 mmol/L (98-107); Creatinine Clr Calc Pharmacy 34.5555; Globulin 2.3 g/dL (1.3-4.6); Glucose 104 mg/dL (65-115); Magnesium 2.1 mg/dL (1.7-2.3); Osmolality Calculated 295 mOsm/kg (285-295); Phosphorus 3.9 mg/dL (2.5-4.5); Potassium 3.7 mmol/L (3.5-5.1); Sodium 140 mmol/L (136-145); Total Bilirubin 0.6 mg/dL (0.15-1.2); Total Protein 5.6 g/dL (6.6-8.7)
[2024-07-01 06:14] LABS: Glucose Point of Care 113 mg/dL (70-110)
[2024-07-01] MEDS: amiodarone 200 mg Tablet PO (08:46)
[2024-07-01] MEDS: fenofibrate 145 mg Tablet PO (08:46)
[2024-07-01] MEDS: metoprolol tartrate 50 mg Tablet 75 MG PO ×2 (08:46→18:13)
[2024-07-01] MEDS: citalopram 20 mg Tablet PO (08:46)
[2024-07-01] MEDS: tamsulosin 0.4 mg Capsule PO ×2 (08:46→12:39)
[2024-07-01] MEDS: aspirin 81 mg Chew Tablet PO (08:46)
[2024-07-01] MEDS: pantoprazole DR 40 mg Tablet PO (08:46)
--- NOTE | 2024-07-01 09:29 | PM.PN ---
Subjective Subjective: Patient converted back to normal sinus rhythm. No chest pain. Vitals/I&O/Wt Last Vital Signs Temp 97.7 F 07/01/24 08:00 Pulse 133 H 07/01/24 08:00 Resp 18 07/01/24 08:00 BP 108/60 07/01/24 08:00 Pulse Ox 96 07/01/24 08:00 O2 Del Method Room Air 07/01/24 08:00 06/30/24 07/01/24 07/01/24 22:59 06:59 14:59 Intake Total 340 / 610 240 / 240 Output Total 300 / 800 500 / 1300 75 / 75 Balance 40 / -190 -500 / -690 165 / 165 Weight last 48 hrs Weight 189 lb 14.4 oz Weight 189 lb 14.4 oz Weight 189 lb 14.4 oz Physical Exam Narrative: GENERAL: Patient is alert, awake and oriented x3. [] NECK: No jugular vein distension. [] HEENT: No cyanosis. No icterus. No pallor. [] HEART: Irregularly irregular, S1 and S2. No murmur, rub or gallop. [] LUNGS: Clear to auscultate bilaterally. [] CENTRAL NERVOUS SYSTEM: Grossly nonfocal. [] EXTREMITIES: Lower extremities with 1+ edema bilaterally. Data 07/02/24 04:35 07/02/24 04:35 Micro: Microbiology 06/29/24 03:41 Blood Culture - Preliminary Blood NEGATIVE TO DATE 06/29/24 03:47 Blood Culture - Preliminary Blood NEGATIVE TO DATE A&P Assessment and plan (1) NSTEMI (non-ST elevated myocardial infarction): (2) Atrial fibrillation with rapid ventricular response: (3) HTN (hypertension): Qualifiers: Hypertension type: primary hypertension Qualified Code(s): I10 - Essential (primary) hypertension (4) Hyperlipemia, mixed: (5) CAD (coronary artery disease): Qualifiers: Coronary Disease-Associated Artery/Lesion type: [place] artery [place] vs. transplanted heart: [place] heart Associated angina: without angina Qualified Code(s): I25.10 - Atherosclerotic heart disease of [place] coronary artery without angina pectoris (6) AAA (abdominal aortic aneurysm): (7) CKD (chronic kidney disease): Plan Patient has converted back to sinus rhythm. Initial plan was to perform LALITA cardioversion. We will proceed with coronary angiogram with possible PCI tomorrow. Continue IV fluids. Continue aspirin and anticoagulation. Thank you for involving us with care of this patient. We will continue to follow. please call with questions. Attestations Medical Necessity Statement*: Care expected to cross 2 midnights. Coding Level of Care Code Acute Code for [facility] Diagnoses NSTEMI (non-ST elevated myocardial infarction) I21.4 Atrial fibrillation with rapid ventricular response I48.91 Primary hypertension I10 Hypertension type: primary hypertension Hyperlipemia, mixed E78.2 Coronary artery disease involving [place] coronary artery of [place] heart without angina pectoris I25.10 Coronary Disease-Associated Artery/Lesion type: [place] artery [place] vs. transplanted heart: [place] heart Associated angina: without angina AAA (abdominal aortic aneurysm) I71.4 CKD (chronic kidney disease) N18.9
[2024-07-01] MEDS: insulin glargine 100 units/1 mL 15 UNIT SUBCUT (10:11)
[2024-07-01 10:42] LABS: Digoxin 1.2 ng/mL (0.6-1.2)
[2024-07-01 11:24] LABS: Glucose Point of Care 106 mg/dL (70-110)
--- NOTE | 2024-07-01 13:34 | P.PN_ITS ---
Subjective 2 Subjective: No acute events overnight. Denies any chest pain. Remains in A-fib with RVR. Family at bedside. States he is getting frustrated because of not able to get cardiac angiogram. Denies any nausea, ting, headache, difficulty in breathing. Vitals/I&O/Wt Last Vital Signs Temp 98.6 F 07/01/24 12:00 Pulse 113 H 07/01/24 12:00 Resp 14 07/01/24 12:00 BP 109/81 07/01/24 12:00 Pulse Ox 94 07/01/24 12:00 O2 Del Method Room Air 07/01/24 12:00 06/30/24 07/01/24 07/01/24 22:59 06:59 14:59 Intake Total 340 / 610 240 / 240 Output Total 300 / 800 500 / 1300 75 / 75 Balance 40 / -190 -500 / -690 165 / 165 Weight last 48 hrs Weight 86.137 kg Weight 86.137 kg Weight 86.137 kg Physical Exam 2 Const: GENERAL APPEARANCE: cooperative and comfortable O RIENTATION/CONSCIOUSNESS: Yes awake, Yes oriented to person, Yes oriented to place and Yes oriented to time HENMT: COMMON NORMALS: normocephalic, atraumatic, external ears normal and Normal external nose present HEAD & SCALP: normocephalic and atraumatic N OSE: Normal external nose present EXTERNAL EAR: Yes external ears normal M OUTH: Normal oral and palatal mucosa present THROAT: posterior oropharynx normal Eye: COMMON NORMALS: Equal, round and reactive pupils present and conjunctivae normal CONJUNCTIVA: Yes conjunctivae normal PUPIL: Yes Equal, round and reactive pupils present EOM: No EOM abnormal Neck/C-Spine: COMMON NORMALS: Thyroid normal GENERAL: Yes normal visual inspection and Yes trachea midline THYROID: Thyroid normal CAROTIDS: No bruit CERVICAL SPINE: Yes cervical ROM normal Lymph: OTHER: No cervical or supraclavicular LAD. Resp: OTHER: Diminished but clear in the bilateral lower lung bases. Cardio: OTHER: Irregular rate and rhythm, tachycardic, no m/r/g or clicks GI: OTHER: BS+, NT, ND, no rigidity, no guarding, no rebound tenderness, no hepatosplenomegaly Extremity: NARRATIVE EXTREMITY EXAM: L. 2+ pitting edema up to the mid tibia, Mildly swollen L. knee, but scar healing. GENERAL: No clubbing and No cyanosis Neuro: SENSORIUM/ORIENTATION: Yes oriented to person, Yes oriented to place and Yes oriented to time CRANIAL NERVES: Yes CN normal except as noted S PEECH: speech normal SENSORY EXAM: Yes sensory level loss detected Psych: COMMON NORMALS: Normal thought process present and speech normal A PPEARANCE: Yes grossly normal ATTITUDE: Yes calm and Yes engaged A CTIVITY/MOTOR BEHAVIOR: Yes appropriate eye contact SPEECH: Yes normal speech MOOD & AFFECT: Yes euthymic mood THOUGHT PROCESS: Normal thought process present THOUGHT CONTENT: Yes Normal thought content present A TTENTION/CONCENTRATION: Yes attention grossly intact MEMORY/COGNITION: Yes memory grossly intact Skin: COMMON NORMALS: no rashes or lesions noted GENERAL SKIN EXAM: no rashes or lesions noted Data 07/01/24 05:12 07/01/24 05:12 A&P Assessment and plan (1) Atrial fibrillation with rapid ventricular response: Chronic history. Currently in RVR. Takes metoprolol 75 mg twice daily and Cardizem 120 mg daily at home. Blood pressure soft currently. Continue with metoprolol 75 mg twice daily for now. Blood pressure stable will try to uptitrate. Continue with amiodarone drip. Will transition over to oral as per gtt. Continue with full dose Lovenox for anticoagulation. (2) NSTEMI (non-ST elevated myocardial infarction): Appreciate troponin cycled. Appreciate recent A1c, lipid panel. Lexiscan stress test positive on 04/26. Again discussed in detail with the patient regarding possible need for cardiac angiogram and PCI if needed given recurrent concerns for non-ST elevation IN given recent positive stress test. Patient after discussing with family is agreeable to go ahead for angiogram. He is aware of risk of worsening renal functions given his baseline CKD. Will consult cardiology for possible need of cardiac angiogram. Continue with aspirin, statin, full dose Lovenox 1 mg/kg body weight every 12 hourly. Continue with metoprolol 75 mg twice daily for now. Hold off on Imdur given soft blood pressures. Will plan for limited echocardiogram once heart rate better controlled. (3) HTN (hypertension): Goal blood pressure less than 140/90 mmHg with mean over 65. Blood pressures stable but on the softer side. Holding off on home dose of Cardizem and Imdur. Continue with metoprolol. Qualifiers: Hypertension type: primary hypertension Qualified Code(s): I10 - Essential (primary) hypertension (4) Hyperlipemia, mixed: (5) Chronic anticoagulation: Takes Eliquis 5 mg twice daily at home. Continue Lovenox as above. (6) Diabetes type 2, controlled: Insulin sliding scale before meals and at bedtime. Lantus 15 units every morning. Carb consistent diet. Last A1c was 6.9. (7) CKD (chronic kidney disease): Baseline creatinine seems to be 1.9-2.2. Currently 1.7. Medical reconciliation done for nephrotoxic drugs. Monitor BMP daily. No concerns for electrolyte abnormality or metabolic acidosis for now. Strict input output charting. (8) Positive cardiac stress test: Plan Care discussed in detail with multiple family was at bedside. All the questions were answered. Full code Carb consistent diet, n.p.o. as per cardiology team when needed Protonix for PUD prophylaxis Full dose Lovenox will be sufficient for DVT prophylaxis. Plan for the day: Remains in A-fib with RVR. Increase amiodarone to 400 milligram twice daily, continue with metoprolol 75 mg twice daily. Underwent digoxin loading yesterday. Digoxin level is 1.2 today. Start on digoxin to 50 mcg every other day. Discussed in detail with cardiology. As patient remains in RVR will plan for electrocardioversion in AM. N.p.o. after midnight. Patient remains chest pain-free. Plan for cardiac angiogram 24 hours after cardioversion. Continue with full dose Lovenox, aspirin, statin, beta-carl for now. Blood sugars well-controlled. Continue with insulin sliding scale and Lantus 15 units daily. Monitor renal functions. Attestations 2 Medical Necessity Statement*: Requires further hospitalization for management of A-fib with RVR requiring electrocardioversion, non-ST elevation IN in a patient with positive cardiac stress test requiring cardiac angiogram. Diagnoses Atrial fibrillation with rapid ventricular response I48.91 NSTEMI (non-ST elevated myocardial infarction) I21.4 Primary hypertension I10 Hypertension type: primary hypertension Hyperlipemia, mixed E78.2 Chronic anticoagulation Z79.01 Diabetes type 2, controlled E11.9 CKD (chronic kidney disease) N18.9 Positive cardiac stress test R94.39
--- NOTE | 2024-07-01 14:45 | PC.NURSE ---
converted to Sinus RHythm HR-70s to 80s around 2:[address] Trujillo and [address] Shafer. EKG taken.
--- NOTE | 2024-07-01 14:58 | ECG_ITS ---
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 Measurements Intervals [place] Rate: 80 P: 45 IN: 147 QRS: -8 QRSD: 88 T: 49 QT: 357 QTc: 413 Interpretive Statements SINUS RHYTHM Compared to ECG 06/29/2024 03:51:52 Atrial fibrillation no longer present Electronically Signed On 07-01-2024 20:10:56 RESEARCH COORDINATOR by Dada Shafer M.D. [email or web address]
--- NOTE | 2024-07-01 15:09 | ECG_ITS ---
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 Measurements Intervals [place] Rate: 80 P: 38 CT: 152 QRS: -8 QRSD: 88 T: 49 QT: 355 QTc: 411 Interpretive Statements SINUS RHYTHM Compared to ECG 07/01/2024 15:08:29 No significant changes Electronically Signed On 07-02-2024 16:50:29 BUDGET EXAMINER by Dada Shafer M.D. [id number]
[2024-07-01 17:08] LABS: Glucose Point of Care 122 mg/dL (70-110)
[2024-07-01] MEDS: amiodarone 200 mg Tablet 400 MG PO (18:13)
[2024-07-01 20:50] LABS: Glucose Point of Care 125 mg/dL (70-110)
[2024-07-01] MEDS: atorvastatin 40 mg Tablet 80 MG PO (21:36)
[2024-07-02] VITALS (49 sets, daily range): BP systolic 96–178; BP diastolic 46–88; PULSE 60–75; RESP 7–24; TEMP 36.6–36.9; O2SAT 88–99
[2024-07-02 04:52] LABS: Basophils % 0.4 %; Eosinophils # 0.2 10^3/uL (0.0-0.8); Eosinophils % 3.5 %; Hematocrit 38.8 % (37-53); Lymphocytes # 1.1 10^3/uL (0.8-4.8); Mean Corpuscular HGB Conc 31.4 g/dL (30-55); Mean Corpuscular Hemoglobin 29.6 pg (27-33); Mean Corpuscular Volume 94.2 fl (82-101); Mean Platelet Volume 10.8 fL (7.4-10.4); Monocytes # 0.9 10^3/uL (0.2-0.9); Monocytes % 13.5 %; Neutrophils # 4.54 10^3/uL (1.8-7.7); Neutrophils % 66.2 %; Nucleated Red Blood Cells % 0 %; Platelet Count 219 10^3/cmm (157-399); Red Blood Count 4.12 10^6/uL (3.85-5.65); Red Cell Distribution Width 15.5 % (12.1-15.1); White Blood Count 6.87 10^3/uL (3.29-11.43)
[2024-07-02 05:13] LABS: Alanine Aminotransferase < 5 U/L (0-41); Albumin Level 3.3 g/dL (3.5-5.2); Alkaline Phosphatase 42 U/L (40-130); Anion Gap 11.9 (5-19); Aspartate Amino Transferase 19 U/L (0-40); Blood Urea Nitrogen 26 mg/dL (8-23); Calcium 8.7 mg/dL (8.5-10.5); Carbon Dioxide 26 mmol/L (22-29); Chloride 108 mmol/L (98-107); Creatinine Clr Calc Pharmacy 34.5555; Globulin 1.8 g/dL (1.3-4.6); Glucose 114 mg/dL (65-115); Osmolality Calculated 300 mOsm/kg (285-295); Potassium 3.9 mmol/L (3.5-5.1); Sodium 142 mmol/L (136-145); Total Bilirubin 0.6 mg/dL (0.15-1.2); Total Protein 5.1 g/dL (6.6-8.7)
[2024-07-02 05:34] LABS: Glucose Point of Care 113 mg/dL (70-110)
[2024-07-02] MEDS: sodium chloride 0.9% 1,000 ML 50 ML IV (05:58)
[2024-07-02] MEDS: aspirin 81 mg Chew Tablet PO (05:58)
[2024-07-02] MEDS: diphenhydrAMINE 50 mg Capsule PO (05:58)
--- NOTE | 2024-07-02 07:28 | W.PM.OPSUD ---
Surgery/Procedure H&P Update DATE OF PROCEDURE: July 02, 2024 DATE H&P PERFORMED: 06/29/24 H&P UPDATE INFORMATION: I have reviewed H&P completed within last 30 days, I have examined patient prior to procedure and No changes to prior documentation PREOP DIAGNOSIS: NSTEMI PRIMARY INDICATION FOR PROCEDURE: NSTEMI PLANNED PROCEDURE: Left heart cath with possible percutaneous coronary intervention PATIENT REASSESSED PRIOR TO SEDATION, WITH NO CHANGE NOTED: Yes PHYSICAL EXAM: alert, oriented x 3, clear to auscultation bilaterally and regular rate & rhythm AIRWAY EVAL/ANESTHESIA PLAN: normal airway, ASA III, Local Anesthesia, Risks, benefits & alternatives of sedation and/or procedure discussed and Patient agrees to continue as planned ADDITIONAL INFORMATION: Moderate sedation
--- NOTE | 2024-07-02 08:28 | P.PCN_ITS ---
Procedure Note: Date of procedure: 07/02/24 Pre-procedure diagnosis: NSTEMI Post-procedure diagnosis: other (Severe proximal left circumflex artery/ Severe mid RCA stenosis) Procedure: Left heart cath with PCI: Left main artery has mild disease. Proximal LAD has moderate 50% stenosis. Proximal left circumflex artery has severe 80 to 90% stenosis. Severe distal left circumflex artery stenosis. Mid RCA has severe 70 to 80% stenosis. Status post successful revascularization of proximal circumflex artery with 1 stent and of distal left circumflex artery with balloon angioplasty. S/p successful revascularization of severe mid RCA stenosis with 1 stent. Plavix loaded in chemical laboratory assistant, we will continue with 75 mg Plavix daily. Resume Eliquis this evening High intensity statin therapy. Continue IV fluids as has CKD Estimated blood loss (mL): 10 Complications: None Condition: stable Disposition: floor Coding Level of Care Code Acute Code for [facility]
[2024-07-02] MEDS: sodium chloride 0.9% 1,000 ML 100 ML IV ×2 (08:53→17:33)
[2024-07-02] MEDS: fenofibrate 145 mg Tablet PO (08:55)
[2024-07-02] MEDS: tamsulosin 0.4 mg Capsule PO ×2 (08:55→17:34)
[2024-07-02] MEDS: amiodarone 200 mg Tablet 400 MG PO ×2 (08:55→17:34)
[2024-07-02] MEDS: digoxin 125 mcg Tablet PO (08:55)
[2024-07-02] MEDS: metoprolol tartrate 50 mg Tablet 75 MG PO ×2 (08:56→17:34)
[2024-07-02] MEDS: citalopram 20 mg Tablet PO (08:57)
[2024-07-02] MEDS: pantoprazole DR 40 mg Tablet PO (08:58)
--- NOTE | 2024-07-02 09:34 | PC.NURSE ---
received from cardiac ammunition assembly i laborer at 0835.report received.pt is alert and awake.denies pain at present.sr on monitor.right wrist with tr band on and inflated.right hand is warm to touch and with brisk capillary refill.no hematoma noted.palpable radial pulse noted distal to tr band.pt instructed in activity restrictions s/p radial artery procedure...and instructed to notify staff for any bleeding,pain,sob,numbness..or for any concerns at all.pt verb understanding of instructions
--- NOTE | 2024-07-02 09:41 | P.PN_ITS ---
Subjective 2 Subjective: He is doing well after his angiogram. Denies chest pain or pressure with no problem breathing. No issues at the right wrist access site. Some pain in the left knee which has been aching on and off. Has history of knee replacement there. Vitals/I&O/Wt Last Vital Signs Temp 98.4 F 07/02/24 05:00 Pulse 69 07/02/24 08:55 Resp 14 07/02/24 08:33 BP 116/70 07/02/24 08:33 Pulse Ox 95 07/02/24 08:33 O2 Del Method Room Air 07/02/24 08:33 07/01/24 07/02/24 07/02/24 22:59 06:59 14:59 Output Total 100 / 175 Balance -100 / 65 Weight last 48 hrs Weight 84.397 kg Weight 84.397 kg Weight 86.137 kg Weight 86.137 kg Physical Exam 2 Narrative: Accompanied by his daughter and granddaughter. Const: COMMON NORMALS: patient oriented x3 and alert GENERAL APPEARANCE: c ooperative ORIENTATION/CONSCIOUSNESS: Yes awake HENMT: COMMON NORMALS: oropharynx normal Neck/C-Spine: COMMON NORMALS: no JVD Resp: COMMON NORMALS: normal respiratory effort and clear to auscultation bilaterally AUSCULTATION: clear to auscultation bilaterally Cardio: COMMON NORMALS: no JVD, regular rhythm, S1 normal heart sound present, S2 normal heart sound present and No murmurs present (Cardio) RHYTHM: regular rhythm HEART SOUNDS: S1 normal heart sound present and S2 normal heart sound present GI: COMMON NORMALS: Normal to inspection, nondistended, normoactive bowel sounds present, Soft to palpation and non-tender PALPATION: Yes Soft to palpation Extremity: COMMON NORMALS: no joint enlargement and no pedal edema N ARRATIVE EXTREMITY EXAM: Right wrist TR band. No bleeding. Right hand perfused. OTHER: Left knee without swelling, redness, warmth, bruising or other abnormality. He is able to move the leg and bend the knee. Neuro: COMMON NORMALS: patient oriented x3 and moves all extremities S ENSORIUM/ORIENTATION: Yes alert Skin: COMMON NORMALS: no rashes or lesions noted GENERAL SKIN EXAM: no rashes or lesions noted Data 07/02/24 04:35 07/02/24 04:35 A&P Assessment and plan (1) NSTEMI (non-ST elevated myocardial infarction): Status post coronary angiography with PCI with stenting of LCx and RCA. Continue aspirin, Plavix. To resume Eliquis later tonight. Reviewed cardiology note. Discussed with nursing, bilingual patient support caseworker. Discussed with him and family and they are aware not to interrupt antiplatelet due to risks to the stents with risk of [place]. He is now in sinus rhythm with good rate. Reassess vitals. Reassess CBC, BMP. Monitor for risk of kidney injury/contrast-induced nephropathy. Reviewed renal function, creatinine 1.8, BUN 26. Potassium 3.9. Producing urine. (2) Atrial fibrillation with rapid ventricular response: Now in sinus rhythm with good rate. Continue metoprolol, digoxin, amiodarone. Eliquis to be resumed later tonight. Monitor for risk of bleeding. (3) HTN (hypertension): Monitor blood pressures. Blood pressures stable but on the softer side. Holding off on home dose of Cardizem and Imdur. Continue with metoprolol. Qualifiers: Hypertension type: primary hypertension Qualified Code(s): I10 - Essential (primary) hypertension (4) Hyperlipemia, mixed: (5) Chronic anticoagulation: Takes Eliquis 5 mg twice daily at home. Continue Lovenox as above. (6) Diabetes type 2, controlled: Reviewed POC glucose. Continue insulin sliding scale before meals and at bedtime. Lantus 15 units every morning. Carb consistent diet. Last A1c was 6.9. (7) CKD (chronic kidney disease): Baseline creatinine seems to be 1.9-2.2. Medical reconciliation done for nephrotoxic drugs. Monitor BMP daily. No concerns for electrolyte abnormality or metabolic acidosis for now. Strict input output charting. (8) Positive cardiac stress test: Plan Care discussed in detail with multiple family was at bedside. All the questions were answered. Full code Protonix for PUD prophylaxis Full dose Lovenox will be sufficient for DVT prophylaxis. Attestations 2 Medical Necessity Statement*: Continue postcardiac catheterization care after PCI with stenting of 2 arteries, reassessment of renal function, reassessment of atrial fibrillation control. and High MDM includes amount and/or complexity of data reviewed/ordered [ previous or external records, resulted lab(s)/test(s), ordered lab(s)/test(s) and other healthcare professional discussion] and described risk of complication, morbidity or mortality of management as documented Diagnoses NSTEMI (non-ST elevated myocardial infarction) I21.4 Atrial fibrillation with rapid ventricular response I48.91 Primary hypertension I10 Hypertension type: primary hypertension Hyperlipemia, mixed E78.2 Chronic anticoagulation Z79.01 Diabetes type 2, controlled E11.9 CKD (chronic kidney disease) N18.9 Positive cardiac stress test R94.39
--- NOTE | 2024-07-02 09:47 | PC.SOCIAL ---
IMM Update Pg. 2 of IMM updated. Initialed, dated, and timed copy in chart, and copy provided at bedside.
[2024-07-02 11:30] LABS: Glucose Point of Care 110 mg/dL (70-110)
--- NOTE | 2024-07-02 15:41 | PC.OT ---
OT tx attempted at this time. Nursing reports pt still having some bleeding at the TR band site (R UE) from this mornings procedure. OT activities held at this time so pt can keep arm still. Therapist will attempt to resume tx in a.m.
[2024-07-02 16:30] LABS: Glucose Point of Care 103 mg/dL (70-110)
--- NOTE | 2024-07-02 17:12 | PC.NURSE ---
tr band slowly deflated and eventually removed at 1500.pt had 2 episodes of bleeding..thus the delay of removing tr band.no hematoma noted.right hand remains warm to touch and with brisk capillary refill.palpable radial pulse noted.site dressed with 2x2 gauze and secured with biocclusive drsg.pt instructed in activity restrictions s/p tr band removal and instructed to notify staff for any bleeding,numbness,pain,sob, or for any concerns at all.pt verb understanding of instructions
[2024-07-02 20:05] LABS: Glucose Point of Care 147 mg/dL (70-110)
[2024-07-02] MEDS: atorvastatin 40 mg Tablet 80 MG PO (20:30)
[2024-07-02] MEDS: insulin lispro 100 unit/1 mL SUBCUT (20:31)
[2024-07-02 21:50] LABS: Glucose Point of Care 83 mg/dL (70-110)
[2024-07-03] VITALS: BP 148/80; PULSE 64; RESP 20; O2SAT 96
[2024-07-03] MEDS: enoxaparin 80 mg/0.8 mL Syringe SUBCUT (03:19)
[2024-07-03] MEDS: sodium chloride 0.9% 1,000 ML 100 ML IV (03:23)
[2024-07-03 03:34] VITALS: BP 131/69; PULSE 67; RESP 13; TEMP 36.8; O2SAT 96
[2024-07-03 03:44] LABS: Basophils % 0.4 %; Eosinophils # 0.1 10^3/uL (0.0-0.8); Eosinophils % 1.6 %; Hematocrit 40.3 % (37-53); Lymphocytes % 12.6 %; Mean Corpuscular Hemoglobin 29.6 pg (27-33); Mean Corpuscular Volume 95.5 fl (82-101); Mean Platelet Volume 10.9 fL (7.4-10.4); Monocytes # 0.8 10^3/uL (0.2-0.9); Monocytes % 9.7 %; Neutrophils # 6.21 10^3/uL (1.8-7.7); Neutrophils % 75.2 %; Nucleated Red Blood Cells % 0 %; Platelet Count 236 10^3/cmm (157-399); Red Blood Count 4.22 10^6/uL (3.85-5.65); Red Cell Distribution Width 15.3 % (12.1-15.1); White Blood Count 8.25 10^3/uL (3.29-11.43)
[2024-07-03 04:03] LABS: Anion Gap 14.2 (5-19); Blood Urea Nitrogen 21 mg/dL (8-23); Calcium 8.8 mg/dL (8.5-10.5); Carbon Dioxide 23 mmol/L (22-29); Chloride 109 mmol/L (98-107); Creatinine Clr Calc Pharmacy 41.1548; Glucose 103 mg/dL (65-115); Osmolality Calculated 297 mOsm/kg (285-295); Potassium 4.2 mmol/L (3.5-5.1); Sodium 142 mmol/L (136-145)
[2024-07-03 06:00] VITALS: PULSE 63
[2024-07-03 06:56] LABS: Glucose Point of Care 89 mg/dL (70-110)
[2024-07-03 07:22] VITALS: BP 133/75; PULSE 67; RESP 17; TEMP 36.7; O2SAT 99
[2024-07-03] MEDS: metoprolol tartrate 50 mg Tablet 75 MG PO (08:54)
[2024-07-03] MEDS: pantoprazole DR 40 mg Tablet PO (08:55)
[2024-07-03] MEDS: clopidogrel 75 mg Tablet PO (08:55)
[2024-07-03] MEDS: amiodarone 200 mg Tablet 400 MG PO (08:55)
[2024-07-03] MEDS: citalopram 20 mg Tablet PO (08:55)
[2024-07-03] MEDS: aspirin 81 mg Chew Tablet PO (08:55)
[2024-07-03] MEDS: fenofibrate 145 mg Tablet PO (08:55)
[2024-07-03] MEDS: tamsulosin 0.4 mg Capsule PO (08:55)
[2024-07-03 10:19] VITALS: BP 133/75; PULSE 68; RESP 20; O2SAT 94
--- NOTE | 2024-07-03 10:39 | P.PN_ITS ---
<Statement entered by Dada Shafer M.D - 07/03/24 21:50> Patient was evaluated and cared for in conjunction with an advanced practice practitioner. I personally examined the patient and reviewed the chart and all pertinent data including imaging, telemetry, and laboratory results. I discussed the patient in detail with the advanced practice practitioner. Please see their note for complete progress note, results and agreed upon plan of care for the patient. Patient feeling better. Creatinine has improved. No chest pain GENERAL: Patient is alert and oriented HEART: Regular S1 and S2 LUNGS: Clear to auscultation bilaterally EXTREMITIES: Lower extremities with no edema Assessment and Plan (1) NSTEMI (non-ST elevated myocardial infarction) (2) Atrial fibrillation with rapid ventricular response (3) HTN (hypertension) (4) Hyperlipemia, mixed: (5) CAD (coronary artery disease) (6) AAA (abdominal aortic aneurysm) (7) CKD (chronic kidney disease) Patient is staying in normal sinus rhythm. Had PCI of RCA and Left circumflex artery performed yesterday. Continue eliquis and plavix Continue amiodarone, toprol and digoxin. Hold cardizem for now Thank you for involving us with care of this patient. We will continue to follow. Please call with questions. Subjective 2 Subjective: Patient doing well today. He is ready to go home. Right radial cath site clean dry intact well-approximated no signs or symptoms of hematoma. Patient will get Eliquis tonight. Creatinine has improved at 1.5. He will get a BMP on an outpatient basis when he follows up in the clinic. Denies chest pain or shortness of breath. Vital signs are stable. Medications: Reviewed: Yes Vitals/I&O/Wt Last Vital Signs Temp 98.1 F 07/03/24 07:22 Pulse 68 07/03/24 10:19 Resp 20 H 07/03/24 10:19 BP 133/75 07/03/24 10:19 Pulse Ox 94 07/03/24 10:19 O2 Del Method Room Air 07/03/24 07:22 07/02/24 07/03/24 07/03/24 22:59 06:59 14:59 Intake Total 1660.000 / 1660.000 983.333 / 2643.333 240 / 240 Output Total 400 / 400 Balance 1260.000 / 1260.000 983.333 / 2243.333 240 / 240 Weight last 48 hrs Weight 187 lb Weight 186 lb 1 oz Weight 186 lb 1 oz Physical Exam 2 Narrative: General: No apparent distress, healthy appearing, well nourished Muskuloskeletal: Full ROM Lymphatic: no lymphedema noted Respiratory: Normal respiratory effort, clear to auscultation bilaterally throughout all lung spence, no use of accessory muscles Cardio: No JVD, regular rate, regular rhythm, S1 S2 normal, no murmurs, peripheral pulses 2+ throughout GI: Normal to inspection, nondistended Extremities: Full ROM, normal, normal capillary refill, no cyanosis or edema Neuro: Alert and oriented x4, no focal motor deficits Psych: Affect normal, denies suicidal ideation, mental status grossly normal Skin: Right radial cath site clean dry intact no signs or symptoms of hematoma Data 07/03/24 03:16 07/03/24 03:16 A&P Assessment and plan (1) NSTEMI (non-ST elevated myocardial infarction): (2) Atrial fibrillation with rapid ventricular response: (3) HTN (hypertension): Qualifiers: Hypertension type: primary hypertension Qualified Code(s): I10 - Essential (primary) hypertension (4) Hyperlipemia, mixed: (5) CAD (coronary artery disease): Qualifiers: Associated angina: without angina Coronary Disease-Associated Artery/Lesion type: [place] artery [place] vs. transplanted heart: [place] heart Qualified Code(s): I25.10 - Atherosclerotic heart disease of [place] coronary artery without angina pectoris (6) AAA (abdominal aortic aneurysm): (7) CKD (chronic kidney disease): Plan Patient is maintaining sinus rhythm and he is ready to go home. He was given activity instructions including no lifting more than 5 pounds for 3 days. No driving for 3 days. He verbalized full understanding. He does understand it is very important to take his Plavix with his Eliquis and do not miss these medications. Monitor for signs or symptoms of bleeding and notify us if these occur. He will continue metoprolol and digoxin and diltiazem. Will need to closely monitor renal function. Will see patient in 1 week. Attestations 2 Medical Necessity Statement*: Patient may be discharged from cardiology standpoint. Coding Level of Care Code Acute Code for [facility] Diagnoses NSTEMI (non-ST elevated myocardial infarction) I21.4 Atrial fibrillation with rapid ventricular response I48.91 Primary hypertension I10 Hypertension type: primary hypertension Hyperlipemia, mixed E78.2 Coronary artery disease involving [place] coronary artery of [place] heart without angina pectoris I25.10 Associated angina: without angina Coronary Disease-Associated Artery/Lesion type: [place] artery [place] vs. transplanted heart: [place] heart AAA (abdominal aortic aneurysm) I71.4 CKD (chronic kidney disease) N18.9
--- NOTE | 2024-07-03 11:01 | PC.NURSE ---
discharge instructions given and explained.pt and daughter verb understanding.discharged via w/c to exit at this time.daughter to drive pt home
--- NOTE | 2024-07-03 19:47 | P.DS_ITS ---
Discharge Providers Date of Admission: 06/29/24 00:04 Date of Discharge: July 03, 2024 Attending Provider at Admission: Ryann Plascencia MD Attending Provider at Discharge: Rk Roach Primary Care Provider: Maureen Samson APRN Diagnoses at Discharge Discharge Diagnosis (1) NSTEMI (non-ST elevated myocardial infarction): Status: Acute (2) Atrial fibrillation with rapid ventricular response: Status: Acute (3) HTN (hypertension): Status: Chronic Qualifiers: Hypertension type: primary hypertension Qualified Code(s): I10 - Essential (primary) hypertension (4) Hyperlipemia, mixed: Status: Chronic (5) CAD (coronary artery disease): Status: Chronic Qualifiers: Coronary Disease-Associated Artery/Lesion type: [place] artery [place] vs. transplanted heart: [place] heart Associated angina: without angina Qualified Code(s): I25.10 - Atherosclerotic heart disease of [place] coronary artery without angina pectoris (6) AAA (abdominal aortic aneurysm): Status: Chronic (7) CKD (chronic kidney disease): Status: Chronic Reason for Visit Reason for Visit: chest pain Hospital Course Hospital Course Pleasant 78-year-old gentleman with CKD, recent NSTEMI, abnormal stress test, previously declining further assessment with angiogram, was admitted due to chest pain, with finding of A-fib with RVR, non-STEMI, underwent coronary angiography with finding of flow-limiting lesions in LCx and RCA treated with PCI with stenting. A-fib with RVR treated with amiodarone, digoxin, continued on Cardizem and metoprolol. Did well postprocedure, with A-fib converting to sinus rhythm. Without any further chest pain. Renal function reassessed, and found without worsening. He is otherwise doing well, was found appropriate for discharge by cardiology continuing on Plavix with Eliquis. Please reassess his condition, reassess renal function. Reassess atrial fibrillation control and consider de-escalation of rate control medications. Physical Exam Const: COMMON NORMALS: patient oriented x3 and alert GENERAL APPEARANCE: cooperative ORIENTATION/CONSCIOUSNESS: Yes awake HENMT: COMMON NORMALS: oropharynx normal Neck/C-Spine: COMMON NORMALS: no JVD Resp: COMMON NORMALS: normal respiratory effort and clear to auscultation bilaterally AUSCULTATION: clear to auscultation bilaterally Cardio: COMMON NORMALS: no JVD, regular rhythm, S1 normal heart sound present, S2 normal heart sound present and No murmurs present (Cardio) RHYTHM: regular rhythm HEART SOUNDS: S1 normal heart sound present and S2 normal heart sound present GI: COMMON NORMALS: Normal to inspection, nondistended, normoactive bowel sounds present, Soft to palpation and non-tender PALPATION: Yes Soft to palpation Extremity: COMMON NORMALS: no joint enlargement and no pedal edema NARRATIVE EXTREMITY EXAM: No bruising swelling or other issues at right wrist access site. She knows to seek medical attention immediately in case of any symptoms other than bruising. Neuro: COMMON NORMALS: patient oriented x3 and moves all extremities SENSORIUM/ORIENTATION: Yes alert Skin: COMMON NORMALS: no rashes or lesions noted GENERAL SKIN EXAM: no rashes or lesions noted Discharge Data Studies Completed and Pending Completed Studies During Hospitalization Category Date Time Status XR chest 1V portable [id number] Stat Exams 06/28/24 21:36 Completed Pending at discharge Category Date Time Status BREW[employer]ER request for service Routine Exams 07/02/24 06:20 Taken Blood Culture Stat Lab 06/29/24 03:41 Results Radiology Impressions Chest X-Ray 06/28/24 21:36 IMPRESSION: Patchy left basilar opacities could represent atelectasis versus infiltrate. Laboratory Results WBC 8.25 10^3/uL (3.29-11.43) 07/03/24 03:16 RBC 4.22 10^6/uL (3.85-5.65) 07/03/24 03:16 Hgb 12.50 g/dL (11.27-16.99) 07/03/24 03:16 Hct 40.3 % (37-53) 07/03/24 03:16 MCV 95.5 fl (82-101) 07/03/24 03:16 MCH 29.6 pg (27-33) 07/03/24 03:16 MCHC 31.0 g/dL (30-55) 07/03/24 03:16 RDW 15.3 % (12.1-15.1) H 07/03/24 03:16 Plt Count 236 10^3/cmm (157-399) 07/03/24 03:16 MPV 10.9 fL (7.4-10.4) H 07/03/24 03:16 Neut % (Auto) 75.2 % 07/03/24 03:16 Lymph % (Auto) 12.6 % 07/03/24 03:16 Carbon % (Auto) 9.7 % 07/03/24 03:16 Eos % (Auto) 1.6 % 07/03/24 03:16 Baso % (Auto) 0.4 % 07/03/24 03:16 Neut # (Auto) 6.21 10^3/uL (1.8-7.7) 07/03/24 03:16 Lymph # (Auto) 1.0 10^3/uL (0.8-4.8) 07/03/24 03:16 Carbon # (Auto) 0.8 10^3/uL (0.2-0.9) 07/03/24 03:16 Eos # (Auto) 0.1 10^3/uL (0.0-0.8) 07/03/24 03:16 Baso # (Auto) 0.0 10^3/uL (0.0-0.1) 07/03/24 03:16 Nucleated RBC % (auto) 0 % 07/03/24 03:16 Nucleated RBCs # 0.0 /100WBC 07/03/24 03:16 PT 14.80 SECONDS (12.1-14.9) 06/28/24 21:51 INR 1.12 (0.8-1.2) 06/28/24 21:51 Sodium 142 mmol/L (136-145) 07/03/24 03:16 Potassium 4.2 mmol/L (3.5-5.1) 07/03/24 03:16 Chloride 109 mmol/L (98-107) H 07/03/24 03:16 Carbon Dioxide 23 mmol/L (22-29) 07/03/24 03:16 Anion Gap 14.2 (5-19) 07/03/24 03:16 BUN 21 mg/dL (8-23) 07/03/24 03:16 Creatinine 1.5 mg/dL (0.7-1.2) H 07/03/24 03:16 GFR Calculation Not Reportable 07/03/24 03:16 Glucose 103 mg/dL (65-115) 07/03/24 03:16 POC Glucose 89 mg/dL (70-110) 07/03/24 06:52 Calculated Osmolality 297 mOsm/kg (285-295) H 07/03/24 03:16 Calcium 8.8 mg/dL (8.5-10.5) 07/03/24 03:16 Phosphorus 3.9 mg/dL (2.5-4.5) 07/01/24 05:12 Magnesium 2.1 mg/dL (1.7-2.3) 07/01/24 05:12 Total Bilirubin 0.6 mg/dL (0.15-1.2) 07/02/24 04:35 AST 19 U/L (0-40) 07/02/24 04:35 ALT < 5 U/L (0-41) 07/02/24 04:35 Alkaline Phosphatase 42 U/L (40-130) 07/02/24 04:35 Troponin T 5th Gen ng/L 128 ng/L (0-15) H* 06/30/24 03:20 Troponin T Baseline 73 ng/L (0-15) H 06/28/24 21:51 Troponin T 120 Minute 88.38 ng/L (0-15) H 06/28/24 23:46 Delta Troponin T 15.38 ABS# (0-10) H* 06/28/24 23:46 Troponin T Hi Sens 6Hr 103.1 ng/L (0-15) H 06/29/24 03:47 Troponin T Hi Sens 6Hr Delta 30.1 ng/L (0-12) H* 06/29/24 03:47 NT-Pro-B Natriuret Pep 5164 pg/mL (0-450) H 06/30/24 03:20 Total Protein 5.1 g/dL (6.6-8.7) L 07/02/24 04:35 Albumin 3.3 g/dL (3.5-5.2) L 07/02/24 04:35 Globulin 1.8 g/dL (1.3-4.6) 07/02/24 04:35 TSH 2.94 uIU/mL (0.27-4.20) 06/29/24 03:47 Free T4 1.23 ng/dL (0.82-1.77) 06/29/24 03:47 Urine Color Yellow (Yellow) 06/29/24 02:35 Urine Appearance Clear (CLEAR) 06/29/24 02:35 Urine pH 5.5 (5-7) 06/29/24 02:35 Ur Specific [place] 1.017 (1.005-1.030) 06/29/24 02:35 Urine Protein Negative (Negative) 06/29/24 02:35 Urine Glucose (UA) Negative (Normal) 06/29/24 02:35 Urine Ketones Negative (Negative) 06/29/24 02:35 Urine Blood Negative (Negative) 06/29/24 02:35 Urine Nitrate Negative (Negative) 06/29/24 02:35 Urine Bilirubin Negative (Negative) 06/29/24 02:35 Urine Urobilinogen 1.0 mg/dL (Negative) 06/29/24 02:35 Ur Leukocyte Esterase Trace (Negative) A 06/29/24 02:35 Urine RBC 0-2 /hpf (0-2) 06/29/24 02:35 Urine WBC 0-5 /hpf (0-5) 06/29/24 02:35 Ur Squamous Epith Cells 0-5 /hpf (0-5) 06/29/24 02:35 Amorphous Sediment Not Reportable 06/29/24 02:35 Urine Bacteria None seen /hpf (NONE) 06/29/24 02:35 Hyaline Casts 3.71 /lpf 06/29/24 02:35 Digoxin 1.2 ng/mL (0.6-1.2) 07/01/24 05:12 Urine Opiates Screen Negative ng/mL (Negative) 06/29/24 02:35 Ur Barbiturates Screen Negative ng/mL (Negative) 06/29/24 02:35 Ur Phencyclidine Scrn Negative ng/mL (Negative) 06/29/24 02:35 Ur Amphetamines Screen Negative ng/mL (Negative) 06/29/24 02:35 U Benzodiazepines Scrn Negative ng/mL (Negative) 06/29/24 02:35 Urine Cocaine Screen Negative ng/mL (Negative) 06/29/24 02:35 U Marijuana (THC) Screen Negative ng/mL (Negative) 06/29/24 02:35 Vitals Last Vital Signs Temp 98.1 F 07/03/24 07:22 Pulse 68 07/03/24 10:19 Resp 20 H 07/03/24 10:19 BP 133/75 07/03/24 10:19 Pulse Ox 94 07/03/24 10:19 O2 Del Method Room Air 07/03/24 07:22 Discharge Plan Discharge Patient Disposition: Home Health Service Condition: Stable Prescriptions: New amiodarone [Pacerone] 200 mg Tablet See Rx Instructions .ROUTE .COMPLEX Qty: 90 0RF Rx Instructions: 400mg BID for 7 days, then 200mg BID clopidogrel 75 mg Tablet 75 mg PO DAILY Qty: 90 0RF digoxin 125 mcg (0.125 mg) Tablet 125 mcg PO EVERY OTHER DAY Qty: 45 0RF Continued pantoprazole 40 mg tablet,delayed release (DR/EC) 40 mg PO DAILY citalopram 40 mg tablet 20 mg PO DAILY allopurinol 300 mg tablet 300 mg PO DAILY tamsulosin 0.4 mg capsule 0.4 mg PO DAILY Spiriva with HandiHaler 18 mcg capsule, w/inhalation device 1 cap INHALATION DAILY furosemide 40 mg tablet 40 mg PO DAILY Hold Instructions: Resume on 04/30/24. omega-3 acid ethyl esters 1 gram capsule 2 cap PO BID Glucagon Emergency Kit (human) 1 mg recon soln 1 mg SUBCUT Q20M PRN (Reason: hypoglycemia) Qty: 1 3RF Rx Instructions: until target blood sugar attained (DME) Dexcom G7 Microbiology Laboratory Manager Misc See Rx Instructions .Route Qty: 1 0RF Rx Instructions: sending DME form insulin aspart U-100 [Novolog U-100 Insulin aspart] 100 unit/mL solution 4 - 5 unit SUBCUT TID Qty: 20 1RF nitroglycerin [Nitrostat] 0.4 mg tablet, sublingual 0.4 mg SUBLINGUAL Q5M PRN (Reason: Chest Pain) Qty: 25 1RF (DME) Dexcom G7 Sensor Device See Rx Instructions .ROUTE .COMPLEX Qty: 3 2RF Dose Instruction: USE 1 SENSOR UNDER THE SKIN EVERY 10 DAYS FOR BLOOD SUGAR MONITORING CHANGE SENSOR/SITE EVERY 10 DAYS. CONTACT [facility] CUSTOMER SERVICE AT FOR REPLACEMENT OF DAMAGED/MALFUNCTIONING SENSORS. Rx Instructions: USE 1 SENSOR UNDER THE SKIN EVERY 10 DAYS FOR BLOOD SUGAR MONITORING CHANGE SENSOR/SITE EVERY 10 DAYS. CONTACT [facility] CUSTOMER SERVICE AT FOR REPLACEMENT OF DAMAGED/MALFUNCTIONING SENSORS. metoprolol tartrate 50 mg tablet 75 mg PO BID Qty: 180 2RF cholecalciferol (vitamin D3) [Vitamin D3] 25 mcg (1,000 unit) Tablet 25 mcg PO DAILY diltiazem HCl [Cardizem CD] 120 mg capsule,extended release 24hr 120 mg PO DAILY Qty: 30 0RF fenofibrate nanocrystallized 48 mg tablet 145 mg PO DAILY cyclobenzaprine 10 mg Tablet 10 mg PO TID atorvastatin 80 mg Tablet 80 mg PO BEDTIME mupirocin 2 % Ointment 1 applic TOPICAL BID PRN (Reason: infection) fluticasone propionate 50 mcg/actuation [place],Suspension 2 spray INTRANASAL DAILY Rx Instructions: administer into each nostril Eliquis 5 mg Tablet 5 mg PO BID insulin glargine-yfgn [Semglee(insulin glarg-yfgn)Pen] 100 unit/mL (3 mL) insulin pen 25 unit SUBCUT DAILY Qty: 46.8 1RF isosorbide mononitrate 30 mg tablet extended release 24 hr 30 mg PO DAILY docusate sodium 100 mg capsule 100 mg PO BID oxycodone 5 mg tablet 5 mg PO BID PRN (Reason: moderate pain.) cetirizine [Zyrtec] 10 mg Tablet 10 mg PO DAILY PRN (Reason: allergies) megestrol 20 mg Tablet 20 mg PO DAILY PreserVision AREDS-2 250-90-40-1 mg Capsule 1 tab PO BID Discontinued aspirin 81 mg tablet,delayed release (DR/EC) 81 mg PO DAILY Discharge Orders: Discharge Order (Routine); Ordered 07/03/24 Ordered By: Rk Roach Referrals: Maureen Samson APRN [Primary Care Provider] - 07/09/24 9:30 am Kat Solomon FNP [Nurse Practitioner] - 07/11/24 2:00 pm Discharge Diet: Cardiac and Diabetic Discharge Activity: Increase activity as tolerated and Limit activity as instructed Patient Instructions: Digoxin (By mouth), Amiodarone (By mouth) (Cordarone, Pacerone), Clopidogrel (By mouth), Apixaban (By mouth), Heart Attack (DC), A-fib (Atrial Fibrillation) (DC), Coronary Angioplasty (DC), Chronic Hypertension (DC), Opioid Safety, Post Angiogram Home Care Instructions, Post Heart Attack Stoplight Activity Restrictions/Additional Instructions: Continue clopidogrel and Eliquis. Please do not discontinue or miss these medications unless directed to do so by a physician. As discussed, these medications increase your risk of bleeding. Please avoid injury. Minor superficial bleeds may resolve with some pressure, but in case of unexplained or unresolving bleeding seek medical attention. Please follow-up with cardiology and your primary provider for reassessment. Have your primary provider reassess your kidney function. Avoid lifting more than 2 pounds for 3 days. As discussed, seek medical attention in case of any worsening or new concerning symptoms. Discharge Attestations Time Spent in Discharge Care*: greater than 30 min Quality Metrics Clinical Quality Measures [ Acute Myocardial Infaction { Clinical Trial Participant: No; Contraindication to aspirin: Treatment changed; Contraindication to statin: None; Statin prescribed;}] Coding Level of Care Code Acute Code for [facility] Diagnoses NSTEMI (non-ST elevated myocardial infarction) I21.4 Atrial fibrillation with rapid ventricular response I48.91 Primary hypertension I10 Hypertension type: primary hypertension Hyperlipemia, mixed E78.2 Coronary artery disease involving [place] coronary artery of [place] heart without angina pectoris I25.10 Coronary Disease-Associated Artery/Lesion type: [place] artery [place] vs. transplanted heart: [place] heart Associated angina: without angina AAA (abdominal aortic aneurysm) I71.4 CKD (chronic kidney disease) N18.9
== END 2024-07-03 11:03 | disposition home or self-care (01) | DRG 322 ==
LOC: ER 23:32 → CSU 06-29 00:07
PROVIDERS: Internal Medicine; Physician Assistant; Student in an Organized Health Care Education/Training Program; Admitting Provider Internal Medicine; Emergency Provider Emergency Medicine; PCP Nurse Practitioner Family; Visit Provider Internal Medicine
PROC: 027135Z Dilation of Coronary Artery, Two Arteries with Two Drug-eluting Intraluminal Devices, Percutaneous Approach (ICD-10-PCS; principal; 2024-07-02 07:00)
PROC: 027135Z Dilation of Coronary Artery, Two Arteries with Two Drug-eluting Intraluminal Devices, Percutaneous Approach (ICD-10-PCS; 2024-07-02 07:00)
DX: I21.4 Non-ST elevation (NSTEMI) myocardial infarction (principal); I13.0 Hypertensive heart and chronic kidney disease with heart failure and stage 1 through stage 4 chronic kidney disease, or unspecified chronic kidney disease; I50.32 Chronic diastolic (congestive) heart failure; I48.91 Unspecified atrial fibrillation; E11.22 Type 2 diabetes mellitus with diabetic chronic kidney disease; N18.9 Chronic kidney disease, unspecified; E78.2 Mixed hyperlipidemia; I25.10 Atherosclerotic heart disease of native coronary artery without angina pectoris; I71.40 Abdominal aortic aneurysm, without rupture, unspecified; Z96.653 Presence of artificial knee joint, bilateral; I95.9 Hypotension, unspecified; J44.9 Chronic obstructive pulmonary disease, unspecified; M10.9 Gout, unspecified; N40.0 Benign prostatic hyperplasia without lower urinary tract symptoms; F32.A Depression, unspecified; Q63.1 Lobulated, fused and horseshoe kidney; K21.9 Gastro-esophageal reflux disease without esophagitis; Z79.02 Long term (current) use of antithrombotics/antiplatelets; Z79.4 Long term (current) use of insulin; Z79.01 Long term (current) use of anticoagulants; Z79.891 Long term (current) use of opiate analgesic; Z95.5 Presence of coronary angioplasty implant and graft; Z87.891 Personal history of nicotine dependence; Z86.16 Personal history of COVID-19; Z90.49 Acquired absence of other specified parts of digestive tract; Z82.49 Family history of ischemic heart disease and other diseases of the circulatory system
CPT/HCPCS: 36415; 36416; 51798; 71045; 80048; 80053; 80162; 80306; 81001; 82962; 83735; 83880; 84100; 84439; 84443; 84484; 85025; 85347; 85610; 87040; 93005; 93458; 96365; 96366; 96372; 96374; 96375; 96376; 97161; 97165; 97530; 99152; 99153; 99285; A9270; C1725; C1769; C1874; C1887; C1894; C9600; J0283; J1160; J1644; J1650; J1815; J1940; J2250; J3010; J3475; J3490; J7030; J7040; Q0163; Q9967

== ENCOUNTER → 2024-07-11 14:22 | Outpatient (BNVA) | payer OTHER, SELFPAY | PROVIDERS: PCP Nurse Practitioner Family; Visit Provider Nurse Practitioner Family | DX: I48.20 Chronic atrial fibrillation, unspecified (principal); I10 Essential (primary) hypertension; I34.0 Nonrheumatic mitral (valve) insufficiency; I71.43 Infrarenal abdominal aortic aneurysm, without rupture; I25.10 Atherosclerotic heart disease of native coronary artery without angina pectoris; Z79.01 Long term (current) use of anticoagulants; I25.2 Old myocardial infarction | CPT/HCPCS: 36415; 80048; 80162; 85025; 93005; 99213 ==

== ENCOUNTER 2024-07-19 11:32 | Outpatient (CLI) | payer OTHER, SELFPAY ==
[2024-07-19 12:14] LABS: Anion Gap 13.4 (5-19); Blood Urea Nitrogen 22 mg/dL (8-23); Calcium 9.1 mg/dL (8.5-10.5); Carbon Dioxide 27 mmol/L (22-29); Chloride 104 mmol/L (98-107); Glucose 136 mg/dL (65-115); Osmolality Calculated 295 mOsm/kg (285-295); Potassium 4.4 mmol/L (3.5-5.1); Sodium 140 mmol/L (136-145)
== END 2024-07-19 11:33 | disposition home or self-care (01) ==
LOC: LAB 11:34
PROVIDERS: PCP Nurse Practitioner Family; Visit Provider Nurse Practitioner Family
DX: I25.10 Atherosclerotic heart disease of native coronary artery without angina pectoris (principal)
CPT/HCPCS: 36415; 80048

== ENCOUNTER 2024-08-01 14:00 | Outpatient (CLI) | payer OTHER, SELFPAY ==
--- NOTE | 2024-08-01 14:15 | USCV_ITS ---
José Elliott Age: 79 Gender: M : 1945 Exam Date: 08/01/2024 14:19 Ordering Phys: Sally Beck NP Technologist: CT Exam Location: [facility] – [place] Indication: BP: 117 / 72 HR: 58 Rhythm: Sinus Technical Quality: Adequate MEASUREMENTS (Male / Female) Normal Values 2D ECHO LVOT Diameter 2.1 cm LV Ejection Fraction MOD 4C 64.2 % LV Ejection Fraction MOD 2C 64.6 % LV Ejection Fraction 2C AL 64.8 % LA Diameter 5.3 cm RA Systolic Volume 4C AL 40.5 ml RA Systolic Volume 4C MOD 38.6 ml LA Sys Volume AL 67.9 cm cubed LA Sys Volume Index AL 32.9 cm cubed/m squared Aorta at Sinotubular Diameter 2.5 cm M-MODE LA Ao Ratio MM 1.6 AV Cusp Separation MM 2.2 cm DOPPLER AV Peak Velocity 168.0 cm/s LVOT Peak Velocity 147.0 cm/s AV Area Cont Eq vti 3.5 cm squared AV Area Cont Eq pk 2.9 cm squared MV Peak Velocity 359.6 cm/s MV Area PHT 3.8 cm squared Mitral E to A Ratio 1.0 TV Peak Velocity 280.8 cm/s TR Peak Velocity 319.0 cm/s TR Peak Gradient 40.7 mmHg TR Mean Velocity 241.0 cm/s TR Mean Gradient 25.5 mmHg TR Velocity Time Integral 95.5 cm TV Peak E Velocity 86.0 cm/s PV Peak Velocity 117.0 cm/s FINDINGS Left Ventricle Normal left ventricular size, systolic function and wall thickness, with no regional wall motion abnormalities. Left ventricular ejection fraction is estimated at 60 %. Grade I/IV diastolic dysfunction (abnormal relaxation filling pattern), normal to mildly elevated filling pressures. Right Ventricle The right ventricle is normal in size and function. Right Atrium The right atrium is normal in size. Left Atrium The left atrium is normal in size. Mitral Valve Moderately thickened mitral valve. Moderate mitral annular calcification. No mitral valve stenosis. Mild mitral valve regurgitation. Aortic Valve Moderate aortic valve calcification. No aortic valve stenosis. Trace aortic valve regurgitation. Tricuspid Valve Structurally normal tricuspid valve without significant stenosis or regurgitation. Pulmonary artery systolic pressure is normal. Pulmonic Valve Trace pulmonary valve regurgitation. Pericardium Normal pericardium without effusion. Aorta Normal ascending aorta dimension. IVC The inferior vena cava appears normal. CONCLUSIONS Normal left ventricular size, systolic function and wall thickness, with no regional wall motion abnormalities. Left ventricular ejection fraction is estimated at 60 %. Grade I/IV diastolic dysfunction (abnormal relaxation filling pattern), normal to mildly elevated filling pressures. Moderately thickened mitral valve. Moderate mitral annular calcification. No mitral valve stenosis. Mild mitral valve regurgitation. Moderate aortic valve calcification. No aortic valve stenosis. Trace aortic valve regurgitation. There is no pericardial effusion. Right atrial pressure is around 5 mm of mercury. Nilsa Sparrow MD (Electronically Signed) Final Date: 01 August 2024 16:53 S
== END 2024-08-01 14:01 | disposition home or self-care (01) ==
LOC: RAD 14:01
PROVIDERS: PCP Nurse Practitioner Family; Visit Provider Nurse Practitioner Family
DX: I34.0 Nonrheumatic mitral (valve) insufficiency (principal); R93.1 Abnormal findings on diagnostic imaging of heart and coronary circulation; I34.81 Nonrheumatic mitral (valve) annulus calcification; I35.8 Other nonrheumatic aortic valve disorders
CPT/HCPCS: 93306

== ENCOUNTER 2024-08-11 13:08 | Emergency (ER) | payer OTHER, MEDICARE, SELFPAY ==
[2024-08-11 13:21] VITALS: BP 122/60; PULSE 86; RESP 15; TEMP 37; O2SAT 95; BMI 29.2
[2024-08-11] MEDS: silver nitrate applicator 1 EACH TOPICAL (14:23)
--- NOTE | 2024-08-11 14:37 | ED_ITS ---
HPI - Extremity Problem General: Chief complaint: Extremity Injury, Lower Stated complaint: bleeding for 3 days , on blood thinners Time Seen by Provider: 08/11/24 13:34 History of Present Illness: José Elliott is a 79-year-old man that presents to the emergency department with bleeding from great toe. Patient is a type I diabetic with a history of cardiovascular disease, atrial fibrillation, hypertension hyperlipidemia, congestive heart failure. He was cutting his toenails when he cut into the skin. Due to his apixaban, Plavix, aspirin, patient has been bleeding from the great toe for 3 days. He has attempted to stanch the bleeding with pressure as well as glue but has been unsuccessful. He is not up-to-date on tetanus. There is no evidence of infection. Patient does have venous oozing from the distalmost aspect of the great toe on the left foot Related Data Home Medications ?Medication ?Instructions ?Recorded ?Confirmed allopurinol 300 mg tablet 300 mg PO DAILY 09/03/1902/25 citalopram 40 mg tablet 20 mg PO DAILY 09/03/1902/25 pantoprazole 40 mg tablet,delayed 40 mg PO DAILY 09/0207/11/24 release tamsulosin 0.4 mg capsule 0.4 mg PO DAILY 09/03/1902/25 tiotropium bromide 18 mcg capsule 1 cap inhalation HÉCTOR LY 09/03/19 07/11/24 with inhalation device (Spiriva with HandiHaler) cholecalciferol (vitamin D3) 25 25 mcg PO DAILY 07/11/24 mcg (1,000 unit) tablet (Vitamin D3) furosemide 40 mg tablet 40 mg PO DAILY 02/12/2102/25 fenofibrate nanocrystallized 48 mg 145 mg PO DAILY 03/2507/11/24 tablet omega-3 acid ethyl esters 1 gram 2 cap PO BID 12/10/21 07/11/24 capsule atorvastatin 80 mg tablet 80 mg PO BEDTIME 04/23/24 cyclobenzaprine 10 mg tablet 10 mg PO TID 04/23/2402/25 fluticasone propionate 50 2 spray intranasal DAILY 07/11/24 mcg/actuation nasal spray,suspension mupirocin 2 % topical ointment 1 applic topical BID LA N infection 04/23/24 07/11/24 cetirizine 10 mg tablet (Zyrtec) 10 mg PO DAILY PRN al lergies 06/29/24 07/11/24 docusate sodium 100 mg capsule 100 mg PO BID 06/29/24 07/11/24 isosorbide mononitrate 30 mg 30 mg PO DAILY 06/29/24 0 07/11/24 tablet,extended release 24 hr megestrol 20 mg tablet 20 mg PO DAILY 06/29/2402/25 oxycodone 5 mg tablet 5 mg PO BID PRN moderate tricia n. 06/29/24 07/11/24 vit C 250 mg-vit E 90 mg-zinc 40 1 tab PO BID 06/29/24 07/11/24 mg-copper 1 wi-nwpsen-jysker capsule (PreserVision AREDS-2) Previous Rx's ?Medication ?Instructions ?Recorded glucagon 1 mg solution for 1 mg SUBCUT Q20M PRN hypogl ycemia 12/10/21 injection (Glucagon Emergency Kit) #1 ea 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 meter,continuous #1 ea 05/11/23 (Dexcom G7 Tunnel Heading Inspector) insulin glargine-yfgn 100 unit/mL 25 unit (0.25 mL) DEJESUS BCUT DAILY 04/27/24 (3 mL) subcutaneous pen ([facility] (insulin glargine-yfgn) Pen) 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 sensor (Dexcom G7 #3 ea 05/16/24 Sensor device) metoprolol tartrate 50 mg tablet 75 mg (1.5 x 50 mg) P O BID #180 05/16/24 tabs nitroglycerin 0.4 mg sublingual 0.4 mg sublingual Q5M PRN Chest 05/16/24 tablet (Nitrostat) Pain #25 tabs amiodarone 200 mg tablet (Pacerone) See Rx Instruction s .Route 07/03/24 .COMPLEX #90 tabs insulin aspart U-100 100 unit/mL See Rx Instructions . Route 07/05/24 subcutaneous solution (Novolog .COMPLEX #10 mL U-100 Insulin aspart) apixaban 5 mg tablet (Eliquis) 5 mg PO BID #180 tabs 0 07/11/24 clopidogrel 75 mg tablet 75 mg PO DAILY #90 tabs 02/25 diltiazem HCl 120 mg 120 mg PO DAILY #90 caps 02/25 capsule,extended release 24 hr (Cardizem CD) Allergies Allergy/AdvReac Type Severity Reaction Status Date / Time vancomycin Allergy Severe ALGY-Anaphy Verified 07/11/24 14:04 laxis Opioids - Morphine Analogues Allergy Unknown Verified 07/11/24 14:04 Review of Systems General: Reports: 10 or more systems reviewed and unremarkable except in HPI and below PFSH ED PFSH: Medical History (Updated 08/11/24 @ 15:22 by WES Quintanilla) Positive cardiac stress test COVID-19 05/2022 GERD (gastroesophageal reflux disease) Horseshoe kidney Depression BPH (benign prostatic hyperplasia) Gout Tobacco abuse, in remission Diabetes CKD (chronic kidney disease) COPD (chronic obstructive pulmonary disease) Hyperlipidemia HTN (hypertension) Atrial fibrillation ASHD (arteriosclerotic heart disease) AAA (abdominal aortic aneurysm) Surgical History S/P total knee arthroplasty (04/13/24) left S/P appendectomy S/P cholecystectomy S/P knee replacement right, had post operative infection with repeat surgeries needed in approximately 2011 L. knee replacement in 04/2024 S/P tonsillectomy S/P hernia repair umbilical hernia repair, and R. inguinal hernia repair S/P PTCA (percutaneous transluminal coronary angioplasty) 2 stents in 2009 placed at the [place] in [place] Family History Father CAD (coronary artery disease) Hypertension Myocardial infarction Social History Smoking and tobacco/nicotine status: former use of tobacco/nicotine Alcohol intake: never Substance/Drug Use: never Additional social history: smoked 2 ppd for apprixmately 50yrs. Physical Exam Const: COMMON NORMALS: no acute distress, patient oriented x3 and alert GENERAL APPEARANCE: cooperative ORIENTATION/CONSCIOUSNESS: Yes awake, Yes oriented to person, Yes oriented to place and Yes oriented to time Resp: COMMON NORMALS: normal respiratory effort, No retractions and No use of accessory muscles EFFORT & INSPECTION: Yes able to speak in complete sentences and Yes symmetric chest movement Extremity: COMMON NORMALS: normal to inspection GENERAL: Yes normal exam except as noted Neuro: COMMON NORMALS: patient oriented x3 SENSORIUM/ORIENTATION: Yes alert, Yes oriented to person, Yes oriented to place and Yes oriented to time CRANIAL NERVES: Yes CN normal except as noted Psych: COMMON NORMALS: mental status grossly normal, Normal thought process present, cooperative, activity/motor behavior normal, denies homicidal ideation and denies suicidal ideation THOUGHT PROCESS: Normal thought process present Skin: COMMON NORMALS: no rashes or lesions noted and turgor normal GENERAL SKIN EXAM: no rashes or lesions noted and turgor normal WOUNDS: Yes wounds noted (Located on the distalmost aspect of the left great toe) size (4mm) and other (Venous oozing present); without any surrounding erythema NAILS: yellow and thickened Course Vital Signs: Vital signs: Vital Signs Temperature 98.6 F 08/11/24 13:21 Pulse Rate 86 08/11/24 13:21 Respiratory Rate 15 08/11/24 13:21 Blood Pressure 122/60 08/11/24 13:21 Pulse Oximetry 95 08/11/24 13:21 Oxygen Delivery Me thod Room Air 08/11/24 13:21 MDM - Extremity (Nontraumatic) Medical Decision Making Patient evaluated in the emergency department today for venous oozing from the left great toe. Patient doing toenail clippers cut a little too much skin off the tip of his toe while he was trimming his toenails. 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 There is evidence of other wounds similar on the tip of the fifth digit of the left foot. Silver nitrate used to stanch bleeding. Tetanus updated. Patient instructed to follow-up with Dr. Ferguson for further podiatry care. Patient is agreeable and all questions answered No radiology studies performed this visit Discharge Plan Discharge Patient Disposition: Home Clinical Impression: Toe abrasion, non-infected, Anticoagulated Condition: Stable Prescriptions: No Action pantoprazole 40 mg tablet,delayed release (DR/EC) 40 mg PO DAILY citalopram 40 mg tablet 20 mg PO DAILY allopurinol 300 mg tablet 300 mg PO DAILY tamsulosin 0.4 mg capsule 0.4 mg PO DAILY Spiriva with HandiHaler 18 mcg capsule, w/inhalation device 1 cap INHALATION DAILY furosemide 40 mg tablet 40 mg PO DAILY omega-3 acid ethyl esters 1 gram capsule 2 cap PO BID Glucagon Emergency Kit (human) 1 mg recon soln 1 mg SUBCUT Q20M PRN (Reason: hypoglycemia) Qty: 1 3RF Rx Instructions: until target blood sugar attained Eliquis 5 mg tablet 5 mg PO BID Qty: 180 3RF clopidogrel 75 mg tablet 75 mg PO DAILY Qty: 90 0RF diltiazem HCl [Cardizem CD] 120 mg capsule,extended release 24hr 120 mg PO DAILY Qty: 90 3RF (DME) Dexcom G7 Tunnel Heading Inspector Misc See Rx Instructions .Route Qty: 1 0RF Rx Instructions: sending DME form nitroglycerin [Nitrostat] 0.4 mg tablet, sublingual 0.4 mg SUBLINGUAL Q5M PRN (Reason: Chest Pain) Qty: 25 1RF (DME) Dexcom G7 Sensor Device See Rx Instructions .ROUTE .COMPLEX Qty: 3 2RF Dose Instruction: USE 1 SENSOR UNDER THE SKIN EVERY 10 DAYS FOR BLOOD SUGAR MONITORING CHANGE SENSOR/SITE EVERY 10 DAYS. CONTACT sm[facility]P CUSTOMER SERVICE AT FOR REPLACEMENT OF DAMAGED/MALFUNCTIONING SENSORS. Rx Instructions: USE 1 SENSOR UNDER THE SKIN EVERY 10 DAYS FOR BLOOD SUGAR MONITORING CHANGE SENSOR/SITE EVERY 10 DAYS. CONTACT smsPREP CUSTOMER SERVICE AT FOR REPLACEMENT OF DAMAGED/MALFUNCTIONING SENSORS. metoprolol tartrate 50 mg tablet 75 mg PO BID Qty: 180 2RF insulin aspart U-100 [Novolog U-100 Insulin aspart] 100 unit/mL solution See Rx Instructions .ROUTE .COMPLEX Qty: 10 1RF Dose Instruction: INJECT 4 TO 5 UNITS UNDER THE SKIN THREE TIMES A DAY BEFORE MEALS ADMINISTER 10 MINUTES BEFORE FOOD DIRECTED. DISCARD ANY VIAL 28 DAYS AFTER OPENING. Rx Instructions: INJECT 4 TO 5 UNITS UNDER THE SKIN THREE TIMES A DAY BEFORE MEALS ADMINISTER 10 MINUTES BEFORE FOOD DIRECTED. DISCARD ANY VIAL 28 DAYS AFTER OPENING. cholecalciferol (vitamin D3) [Vitamin D3] 25 mcg (1,000 unit) Tablet 25 mcg PO DAILY fenofibrate nanocrystallized 48 mg tablet 145 mg PO DAILY cyclobenzaprine 10 mg Tablet 10 mg PO TID atorvastatin 80 mg Tablet 80 mg PO BEDTIME mupirocin 2 % Ointment 1 applic TOPICAL BID PRN (Reason: infection) fluticasone propionate 50 mcg/actuation [place],Suspension 2 spray INTRANASAL DAILY Rx Instructions: administer into each nostril insulin glargine-yfgn [Semglee(insulin glarg-yfgn)Pen] 100 unit/mL (3 mL) insulin pen 25 unit SUBCUT DAILY Qty: 46.8 1RF isosorbide mononitrate 30 mg tablet extended release 24 hr 30 mg PO DAILY docusate sodium 100 mg capsule 100 mg PO BID oxycodone 5 mg tablet 5 mg PO BID PRN (Reason: moderate pain.) cetirizine [Zyrtec] 10 mg Tablet 10 mg PO DAILY PRN (Reason: allergies) megestrol 20 mg Tablet 20 mg PO DAILY PreserVision AREDS-2 250-90-40-1 mg Capsule 1 tab PO BID amiodarone [Pacerone] 200 mg Tablet See Rx Instructions .ROUTE .COMPLEX Qty: 90 0RF Rx Instructions: 400mg BID for 7 days, then 200mg BID Discharge Orders: Discharge ED (Routine); Ordered 08/11/24 Ordered By: Edin Zeng Referrals: Maureen Samson APRN [Primary Care Provider] - Discharge Diet: Advance as tolerated Discharge Activity: Resume usual activity Patient Instructions: Potassium Nitrate/Silver Nitrate (On the skin), Pain Management Activity Restrictions/Additional Instructions: Please monitor your wound very closely. If you develop redness warmth, swelling, drainage, you need to be reevaluated for potential need of antibiotics. Please follow-up with Dr. Ferguson, your web application tester, as discussed. Please return to the emergency department as needed for new, concerning, worsening symptoms Print Language: Khmer Coding Level of Care Code ED Senior Ui Designer for Lesa Thorpe
[2024-08-11] MEDS: tetanus-dipt-pertussis 0.5 mL SDV IM (14:43)
[2024-08-11 15:26] VITALS: BP 134/76; PULSE 56; RESP 16; O2SAT 96
== END 2024-08-11 15:29 | disposition home or self-care (01) ==
PROVIDERS: Emergency Provider Nurse Practitioner; PCP Nurse Practitioner Family
DX: S90.412A Abrasion, left great toe, initial encounter (principal); Z79.02 Long term (current) use of antithrombotics/antiplatelets; Z79.4 Long term (current) use of insulin; Z79.01 Long term (current) use of anticoagulants; E11.22 Type 2 diabetes mellitus with diabetic chronic kidney disease; I12.9 Hypertensive chronic kidney disease with stage 1 through stage 4 chronic kidney disease, or unspecified chronic kidney disease; N18.9 Chronic kidney disease, unspecified; J44.9 Chronic obstructive pulmonary disease, unspecified; E78.5 Hyperlipidemia, unspecified; X58.XXXA Exposure to other specified factors, initial encounter
CPT/HCPCS: 90471; 90715; 99283; A6446

== ENCOUNTER 2024-08-23 22:11 | Emergency (ER) | payer OTHER, MEDICARE, SELFPAY ==
[2024-08-23 22:31] VITALS: BP 126/52; PULSE 56; RESP 18; TEMP 36.6; O2SAT 98
--- NOTE | 2024-08-23 23:49 | XRR_ITS ---
PROCEDURE INFORMATION: Exam: XR Right Shoulder Exam date and time: 08/24/2024 12:25 AM Age: 79 years old Clinical indication: Injury or trauma; Fall; Blunt trauma (contusions or hematomas); Shoulder; Right TECHNIQUE: Imaging protocol: Radiologic exam of the right shoulder. Views: 2 or more views. COMPARISON: CR XR chest 1V portable [id number] 06/28/2024 9:42 PM FINDINGS: Bones/joints: Demineralization of the visualized bones, limiting sensitivity for nondisplaced fractures. Mild degenerative disease of the AC joint. Cystic changes in the humeral head, related to rotator cuff disease. Soft tissues: Normal. XR/XR shoulder RT min 2V* [id number] IMPRESSION: No acute fracture or dislocation.
--- NOTE | 2024-08-23 23:49 | CTR_ITS ---
PROCEDURE INFORMATION: Exam: CT Head Without Contrast Exam date and time: 08/24/2024 12:21 AM Age: 79 years old Clinical indication: Injury or trauma; Fall; Blunt trauma (contusions or hematomas) TECHNIQUE: Imaging protocol: Computed tomography of the head without contrast. Radiation optimization: All CT scans at this facility use at least one of these dose optimization techniques: automated exposure control; mA and/or kV adjustment per patient size (includes targeted exams where dose is matched to clinical indication); or iterative reconstruction. COMPARISON: No relevant prior studies available. RADIATION DOSE METRICS: Total DLP (mGy-cm): 944.78 FINDINGS: Brain: Age related diffuse parenchymal volume loss. There are bilateral periventricular white matter and centrum semiovale hypodensities, consistent with chronic ischemic small vessel disease. No recent infarct, intracranial bleed or mass effect. Cerebral ventricles: Ex vacuo dilatation of the ventricles. Paranasal sinuses: Visualized sinuses are unremarkable. No fluid levels. Mastoid air cells: Visualized mastoid air cells are well aerated. Bones: Unremarkable. No acute fracture. Soft tissues: Unremarkable. CT/CT head wo con* [id number] IMPRESSION: No large territorial infarct or intracranial bleed.
--- NOTE | 2024-08-24 01:27 | W.ED.FALL ---
HPI - Fall General: Chief Complaint: Fall Stated Complaint: fall hit face and head Time Seen by Provider: 08/24/24 01:05 History of Present Illness: Patient presents to the ER with complaints of fall. Patient was in his kitchen when he turned around lost balance fell down and hit his right shoulder and the left side of his head. Patient did not lose consciousness or blackout. Patient is on Eliquis. Bleeding is controlled. Related Data Home Medications ?Medication ?Instructions ?Recorded ?Confirmed allopurinol 300 mg tablet 300 mg PO DAILY 09/03/19 07/11/24 citalopram 40 mg tablet 20 mg PO DAILY 09/03/19 07/11/24 pantoprazole 40 mg tablet,delayed 40 mg PO DAILY 09/03/19 07/11/24 release tamsulosin 0.4 mg capsule 0.4 mg PO DAILY 09/03/19 07/11/24 tiotropium bromide 18 mcg capsule 1 cap inhalation DAILY 09/03/19 07/11/24 with inhalation device (Spiriva with HandiHaler) cholecalciferol (vitamin D3) 25 25 mcg PO DAILY 01/09/21 07/11/24 mcg (1,000 unit) tablet (Vitamin D3) furosemide 40 mg tablet 40 mg PO DAILY 02/12/21 07/11/24 fenofibrate nanocrystallized 48 mg 145 mg PO DAILY 12/10/21 07/11/24 tablet omega-3 acid ethyl esters 1 gram 2 cap PO BID 12/10/21 07/11/24 capsule atorvastatin 80 mg tablet 80 mg PO BEDTIME 04/23/24 07/11/24 cyclobenzaprine 10 mg tablet 10 mg PO TID 04/23/24 07/11/24 fluticasone propionate 50 2 spray intranasal DAILY 04/23/24 07/11/24 mcg/actuation nasal spray,suspension mupirocin 2 % topical ointment 1 applic topical BID PRN infection 04/23/24 07/11/24 cetirizine 10 mg tablet (Zyrtec) 10 mg PO DAILY PRN allergies 06/29/24 07/11/24 docusate sodium 100 mg capsule 100 mg PO BID 06/29/24 07/11/24 isosorbide mononitrate 30 mg 30 mg PO DAILY 06/29/24 07/11/24 tablet,extended release 24 hr megestrol 20 mg tablet 20 mg PO DAILY 06/29/24 07/11/24 oxycodone 5 mg tablet 5 mg PO BID PRN moderate pain. 06/29/24 07/11/24 vit C 250 mg-vit E 90 mg-zinc 40 1 tab PO BID 06/29/24 07/11/24 mg-copper 1 [id number] capsule (PreserVision AREDS-2) Previous Rx's ?Medication ?Instructions ?Recorded glucagon 1 mg solution for 1 mg SUBCUT Q20M PRN hypoglycemia 12/10/21 injection (Glucagon Emergency Kit) #1 ea 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 meter,continuous #1 ea 05/11/23 (Dexcom G7 Radio Interference Expert) insulin glargine-yfgn 100 unit/mL 25 unit (0.25 mL) SUBCUT DAILY 04/27/24 (3 mL) subcutaneous pen (Semglee #46.8 mL (insulin glargine-yfgn) Pen) 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 sensor (Dexcom G7 #3 ea 05/16/24 Sensor device) metoprolol tartrate 50 mg tablet 75 mg (1.5 x 50 mg) PO BID #180 05/16/24 tabs nitroglycerin 0.4 mg sublingual 0.4 mg sublingual Q5M PRN Chest 05/16/24 tablet (Nitrostat) Pain #25 tabs amiodarone 200 mg tablet (Pacerone) See Rx Instructions .Route 07/03/24 .COMPLEX #90 tabs insulin aspart U-100 100 unit/mL See Rx Instructions .Route 07/05/24 subcutaneous solution (Novolog .COMPLEX #10 mL U-100 Insulin aspart) apixaban 5 mg tablet (Eliquis) 5 mg PO BID #180 tabs 07/11/24 clopidogrel 75 mg tablet 75 mg PO DAILY #90 tabs 07/11/24 diltiazem HCl 120 mg 120 mg PO DAILY #90 caps 07/11/24 capsule,extended release 24 hr (Cardizem CD) Allergies Allergy/AdvReac Type Severity Reaction Status Date / Time vancomycin Allergy Severe ALGY-Anaphy Verified 08/23/24 22:35 laxis Opioids - Morphine Analogues Allergy Unknown Verified 08/23/24 22:35 Review of Systems General: Reports: 10 or more systems reviewed and unremarkable except in HPI and below PFSH ED PFSH: Medical History Positive cardiac stress test COVID-19 05/2022 GERD (gastroesophageal reflux disease) Horseshoe kidney Depression BPH (benign prostatic hyperplasia) Gout Tobacco abuse, in remission Diabetes CKD (chronic kidney disease) COPD (chronic obstructive pulmonary disease) Hyperlipidemia HTN (hypertension) Atrial fibrillation ASHD (arteriosclerotic heart disease) AAA (abdominal aortic aneurysm) Surgical History S/P total knee arthroplasty (04/13/24) left S/P appendectomy S/P cholecystectomy S/P knee replacement right, had post operative infection with repeat surgeries needed in approximately 2011 L. knee replacement in 04/2024 S/P tonsillectomy S/P hernia repair umbilical hernia repair, and R. inguinal hernia repair S/P PTCA (percutaneous transluminal coronary angioplasty) 2 stents in 2009 placed at the [facility] in [place] Family History Father CAD (coronary artery disease) Hypertension Myocardial infarction Social History Smoking and tobacco/nicotine status: former use of tobacco/nicotine Alcohol intake: never Substance/Drug Use: never Additional social history: smoked 2 ppd for apprixmately 50yrs. Physical Exam Const: COMMON NORMALS: no acute distress, average body habitus, patient oriented x3, no limitations, healthy appearing, alert and well nourished HENMT: COMMON NORMALS: normocephalic, atraumatic, hearing grossly normal bilaterally, external ears normal, Normal external nose present, moist oral mucous membranes and oropharynx normal HEAD & SCALP: normocephalic and atraumatic NOSE: Normal external nose present EXTERNAL EAR: Yes external ears normal OTHER: Positive contusion hematoma above left eye with abrasion, positive abrasion mild laceration bleeding is controlled over left cheek. Eye: COMMON NORMALS: Equal, round and reactive pupils present, EOMs intact bilaterally, conjunctivae normal and no scleral icterus CONJUNCTIVA: Yes conjunctivae normal PUPIL: Yes Equal, round and reactive pupils present Neck/C-Spine: COMMON NORMALS: full ROM, no lymphadenopathy, supple, no meningeal signs, no JVD and Thyroid normal THYROID: Thyroid normal Chest: COMMONS NORMALS: normal inspection of the chest and normal palpation of entire chest wall Resp: COMMON NORMALS: normal respiratory effort, No retractions, No use of accessory muscles and clear to auscultation bilaterally AUSCULTATION: clear to auscultation bilaterally Cardio: COMMON NORMALS: no JVD, regular rate, regular rhythm, S1 normal heart sound present, S2 normal heart sound present, No gallops present (Cardio), No clicks present (Cardio), No murmurs present (Cardio) and No rub (Cardio) RATE: regular rate RHYTHM: regular rhythm HEART SOUNDS: S1 normal heart sound present and S2 normal heart sound present GI: COMMON NORMALS: Normal to inspection, nondistended, normoactive bowel sounds present, Soft to palpation, non-tender, No hepatosplenomegaly present and no masses PALPATION: Yes Soft to palpation and Yes No hepatosplenomegaly present Neuro: COMMON NORMALS: patient oriented x3 SENSORIUM/ORIENTATION: Yes alert MENINGEAL SIGNS: Yes no meningeal signs Course Vital Signs: Vital signs: Vital Signs Temperature 97.9 F 08/23/24 22:31 Pulse Rate 56 L 08/23/24 22:31 Respiratory Rate 18 08/23/24 22:31 Blood Pressure 126/52 08/23/24 22:31 Pulse Oximetry 98 08/23/24 22:31 MDM - Fall Medical Decision Making X-ray of right shoulder is negative as well as head CT, had discussion with about the laceration on patient's cheek since it is clotted off and not bleeding. Will go ahead and leave it alone. Patient be discharged home. Lab Data Radiology Impressions Head CT 08/23/24 23:49 IMPRESSION: No large territorial infarct or intracranial bleed. Shoulder X-Ray 08/23/24 23:49 IMPRESSION: No acute fracture or dislocation. All radiology interpretation(s) finalized by discharge Discharge Plan Discharge Patient Disposition: Home Clinical Impression: Fall, Contusion of face Condition: Stable Prescriptions: No Action pantoprazole 40 mg tablet,delayed release (DR/EC) 40 mg PO DAILY citalopram 40 mg tablet 20 mg PO DAILY allopurinol 300 mg tablet 300 mg PO DAILY tamsulosin 0.4 mg capsule 0.4 mg PO DAILY Spiriva with HandiHaler 18 mcg capsule, w/inhalation device 1 cap INHALATION DAILY furosemide 40 mg tablet 40 mg PO DAILY omega-3 acid ethyl esters 1 gram capsule 2 cap PO BID Glucagon Emergency Kit (human) 1 mg recon soln 1 mg SUBCUT Q20M PRN (Reason: hypoglycemia) Qty: 1 3RF Rx Instructions: until target blood sugar attained Eliquis 5 mg tablet 5 mg PO BID Qty: 180 3RF clopidogrel 75 mg tablet 75 mg PO DAILY Qty: 90 0RF diltiazem HCl [Cardizem CD] 120 mg capsule,extended release 24hr 120 mg PO DAILY Qty: 90 3RF (DME) Dexcom G7 Radio Interference Expert Misc See Rx Instructions .Route Qty: 1 0RF Rx Instructions: sending DME form nitroglycerin [Nitrostat] 0.4 mg tablet, sublingual 0.4 mg SUBLINGUAL Q5M PRN (Reason: Chest Pain) Qty: 25 1RF (DME) Dexcom G7 Sensor Device See Rx Instructions .ROUTE .COMPLEX Qty: 3 2RF Dose Instruction: USE 1 SENSOR UNDER THE SKIN EVERY 10 DAYS FOR BLOOD SUGAR MONITORING CHANGE SENSOR/SITE EVERY 10 DAYS. CONTACT [employer] [facility] AT FOR REPLACEMENT OF DAMAGED/MALFUNCTIONING SENSORS. Rx Instructions: USE 1 SENSOR UNDER THE SKIN EVERY 10 DAYS FOR BLOOD SUGAR MONITORING CHANGE SENSOR/SITE EVERY 10 DAYS. CONTACT [employer] [facility] AT FOR REPLACEMENT OF DAMAGED/MALFUNCTIONING SENSORS. metoprolol tartrate 50 mg tablet 75 mg PO BID Qty: 180 2RF insulin aspart U-100 [Novolog U-100 Insulin aspart] 100 unit/mL solution See Rx Instructions .ROUTE .COMPLEX Qty: 10 1RF Dose Instruction: INJECT 4 TO 5 UNITS UNDER THE SKIN THREE TIMES A DAY BEFORE MEALS ADMINISTER 10 MINUTES BEFORE FOOD DIRECTED. DISCARD ANY VIAL 28 DAYS AFTER OPENING. Rx Instructions: INJECT 4 TO 5 UNITS UNDER THE SKIN THREE TIMES A DAY BEFORE MEALS ADMINISTER 10 MINUTES BEFORE FOOD DIRECTED. DISCARD ANY VIAL 28 DAYS AFTER OPENING. cholecalciferol (vitamin D3) [Vitamin D3] 25 mcg (1,000 unit) Tablet 25 mcg PO DAILY fenofibrate nanocrystallized 48 mg tablet 145 mg PO DAILY cyclobenzaprine 10 mg Tablet 10 mg PO TID atorvastatin 80 mg Tablet 80 mg PO BEDTIME mupirocin 2 % Ointment 1 applic TOPICAL BID PRN (Reason: infection) fluticasone propionate 50 mcg/actuation [place],Suspension 2 spray INTRANASAL DAILY Rx Instructions: administer into each nostril insulin glargine-yfgn [Semglee(insulin glarg-yfgn)Pen] 100 unit/mL (3 mL) insulin pen 25 unit SUBCUT DAILY Qty: 46.8 1RF isosorbide mononitrate 30 mg tablet extended release 24 hr 30 mg PO DAILY docusate sodium 100 mg capsule 100 mg PO BID oxycodone 5 mg tablet 5 mg PO BID PRN (Reason: moderate pain.) cetirizine [Zyrtec] 10 mg Tablet 10 mg PO DAILY PRN (Reason: allergies) megestrol 20 mg Tablet 20 mg PO DAILY PreserVision AREDS-2 250-90-40-1 mg Capsule 1 tab PO BID amiodarone [Pacerone] 200 mg Tablet See Rx Instructions .ROUTE .COMPLEX Qty: 90 0RF Rx Instructions: 400mg BID for 7 days, then 200mg BID Discharge Orders: Discharge ED (Routine); Ordered 08/24/24 Ordered By: Eriberto Martinez Referrals: Maureen Samson APRN [Primary Care Provider] - 1 week Patient Instructions: Facial Contusion (ED) Activity Restrictions/Additional Instructions: Your evaluation in the ER that included a head CT and right shoulder x-ray are both negative. Your bleeding is controlled. Please follow-up with your family practice physician within next 7 days for further evaluation treatment as needed. Print Language: Romanian Coding Level of Care Code ED [place]arfinger Chief for Lesa Thorpe
[2024-08-24 01:43] VITALS: BP 138/69; PULSE 56; RESP 18; O2SAT 99
[2024-08-24 01:44] VITALS: BP 138/69; PULSE 56; O2SAT 99
== END 2024-08-24 01:47 | disposition home or self-care (01) ==
PROVIDERS: Emergency Provider Emergency Medicine; PCP Nurse Practitioner Family
DX: S00.83XA Contusion of other part of head, initial encounter (principal); W19.XXXA Unspecified fall, initial encounter; Z79.01 Long term (current) use of anticoagulants; Z79.02 Long term (current) use of antithrombotics/antiplatelets; Z79.4 Long term (current) use of insulin; Z87.891 Personal history of nicotine dependence; J44.9 Chronic obstructive pulmonary disease, unspecified; E78.5 Hyperlipidemia, unspecified; E11.22 Type 2 diabetes mellitus with diabetic chronic kidney disease; I12.9 Hypertensive chronic kidney disease with stage 1 through stage 4 chronic kidney disease, or unspecified chronic kidney disease; N18.9 Chronic kidney disease, unspecified
CPT/HCPCS: 70450; 73030; 99284

== ENCOUNTER → 2024-09-05 08:26 | Outpatient (BNVA) | payer OTHER, SELFPAY | PROVIDERS: PCP Nurse Practitioner Family; Visit Provider Podiatrist Foot & Ankle Surgery | DX: S92.353A Displaced fracture of fifth metatarsal bone, unspecified foot, initial encounter for closed fracture (principal); W19.XXXA Unspecified fall, initial encounter | CPT/HCPCS: 28470; 73630; 99204 ==

== ENCOUNTER 2024-09-05 09:55 | Outpatient (CLI) | payer OTHER, SELFPAY ==
[2024-09-05 11:05] LABS: Alanine Aminotransferase 9 U/L (0-41); Albumin Level 4.1 g/dL (3.5-5.2); Alkaline Phosphatase 67 U/L (40-130); Anion Gap 14.2 (5-19); Aspartate Amino Transferase 29 U/L (0-40); Blood Urea Nitrogen 47 mg/dL (8-23); Calcium 8.7 mg/dL (8.5-10.5); Carbon Dioxide 27 mmol/L (22-29); Chloride 106 mmol/L (98-107); Chol HDL Ratio 5.52 mg/dL (1.0-5.00); Cholesterol 171 mg/dL (0-200); Globulin 2.1 g/dL (1.3-4.6); Glucose 171 mg/dL (65-115); HDL Cholesterol 31 mg/dL (60-100); LDL Cholesterol Calculated 107 mg/dL (50-129); LDL HDL Ratio 3.45 RATIO (0.00-3.22); Osmolality Calculated 312 mOsm/kg (285-295); Potassium 4.2 mmol/L (3.5-5.1); Sodium 143 mmol/L (136-145); Total Bilirubin 0.3 mg/dL (0.15-1.2); Total Protein 6.2 g/dL (6.6-8.7); Triglycerides 165 mg/dL (0-150)
[2024-09-05 11:09] LABS: Estmated Average Glucose 154
[2024-09-05 11:15] LABS: Creatinine Urine, Random 24 mg/dL (39-259); Microalbumin Random Urine 1 ug/dL (0-20)
[2024-09-05 11:16] LABS: Microalbum Creatinine Ratio Ur 42 mg/dL (0-20)
== END 2024-09-05 09:56 | disposition home or self-care (01) ==
LOC: LAB 09:56
PROVIDERS: PCP Nurse Practitioner Family; Visit Provider Internal Medicine
DX: E78.2 Mixed hyperlipidemia (principal); E11.65 Type 2 diabetes mellitus with hyperglycemia; N18.4 Chronic kidney disease, stage 4 (severe); E11.22 Type 2 diabetes mellitus with diabetic chronic kidney disease; E11.9 Type 2 diabetes mellitus without complications
CPT/HCPCS: 36415; 80053; 80061; 82044; 83036

== ENCOUNTER → 2024-09-07 11:33 | Outpatient (BNVA) | payer OTHER, SELFPAY | PROVIDERS: PCP Nurse Practitioner Family; Visit Provider Internal Medicine | DX: E11.22 Type 2 diabetes mellitus with diabetic chronic kidney disease (principal); E11.65 Type 2 diabetes mellitus with hyperglycemia; N18.4 Chronic kidney disease, stage 4 (severe); E78.2 Mixed hyperlipidemia; E11.9 Type 2 diabetes mellitus without complications; L25.9 Unspecified contact dermatitis, unspecified cause; S32.029A Unspecified fracture of second lumbar vertebra, initial encounter for closed fracture; I71.43 Infrarenal abdominal aortic aneurysm, without rupture; E55.9 Vitamin D deficiency, unspecified | CPT/HCPCS: 99214 ==

== ENCOUNTER → 2024-09-26 09:08 | Outpatient (BNVA) | payer OTHER, SELFPAY ==
[2024-09-26 10:31] LABS: Basophils % 0.4 %; Eosinophils # 0.3 10^3/uL (0.0-0.8); Eosinophils % 3.1 %; Hematocrit 41.5 % (37-53); Lymphocytes # 1.3 10^3/uL (0.8-4.8); Lymphocytes % 13.1 %; Mean Corpuscular HGB Conc 31.8 g/dL (30-55); Mean Corpuscular Hemoglobin 29.5 pg (27-33); Mean Corpuscular Volume 92.6 fl (82-101); Mean Platelet Volume 10.8 fL (7.4-10.4); Monocytes # 0.9 10^3/uL (0.2-0.9); Monocytes % 8.7 %; Neutrophils # 7.47 10^3/uL (1.8-7.7); Neutrophils % 73.8 %; Nucleated Red Blood Cells % 0 %; Platelet Count 261 10^3/cmm (157-399); Red Blood Count 4.48 10^6/uL (3.85-5.65); Red Cell Distribution Width 16.9 % (12.1-15.1); White Blood Count 10.12 10^3/uL (3.29-11.43)
[2024-09-26 11:03] LABS: Creatinine Urine, Random 38 mg/dL (39-259); Microalbum Creatinine Ratio Ur 26 mg/dL (0-20); Microalbumin Random Urine 1 ug/dL (0-20)
[2024-09-26 11:04] LABS: Parathyroid Hormone 45.4 pg/mL (15-65)
[2024-09-26 11:08] LABS: 25 Hydroxy Vitamin D 40 ng/mL (30-100); Alanine Aminotransferase 12 U/L (0-41); Albumin Level 4.1 g/dL (3.5-5.2); Alkaline Phosphatase 72 U/L (40-130); Anion Gap 15.4 (5-19); Aspartate Amino Transferase 35 U/L (0-40); Blood Urea Nitrogen 40 mg/dL (8-23); Carbon Dioxide 23 mmol/L (22-29); Chloride 108 mmol/L (98-107); Chol HDL Ratio 6.37 mg/dL (1.0-5.00); Cholesterol 191 mg/dL (0-200); Globulin 2.2 g/dL (1.3-4.6); Glucose 181 mg/dL (65-115); HDL Cholesterol 30 mg/dL (60-100); LDL Cholesterol Calculated 117 mg/dL (50-129); Magnesium 1.9 mg/dL (1.7-2.3); Osmolality Calculated 308 mOsm/kg (285-295); Phosphorus 2.8 mg/dL (2.5-4.5); Potassium 4.4 mmol/L (3.5-5.1); Sodium 142 mmol/L (136-145); Thyroid Stimulating Hormone 40.83 uIU/mL (0.27-4.20); Total Bilirubin 0.4 mg/dL (0.15-1.2); Total Protein 6.3 g/dL (6.6-8.7); Triglycerides 221 mg/dL (0-150)
[2024-09-26 11:28] LABS: Estmated Average Glucose 154
== END ==
LOC: ORTOACUTE 09-27 09:03
PROVIDERS: Internal Medicine; Absent Provider Registered Nurse; PCP Nurse Practitioner Family; Visit Provider Podiatrist Foot & Ankle Surgery
DX: M79.671 Pain in right foot (principal); E78.2 Mixed hyperlipidemia; E11.9 Type 2 diabetes mellitus without complications; E11.22 Type 2 diabetes mellitus with diabetic chronic kidney disease; E11.65 Type 2 diabetes mellitus with hyperglycemia; N18.4 Chronic kidney disease, stage 4 (severe); L25.9 Unspecified contact dermatitis, unspecified cause; S32.029A Unspecified fracture of second lumbar vertebra, initial encounter for closed fracture; E55.9 Vitamin D deficiency, unspecified; I71.43 Infrarenal abdominal aortic aneurysm, without rupture; S92.351A Displaced fracture of fifth metatarsal bone, right foot, initial encounter for closed fracture; X58.XXXA Exposure to other specified factors, initial encounter
CPT/HCPCS: 36415; 73630; 80053; 80061; 82044; 82306; 82310; 83036; 83735; 83970; 84100; 84443; 85025; 99213

== ENCOUNTER → 2024-10-11 10:53 | Outpatient (BNVA) | payer OTHER, SELFPAY | PROVIDERS: PCP Nurse Practitioner Family; Visit Provider Podiatrist Foot & Ankle Surgery | DX: S92.353D Displaced fracture of fifth metatarsal bone, unspecified foot, subsequent encounter for fracture with routine healing (principal); X58.XXXD Exposure to other specified factors, subsequent encounter | CPT/HCPCS: 73630; 99213 ==

== ENCOUNTER 2024-10-16 13:12 | Outpatient (CLI) | payer OTHER, SELFPAY ==
--- NOTE | 2024-10-16 13:30 | XR_ITS ---
WS: [id number] SCREENING DEXA SCAN [employer] CLINICAL INFORMATION: see problelm list FINDINGS: The L1-L4 bone mineral density measures 1.008 g/cm2. This corresponds to a T score score of -1.8 and Z score of -1.5. Left femoral neck bone mineral density measures 0.733 g/cm2. This corresponds to a T score of -2.6 and Z score of -1.8. Right femoral neck bone mineral density measures 0.734 g/cm2. This corresponds to a T score -2.6of and Z score of -1.8. Mean femoral neck bone mineral density measures 0.733 g/cm2. This corresponds to a T score of -2.6 and Z score of -1.8. XR/XR DEXA axial skeleton* 30509 IMPRESSION: Osteopenia lumbar spine. Osteoporosis femoral neck. Patient's FRAX calculated 10 year probability for major osteoporotic fracture i s 18.1% and osteoporotic hip fracture is 10.4%.
== END 2024-10-16 13:13 | disposition home or self-care (01) ==
PROVIDERS: PCP Nurse Practitioner Family; Visit Provider Internal Medicine
DX: S32.029A Unspecified fracture of second lumbar vertebra, initial encounter for closed fracture (principal); X58.XXXA Exposure to other specified factors, initial encounter; M85.88 Other specified disorders of bone density and structure, other site; M81.0 Age-related osteoporosis without current pathological fracture
CPT/HCPCS: 77080

== ENCOUNTER 2024-10-18 18:39 | Emergency (ER) | payer OTHER, MEDICARE, SELFPAY ==
[2024-10-18 19:05] VITALS: BP 111/63; PULSE 57; RESP 18; TEMP 36.8; O2SAT 96; BMI 33.6
--- NOTE | 2024-10-18 21:08 | XRR_ITS ---
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 Views: 2 views. COMPARISON: CR XR tibia fibula LT 2V [id number] 10/20/2022 5:21 PM FINDINGS: Bones/joints: Knee arthroplasty changes in place. [id number] tibiotalar joint osteoarthritis. Calcified heel spur. Soft tissues: Normal. XR/XR tibia fibula LT 2V [id number] IMPRESSION: 1. Negative for fracture or dislocation. 2. Knee arthroplasty changes in place. 3. Hlwx-[id number] tibiotalar joint osteoarthritis. 4. Calcified heel spur.
--- NOTE | 2024-10-18 21:08 | W.ED.WOUNDLC ---
HPI - Wound/Laceration General: Chief Complaint: Wound/Laceration Stated Complaint: leg laceration bleeding heavy Time Seen by Provider: 10/18/24 19:39 Source: patient and family Mode of arrival: ambulatory Limitations: no limitations History of Present Illness: Patient is a very nice 79-year-old male here with family for evaluation of a laceration to his left lower extremity that he sustained just a few hours ago after accidentally cutting it on the deck of his lawnmower. Last tetanus is up-to-date. Onset (ago): hour(s) Extremity Location: Left: lower leg Place: home Patient tetanus UTD: Yes Context: accidental Associated symptoms: Reports no associated symptoms Treatments prior to arrival: bandage Related Data Home Medications ?Medication ?Instructions ?Recorded ?Confirmed allopurinol 300 mg tablet 300 mg PO DAILY 09/03/19 10/11/24 citalopram 40 mg tablet 20 mg PO DAILY 09/03/19 10/11/24 pantoprazole 40 mg tablet,delayed 40 mg PO DAILY 09/03/19 10/11/24 release tamsulosin 0.4 mg capsule 0.4 mg PO DAILY 09/03/19 10/11/24 tiotropium bromide 18 mcg capsule 1 cap inhalation DAILY 09/03/19 10/11/24 with inhalation device (Spiriva with HandiHaler) cholecalciferol (vitamin D3) 25 25 mcg PO DAILY 01/09/21 10/11/24 mcg (1,000 unit) tablet (Vitamin D3) furosemide 40 mg tablet 40 mg PO DAILY 02/12/21 10/11/24 fenofibrate nanocrystallized 48 mg 145 mg PO DAILY 12/10/21 10/11/24 tablet omega-3 acid ethyl esters 1 gram 2 cap PO BID 12/10/21 10/11/24 capsule atorvastatin 80 mg tablet 80 mg PO BEDTIME 04/23/24 10/11/24 cyclobenzaprine 10 mg tablet 10 mg PO TID 04/23/24 10/11/24 fluticasone propionate 50 2 spray intranasal DAILY 04/23/24 10/11/24 mcg/actuation nasal spray,suspension mupirocin 2 % topical ointment 1 applic topical BID PRN infection 04/23/24 10/11/24 cetirizine 10 mg tablet (Zyrtec) 10 mg PO DAILY PRN allergies 06/29/24 10/11/24 docusate sodium 100 mg capsule 100 mg PO BID 06/29/24 10/11/24 isosorbide mononitrate 30 mg 30 mg PO DAILY 06/29/24 10/11/24 tablet,extended release 24 hr megestrol 20 mg tablet 20 mg PO DAILY 06/29/24 10/11/24 oxycodone 5 mg tablet 5 mg PO BID PRN moderate pain. 06/29/24 10/11/24 vit C 250 mg-vit E 90 mg-zinc 40 1 tab PO BID 06/29/24 10/11/24 mg-copper 1 [id number] capsule (PreserVision AREDS-2) Previous Rx's ?Medication ?Instructions ?Recorded glucagon 1 mg solution for 1 mg SUBCUT Q20M PRN hypoglycemia 12/10/21 injection (Glucagon Emergency Kit) #1 ea 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 meter,continuous #1 ea 05/11/23 (Dexcom G7 Shearing Machine Tender) insulin glargine-yfgn 100 unit/mL 25 unit (0.25 mL) SUBCUT DAILY 04/27/24 (3 mL) subcutaneous pen (Semglee #46.8 mL (insulin glargine-yfgn) Pen) metoprolol tartrate 50 mg tablet 75 mg (1.5 x 50 mg) PO BID #180 05/16/24 tabs nitroglycerin 0.4 mg sublingual 0.4 mg sublingual Q5M PRN Chest 05/16/24 tablet (Nitrostat) Pain #25 tabs amiodarone 200 mg tablet (Pacerone) See Rx Instructions .Route 07/03/24 .COMPLEX #90 tabs insulin aspart U-100 100 unit/mL See Rx Instructions .Route 07/05/24 subcutaneous solution (Novolog .COMPLEX #10 mL U-100 Insulin aspart) apixaban 5 mg tablet (Eliquis) 5 mg PO BID #180 tabs 07/11/24 clopidogrel 75 mg tablet 75 mg PO DAILY #90 tabs 07/11/24 diltiazem HCl 120 mg 120 mg PO DAILY #90 caps 07/11/24 capsule,extended release 24 hr (Cardizem CD) 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 sensor (Dexcom G7 #3 ea 10/09/24 Sensor device) levothyroxine 75 mcg tablet 75 mcg PO DAILY 1 month #90 tabs 10/11/24 (Synthroid) cephalexin 500 mg capsule 500 mg PO Q6H 7 days #28 caps 10/18/24 Allergies Allergy/AdvReac Type Severity Reaction Status Date / Time vancomycin Allergy Severe ALGY-Anaphy Verified 10/11/24 10:52 laxis Opioids - Morphine Analogues Allergy Unknown Verified 10/11/24 10:52 Review of Systems Musc: Reports: extremity pain; Denies: extremity swelling, joint pain or joint swelling Skin/Breast: Reports: other (laceration L LE) Neuro: Denies: numbness in extremities, sensory changes or difficulty walking PFS ED PFSH: Medical History Positive cardiac stress test COVID-19 05/2022 GERD (gastroesophageal reflux disease) Horseshoe kidney Depression BPH (benign prostatic hyperplasia) Gout Tobacco abuse, in remission Diabetes CKD (chronic kidney disease) COPD (chronic obstructive pulmonary disease) Hyperlipidemia HTN (hypertension) Atrial fibrillation ASHD (arteriosclerotic heart disease) AAA (abdominal aortic aneurysm) Surgical History S/P total knee arthroplasty (04/13/24) left S/P appendectomy S/P cholecystectomy S/P knee replacement right, had post operative infection with repeat surgeries needed in approximately 2011 L. knee replacement in 04/2024 S/P tonsillectomy S/P hernia repair umbilical hernia repair, and R. inguinal hernia repair S/P PTCA (percutaneous transluminal coronary angioplasty) 2 stents in 2009 placed at the [facility] in [place] Family History Father CAD (coronary artery disease) Hypertension Myocardial infarction Social History Smoking and tobacco/nicotine status: former use of tobacco/nicotine Alcohol intake: never Substance/Drug Use: never Additional social history: smoked 2 ppd for apprixmately 50yrs. Physical Exam Const: COMMON NORMALS: no acute distress, average body habitus, no limitations, healthy appearing, alert and well nourished Extremity: COMMON NORMALS: full ROM, capillary refill normal, no joint enlargement, no clubbing, cyanosis or edema and no pedal edema GENERAL: Yes normal exam except as noted LEFT LOWER EXTREMITY: Yes lower leg Left lower leg: Yes neurovascular exam (normal) EXTREMITY IMAGE (FRONT):  1. 8cm laceration anterior L lower leg; bleeding controlled; NV intact; no obvious bony/tendon involvement Neuro: COMMON NORMALS: moves all extremities, no focal motor deficits and no sensory deficits noted SENSORIUM/ORIENTATION: Yes alert Skin: TRAUMA: laceration Procedures Laceration Laceration 1: Site: lower extremity Side (If applicable): left Size (cm): 8 Description: linear Local Anesthetic: lidocaine 2% Amount of anesthesia used (mL): 5.0 Pre-repair: wound explored and irrigated extensively Skin layer closed with: nylon Size (cm): 3-0 Number of sutures: 11 Technique: simple, interrupted Course Vital Signs: Vital signs: Vital Signs Temperature 98.2 F 10/18/24 19:05 Pulse Rate 57 L 10/18/24 19:05 Respiratory Rate 18 10/18/24 19:05 Blood Pressure 111/63 10/18/24 19:05 Pulse Oximetry 96 10/18/24 19:05 Oxygen Delivery Me thod Room Air 10/18/24 19:05 MDM - Wound/Laceration Medical Decision Making Wound copiously irrigated and repaired as documented. Will place him on prophylactic antibiotics. Wound care/infection precautions discussed. XR of his tib/fib obtained and unremarkable. Lab Data Radiology Impressions Tibia/Fibula X-Ray 10/18/24 21:08 IMPRESSION: 1. Negative for fracture or dislocation. 2. Knee arthroplasty changes in place. 3. Jeem-bf-djuywpto tibiotalar joint osteoarthritis. 4. Calcified heel spur. All radiology interpretation(s) finalized by discharge Discharge Plan Discharge Patient Disposition: Home Clinical Impression: Laceration of left lower leg Qualifiers: Encounter type: initial encounter Qualified Code(s): S81.812A - Laceration without foreign body, left lower leg, initial encounter Condition: Stable Prescriptions: New cephalexin 500 mg capsule 500 mg PO Q6H 7 Days Qty: 28 0RF No Action pantoprazole 40 mg tablet,delayed release (DR/EC) 40 mg PO DAILY citalopram 40 mg tablet 20 mg PO DAILY allopurinol 300 mg tablet 300 mg PO DAILY tamsulosin 0.4 mg capsule 0.4 mg PO DAILY Spiriva with HandiHaler 18 mcg capsule, w/inhalation device 1 cap INHALATION DAILY furosemide 40 mg tablet 40 mg PO DAILY omega-3 acid ethyl esters 1 gram capsule 2 cap PO BID Glucagon Emergency Kit (human) 1 mg recon soln 1 mg SUBCUT Q20M PRN (Reason: hypoglycemia) Qty: 1 3RF Rx Instructions: until target blood sugar attained Eliquis 5 mg tablet 5 mg PO BID Qty: 180 3RF clopidogrel 75 mg tablet 75 mg PO DAILY Qty: 90 0RF diltiazem HCl [Cardizem CD] 120 mg capsule,extended release 24hr 120 mg PO DAILY Qty: 90 3RF (DME) Dexcom G7 Shearing Machine Tender Misc See Rx Instructions .Route Qty: 1 0RF Rx Instructions: sending DME form nitroglycerin [Nitrostat] 0.4 mg tablet, sublingual 0.4 mg SUBLINGUAL Q5M PRN (Reason: Chest Pain) Qty: 25 1RF metoprolol tartrate 50 mg tablet 75 mg PO BID Qty: 180 2RF insulin aspart U-100 [Novolog U-100 Insulin aspart] 100 unit/mL solution See Rx Instructions .ROUTE .COMPLEX Qty: 10 1RF Dose Instruction: INJECT 4 TO 5 UNITS UNDER THE SKIN THREE TIMES A DAY BEFORE MEALS ADMINISTER 10 MINUTES BEFORE FOOD DIRECTED. DISCARD ANY VIAL 28 DAYS AFTER OPENING. Rx Instructions: INJECT 4 TO 5 UNITS UNDER THE SKIN THREE TIMES A DAY BEFORE MEALS ADMINISTER 10 MINUTES BEFORE FOOD DIRECTED. DISCARD ANY VIAL 28 DAYS AFTER OPENING. (DME) Dexcom G7 Sensor Device See Rx Instructions .ROUTE .COMPLEX Qty: 3 3RF Dose Instruction: USE 1 SENSOR UNDER THE SKIN EVERY 10 DAYS FOR BLOOD SUGAR MONITORING CHANGE SENSOR/SITE EVERY 10 DAYS. CONTACT [facility] FOR REPLACEMENT OF DAMAGED/MALFUNCTIONING SENSORS. Rx Instructions: USE 1 SENSOR UNDER THE SKIN EVERY 10 DAYS FOR BLOOD SUGAR MONITORING CHANGE SENSOR/SITE EVERY 10 DAYS. CONTACT [facility] FOR REPLACEMENT OF DAMAGED/MALFUNCTIONING SENSORS. levothyroxine [Synthroid] 75 mcg tablet 75 mcg PO DAILY 30 Days Qty: 90 2RF cholecalciferol (vitamin D3) [Vitamin D3] 25 mcg (1,000 unit) Tablet 25 mcg PO DAILY fenofibrate nanocrystallized 48 mg tablet 145 mg PO DAILY cyclobenzaprine 10 mg Tablet 10 mg PO TID atorvastatin 80 mg Tablet 80 mg PO BEDTIME mupirocin 2 % Ointment 1 applic TOPICAL BID PRN (Reason: infection) fluticasone propionate 50 mcg/actuation [place],Suspension 2 spray INTRANASAL DAILY Rx Instructions: administer into each nostril insulin glargine-yfgn [Semglee(insulin glarg-yfgn)Pen] 100 unit/mL (3 mL) insulin pen 25 unit SUBCUT DAILY Qty: 46.8 1RF isosorbide mononitrate 30 mg tablet extended release 24 hr 30 mg PO DAILY docusate sodium 100 mg capsule 100 mg PO BID oxycodone 5 mg tablet 5 mg PO BID PRN (Reason: moderate pain.) cetirizine [Zyrtec] 10 mg Tablet 10 mg PO DAILY PRN (Reason: allergies) megestrol 20 mg Tablet 20 mg PO DAILY PreserVision AREDS-2 250-90-40-1 mg Capsule 1 tab PO BID amiodarone [Pacerone] 200 mg Tablet See Rx Instructions .ROUTE .COMPLEX Qty: 90 0RF Rx Instructions: 400mg BID for 7 days, then 200mg BID Discharge Orders: Discharge ED (Routine); Ordered 10/18/24 Ordered By: Sally Reyes Referrals: Maureen Samson APRN [Primary Care Provider] - Patient Instructions: Care For Your Stitches (DC), Laceration (DC) Activity Restrictions/Additional Instructions: Keep wound/laceration clean with warm soap and water twice daily. Monitor for signs of infection such as redness, swelling, increased pain, or drainage. Please seek medical re-evaluation if these occur. If you received sutures today these will need to be removed (unless you were told by the provider that they are absorbable). The provider should have discussed with you the length of time until removal-10 to 14 days. Print Language: Nepalese Coding Level of Care Code ED Glass Blower Helper for Lesa Thorpe
[2024-10-18] MEDS: cephALEXin 500 mg Capsule PO (22:14)
== END 2024-10-18 22:14 | disposition home or self-care (01) ==
PROVIDERS: Emergency Provider Physician Assistant; PCP Nurse Practitioner Family
DX: S81.812A Laceration without foreign body, left lower leg, initial encounter (principal); Z79.01 Long term (current) use of anticoagulants; Z79.02 Long term (current) use of antithrombotics/antiplatelets; Z79.4 Long term (current) use of insulin; E78.5 Hyperlipidemia, unspecified; J44.9 Chronic obstructive pulmonary disease, unspecified; E11.22 Type 2 diabetes mellitus with diabetic chronic kidney disease; I12.9 Hypertensive chronic kidney disease with stage 1 through stage 4 chronic kidney disease, or unspecified chronic kidney disease; N18.9 Chronic kidney disease, unspecified; X58.XXXA Exposure to other specified factors, initial encounter
CPT/HCPCS: 12004; 73590; 99283; 99291; J9999

== ENCOUNTER → 2024-11-07 09:00 | Outpatient (BNVA) | payer OTHER, SELFPAY | PROVIDERS: PCP Nurse Practitioner Family; Visit Provider Nurse Practitioner Family | DX: I48.20 Chronic atrial fibrillation, unspecified (principal); I71.43 Infrarenal abdominal aortic aneurysm, without rupture; I25.10 Atherosclerotic heart disease of native coronary artery without angina pectoris; Z79.01 Long term (current) use of anticoagulants; I34.0 Nonrheumatic mitral (valve) insufficiency; Z87.891 Personal history of nicotine dependence; I12.9 Hypertensive chronic kidney disease with stage 1 through stage 4 chronic kidney disease, or unspecified chronic kidney disease; N18.9 Chronic kidney disease, unspecified | CPT/HCPCS: 99213 ==

== ENCOUNTER → 2024-11-08 11:00 | Outpatient (BNVA) | payer OTHER, SELFPAY | PROVIDERS: PCP Nurse Practitioner Family; Visit Provider Podiatrist Foot & Ankle Surgery | DX: E11.22 Type 2 diabetes mellitus with diabetic chronic kidney disease (principal); L60.3 Nail dystrophy; S92.353A Displaced fracture of fifth metatarsal bone, unspecified foot, initial encounter for closed fracture; E11.65 Type 2 diabetes mellitus with hyperglycemia; N18.4 Chronic kidney disease, stage 4 (severe); G62.9 Polyneuropathy, unspecified; X58.XXXA Exposure to other specified factors, initial encounter; Z79.4 Long term (current) use of insulin | CPT/HCPCS: 11721; 99213 ==

== ENCOUNTER → 2024-12-07 11:11 | Outpatient (BNVA) | payer OTHER, SELFPAY | PROVIDERS: PCP Nurse Practitioner Family; Visit Provider Internal Medicine | DX: E11.22 Type 2 diabetes mellitus with diabetic chronic kidney disease (principal); E11.65 Type 2 diabetes mellitus with hyperglycemia; N18.4 Chronic kidney disease, stage 4 (severe); E78.2 Mixed hyperlipidemia; E55.9 Vitamin D deficiency, unspecified | CPT/HCPCS: 99214 ==

== ENCOUNTER 2025-01-10 10:05 | Oncology outpatient (recurring) (ONCR) | payer OTHER, SELFPAY ==
[2025-01-10 10:19] VITALS: BP 133/81; PULSE 48; RESP 17; O2SAT 98
[2025-01-10] MEDS: denosumab 60 mg SDV SUBCUT (10:27)
[2025-01-10 10:46] VITALS: BP 124/78; PULSE 48; RESP 18; TEMP 36.6; O2SAT 98
== END 2025-01-31 23:59 | disposition home or self-care (01) ==
PROVIDERS: PCP Nurse Practitioner Family; Visit Provider Internal Medicine
DX: M81.0 Age-related osteoporosis without current pathological fracture (principal); Z79.899 Other long term (current) drug therapy; L60.3 Nail dystrophy; S92.353A Displaced fracture of fifth metatarsal bone, unspecified foot, initial encounter for closed fracture; X58.XXXA Exposure to other specified factors, initial encounter; Z87.891 Personal history of nicotine dependence; G62.9 Polyneuropathy, unspecified
CPT/HCPCS: 11055; 11721; 96372; J0897

== ENCOUNTER 2025-02-07 10:32 | Outpatient (CLI) | payer OTHER, SELFPAY ==
[2025-02-07 11:38] LABS: Hematocrit 39.0 % (37-53); Hemoglobin 12.40 g/dL (11.27-16.99); Mean Corpuscular HGB Conc 31.8 g/dL (30-55); Mean Corpuscular Hemoglobin 30.3 pg (27-33); Mean Corpuscular Volume 95.4 fl (82-101); Nucleated Red Blood Cells % 0 %; Platelet Count 231 10^3/cmm (157-399); Red Blood Count 4.09 10^6/uL (3.85-5.65); White Blood Count 5.93 10^3/uL (3.29-11.43)
[2025-02-07 11:58] LABS: Calcium 7.9 mg/dL (8.5-10.5)
[2025-02-07 11:59] LABS: Creatinine Urine, Random 44 mg/dL (39-259); Microalbum Creatinine Ratio Ur 23 mg/dL (0-20)
[2025-02-07 12:02] LABS: Albumin Level 3.9 g/dL (3.5-5.2); Anion Gap 14.5 (5-19); Blood Urea Nitrogen 30 mg/dL (8-23); Calcium 8.0 mg/dL (8.5-10.5); Carbon Dioxide 23 mmol/L (22-29); Chloride 108 mmol/L (98-107); Glucose 173 mg/dL (65-115); Potassium 4.5 mmol/L (3.5-5.1); Sodium 141 mmol/L (136-145); Uric Acid 5.1 mg/dL (3.4-7.0)
[2025-02-07 12:12] LABS: Calcium 8.0 mg/dL (8.5-10.5); Free T4 Free Thyroxine 1.05 ng/dL (0.82-1.77); Thyroid Stimulating Hormone 60.89 uIU/mL (0.27-4.20)
== END 2025-02-07 10:33 | disposition home or self-care (01) ==
PROVIDERS: Internal Medicine; PCP Nurse Practitioner Family; Visit Provider Registered Nurse
DX: E78.2 Mixed hyperlipidemia (principal); E11.22 Type 2 diabetes mellitus with diabetic chronic kidney disease; E11.65 Type 2 diabetes mellitus with hyperglycemia; N18.4 Chronic kidney disease, stage 4 (severe); L25.9 Unspecified contact dermatitis, unspecified cause; S32.029A Unspecified fracture of second lumbar vertebra, initial encounter for closed fracture; X58.XXXA Exposure to other specified factors, initial encounter; E55.9 Vitamin D deficiency, unspecified
CPT/HCPCS: 80069; 82044; 82306; 82310; 83970; 84439; 84443; 84480; 84550; 85025

== ENCOUNTER → 2025-02-18 08:06 | Outpatient (BNVA) | payer OTHER, SELFPAY | PROVIDERS: PCP Nurse Practitioner Family; Visit Provider Internal Medicine | DX: E03.9 Hypothyroidism, unspecified (principal); E55.9 Vitamin D deficiency, unspecified; E11.9 Type 2 diabetes mellitus without complications; M81.0 Age-related osteoporosis without current pathological fracture; E78.2 Mixed hyperlipidemia | CPT/HCPCS: 99214 ==

== ENCOUNTER 2025-02-25 08:54 | Outpatient (CLI) | payer OTHER, SELFPAY ==
--- NOTE | 2025-02-25 09:00 | USCV_ITS ---
Lexi José Age: 79 Gender: M : 1945 Exam Date: 02/25/2025 09:06 Ordering Phys: Sally Beck NP Technologist: MILENA [place] [facility] [place] HISTORY: Diameter (cm) AP x Transverse x Length Velocity (cm/s) Waveform Prox Aorta: 1.59 x 1.65 x 36.40 Triphasic Mid Aorta: 2.44 x 2.97 x 53.10 Triphasic Distal Aorta: 3.85 x 3.67 x 12.20 Triphasic Right Iliac Prox: 0.92 x 1.01 x 76.40 Triphasic Left Iliac Prox: 1.18 x 0.89 x 89.60 Triphasic Stent Prox Landing x x Aneurysmal Sac Max x x Lt Lat Sac Dim Rt Lat Sac Dim Stent Dist Landing x x Right Iliac Stent x x Left Iliac Stent x x Right Renal Art Left Renal Art FINDINGS: CONCLUSIONS AAA distal aorta measuring 3.8 x 3.6cm AP x trans Normal iliac arteries Moderate atheromatous disease Sulaiman Moore MD (Electronically Signed) Final Date: 25 February 2025 16:42 S
== END 2025-02-25 08:55 | disposition home or self-care (01) ==
LOC: RAD 08:55
PROVIDERS: PCP Nurse Practitioner Family; Visit Provider Nurse Practitioner Family
DX: I71.40 Abdominal aortic aneurysm, without rupture, unspecified (principal); I70.90 Unspecified atherosclerosis
CPT/HCPCS: 76706

== ENCOUNTER → 2025-03-28 09:01 | Outpatient (BNVA) | payer OTHER, SELFPAY | PROVIDERS: PCP Family Medicine Geriatric Medicine; Visit Provider Podiatrist Foot & Ankle Surgery | DX: E11.8 Type 2 diabetes mellitus with unspecified complications (principal); L60.3 Nail dystrophy; S92.353A Displaced fracture of fifth metatarsal bone, unspecified foot, initial encounter for closed fracture; G62.9 Polyneuropathy, unspecified; X58.XXXA Exposure to other specified factors, initial encounter; Z79.4 Long term (current) use of insulin | CPT/HCPCS: 11721 ==

== ENCOUNTER 2025-04-17 10:41 | Outpatient (CLI) | payer OTHER, SELFPAY ==
[2025-04-17 11:45] LABS: Alanine Aminotransferase 16 U/L (0-41); Albumin Level 3.7 g/dL (3.5-5.2); Alkaline Phosphatase 73 U/L (40-130); Anion Gap 16.9 (5-19); Aspartate Amino Transferase 106 U/L (0-40); Blood Urea Nitrogen 35 mg/dL (8-23); Calcium 8.7 mg/dL (8.5-10.5); Carbon Dioxide 23 mmol/L (22-29); Chloride 104 mmol/L (98-107); Globulin 2.4 g/dL (1.3-4.6); Glucose 195 mg/dL (65-115); Osmolality Calculated 303 mOsm/kg (285-295); Potassium 3.9 mmol/L (3.5-5.1); Sodium 140 mmol/L (136-145); Thyroid Stimulating Hormone 40.67 uIU/mL (0.27-4.20); Total Protein 6.1 g/dL (6.6-8.7)
[2025-04-17 12:09] LABS: Free T4 Free Thyroxine 1.38 ng/dL (0.82-1.77)
== END 2025-04-17 10:42 | disposition home or self-care (01) ==
LOC: LAB 10:42
PROVIDERS: PCP Family Medicine Geriatric Medicine; Visit Provider Internal Medicine
DX: E11.9 Type 2 diabetes mellitus without complications (principal); E03.9 Hypothyroidism, unspecified; E55.9 Vitamin D deficiency, unspecified; M81.0 Age-related osteoporosis without current pathological fracture
CPT/HCPCS: 36415; 80053; 82306; 84439; 84443

== ENCOUNTER → 2025-04-22 11:07 | Outpatient (BNVA) | payer OTHER, SELFPAY | PROVIDERS: PCP Family Medicine Geriatric Medicine; Visit Provider Internal Medicine Endocrinology, Diabetes & Metabolism | DX: E78.2 Mixed hyperlipidemia (principal); E11.65 Type 2 diabetes mellitus with hyperglycemia; E11.22 Type 2 diabetes mellitus with diabetic chronic kidney disease; N18.4 Chronic kidney disease, stage 4 (severe); L25.9 Unspecified contact dermatitis, unspecified cause; S32.029A Unspecified fracture of second lumbar vertebra, initial encounter for closed fracture; E03.9 Hypothyroidism, unspecified; E21.3 Hyperparathyroidism, unspecified; X58.XXXA Exposure to other specified factors, initial encounter | CPT/HCPCS: 99214 ==

== ENCOUNTER 2025-04-30 13:19 | Emergency (ER) | payer OTHER, SELFPAY ==
--- OUTSIDE RECORDS SUMMARY | 2024-10-02 09:00 | XMS_ITS ---
Author Organization [facility] Address [address] [place] [address] Care Team Providers Care Head Of Talent Management Name Role Phone Maureen Samson Primary Care Provider Juan Manuel Servin [phone] REASON FOR VISIT low back pain Encounters Encounter Location Date Provider Diagnosis [facility] [address] [address] 10/02/2024 Juan Manuel French Plan Of Treatment No Information Progress Notes * José ELLIOTT ADOB: [birth year] (79 yo M)Acc No.[id number]:10/02/2024 Progress Notes Patient: José Houston Provider: Harjit French MD :1945 A ge:79 Y S ex:Male Date:10/02/2024 [facility] [facility] [id number] Pcp:Maureen Samson Subjective: * Chief Complaints: * L ow back pain * Electronic signature of Izaiah French MD on 04/30/2025 at 02:46 PM CDT Sign off status: Pending * Provider: Harjit French MD Date: 0 10/02/2024 Generated for Printi ng/Faxing/eTransmitting on: 1 02:46 PM CDT
--- OUTSIDE RECORDS SUMMARY | 2024-12-03 12:00 | XMS_ITS ---
Author Organization [facility] Address [address] [place] [address] Care Team Providers Care Manager Regulatory Name Role Phone Unruly Landeros Primary Care Provider Unavailab VIVIAN Martinez Unavailable [phone] BRAD PINEDA Unavailable [phone] REASON FOR VISIT 6 mo w/ ua/pvr/psa Encounters Encounter Location Date Provider Diagnosis [facility] [address] [place] [facility] [place] [address] 12/03/2024 BRAD PINEDA Plan Of Treatment No Information Progress Notes * José GÓEMZ ADOB: [birth year] (79 yo M)Acc No.[id number]:12/03/2024 Progress Notes Patient: José ROBLERO Provider: Bhavna PINEDA MD :1945 A ge:79 Y S ex:Male Date:12/03/2024 Address:[address] [place], [place] [phone] Pcp:Unruly Landeros Subjective: * Chief Complaints: * 1 . 6 mo w/ ua/pvr/psa. * Medical History: Objective: * Vitals: Assessment: Plan: * Treatment: * Billing Information: * Visit Code: * Procedure Codes: * Electronic signature of AUST IN MD EDWIN on 04/30/2025 at 02:46 PM CDT Sign off status: Pending * Provider: Bhavna PINEDA MD Date: 0 12/03/2024 Generated for Oni bertrand/Sindhu/Larry on: 1 02:46 PM CDT
[2025-04-30 13:28] VITALS: BP 119/73; PULSE 50; RESP 18; TEMP 36.5; O2SAT 97
--- NOTE | 2025-04-30 13:34 | ECG_ITS ---
[facility] Pat Name: José Elliott Department: Room: Gender: Male Manager Supply: : 1945 Requested By: Santiago Lombardi Order Number: [id number] Reading MD: Measurements Intervals [place] Rate: 50 P: 34 TN: 162 QRS: -6 QRSD: 98 T: 37 QT: 355 QTc: 326 Interpretive Statements SINUS BRADYCARDIA NONSPECIFIC T-WAVE ABNORMALITY No previous ECG available for comparison [email or web address]
[2025-04-30 14:29] LABS: Hematocrit 41.1 % (37-53); Hemoglobin 13.50 g/dL (11.27-16.99); Mean Corpuscular HGB Conc 32.8 g/dL (30-55); Mean Corpuscular Hemoglobin 30.6 pg (27-33); Mean Corpuscular Volume 93.2 fl (82-101); Nucleated Red Blood Cells % 0 %; Platelet Count 310 10^3/cmm (157-399); Red Blood Count 4.41 10^6/uL (3.85-5.65); White Blood Count 10.13 10^3/uL (3.29-11.43)
--- NOTE | 2025-04-30 14:35 | W.ED.GIBLEED ---
HPI - GI Bleed General: Chief complaint: GI Bleed Stated complaint: bloody stool, weak, dizzy, falls--sent by [facility] Time Seen by Provider: 04/30/25 14:09 History of Present Illness: 79-year-old male presents to the emergency room [facility] the [facility] complaining of dark stools. He is on Eliquis and Plavix. He is on the Eliquis because of atrial fibrillation. He has been a little lightheaded and dizzy. He has not had any bright red blood. He has previously had a colonoscopy which she reports was negative no previous EGD Associated symptoms: Denies abdominal pain, chills, fever(s) or rash Related Data Home Medications ?Medication ?Instructions ?Recorded ?Confirmed allopurinol 300 mg tablet 300 mg PO DAILY 09/03/19 04/30/25 citalopram 40 mg tablet 20 mg PO QAM 09/03/19 04/30/25 pantoprazole 40 mg tablet,delayed 40 mg PO QAM 09/03/19 04/30/25 release tamsulosin 0.4 mg capsule 0.8 mg PO DAILY 09/03/19 04/30/25 tiotropium bromide 18 mcg capsule 1 cap inhalation DAILY 09/03/19 04/30/25 with inhalation device (Spiriva with HandiHaler) cholecalciferol (vitamin D3) 25 25 mcg PO DAILY 01/09/21 04/30/25 mcg (1,000 unit) tablet (Vitamin D3) furosemide 40 mg tablet 40 mg PO BID 02/12/21 04/30/25 fenofibrate nanocrystallized 48 mg 145 mg PO DAILY 12/10/21 04/30/25 tablet atorvastatin 80 mg tablet 40 mg PO BEDTIME 04/23/24 04/30/25 cyclobenzaprine 10 mg tablet 10 mg PO TID PRN Muscle Spasm 04/23/24 04/30/25 fluticasone propionate 50 2 spray intranasal DAILY 04/23/24 04/30/25 mcg/actuation nasal spray,suspension cetirizine 10 mg tablet (Zyrtec) 10 mg PO DAILY PRN allergies 06/29/24 04/30/25 isosorbide mononitrate 30 mg 30 mg PO DAILY 06/29/24 04/30/25 tablet,extended release 24 hr vit C 250 mg-vit E 90 mg-zinc 40 1 tab PO BID 06/29/24 04/30/25 mg-copper 1 [id number] capsule (PreserVision AREDS-2) amiodarone 200 mg tablet (Pacerone) 200 mg PO BID 04/30/25 04/30/25 diclofenac sodium 1 % topical gel 4 g topical QID PRN joint pain 04/30/25 04/30/25 hydrocortisone-pramoxine 1 %-1 % 1 applic topical DAILY PRN 04/30/25 04/30/25 topical foam Inflammation lidocaine 5 % topical patch 1 patch topical DAILY PRN Pain 04/30/25 04/30/25 mineral oil-hydrophil petrolat 1 applic topical DAILY skin care 04/30/25 04/30/25 topical ointment sennosides 8.6 mg tablet 8.6 mg PO DAILY 04/30/25 04/30/25 Previous Rx's ?Medication ?Instructions ?Recorded 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,hospital education coordinator,cont #1 ea 05/11/23 (Dexcom G7 Triage Registered Nurse) metoprolol tartrate 50 mg tablet 75 mg (1.5 x 50 mg) PO BID #180 05/16/24 tabs nitroglycerin 0.4 mg sublingual 0.4 mg sublingual Q5M PRN Chest 05/16/24 tablet (Nitrostat) Pain #25 tabs insulin aspart U-100 100 unit/mL See Rx Instructions .Route 07/05/24 subcutaneous solution (Novolog .COMPLEX #10 mL U-100 Insulin aspart) apixaban 5 mg tablet (Eliquis) 5 mg PO BID #180 tabs 07/11/24 clopidogrel 75 mg tablet 75 mg PO DAILY #90 tabs 07/11/24 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 sensor (Dexcom G7 #9 ea 02/13/25 Sensor device) levothyroxine 137 mcg capsule 137 mcg PO DAILY hypothyroididm 04/22/25 #90 caps pantoprazole 40 mg tablet,delayed 40 mg PO BID #60 tabs 04/30/25 release Allergies Allergy/AdvReac Type Severity Reaction Status Date / Time vancomycin Allergy Severe ALGY-Anaphy Verified 03/28/25 09:04 laxis Opioids - Morphine Analogues Allergy Unknown Verified 03/28/25 09:04 Review of Systems Const: Denies: fever(s) or chills Card: Denies: chest pain Resp: Denies: dyspnea GI: Denies: abdominal pain : Denies: dysuria, urinary frequency or urinary urgency Musc: Denies: neck pain or back pain Skin/Breast: Denies: rash PFSH ED PFSH: Medical History Positive cardiac stress test COVID-19 05/2022 GERD (gastroesophageal reflux disease) [place] kidney Depression BPH (benign prostatic hyperplasia) Gout Tobacco abuse, in remission Diabetes CKD (chronic kidney disease) COPD (chronic obstructive pulmonary disease) Hyperlipidemia HTN (hypertension) Atrial fibrillation ASHD (arteriosclerotic heart disease) AAA (abdominal aortic aneurysm) Surgical History S/P total knee arthroplasty (04/13/24) left S/P appendectomy S/P cholecystectomy S/P knee replacement right, had post operative infection with repeat surgeries needed in approximately 2011 L. knee replacement in 04/2024 S/P tonsillectomy S/P hernia repair umbilical hernia repair, and R. inguinal hernia repair S/P PTCA (percutaneous transluminal coronary angioplasty) 2 stents in 2009 placed at the [facility] in [place] Family History Father CAD (coronary artery disease) Hypertension Myocardial infarction Social History Smoking and tobacco/nicotine status: former use of tobacco/nicotine Alcohol intake: never Substance/Drug Use: never Additional social history: smoked 2 ppd for apprixmately 50yrs. Physical Exam Const: GENERAL APPEARANCE: cooperative ORIENTATION/CONSCIOUSNESS: Yes awake, Yes oriented to person, Yes oriented to place and Yes oriented to time HENMT: COMMON NORMALS: normocephalic, atraumatic and hearing grossly normal bilaterally HEAD & SCALP: normocephalic and atraumatic Resp: COMMON NORMALS: normal respiratory effort, No retractions, No use of accessory muscles and clear to auscultation bilaterally AUSCULTATION: clear to auscultation bilaterally Cardio: COMMON NORMALS: regular rate, regular rhythm and No murmurs present (Cardio) RATE: regular rate RHYTHM: regular rhythm GI: COMMON NORMALS: Soft to palpation and No hepatosplenomegaly present AUSCULTATION: Yes normoactive bowel sounds PALPATION: Yes Soft to palpation, No Tenderness to palpation present (GI), No Guarding due to palpation present (GI) and Yes No hepatosplenomegaly present Extremity: COMMON NORMALS: normal to inspection, capillary refill normal, no clubbing, cyanosis or edema, no calf tenderness and no pedal edema Neuro: SENSORIUM/ORIENTATION: Yes oriented to person, Yes oriented to place and Yes oriented to time Skin: COMMON NORMALS: no rashes or lesions noted GENERAL SKIN EXAM: no rashes or lesions noted Course Vital Signs: Vital signs: Vital Signs Temperature 97.7 F 04/30/25 13:28 Pulse Rate 55 L 04/30/25 15:56 Respiratory Rate 18 04/30/25 13:28 Blood Pressure 134/58 04/30/25 15:56 Pulse Oximetry 94 04/30/25 15:56 Oxygen Delivery Me thod Room Air 04/30/25 13:28 MDM - GI Bleed Medical Decision Making Hemoccult stool was trace positive. Patient has had some dark stools for 2 weeks his hemoglobin is still 13 5. His vital signs otherwise stable. Will discharge patient home I talked to his human resources services specialist he is on it for A-fib he has not previously had an embolic stroke we will hold his Eliquis until he has had an EGD. Will increase his Protonix to 40 mg twice a day referral to general surgery for EGD Medical Records I reviewed the patient's medical records. Lab Data I reviewed the patient's lab results. 04/30/25 14:20 04/30/25 14:20 Laboratory Results WBC 10.13 10^3/uL (3.29-11.43) 04/30/25 14:20 RBC 4.41 10^6/uL (3.85-5.65) 04/30/25 14:20 Hgb 13.50 g/dL (11.27-16.99) 04/30/25 14:20 Hct 41.1 % (37-53) 04/30/25 14:20 MCV 93.2 fl (82-101) 04/30/25 14:20 MCH 30.6 pg (27-33) 04/30/25 14:20 MCHC 32.8 g/dL (30-55) 04/30/25 14:20 RDW 16.4 % (12.1-15.1) H 04/30/25 14:20 Plt Count 310 10^3/cmm (157-399) 04/30/25 14:20 MPV 11.0 fL (7.4-10.4) H 04/30/25 14:20 Neut % (Auto) 79.9 % 04/30/25 14:20 Lymph % (Auto) 8.9 % 04/30/25 14:20 [place] % (Auto) 7.9 % 04/30/25 14:20 Eos % (Auto) 2.0 % 04/30/25 14:20 Baso % (Auto) 0.6 % 04/30/25 14:20 Neut # (Auto) 8.10 10^3/uL (1.8-7.7) H 04/30/25 14:20 Lymph # (Auto) 0.9 10^3/uL (0.8-4.8) 04/30/25 14:20 [place] # (Auto) 0.8 10^3/uL (0.2-0.9) 04/30/25 14:20 Eos # (Auto) 0.2 10^3/uL (0.0-0.8) 04/30/25 14:20 Baso # (Auto) 0.1 10^3/uL (0.0-0.1) 04/30/25 14:20 Nucleated RBC % (auto) 0 % 04/30/25 14:20 Nucleated RBCs # 0.0 /100WBC 04/30/25 14:20 PT 19.30 SECONDS (12.1-14.9) H 04/30/25 14:20 INR 1.53 (0.8-1.2) H 04/30/25 14:20 APTT 38.4 SECONDS (23.9-36.7) H 04/30/25 14:20 Sodium 139 mmol/L (136-145) 04/30/25 14:20 Potassium 4.3 mmol/L (3.5-5.1) 04/30/25 14:20 Chloride 102 mmol/L (98-107) 04/30/25 14:20 Carbon Dioxide 24 mmol/L (22-29) 04/30/25 14:20 Anion Gap 17.3 (5-19) 04/30/25 14:20 BUN 39 mg/dL (8-23) H 04/30/25 14:20 Creatinine 2.0 mg/dL (0.7-1.2) H 04/30/25 14:20 GFR Calculation Not Reportable 04/30/25 14:20 Glucose 134 mg/dL (65-115) H 04/30/25 14:20 Calculated Osmolality 299 mOsm/kg (285-295) H 04/30/25 14:20 Calcium 9.9 mg/dL (8.5-10.5) 04/30/25 14:20 Total Bilirubin 0.7 mg/dL (0.15-1.2) 04/30/25 14:20 AST 120 U/L (0-40) H 04/30/25 14:20 ALT 17 U/L (0-41) 04/30/25 14:20 Alkaline Phosphatase 69 U/L (40-130) 04/30/25 14:20 Total Protein 6.2 g/dL (6.6-8.7) L 04/30/25 14:20 Albumin 3.8 g/dL (3.5-5.2) 04/30/25 14:20 Globulin 2.4 g/dL (1.3-4.6) 04/30/25 14:20 No radiology studies performed this visit Discharge Plan Discharge Patient Disposition: Home Clinical Impression: Heme positive stool, Chronic anticoagulation Atrial fibrillation Qualifiers: Atrial fibrillation type: unspecified chronic Qualified Code(s): I48.20 - Chronic atrial fibrillation, unspecified Condition: Stable Prescriptions: New pantoprazole 40 mg tablet,delayed release (DR/EC) 40 mg PO BID Qty: 60 0RF No Action pantoprazole 40 mg tablet,delayed release (DR/EC) 40 mg PO QAM citalopram 40 mg tablet 20 mg PO QAM allopurinol 300 mg tablet 300 mg PO DAILY tamsulosin 0.4 mg capsule 0.8 mg PO DAILY Spiriva with HandiHaler 18 mcg capsule, w/inhalation device 1 cap INHALATION DAILY furosemide 40 mg tablet 40 mg PO BID Eliquis 5 mg tablet 5 mg PO BID Qty: 180 3RF clopidogrel 75 mg tablet 75 mg PO DAILY Qty: 90 0RF levothyroxine 137 mcg capsule 137 mcg PO DAILY Qty: 90 3RF (DME) Dexcom G7 Triage Registered Nurse Misc See Rx Instructions .Route Qty: 1 0RF Rx Instructions: sending DME form nitroglycerin [Nitrostat] 0.4 mg tablet, sublingual 0.4 mg SUBLINGUAL Q5M PRN (Reason: Chest Pain) Qty: 25 1RF metoprolol tartrate 50 mg tablet 75 mg PO BID Qty: 180 2RF insulin aspart U-100 [Novolog U-100 Insulin aspart] 100 unit/mL solution See Rx Instructions .ROUTE .COMPLEX Qty: 10 1RF Dose Instruction: INJECT 4 TO 5 UNITS UNDER THE SKIN THREE TIMES A DAY BEFORE MEALS ADMINISTER 10 MINUTES BEFORE FOOD DIRECTED. DISCARD ANY VIAL 28 DAYS AFTER OPENING. Rx Instructions: INJECT 4 TO 5 UNITS UNDER THE SKIN THREE TIMES A DAY BEFORE MEALS ADMINISTER 10 MINUTES BEFORE FOOD DIRECTED. DISCARD ANY VIAL 28 DAYS AFTER OPENING. (DME) Dexcom G7 Sensor Device See Rx Instructions .ROUTE .COMPLEX Qty: 9 3RF Dose Instruction: USE 1 SENSOR UNDER THE SKIN EVERY 10 DAYS CHANGE SENSOR/SITE EVERY 10 DAYS. CONTACT DEXCOM CUSTOMER SERVICE AT FOR REPLACEMENT OF DAMAGED/MALFUNCTIONING SENSORS. Rx Instructions: USE 1 SENSOR UNDER THE SKIN EVERY 10 DAYS CHANGE SENSOR/SITE EVERY 10 DAYS. CONTACT DEXCOM CUSTOMER SERVICE AT FOR REPLACEMENT OF DAMAGED/MALFUNCTIONING SENSORS. cholecalciferol (vitamin D3) [Vitamin D3] 25 mcg (1,000 unit) Tablet 25 mcg PO DAILY fenofibrate nanocrystallized 48 mg tablet 145 mg PO DAILY cyclobenzaprine 10 mg Tablet 10 mg PO TID PRN (Reason: Muscle Spasm) atorvastatin 80 mg Tablet 40 mg PO BEDTIME fluticasone propionate 50 mcg/actuation [place],Suspension 2 spray INTRANASAL DAILY Rx Instructions: administer into each nostril sennosides 8.6 mg Tablet 8.6 mg PO DAILY Aquaphor Ointment 1 applic TOPICAL DAILY hydrocortisone-pramoxine 1-1 % Foam 1 applic TOPICAL DAILY PRN (Reason: Inflammation) lidocaine 5 % Adhesive Patch,Medicated 1 patch TOPICAL DAILY PRN (Reason: Pain) Rx Instructions: leave on most painful area for up to 12 hrs diclofenac sodium 1 % Gel 4 g TOPICAL QID PRN (Reason: joint pain) amiodarone [Pacerone] 200 mg tablet 200 mg PO BID isosorbide mononitrate 30 mg tablet extended release 24 hr 30 mg PO DAILY cetirizine [Zyrtec] 10 mg Tablet 10 mg PO DAILY PRN (Reason: allergies) PreserVision AREDS-2 250-90-40-1 mg Capsule 1 tab PO BID Discharge Orders: Discharge ED (Routine); Ordered 04/30/25 Ordered By: Santiago Garcia Referrals: Laron Carroll MD [Primary Care Provider, Family Practice] Discharge Diet: As Directed Discharge Activity: Increase activity as tolerated Patient Instructions: Diet for Stomach Ulcers and Gastritis (ED), Opioid Safety, Pain Management, Patient Portal & Amena Instructions Activity Restrictions/Additional Instructions: Thank you for choosing [facility] for your healthcare needs today. It is very important that you follow up as instructed or that you return to the Emergency Department should you have concerns or if your condition changes or worsens in any way. Emergency department visits are focused on emergent conditions, in some cases you may require further evaluation on an outpatient basis. You are seen in the emergency room with complaints of black stools. On rectal exam there was trace blood in the stool. Your hemoglobin however is stable despite having had dark stools for 2 weeks. We discussed with your human resources services specialist we will hold your Eliquis for now. Increase your pantoprazole to 40 mg twice a day. Follow the diet given today in the emergency room. Case management make arrangements for you to follow-up with contract negotiation specialist for a scope of your stomach. (Please note that included in your discharge packet is information concerning opioid safety and pain management. 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
[2025-04-30 14:43] LABS: INR 1.53 (0.8-1.2); Prothrombin Time 19.30 SECONDS (12.1-14.9)
[2025-04-30 14:44] LABS: Partial Thromboplastin Time 38.4 SECONDS (23.9-36.7)
--- OUTSIDE RECORDS SUMMARY | 2025-04-30 14:46 | XMS_ITS | Encounter Summary ---
Author Organization [facility] Address [address] [place] [address] Care Team Providers Care Director Erp Name Role Phone Juni Gotti MD Primary Care Provider [phone] Donell Chowdary MD Unavailable [phone] Kyle Ramirez MD Unavailable [phone] Encounter Details Date Type Department Care Team (Late Contact Info) Description 04/03/2024 Outside Records [facility] [address] [facility] [place] [address] Interface, Provider Social History Tobacco Use Types Packs/Day Years Used Date Smoking Tobacco: Former Cigarettes 1.5 50 0 07/29/1964 - 07/29/2014 Smokeless Tobacco: Never Alcohol Use Standard Drinks/Week Comments No 0 (1 standard drink = 0.6 oz pur e alcohol) B1300 Health Literacy Answer Date Recor ded How often do you need to hav e someone help you when you read instructions, pamphlets, or other written material from your doctor or pharmacy? Rarely 03/21/2024 Health Literacy Answer Date Recorded Health Literacy 1 04/08/2021 Sex and Gender Information Value Date Recorded Sex Assigned at Not on file Legal Sex Male 1:08 PM CDT Gender Identity Not on file Sexual Orientation Not on file documented as of this encounter Plan of Treatment Upcoming Encounters Date Type Department Care Team (Late Contact Info) Description 05/15/2025 1:20 PM [employer] Office Visit [facility] -- [address] [address] Eleazar Menjivar MD [address] [facility] [address] [place] [address] documented as of this encounter Visit Diagnoses Not on filedocumented in this encounter Additional Health Concerns Assessment Noted Time PHQ-9 Depression Total Score: 0 05/04/20 17 9:53 AM CDT documented as of this encounter Care Teams Director Erp Relationship Specialty Start Date End Date Juni Gotti MD [address] [place] [id number] PCP - General Specialist 04/23/15 Donell Chowdary MD [address] [place] [id number] Provider Team Nephrology 05/01/15 Kyle Ramirez MD [address] [place] [id number] Referring Provider 08/13/15 documented as of this encounter
--- OUTSIDE RECORDS SUMMARY | 2025-04-30 14:46 | XMS_ITS | Clinical Summary ---
Author Organization [facility] Address [address] [place] [address] Care Team Providers Care Slag Motor Operator Name Role Phone Juni Gotti MD Primary Care Provider [phone] Donell Chowdary MD Unavailable [phone] Kyle Ramirez MD Unavailable [phone] Allergies Active Allergy Reactions Criticality Noted Date Comments Diphenhydramine-Acetam inophen Other (See Comments) High 01/29/2019 Hallucinations Morphine 01/09/2024 Other Reaction(s): Unknown Vancomycin Other (See Comments) High 01/29/2019 Hallucinations Medications citalopram (CELEXA) 10 MG tablet Take one tablet (10 mg) by mouth daily. Active pantoprazole (PROTONIX) 40 MG tablet Take one tablet (40 mg) by mouth daily. Active cholecalciferol, vitamin D3, 5,000 unit capsule Take one capsule (5,000 Units) by mouth at bedtime. Active apixaban (ELIQUIS) 5 mg Tab Take by mouth 2 (two) times a day. Active dilTIAZem (CARDIZEM CD) 120 MG 24 hr cap Take one capsule (120 mg) by mouth daily. Active cyclobenzaprine (FLEXERIL) 10 MG tablet Take one tablet (10 mg) by mouth 3 (three) times a day as needed for muscle spasms. Active cetirizine (ZYRTEC) 10 MG chew tab Take one tablet (10 mg) by mouth daily. Active atorvastatin (LIPITOR) 80 MG tablet Take one tablet (80 mg) by mouth daily. Active allopurinol (ZYLOPRIM) 300 MG tablet Take one tablet (300 mg) by mouth daily. Active furosemide (LASIX) 40 MG tablet Take one tablet (40 mg) by mouth 2 (two) times a day. Active insulin glargine (LANTUS) 100 unit/mL injection Inject fifty two Units under the skin daily. Active insulin aspart (NOVOLOG) 100 unit/mL (3 mL) InPn Inject 0.04-0.05 mL (4-5 Units) under the skin 3 (three) times a day before meals. Active tamsulosin (FLOMAX) 0.4 mg Cap Take one capsule (0.4 mg) by mouth daily. Active albuterol (VENTOLIN HFA,PROAIR,PROVE NTIL) inhaler Inhale two puffs into the lungs every 6 (six) hours as needed for wheezing. Active omega-3 fatty acids-fish oil 340-1,000 mg Cap Take by mouth. Active metoprolol tartrate (LOPRESSOR) 100 MG tablet Take one-half tablet (50 mg) by mouth 2 (two) times a day. Active fenofibrate (TRICOR) 145 MG tablet Take one tablet (145 mg) by mouth daily. Active isosorbide mononitrate (IMDUR) 30 MG 24 hr tab Take one tablet (30 mg) by mouth. 04/27/2024 Active aspirin 81 MG EC tablet Take one tablet (81 mg) by mouth. 04/27/2024 Active Active Problems Problem Noted Date Diagnosed Date Primary osteoarthritis of left knee 03/21/2024 Status post total knee replacement, right 2015 Arthrofibrosis of total knee arthroplasty 2014 HTN (hypertension) 05/01/2015 CKD (chronic kidney disease), stage IV 5 Hyperlipidemia 05/01/2015 Diabetes mellitus 05/01/2015 Right knee pain 05/01/2015 COPD (chronic obstructive pulmonary disease) BPH (benign prostatic hyperplasia) 05/01/2015 CAD (coronary artery disease) 05/01/2015 Immunizations Immunization Administration Dates Next Due Influenza Adult/Ped IM (PF) 05/14/2015 Family History Medical History Relation Comments Stroke Father Relation Status Comments Father Social History Tobacco Use Types Packs/Day Years Used Date Smoking Tobacco: Former Cigarettes 1.5 50 0 07/29/1964 - 07/29/2014 Smokeless Tobacco: Never Tobacco Cessation:Counseling Given: Not Answered Alcohol Use Standard Drinks/Week Comments No 0 (1 standard drink = 0.6 oz pur e alcohol) B1300 Health Literacy Answer Date Recor ded How often do you need to hav e someone help you when you read instructions, pamphlets, or other written material from your doctor or pharmacy? Rarely 03/21/2024 [facility] Utilities Answer Date Recorded In the past 12 months has th e [employer], oil, or water [employer] threatened to shut off services in your home? No 04/13/2024 Humiliation, Afraid, Rape, and Kick questionnair e Answer Date Recorded Within the last year, have y ou been afraid of your partner or ex-partner? No 04/13/2024 Within the last year, have y ou been humiliated or emotionally abused in other ways by your partner or ex-partner? No Within the last year, have y ou been kicked, hit, slapped, or otherwise physically hurt by your partner or ex-partner? No 04/13/2024 Within the last year, have y ou been raped or forced to have any kind of sexual activity by your partner or ex-partner? No 04/13/2024 Hunger Vital Sign Answer Date Recorded Within the past 12 months, y ou worried that your food would run out before you got the money to buy more. Never true 04/13/20 24 Within the past 12 months, t he food you bought just didn't last and you didn't have money to get more. Never true 04/13/2024 PRAPARE - Transportation Answer Date Re corded In the past 12 months, has l ack of transportation kept you from medical appointments or from getting medications? No 04/03 In the past 12 months, has l ack of transportation kept you from meetings, work, or from getting things needed for daily living? No 04/13/2024 Housing Stability Vital Sign Answer Dmitry e Recorded In the last 12 months, was t here a time when you were not able to pay the mortgage or rent on time? No 04/13/2024 In the last 12 months, how many places have you lived? 1 04/13/2024 In the last 12 months, was t here a time when you did not have a steady place to sleep or slept in a [place] [facility] [place] facility (including now)? No 04/13/2024 Health Literacy Answer Date Recorded Health Literacy 1 04/08/2021 Sex and Gender Information Value Date Recorded Sex Assigned at Not on file Legal Sex Male 1:08 PM CDT Gender Identity Not on file Sexual Orientation Not on file Last Filed Vital Signs Vital Sign Reading Time Taken Comments Blood Pressure 112/65 05/09/2024 1:06 PM PREBOARDER Pulse 88 05/09/2024 1:06 PM PREBOARDER Temperature 36.8 C (98.2 F) 04/14/2024 7:40 AM CDT Respiratory Rate 18 05/09/2024 1:06 PM PREBOARDER Oxygen Saturation 99% 05/09/2024 1:06 PM PREBOARDER Inhaled Oxygen Concentration - - Weight 87.6 kg (193 lb 1.6 oz) 05/09/2024 1:06 P M PREBOARDER Height 162.6 cm (5' 4 ) 05/09/2024 1:06 PM PREBOARDER Body Mass Index 33.15 05/09/2024 1:06 PM PREBOARDER Plan of Treatment Upcoming Encounters Date Type Department Care Team (Late st Contact Info) Description 05/15/2025 1:20 PM PREBOARDER Office Visit [facility] -- [address] [address] Eleazar Menjivar MD [address] [place] [address] Health Maintenance Due Date Last Done Comments Annual Wellness Exam 1947 Diabetic Foot Exam 1947 Diabetic Retinal Exam 1947 Hepatitis C Screening 1947 Kidney Evaluation in Diabetes 1947 Depression Screening 1965 TDAP/DTaP/TD Vaccines (1 - Tdap) 1966 Zoster Vaccine (1 of 2) 1997 Pneumococcal Vaccine 50+ (3 of 3 - PCV20 or PCV21) 12/23/2015 10/28/2015, 2008 Respiratory Syncytial Virus (RSV) Immunization - pts and pts aged 60 yrs+ (1 - 1-dose 75+ series) 2022 Hemoglobin A1C 06/20/2024 03/21/2024 COVID-19 Vaccine (2023-2 5 season) 2025 Influenza Series (#1) 2025 05/14/2015 , 04/18/2015 Hepatitis B Vaccine Aged Out No longe r eligible based on patient's age to complete this topic Meningococcal B Vaccine Aged Out No l onger eligible based on patient's age to complete this topic Medical Devices Implanted Type Area Hot Wire Glass Tube Cutter Device Identifier Shelf Expiration Date Model / Serial / Lot Cement Bone Simplex P Radiopaque - [id number] Implanted:Qty: 1 on 05/13/2015 by Eleazar Menjivar MD at [facility] Right: Knee [employer]-381 59 (DO NOT USE) 10/31/2017 6191-1-010 / / [id number] Cement Bone Simplex P Radiopaque - [id number] Implanted:Qty: 1 on 05/13/2015 by Eleazar Menjivar MD at [facility] Right: Knee [employer]-381 59 (DO NOT USE) 08/31/2017 6191-1-010 / / [id number] Pack Femur Distal Poly Mrh Gmrs - [id number] Implanted:Qty: 1 on 06/10/2015 by Eleazar Menjivar MD at [facility] Right: Knee [employer]-381 59 (DO NOT USE) 03/26/2020 6481-2-150 / / [id number] Insert Tibial Knee Mh 10mm - [id number] Implanted:Qty: 1 on 06/10/2015 by Eleazar Menjivar MD at [facility] Right: Knee [employer]-381 59 (DO NOT USE) 11/01/2019 6481-3-210 / / [id number] Cement Simplex P Antibiotic Bone W/Tobramycin - [id number] Implanted:Qty: 1 on 06/10/2015 by Eleazar Menjivar MD at [facility] Right: Knee [employer]-381 59 (DO NOT USE) 08/02/2016 6197-9-010 / / [id number] Cement Simplex P Antibiotic Bone W/Tobramycin - [id number] Implanted:Qty: 2 on 06/10/2015 by Eleazar Menjivar MD at [facility] Right: Knee [employer]-381 59 (DO NOT USE) 08/03/2016 6197-9-010 / / [id number] Home Management Supervisor Knee Stem Fluted [id number] - [id number] Implanted:Qty: 1 on 06/10/2015 by Eleazar Menjivar MD at [facility] Right: Knee [employer]-381 59 (DO NOT USE) 04/02/2019 6478-6-695 / / [id number] Baseplate Tibial Knee Sz Small - [id number] Implanted:Qty: 1 on 06/10/2015 by Eleazar Menjivar MD at [facility] Right: Knee [employer]-381 59 (DO NOT USE) 04/22/2020 6481-3-111 / / [id number] Axle Tibial Proximal Mrh Standard - [id number] Implanted:Qty: 1 on 06/10/2015 by Eleaazr Menjivar MD at [facility] Right: Knee [employer]-381 59 (DO NOT USE) 03/10/2020 6481-2-120 / / [id number] Hinge Tibial Rotating Cmprsn Xsm-Med - [id number] Implanted:Qty: 1 on 06/10/2015 by Eleazar Menjivar MD at [facility] Right: Knee [employer]-381 59 (DO NOT USE) 07/02/2019 6481-2-100 / / [id number] Home Management Supervisor Knee Stem Fluted [id number] - [id number] Implanted:Qty: 1 on 06/10/2015 by Eleazar Menjivar MD at [facility] Right: Knee [employer]-381 59 (DO NOT USE) 04/22/2016 6478-6-715 / / [id number] Mr Knee Femoral Component Implanted:Qty: 1 on 06/10/2015 by Eleazar Menjivar MD at [facility] Right: Knee [employer]-381 59 (DO NOT USE) 03/02/2019 6481-1-121 / / [id number] Description:With C-code C177 6. Cement Bone [place] Hv Radiopq 40gr - [id number] Implanted:Qty: 2 on 04/13/2024 by Eleazar Menjivar MD at [facility] Left: Knee [employer] - 38039_WD [id number] 04/11/2025 600-15-000 / / [id number] Femur Knee Primary Left Sz 5 - [id number] Implanted:Qty: 1 on 04/13/2024 by Eleazar Menjivar MD at [facility] Left: Knee [employer] - 55015_Native [id number] 02/02/2032 [id number] / / [id number] Baseplate Tib Jethro Nprs 5 Stnrd Kn Lft Kl - [id number] Implanted:Qty: 1 on 04/13/2024 by Eleazar Menjivar MD at [facility] Left: Knee [employer] - 55015_WD [id number] 12/07/2031 [id number] / / Insert Tib Jethro Stndrd 12mm Knee Lft Crct - [id number] Implanted:Qty: 1 on 04/13/2024 by Eleazar Menjivar MD at [facility] Left: Knee [employer] - 55015_WD [id number] 04/12/2031 [id number] / / [id number] Total Joint Knee Cmntd [employer] - [id number] Implanted:Qty: 1 on 04/13/2024 by Eleazar Menjivar MD at [facility] Left: Knee [employer] - 55015_WD [id number] / / Explanted Type Area Hot Wire Glass Tube Cutter Device Identifier Shelf Expiration Date Model / Serial / Lot Insert Tib Nuvia Cruciate Sub Pe Sz5 Lft 10mm - [id number] Explanted:Qty: 1 on 04/13/2024 by Eleazar Menjivar MD at [facility] Left: Knee [employer] - 55015_WD [id number] 10/28/2031 [id number] / / [id number] Procedures Procedure Name Priority Date/Time Associated Diagnosis Comments HEMOGLOBIN A1C Routine 03/21/2024 2:27 PM CDT Preop exam for internal medicine Type 2 diabetes mellitus without complication, with long-term current use of insulin (HCC) from Last 3 Months or Most Recently Relevant to Health Maintenance Results * (ABNORMAL) HbA1c (03/21/2024 2:27 PM CDT) Hemoglobin A1C 7.7(H) 4.0 - 6.0 % 03/22/2024 12:02 PM CDT [facility] Blood Venipuncture / Unknown 03/21/2024 2:27 PM CDT 03/21/2024 4:27 PM CDT Narrative [facility] - 03/22/2024 12:02 PM CDT Conditions that shorten red cell survival, such as hemolytic anemia or the presence of unstable hemoglobins may yield falsely depressed results. Conditions that increase red cell survival such as iron deficiency anemia may yield elevated results. According to [place] [employer] (ADA) guidelines, HbAlc greater than or equal to 6.5 is the diagnostic limit for diabetes, and the range of 5.7-6.4% is for Increased Risk for Diabetes (Prediabetes). Casandra [facility] BLOOD ORDERABLES Final Result [facility] [address] [place] [address], from Last 3 Months or Most Recently Relevant to Health Maintenance Insurance MEDICARE PART A & B GENERIC COMMERCIAL AND [employer]NAGED [id number] Advance Directives * Full Code (Latest Code Status on File) Date Activated Date Inactivated Comments 04/13/2024 7:26 AM 04/14/2024 8:24 PM * Full Code Date Activated Date Inactivated Comments 06/10/2015 4:56 PM 06/12/2015 9:02 PM * Full Code Date Activated Date Inactivated Comments 06/10/2015 12:45 PM 06/10/2015 4:56 PM * Full Code Date Activated Date Inactivated Comments 05/13/2015 6:56 PM 05/15/2015 8:40 PM * Full Code Date Activated Date Inactivated Comments 05/13/2015 12:46 PM 05/13/2015 6:56 PM Care Teams Slag Motor Operator Relationship Specialty Start Date End Date Juni Gotti MD [address] [place] [address] PCP - General Specialist 04/23/15 Donell Chowdary MD [address] [place] [address] Provider Team Nephrology 05/01/15 Kyle Ramirez MD [address] [place] [address] Referring Provider 08/13/15
--- OUTSIDE RECORDS SUMMARY | 2025-04-30 14:46 | XMS_ITS | Encounter Summary ---
Author Organization [facility] Address [address] [place] [address] Phone Care Team Providers Care Health Assessment And Treatment Teacher Name Role Phone Maureen Samson NP Primary Care Provider [phone] Reason for Visit * Reason Onset Date Comments insurance 01/10/2024 Encounter Details Date Type Department Care Team (Late Contact Info) Description 01/10/2024 Telephone [facility] [address] [place] [address] Elise Bailey MD [address] [place] [address] Social History Tobacco Use Types Packs/Day Years Used Date Smoking Tobacco: Former Cigarettes Q uit: 2014 Smokeless Tobacco: Never Comments:Smoking History Inf o:Every day Alcohol Use Standard Drinks/Week Comments Never 0 (1 standard drink = 0.6 oz pur e alcohol) AUDIT-C Answer Date Recorded Frequency of Alcohol Consumption Never 11/09/2018 Average Number of Drinks Not on file 019 Frequency of Binge Drinking Not on file 03/2019 Sex and Gender Information Value Date Recorded Sex Assigned at Not on file Legal Sex Male 12:42 PM EST Gender Identity Not on file Sexual Orientation Not on file documented as of this encounter Plan of Treatment Upcoming Encounters Date Type Department Care Team (Late Contact Info) Description 06/11/2025 11:00 AM OVEN UNLOADER Office Visit [facility] [address] [place] [phone] Ela Welch, ABDIRASHID [address] [facility] [address] [place] [id number] documented as of this encounter Visit Diagnoses Not on filedocumented in this encounter Care Teams Health Assessment And Treatment Teacher Relationship Specialty Start Date End Date Maureen Samson NP [address] [facility] [place] [address] PCP - General 10/02/24 documented as of this encounter
--- OUTSIDE RECORDS SUMMARY | 2025-04-30 14:46 | XMS_ITS | Encounter Summary ---
Author Organization [facility] Address [address] [facility] [place] [address] Care Team Providers Care Resident Services Supervisor Name Role Phone Juni Gotti MD Primary Care Provider [phone] Donell Chowdary MD Unavailable [phone] Kyle Ramirez MD Unavailable [phone] Encounter Details Date Type Department Care Team (Late st Contact Info) Description 04/10/2024 Outside Records [facility] [address] [facility] [place] [address] Interface, Provider Social History Tobacco Use Types [...] from your doctor or pharmacy? Rarely 03/21/2024 [facility] Utilities Answer Date Recorded In the past 12 months has e electric, gas, oil, or water company threatened to shut off services in your [...] place to sleep or slept in a long term (including now)? No 04/13/2024 Health Literacy Answer [...] st Contact Info) Description 05/15/2025 1:20 PM PROJECT MANAGEMENT MANAGER Office Visit [facility] -- [address] [address] [place] [address] [place] [address] [place] [phone] documented as of this encounter Visit Diagnoses Not on filedocumented in this encounter Additional Health Concerns Assessment Noted Time PHQ-9 Depression Total Score: 0 05/04/20 17 9:53 AM CDT documented as of this encounter Care Teams Resident Services Supervisor Relationship Specialty Start Date End Date Juni Gotti MD [facility] [place] [address] PCP - General Specialist 04/23/15 Donell Chowdary MD [address] [place] [address] Provider Team Nephrology 05/01/15 Kyle Ramirez MD [address] [place] [address] Referring Provider 08/13/15 documented as of this encounter
[2025-04-30 14:47] LABS: Alanine Aminotransferase 17 U/L (0-41); Albumin Level 3.8 g/dL (3.5-5.2); Alkaline Phosphatase 69 U/L (40-130); Anion Gap 17.3 (5-19); Aspartate Amino Transferase 120 U/L (0-40); Blood Urea Nitrogen 39 mg/dL (8-23); Calcium 9.9 mg/dL (8.5-10.5); Carbon Dioxide 24 mmol/L (22-29); Chloride 102 mmol/L (98-107); Creatinine Clr Calc Pharmacy 29.2164; Globulin 2.4 g/dL (1.3-4.6); Glucose 134 mg/dL (65-115); Osmolality Calculated 299 mOsm/kg (285-295); Potassium 4.3 mmol/L (3.5-5.1); Sodium 139 mmol/L (136-145); Total Protein 6.2 g/dL (6.6-8.7)
--- OUTSIDE RECORDS SUMMARY | 2025-04-30 14:47 | XMS_ITS | Patient Health Record ---
Author Organization [facility] Address [address] [place] [address] Care Team Providers Care Fire Prevention Specialist Name Role Phone Maureen Samson Primary Care Provider Juan Manuel Servin Unavailable [phone] Allergies Allergen (clinical drug ingredient) Drug/Non Drug Allergy documented on EMR Reaction Allergy Type Onset Date Status morphine Morphine Unknown Drug Allergy Active Results Component Value Reference Range Notes XR Outside CD (Not yet revie wed by provider) Interpretation: Performing Lab: Notes/Report: [id number] XR Outside CD (Not yet revie wed by provider) Interpretation: Performing Lab: Notes/Report: [id number] Reason For Referral Reason low back pain fractu re of unsp parts lumbosacral spine and pelvis Diagnosis 1 Low back pain (M54.5 0) Referring Provider First Name Maureen Referring Provider Last Name Chapin Referring Provider Speciality Nurse Prac titioner Referred Organization [facility] Referred Provider Juan Manuel French Referred Address [address],[place],[address], Referral Priority Routine Medications Medication SIG (Take, Route, Frequency, Duration) Notes Start Date End Date Status ProAir HFA 108 (90 Base) MCG/ACT Aerosol Solution 1 puff as needed Inhalation every 4 hrs Active PreserVision AREDS 2 - Capsule as directed Orally Active Spiriva Respimat 2.5 MCG/ACT Aerosol Solution 2 puffs Inhalation Once a day Not-Taking Acidophilus - Capsule as directed Orally Active Apixaban 5 MG Tablet 1 tablet Orally Twi ce a day Not-Taking Doxycycline Hyclate 100 MG Capsule Oral; Duration: 10 Days Not-Taking Cholecalciferol 50 MCG (2000 UT) Tablet 1 tablet Orally Once a day Not-Taking Levemir FlexPen 100 UNIT/ML Solution Pen-injector as directed Subcutaneous Unknown Tamsulosin HCl 0.4 MG Capsule 1 capsule Orally Once a day Active Fish Oil 1000 MG Capsule 2 capsules Oral ly Twice a day Active Fenofibrate 145 MG Tablet 1 tablet Orall y Once a day Active Allopurinol 300 MG Tablet 1 tablet Orall y Once a day Active Pantoprazole Sodium 40 MG Tablet Delayed Release 1 tablet Orally Once a day Active NovoLOG 100 UNIT/ML Solution as directed Injection Active dilTIAZem HCl 120 MG Tablet as directed Orally Active Citalopram Hydrobromide 40 MG Tablet 0.5 tablet Orally Once a day Active Lantus SoloStar 100 UNIT/ML Solution Pen-injector as directed Subcutaneous Not-Taking Furosemide 40 MG Tablet 1 tablet Orally Once a day Active Atorvastatin Calcium 20 MG Tablet 1 tablet Orally Once a day Active Metoprolol Tartrate 100 MG Tablet 1/2 tab Orally Twice a day Active Social History Tobacco Use: Social History Observation Description Date Details (start date - stop date) Former Smoker NA - NA Social History Depression Screening Social Info Question Answer Notes depression screening findings Findings Negative (0 -4) PHQ-9 Little interest or p anitha in doing things Not at all Feeling down, depressed, or hopeless Not at all Trouble falling or staying asleep, or sleeping t oo much Several days Feeling tired or having little energy Not at all Poor appetite or overeating Several days Feeling bad about yourself, or that you are a failure, or have let yourself or your family down Not at all Trouble concentrating on thi ngs, such as reading the newspaper or watching television Not at all Moving or speaking so slowly that other people could have noticed. Or the opposite ? being so fidgety or restless that you have been moving around a lot more than usual Not at all Thoughts that you would be b anali off , or of hurting yourself in some way Not at all Total Score 2 Interpretation Minimal Depression Tobacco Use: Social Info Question Answer Notes xTobacco Use/Smoking Are you a former smoker How long has it been since you last smoked? 5-10 years Section Notes: Depression screen completed 10/28/2022 score 2 Depression screen completed 10/28/2022 score 2 Depression screen completed 10/28/2022 score 2 Depression screen completed 10/28/2022 score 2 Depression screen completed 10/28/2022 score 2 Depression screen completed 10/28/2022 score 2 Depression screen completed 10/28/2022 score 2 Depression screen completed 10/28/2022 score 2 Depression screen completed 10/28/2022 score 2 Problems Problem Type SNOMED Code ICD Code Onset Dates Problem Status W/U Status Risk Notes Problem Type II diabetes mellitus without complication (786520981) Type 2 diabetes mellitus without complications (E11.9) Active confirmed Problem Chronic pain (75677644) Other chronic pain (G89.29) Active confirmed Problem Acquired spondylolisthesis (935919793) Spondylolisthesi s, lumbosacral region (M43.17) Active confirmed Problem Long-term current use of insulin (115189161) 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 (Z79.4) Active confirmed Problem COPD - Chronic obstructive pulmonary disease (40910798) Chronic obstructive pulmonary disease, unspecified COPD type (J44.9) Active confirmed Problem Pathological fracture of vertebra (018342268) Compression fracture of body of thoracic vertebra (M48.54XA) Active confirmed Problem Abnormal gait (92567652) Decreased mobility (R26.89) Active confirmed Vital Signs Heart Rate 57 /min 10/02/2024 Temperature 97.8 degrees Fahrenheit 10/02/2024 Respiratory Rate 20 /min 10/02/2024 Blood pressure diastolic 66 mm Hg 10/02/2024 Oximetry 96 % 10/02/2024 Height-cm 162.56 cm 10/02/2024 Weight-kg 86.18 kg 10/02/2024 Height 64 in 10/02/2024 Blood pressure systolic 124 mm Hg 10/02/2024 Weight 190 lbs 10/02/2024 BMI 32.61 kg/m2 10/02/2024 Encounters Encounter Location Date Provider Diagnosis [facility] [place] [address] [place] [phone] 10/02/2024 Juan Manuel French Compression fracture of body of thoracic vertebra M48.54XA ; Compression fracture of L1 vertebra, initial encounter S32.010A ; Compression fracture of L2 vertebra, initial encounter S32.020A and Spondylolisthesis, lumbosacral region M43.17 [facility] Laura [address] [place] [address] 11/13/2024 Juan Manuel French Assessments Encounter Date Diagnosis (ICD Code) Assessment Notes Treatment Notes Treatment Clinical Notes Section Notes 10/02/2024 Compression fracture of body of thoracic vertebra (ICD-10 - M48.54XA) 10/02/2024 Compression fracture of L1 vertebra, initial encounter (ICD-10 - S32.010A) The patient's symptoms and clinical findings were reviewed. The patient had a fall approximately 4 weeks ago and sustained compression fractures at T12, L1 and L2. The lumbar imaging was reviewed and discussed with the patient. The patient also has a spondylolisthesis at L5-S1, however his symptoms correlate with the area of the compression fractures. We discussed treatment options. The patient may leave things as they are and allow the fractures to heal on their own if the pain is tolerable. He was reassured as the fractures heal, the pain will decrease. A referral to physical therapy is also an option. Surgery is the last option. Questions were asked and answered to the patient's satisfaction. He states his understanding. The patient says the pain is tolerable at this time. He would like to leave things as they are and allow the fractures to heal on their own. He may wear the back brace when needed. If his pain increases, he will call and return for another discussion. ROS reviewed I Lisa Romano LPN am scribing for, and in the presence of Juan Manuel French MD. I, Juan Manuel French, personally performed the services described in this documentation, as scribed by Lisa Romano LPN in my presence, and it is both accurate and complete. 10/02/2024 Compression fracture of L2 vertebra, initial encounter (ICD-10 - S32.020A) 10/02/2024 Spondylolisthes is, lumbosacral region (ICD-10 - M43.17) Plan Of Treatment Pending Test Test Name Order Date XR Outside CD 04/26/2024 XR Outside CD 08/27/2024 XR Outside CD 08/27/2024 Insurance Providers Payer Name Payer Address Payer Phone Subscriber Number Group Number Insured Name Patient Relationship to Insured Coverage Start Date Coverage End Date [place] [address] [place] [phone] [id number] Maximo Elliottne Self - patient is the insured Medico Blayne [address] [address] [place] Moore [phone] [id number] José Elliott Self - patient is the insured [employer] [address] [place] [address] [id number] José Elliott Self - patient is the insured Medications Administered Medication Instructions Date of Administration Dosage Notes DEPO-Medrol 10/28/2022 40 mg [facility] [id number] 3-01 pt tolerated well/instructed to wait 20 min dexAMETHasone 10/28/2022 4 mg [facility] 15951-4 423-00 pt tolerated well/instructed to wait 20 min Rocephin 10/28/2022 1 g [facility] [phone] -11 pt tolerated well/instructed to wait 20 min Medical (General) History Medical History History ICD Code High Blood Pressure type II diabetes diabetic neuropathy hyperlipidemia COPD Atrial fibrillation anxiety chronic renal insufficiency depression Surgical History Surgery Date(Month/Year) right knee replacement x2 cholecystectomy hernia repair appendectomy cardiac stents x2 Hospitalization History Reason Date(Month/Year) see surgical history
--- OUTSIDE RECORDS SUMMARY | 2025-04-30 14:47 | XMS_ITS | Clinical Summary ---
Author Organization [facility] Address [address] [place] [address] Care Team Providers Care Line Puller Name Role Phone Maureen Samson PACKING MACHINE INSPECTOR Primary Care Provider [phone] Allergies Active Allergy Reactions Criticality Noted Date Comments Diphenhydramine-Acetaminophen High 2018 Hallucinations Morphine 01/09/2024 Other 11/02/2018 Pain med Tramadol 11/02/2018 Vancomycin High 01/29/2019 Hallucinations Medications * This document contains information received from the source organization and may not represent a complete record from that organization. tiotropium (SPIRIVA) 18 MCG per inhalation capsule Take 1 puff by mouth 1 (one) time each day Active tamsulosin (FLOMAX) 0.4 MG 24 hr capsule Take 2 capsules by mouth 1 (one) time each day Active metoprolol tartrate (LOPRESSOR) 50 MG tablet Take 75 mg by mouth in the morning and 75 mg in the evening. Active furosemide (LASIX) 40 MG tablet Take 40 mg by mouth 1 (one) time each day 7 Active citalopram (CeleXA) 20 MG tablet Take 20 mg by mouth 1 (one) time each day Active allopurinol (ZYLOPRIM) 300 MG tablet Take 200 mg by mouth 1 (one) time each day 6 Active albuterol HFA (PROVENTIL HFA;VENTOLIN HFA) 108 (90 Base) MCG/ACT inhaler Inhale 2 puffs 4 (four) times a day Active omega-3 (FISH OIL) 1000 MG capsule Take 2 capsules by mouth in the morning and 2 capsules in the evening. Active Cholecalciferol (VITAMIN D-3 PO) Take 2,000 Units by mouth daily Active Lactobacillus (LACTINEX PO) Take 2 tablets by mouth twice a day Active fenofibrate (TRICOR) 48 MG tablet Take 48 mg by mouth 1 (one) time each day Active Multiple Vitamins-Mineral s (PRESERVISION AREDS 2 PO) Take by mouth 1 (one) time each day Active dilTIAZem CD (CARDIZEM CD) 120 MG 24 hr capsule Take 120 mg by mouth 1 (one) time each day 1 Active pantoprazole (PROTONIX) 40 MG EC tablet Take 40 mg by mouth 1 (one) time each day before breakfast Do not crush, chew, or split. Active apixaban (ELIQUIS) 2.5 MG tablet Take 5 mg by mouth in the morning and 5 mg in the evening. Active atorvastatin (LIPITOR) 40 MG tablet Take 40 mg by mouth 1 (one) time each day Active lisinopril 5 MG tablet Take 1 tablet (5 mg total) by mouth 1 (one) time each day 90 tablet 3 3 Active Insulin Detemir (LEVEMIR FLEXPEN SC) Inject 6 Units under the skin 1 (one) time each day Active isosorbide mononitrate (IMDUR) 30 MG 24 hr tablet Take 30 mg by mouth 1 (one) time each day 4 Active insulin glargine (LANTUS) 100 UNIT/ML injection Inject 25 Units under the skin in the morning. Active cyclobenzaprine (FLEXERIL) 10 MG tablet Take 10 mg by mouth 2 (two) times a day if needed for muscle spasms Active cetirizine (ZyrTEC) 10 MG chewable tablet Chew 10 mg in the morning. Active aspirin (ST MATTHEW) 81 MG EC tablet Take 81 mg by mouth 1 (one) time each day 4 Active fluticasone (FLONASE) 50 MCG/ACT nasal spray Administer 1 spray into each nostril 1 (one) time each day 5 Active levothyroxine (SYNTHROID, LEVOTHROID) 88 MCG tablet Take 88 mcg by mouth 1 (one) time each day 5 Active clopidogrel (PLAVIX) 75 MG tablet Take 75 mg by mouth 1 (one) time each day Active Active Problems Problem Noted Date Diagnosed Date Grade A2 albuminuria 06/03/2022 Type 2 diabetes mellitus wit h diabetic chronic kidney disease 06/03/2022 Metabolic acidosis, normal a nion gap (NAG) <Acidosis, metabolic; Chronic> 06/03/2022 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 disease due to type 2 diabetes mellitus 06/03/2022 Secondary hyperparathyroidism of renal origin Morbid obesity 06/03/2022 Stage 3b chronic kidney disease 05/01/2015 Benign prostatic hyperplasia 05/01/2015 Chronic obstructive pulmonary disease 05/01/2015 Resolved Problems Problem Noted Date Diagnosed Date Resolved Date Dialysis finding 11/02/2019 06/03/2022 Acidosis 05/16/2019 06/03/2022 Acute gouty arthropathy 05/16/2019 1207/2021 Anemia of chronic renal failure 05/16/2019 06/03/2022 Edema 05/16/2019 06/03/2022 Diabetes mellitus 05/01/2015 06/03/2022 Hypertensive disorder 05/01/20152021 Coronary arteriosclerosis 05/01/2015 Hyperlipidemia 05/01/2015 06/03/2022 Encounters Date Type Department Care Team Description 04/09/2025 Telephone [facility], [facility] [address] [place] [phone] Elise Bailey MD 02/13/2025 11:00 AM CDT Office Visit [facility], [address] [phone] Ela Welch, ABDIRASHID Type 2 diabetes mellitus with diabetic chronic kidney disease (HCC) (Primary Dx); Stage 3b chronic kidney disease (HCC); Secondary hyperparathyroidism of renal origin (HCC); 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 (HCC); Benign prostatic hyperplasia; Grade A2 albuminuria 02/13/2025 Documentation Only [facility] [address] [place] [phone] Connie Peraza 02/13/2025 Documentation Only [facility], [address] [phone] Connie Peraza 02/07/2025 Documentation Only [facility] [address] [place] [phone] Iveth Rodriguez MA 02/05/2025 Telephone [facility] [address] [place] [address] Elise Bailey MD from Last 3 Months Immunizations Immunization Administration Dates Next Due Influenza Split High Dose Preservative Free IM 1 Influenza TIV (IM) 04/02/2014 Influenza, Quadrivalent, Preservative Free 05/14 Pneumococcal Conjugate 13-Valent 10/28/2015 Pneumococcal Polysaccharide 2008 Family History Medical History Relation Comments Heart disease Father 2 Hypertension Father 2 Stroke Father 2 Relation Status Comments Father 1 Father 2 Mother Social History Tobacco Use Types Packs/Day Years Used Date Smoking Tobacco: Former Cigarettes Q uit: 2014 Smokeless Tobacco: Never Tobacco Cessation:Counseling Given: Not Answered Comments:Smoking History Info:Every day Alcohol Use Standard Drinks/Week Comments Never [...] Sign Reading Time Taken Comments Blood Pressure 158/82 02/13/2025 10:45 AM CDT Pulse 53 02/13/2025 10:45 AM CDT Temperature 36.6 C (97.9 F) 10/07/2020 11:48 AM CDT Respiratory Rate - - Oxygen Saturation 97% 02/13/2025 10: 45 AM CDT Inhaled Oxygen Concentration - - Weight 90.2 kg (198 lb 12.8 oz) 025 10:45 AM CDT Height 162.6 cm (5' 4 ) 02/13/2025 10:4 5 AM CDT Body Mass Index 34.12 02/13/2025 10:45 AM CDT Plan of Treatment Upcoming Encounters Date Type Department Care Team (Late st Contact Info) Description 06/11/2025 11:00 AM OPTICAL MANAGER Office Visit [facility] [address] [place] [address] Ela Welch, PACKING MACHINE INSPECTOR [address] [place] [address] Health Maintenance Due Date Last Done Comments Diabetes: Ophthalmology Exam 05/16/2019 Diabetes: Pedal Pulse Checked 05/16/2019 Diabetes: Sensory Foot Exam 05/16/2019 Diabetes: Visual Foot Exam 05/16/2019 Diabetes: Hemoglobin A1C 06/20/2024 024, 11/24/2022, 06/16/2020, Additional history exists Influenza Vaccine (#1) 2025 4, 12/24/2021, 04/29/2021, Additional history exists Pneumococcal Vaccine: 50+ Years Completed 03/03/2016, 10/28/2015, 07/15/2010, Additional history exists Pneumococcal Vaccine: Peds (0 to 5 Years) and At-Risk Patients (6 to 49 Years) Discontinued 03/03/2016, 10/28/2015, 07/15/2010, Additional history exists Hepatitis B Vaccine Aged Out No longe r eligible based on patient's age to complete this topic Procedures Procedure Name Priority Date/Time Associated Diagnosis Comments URIC ACID Routine 02/07/2025 11:22 AM CDT Stage 3b chronic kidney disease (HCC) Chronic gout due to renal impairment without tophus, not otherwise specified URINE ALBUMIN / CREATININE RATIO Routine 02/07/2025 11:22 AM CDT Stage 3b chronic kidney disease (HCC) PTH, INTACT Routine 02/07/2025 11:22 AM CDT Stage 3b chronic kidney disease (HCC) VITAMIN D 25 HYDROXY Routine 02/07/2025 11:22 AM CDT Stage 3b chronic kidney disease (HCC) Secondary hyperparathyroidism of renal origin (HCC) RENAL FUNCTION PANEL Routine 02/07/2025 11:22 AM CDT Stage 3b chronic kidney disease (HCC) CBC Routine 02/07/2025 Stage 3b chronic kidney disease (HCC) HEMOGLOBIN A1C (EXTERNAL RESULT ENTRY) Routine 11/24/2022 10:23 AM CDT from Last 3 Months or Most Recently Relevant to Health Maintenance Results * Urine Albumin / Creatinine Ratio (02/07/2025 11:22 AM CDT) Creatinine, Urine Random 44 mg/dL PRINT/EXTERNA L (NON-INTERFAC ED LABS) Microalb/Creat Ratio, Ur 23 mg/dL PRINT/EXTERNA L (NON-INTERFAC ED LABS) Microalbumin 1 ug/dL PRINT/E XTERNA L (NON-INTERFAC ED LABS) Urine Urine specimen obtained by clean catch procedure / Unknown 02/07/2025 11:22 AM CDT Ela Welch NP LAB URINE ORDERABLES Final Resu lt PRINT/EXTERNAL (NON-INTERFACED LABS) * Vitamin D 25 Hydroxy (02/07/2025 11:22 AM CDT) Vitamin D, 25-OH, Total 38 ng/mL PRINT/EXTERNAL (NON-INTERFACE D LABS) Blood Venous blood / Unknown 02/07/2025 11:22 AM CDT Ela Welch NP LAB BLOOD ORDERABLES Final Resu lt PRINT/EXTERNAL (NON-INTERFACED LABS) * Uric acid (02/07/2025 11:22 AM CDT) Uric Acid 5.1 MG/DL PRINT/EXTE RNAL (NON-INTERFACED LABS) Blood Venous blood / Unknown 02/07/2025 11:22 AM CDT Narrative PRINT/EXTERNAL (NON-INTERFACED LABS) - 02/13/2025 7:21 AM CDT [facility] [address] [place] [address] Dr. Pippa Cleaning, Fire Fighter [employer] Ela Welch PACKING MACHINE INSPECTOR LAB BLOOD ORDERABLES Final Resu lt Performing Organization Address [facility] de Phone Number PRINT/EXTERNAL (NON-INTERFACED LABS) * PTH, Intact (02/07/2025 11:22 AM CDT) Parathyroid Hormone, Intact 197.0 pg/mL PRINT/DIPLOMATIC OFFICER AL (NON-INTERFACE D LABS) Blood Venous blood / Unknown 02/07/2025 11:22 AM CDT Ela Welch PACKING MACHINE INSPECTOR LAB BLOOD ORDERABLES Final [facility] Performing Organization Address [facility] de Phone Number PRINT/EXTERNAL (NON-INTERFACED LABS) * Renal Function Panel (02/07/2025 11:22 AM CDT) Glucose 173 mg/dL PRINT/EXTE RNAL (NON-INTERFACE D LABS) BUN 30 mg/dL PRINT/EXTE RNAL (NON-INTERFACE D LABS) Creatinine 2.3 mg/dL PRINT/EXT ERNAL (NON-INTERFACE D LABS) Sodium 141 mEq/L PRINT/EXTE RNAL (NON-INTERFACE D LABS) Potassium 4.5 mEq/L PRINT/EXTE RNAL (NON-INTERFACE D LABS) Chloride 108 PRINT/EXTE RNAL (NON-INTERFACE D LABS) Carbon Dioxide 23 mmol/L PRINT /EXTERNAL (NON-INTERFACE D LABS) Calcium 8.0 mg/dL PRINT/EXTE RNAL (NON-INTERFACE D LABS) Phosphorus, Serum 2.3 mg/dL PRINT/EXTERNAL (NON-INTERFACE D LABS) Albumin (Blood) 3.9 g/dL PRIN T/EXTERNAL (NON-INTERFACE D LABS) eGFR 29 PRINT/EXTE RNAL (NON-INTERFACE D LABS) Blood Venous blood / Unknown 02/07/2025 11:22 AM CDT Ela Welch NP LAB BLOOD ORDERABLES Final Resu lt Performing Organization Address [facility]/ZIP Co de Phone Number PRINT/EXTERNAL (NON-INTERFACED LABS) * CBC (02/07/2025) WBC 5.93 K/uL PRINT/EXTE RNAL (NON-INTERFACE D LABS) Red Blood Cell Count 4.09 PRINT/EXTERNAL (NON-INTERFACE D LABS) Hemoglobin 12.40 g/dL PRINT/EXT ERNAL (NON-INTERFACE D LABS) Hematocrit 39.0 % PRINT/EXT ERNAL (NON-INTERFACE D LABS) MCV 95.4 PRINT/EXTE RNAL (NON-INTERFACE D LABS) MCH 30.3 PRINT/EXTE RNAL (NON-INTERFACE D LABS) MCHC 31.8 PRINT/EXTE RNAL (NON-INTERFACE D LABS) RDW 16.1 PRINT/EXTE RNAL (NON-INTERFACE D LABS) Platelet Count 231 PRINT /EXTERNAL (NON-INTERFACE D LABS) MPV 10.2 PRINT/EXTE RNAL (NON-INTERFACE D LABS) Absolute Neutrophils 4.27 PRINT/EXTERNAL (NON-INTERFACE D LABS) Absolute Lymphocytes 0.7 PRINT/EXTERNAL (NON-INTERFACE D LABS) Absolute Monocytes 0.6 PRINT/EXTERNAL (NON-INTERFACE D LABS) Absolute Eosinophils 0.3 PRINT/EXTERNAL (NON-INTERFACE D LABS) Absolute Basophils 0.1 PRINT/EXTERNAL (NON-INTERFACE D LABS) Neutrophils 72 K/uL PRINT/EX TERNAL (NON-INTERFACE D LABS) Lymphocytes 11.5 PRINT/EX TERNAL (NON-INTERFACE D LABS) Monocytes 10.3 PRINT/EXTE RNAL (NON-INTERFACE D LABS) Eosinophils 4.9 PRINT/EX TERNAL (NON-INTERFACE D LABS) Basophils 0.8 PRINT/EXTE RNAL (NON-INTERFACE D LABS) Blood Venous blood / Unknown 02/07/2025 Narrative PRINT/EXTERNAL (NON-INTERFACED LABS) - 02/07/[address] [address] Ela Welch NP LAB BLOOD ORDERABLES Final Resu lt PRINT/EXTERNAL (NON-INTERFACED LABS) * Hemoglobin A1C (11/24/2022 10:23 AM CDT) Hemoglobin A1C 8.0 Blood specimen (specimen) Venous blood / Unknown 11/24/2022 10:23 AM CDT Graeme [place] LAB BLOOD ORDERABLES Final Resu lt from Last 3 Months or Most Recently Relevant to Health Maintenance Insurance [facility] [place] 1,2,3 (VAC[employer]) Care Teams Line Puller Relationship Specialty Start Date End Date Maureen Samson NP [address] [place] [address] PCP - General 10/02/24
--- OUTSIDE RECORDS SUMMARY | 2025-04-30 14:47 | XMS_ITS | Patient Health Record ---
Author Organization [facility], [facility] Address [address] [place] [address] Care Team Providers Care Recreation Leader Name Role Phone Unruly Landeros Primary Care Provider Unavailab VIVIAN Martinez Unavailable [phone] NELSON PETERS Unavailable [phone] BRAD MENDEZ Unavailable [phone] Allergies Allergen (clinical drug ingredient) Drug/Non Drug Allergy documented on EMR Reaction Allergy Type Onset Date Status vancomycin Vancomycin Unknown Drug Allergy Activ e Results Component Value Reference Range Notes Urinalysis, Routine Reviewed date:05/11/2024 10:15:04 AM Interpretation: Performing Lab: Notes/Report: Urine-Color yellow Appearance clear Glucose - Bilirubin - Ketones - Specific Clinton 1.015 Occult Blood - pH 6.0 Urine Protein - Urobilinogen,Semi-Qn - Nitrite, Urine - WBC Esterase - Reason For Referral No Information Medications Medication SIG (Take, Route, Frequency, Duration) Notes Start Date End Date Status Citalopram Hydrobromide 10 MG 1 tablet Orally Once a day Active Tiotropium Morrison Monohydrate 2.5 MCG/ACT 2 puffs Inhalation Once a day Active Cholecalciferol 50 MCG (1999) 1 capsule Orally Once a day Active Diclofenac Active Fenofibrate 48 MG 1 tablet Orally Once a day Active dilTIAZem HCl 120 MG as directed Orally Active Insulin Degludec 100 UNIT/ML as directed Subcutaneous Active Furosemide 40 MG 1 tablet Orally Once a day Active Multivit Drops/Fluoride/Iron Active Apixaban 5 MG as directed Orally Active Metoprolol Succinate 100 MG 1 capsule Or ally Once a day Active Allopurinol 300 MG 1 tablet Orally Once a day Active Tamsulosin HCl 0.4 MG 1 capsule Orally O nce a day Active Cetirizine HCl 10 MG 1 tablet Orally Onc e a day Active Pantoprazole Sodium 40 MG 1 tablet 1/2 t o 1 hour before morning meal Orally Once a day Active Atorvastatin Calcium 80 MG 1 tablet Oral ly Once a day Active Problems Problem Type SNOMED Code ICD Code Onset Dates Problem Status W/U Status Risk Notes Problem Chronic kidney disease stage 4 (177091382) Chronic kidney disease, stage 4 (severe) (N18.4) Active confirmed Problem Horseshoe kidney (34956115) 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) Active confirmed Problem Enlarged prostate (982453456) Enlarged prostate (N40.0) Active confirmed Problem Elevated PSA (585936310) Elevated PSA (R97.20) Active confirmed Vital Signs Heart Rate 86 /min 06/04/2024 Temperature 97.8 degrees Fahrenheit 06/04/2024 Blood pressure diastolic 79 mm Hg 06/04/2024 Height-cm 162.56 cm 06/04/2024 Weight-kg 81.19 kg 06/04/2024 Height 64 in 06/04/2024 Blood pressure systolic 135 mm Hg 06/04/2024 Weight 179 lbs 06/04/2024 BMI 30.72 kg/m2 06/04/2024 Procedures Procedure Date Ordered Date Performed Result Body Sit e Bladder Scan 05/11/2024 05/11/2024 PVR 23ml Encounters Encounter Location Date Provider Diagnosis [facility] [address] [place] [address] 05/11/2024 NELSON PETERS Enlarged prostate N40.0 ; Horseshoe kidney Q63.1 ; Urinary urgency R39.15 ; Elevated PSA R97.20 ; Chronic kidney disease, stage 4 (severe) N18.4 ; Impaired mobility Z74.09 and History of smoking Z87.[address] [facility] [address] [place] [address] 06/04/2024 BRAD MENDEZ Enlarged prostate N40.0 ; Horseshoe kidney Q63.1 ; Urinary urgency R39.15 ; Elevated PSA R97.20 ; Chronic kidney disease, stage 4 (severe) N18.4 ; Impaired mobility Z74.09 and History of smoking Z87.891 [employer], [facility] [address] [place] [address] 05/01/2024 VIVIAN BOWLING [facility], [facility] [address] [place] [address] 10/11/2024 VIVIAN BOWLING Elevated PSA R97.20 Assessments Encounter Date Diagnosis (ICD Code) Assessment Notes Treatment Notes Treatment Clinical Notes Section Notes 05/11/2024 Horseshoe kidney (ICD-10 - Q63.1) 05/11/2024 Enlarged prostate (ICD-10 - N40.0) 10/11/2024 Elevated PSA (ICD-10 - R97.20) 06/04/2024 Enlarged prostate (ICD-10 - N40.0) 78y/o M w/ enlarged prostate and elevated PSA. 4K score was reviewed during consult; resulting in 21.7 high risk probability of an aggressive cancer with PSA of 3.28. PSA of 4.95 on 05/03/24 and 5.06 on 05/29/24. He has recent knee replacement with infection. Pt and his family who are present in the room would like PSA rechecked prior to moving forward with repeat biopsy at this time. I will have him return in 6m with new PSA. Return sooner with any other concerns. Plan; Obtain PSA in 6 months - RTC in 6m to review PSA, PVR, UA IJosi CNA, am scribing for, and in the presence, of Dr. Mendez. I, Dr. Brad Mendez, personally performed the services prescribed in this documentation, as scribed by Josi Bonner CNA in my presence, and it is both accurate and complete. 06/04/2024 Horseshoe kidney (ICD-10 - Q63.1) 78y/o M w/ enlarged prostate and elevated PSA. 4K score was reviewed during consult; resulting in 21.7 high risk probability of an aggressive cancer with PSA of 3.28. PSA of 4.95 on 05/03/24 and 5.06 on 05/29/24. He has recent knee replacement with infection. Pt and his family who are present in the room would like PSA rechecked prior to moving forward with repeat biopsy at this time. I will have him return in 6m with new PSA. Return sooner with any other concerns. Plan; Obtain PSA in 6 months - RTC in 6m to review PSA, PVR, UA I, Josi Bonner CNA, am scribing for, and in the presence, of Dr. Mendez. I, Dr. Brad Mendez, personally performed the services prescribed in this documentation, as scribed by Josi Bonner CNA in my presence, and it is both accurate and complete. 05/11/2024 Urinary urgency (ICD-10 - R39.15) 05/11/2024 Elevated PSA (ICD-10 - R97.20) 06/04/2024 Urinary urgency (ICD-10 - R39.15) 78y/o M w/ enlarged prostate and elevated PSA. 4K score was reviewed during consult; resulting in 21.7 high risk probability of an aggressive cancer with PSA of 3.28. PSA of 4.95 on 05/03/24 and 5.06 on 05/29/24. He has recent knee replacement with infection. Pt and his family who are present in the room would like PSA rechecked prior to moving forward with repeat biopsy at this time. I will have him return in 6m with new PSA. Return sooner with any other concerns. Plan; Obtain PSA in 6 months - RTC in 6m to review PSA, PVR, UA I, Josi Bonner CNA, am scribing for, and in the presence, of Dr. Mendez. I, Dr. Brad Mendez, personally performed the services prescribed in this documentation, as scribed by Josi Bonner CNA in my presence, and it is both accurate and complete. 06/04/2024 Elevated PSA (ICD-10 - R97.20) 78y/o M w/ enlarged prostate and elevated PSA. 4K score was reviewed during consult; resulting in 21.7 high risk probability of an aggressive cancer with PSA of 3.28. PSA of 4.95 on 05/03/24 and 5.06 on 05/29/24. He has recent knee replacement with infection. Pt and his family who are present in the room would like PSA rechecked prior to moving forward with repeat biopsy at this time. I will have him return in 6m with new PSA. Return sooner with any other concerns. Plan; Obtain PSA in 6 months - RTC in 6m to review PSA, PVR, UA I, Josi Bonner CNA, am scribing for, and in the presence, of Dr. Mendez. I, Dr. Brad Mendez, personally performed the services prescribed in this documentation, as scribed by Josi Bonner CNA in my presence, and it is both accurate and complete. 05/11/2024 Chronic kidney disease, stage 4 (severe) (ICD-10 - N18.4) 06/04/2024 Chronic kidney disease, stage 4 (severe) (ICD-10 - N18.4) 78y/o M w/ enlarged prostate and elevated PSA. 4K score was reviewed during consult; resulting in 21.7 high risk probability of an aggressive cancer with PSA of 3.28. PSA of 4.95 on 05/03/24 and 5.06 on 05/29/24. He has recent knee replacement with infection. Pt and his family who are present in the room would like PSA rechecked prior to moving forward with repeat biopsy at this time. I will have him return in 6m with new PSA. Return sooner with any other concerns. Plan; Obtain PSA in 6 months - RTC in 6m to review PSA, PVR, UA I, Josi Bonner CNA, am scribing for, and in the presence, of Dr. Mendez. I, Dr. Brad Mendez, personally performed the services prescribed in this documentation, as scribed by Josi Bonner CNA in my presence, and it is both accurate and complete. 05/11/2024 Impaired mobility (ICD-10 - Z74.09) 05/11/2024 History of smoking (ICD-10 - Z87.891) 06/04/2024 Impaired mobility (ICD-10 - Z74.09) 78y/o M w/ enlarged prostate and elevated PSA. 4K score was reviewed during consult; resulting in 21.7 high risk probability of an aggressive cancer with PSA of 3.28. PSA of 4.95 on 05/03/24 and 5.06 on 05/29/24. He has recent knee replacement with infection. Pt and his family who are present in the room would like PSA rechecked prior to moving forward with repeat biopsy at this time. I will have him return in 6m with new PSA. Return sooner with any other concerns. Plan; Obtain PSA in 6 months - RTC in 6m to review PSA, PVR, UA I, Josi Bonner DRY MOLDER, am scribing for, and in the presence, of Dr. Mendez. I, Dr. Brad Mendez, personally performed the services prescribed in this documentation, as scribed by Josi Bonner CNA in my presence, and it is both accurate and complete. 06/04/2024 History of smoking (ICD-10 - Z87.891) 78y/o M w/ enlarged prostate and elevated PSA. 4K score was reviewed during consult; resulting in 21.7 high risk probability of an aggressive cancer with PSA of 3.28. PSA of 4.95 on 05/03/24 and 5.06 on 05/29/24. He has recent knee replacement with infection. Pt and his family who are present in the room would like PSA rechecked prior to moving forward with repeat biopsy at this time. I will have him return in 6m with new PSA. Return sooner with any other concerns. Plan; Obtain PSA in 6 months - RTC in 6m to review PSA, PVR, UA Nyla, Josi Bonner CNA am scribing for, and in the presence, of Dr. Mendez. I, Dr. Brad Mendez, personally performed the services prescribed in this documentation, as scribed by Josi Bonner CNA in my presence, and it is both accurate and complete. 05/11/2024 Other UA clear, PVR 23ml. His creatinine is too elevated for MRI Pelvis. Discussed cystoscopy or TRUS biopsy. He doesn't know if his knees would allow and in office cysto, and he was recently hospitalized with pneumonia and would like to avoid anesthesia at this time. Daughter reports a PSA of 4.9 at his PCP last week. Request records. Recommend obtaining 4K Score today, then RTC in 3 weeks for follow up with MD. Attempted a JENNIFER, but he is unable to lean forward far enough to feel prostate well. Recommend repeat PSA prior to that visit. Patient and his daughter are agreeable. Plan Of Treatment Pending Test Test Name Order Date PSA, total (cpt 02766) 10/11/2024 PSA, TOTAL (5363) 05/11/2024 Insurance Providers Payer Name Payer Address Payer Phone Subscriber Number Group Number Insured Name Patient Relationship to Insured Coverage Start Date Coverage End Date [employer] [address] [place], [place] [id number] José Elliott Self - patient is the insured Medical (General) History Medical History History ICD Code arthritis CAD diabetes heart disesase high cholesterol HBP Surgical History Surgery Date(Month/Year) galbladder appendix both knees hernia x2 Stents Hospitalization History Reason Date(Month/Year) pneumonia 04/2024
--- OUTSIDE RECORDS SUMMARY | 2025-04-30 14:47 | XMS_ITS | Encounter Summary ---
Author Organization [facility] Address [address] [place] [address] Phone Care Team Providers Care Separating Machine Operator Name Role Phone Maureen Samson NP Primary Care Provider [phone] Encounter Details Date Type Department Care Team (Late Contact Info) Description 05/12/2019 Orders Only [facility] [address] [place] [address] Donell Chowdary MD [address] [place] [address] Chronic kidney disease stage 3 (HCC) Social History Tobacco Use Types Packs/Day Years [...] st Contact Info) Description 06/11/2025 11:00 AM FILM PRODUCER Office Visit [facility] [address] [place] [id number] Ela Welch, ABDIRASHID [address] [facility] [address] [place] [id number] documented as of this encounter Visit Diagnoses Diagnosis Chronic kidney disease stage 3 (HCC) documented in this encounter Care Teams Separating Machine Operator Relationship Specialty Start Date End Date Maureen Samson NP [facility] [place] [address] PCP - General 10/02/24 documented as of this encounter
[2025-04-30 15:55] VITALS: BP 134/58; PULSE 53; O2SAT 94
[2025-04-30 15:56] VITALS: BP 134/58; PULSE 55; O2SAT 94
--- NOTE | 2025-04-30 17:23 | DCPLANNER ---
Message sent to General Surgery
== END 2025-04-30 15:58 | disposition home or self-care (01) ==
PROVIDERS: Physician Assistant; Emergency Provider Family Medicine; PCP Family Medicine Geriatric Medicine
DX: I48.20 Chronic atrial fibrillation, unspecified (principal); R19.5 Other fecal abnormalities; Z79.01 Long term (current) use of anticoagulants; Z79.4 Long term (current) use of insulin; Z79.02 Long term (current) use of antithrombotics/antiplatelets; Z87.891 Personal history of nicotine dependence; E78.5 Hyperlipidemia, unspecified; J44.9 Chronic obstructive pulmonary disease, unspecified; E11.22 Type 2 diabetes mellitus with diabetic chronic kidney disease; I12.9 Hypertensive chronic kidney disease with stage 1 through stage 4 chronic kidney disease, or unspecified chronic kidney disease; N18.9 Chronic kidney disease, unspecified
CPT/HCPCS: 36415; 80053; 85025; 85610; 85730; 93005; 99284

== ENCOUNTER → 2025-05-10 10:35 | Outpatient (BNVA) | payer OTHER, SELFPAY | PROVIDERS: PCP Family Medicine Geriatric Medicine; Visit Provider Student in an Organized Health Care Education/Training Program | DX: K92.1 Melena (principal) | CPT/HCPCS: 99203 ==

== ENCOUNTER → 2025-05-13 12:48 | Outpatient (BNVA) | payer OTHER, SELFPAY | PROVIDERS: PCP Family Medicine Geriatric Medicine; Visit Provider Internal Medicine | DX: I25.10 Atherosclerotic heart disease of native coronary artery without angina pectoris (principal); I71.43 Infrarenal abdominal aortic aneurysm, without rupture; E78.2 Mixed hyperlipidemia; I71.40 Abdominal aortic aneurysm, without rupture, unspecified; Z87.891 Personal history of nicotine dependence; I12.9 Hypertensive chronic kidney disease with stage 1 through stage 4 chronic kidney disease, or unspecified chronic kidney disease; N18.9 Chronic kidney disease, unspecified; E11.22 Type 2 diabetes mellitus with diabetic chronic kidney disease; Z79.84 Long term (current) use of oral hypoglycemic drugs | CPT/HCPCS: 36415; 80053; 85025; 99214 ==

== ENCOUNTER 2025-06-06 10:57 | Outpatient (CLI) | payer OTHER, SELFPAY ==
[2025-06-06 11:34] LABS: Hematocrit 38.6 % (37-53); Hemoglobin 12.40 g/dL (11.27-16.99); Mean Corpuscular HGB Conc 32.1 g/dL (30-55); Mean Corpuscular Hemoglobin 31.1 pg (27-33); Mean Corpuscular Volume 96.7 fl (82-101); Nucleated Red Blood Cells % 0 %; Platelet Count 375 10^3/cmm (157-399); Red Blood Count 3.99 10^6/uL (3.85-5.65); White Blood Count 14.32 10^3/uL (3.29-11.43)
[2025-06-06 11:57] LABS: Albumin Level 3.5 g/dL (3.5-5.2); Anion Gap 15.9 (5-19); Blood Urea Nitrogen 48 mg/dL (8-23); Calcium 8.2 mg/dL (8.5-10.5); Carbon Dioxide 25 mmol/L (22-29); Chloride 105 mmol/L (98-107); Glucose 152 mg/dL (65-115); Potassium 4.9 mmol/L (3.5-5.1); Sodium 141 mmol/L (136-145)
[2025-06-06 11:58] LABS: Creatinine Urine, Random 189 mg/dL (39-259); Microalbum Creatinine Ratio Ur 5 mg/dL (0-20)
[2025-06-06 14:15] LABS: Calcium 8.2 mg/dL (8.5-10.5)
== END 2025-06-06 10:58 | disposition home or self-care (01) ==
LOC: LAB 11:01
PROVIDERS: PCP Family Medicine Geriatric Medicine; Visit Provider Registered Nurse
DX: N18.32 Chronic kidney disease, stage 3b (principal)
CPT/HCPCS: 36415; 80069; 82044; 82306; 82310; 83970; 85025

== ENCOUNTER 2025-06-14 10:31 | Outpatient (CLI) | payer OTHER, SELFPAY ==
--- NOTE | 2025-06-14 10:39 | US_ITS ---
WS: [id number] RIGHT UPPER QUADRANT ULTRASOUND HISTORY: ELEVATED LFT/WEIGHT LOSS COMPARISON: 04/26/2024, 08/29/2014 Liver: 17.6 cm in length. Coarse echotexture within the liver. Surface of the liver is slightly irregular and nodular suggesting cirrhosis. There is a small amount of perihepatic fluid. No liver mass. Portal Vein: Normal hepatopetal flow with monophasic waveform. Gallbladder: Surgically removed. CBD: 1.7 cm Pancreas: Completely obscured. Right kidney: 10.8 cm in length. Patient has known horseshoe kidneys. Cyst in the mid RIGHT kidney measures 1.7 x 2.2 x 1.5 cm. No obstruction. Aorta and IVC: Unremarkable abdominal aorta and IVC. Small amount of ascites. US/US abdomen limited [id number] IMPRESSION: 1. Prior cholecystectomy. 2. Cirrhotic appearing liver. 3. Small amount of ascites. 4. Dilated common bile duct to 1.7 cm. Dilatation may be related to the cholec ystectomy state and aging. This can be further evaluated by MRCP. 5. Horseshoe kidneys.
== END 2025-06-14 10:32 | disposition home or self-care (01) ==
PROVIDERS: PCP Family Medicine Geriatric Medicine; Visit Provider Family Medicine Geriatric Medicine
DX: R74.01 Elevation of levels of liver transaminase levels (principal); Z90.89 Acquired absence of other organs; K83.8 Other specified diseases of biliary tract; Q63.1 Lobulated, fused and horseshoe kidney; N28.1 Cyst of kidney, acquired; K76.89 Other specified diseases of liver
CPT/HCPCS: 76705

== ENCOUNTER 2025-06-23 00:49 | Emergency (ER) | payer OTHER, SELFPAY ==
--- OUTSIDE RECORDS SUMMARY | 2024-10-02 08:00 | XMS_ITS ---
Author Organization [facility] Address [address] [place] [address] Care Team Providers Care Account Manager Name Role Phone Maureen Samson Primary Care Provider Juan Manuel Servin [phone] REASON FOR VISIT low back pain Encounters Encounter Location Date Provider Diagnosis [facility] [address] [address] 10/02/2024 Juan Manuel French Plan Of Treatment No Information Progress Notes * José ELLIOTT ADOB: [birth year] (79 yo M)Acc No.[id number]:10/02/2024 Progress Notes Patient: José Houston Provider: Harjit French MD :1945 A ge:79 Y S ex:Male Date:10/02/2024 [id number] Pcp:Maureen Samson Subjective: * Chief Complaints: * L ow back pain * Electronic signature of Izaiah French MD on 06/23/2025 at 12:55 AM PLANT ELECTRICIAN Sign off status: Pending * Provider: Harjit French MD Date: 0 10/02/2024 Generated for Printi ng/Faxing/eTransmitting on: 1 08/24/2024 12:55 AM PLANT ELECTRICIAN
--- OUTSIDE RECORDS SUMMARY | 2024-12-03 11:00 | XMS_ITS ---
Author Organization [facility] Address [address] [facility] [place] [address] Care Team Providers Care Filter Tender Name Role Phone Unruly Landeros Primary Care Provider Unavailab VIVIAN Martinez Unavailable [phone] BRAD PINEDA Unavailable [phone] REASON FOR VISIT 6 mo w/ ua/pvr/psa Encounters Encounter Location Date Provider Diagnosis [facility] [address] [place] [address] 12/03/2024 BRDA PINEDA Plan Of Treatment No Information Progress Notes * WILLOWIRMA José ADOB: [birth year] (79 yo M)Acc No.[id number]:12/03/2024 Progress Notes Patient: José ROBLERO Provider: Bhavna PINEDA MD :1945 A ge:79 Y S ex:Male Date:12/03/2024 Address:[address] [place], [place] [id number] Pcp:Unruly Landeros Subjective: * Chief Complaints: * 1 . 6 mo w/ ua/pvr/psa. * Medical History: Objective: * Vitals: Assessment: Plan: * Treatment: * Billing Information: * Visit Code: * Procedure Codes: * Electronic signature of AUST IN MD EDWIN on 06/23/2025 at 12:55 AM EXTENSION EDGER Sign off status: Pending * Provider: Bhavna PINEDA MD Date: 0 12/03/2024 Generated for Oni Kog/Larry on: 1 08/24/2024 12:55 AM EXTENSION EDGER
[2025-06-23 00:51] VITALS: BP 121/76; PULSE 53; RESP 18; TEMP 36.6; O2SAT 95; BMI 29.2
--- OUTSIDE RECORDS SUMMARY | 2025-06-23 00:56 | XMS_ITS | Clinical Summary ---
Author Organization [facility] Facility Address [address] [place] [address] Care Team Providers Care Loom Starter Name Role Phone Maureen Samson ESTATE PLANNING PARALEGAL Primary Care Provider [phone] Allergies Active Allergy Reactions Criticality Noted Date [...] by mouth 1 (one) time each day 08/23/19 17 Active citalopram (CeleXA) 20 MG tablet Take 20 mg by mouth 1 (one) time each day Active allopurinol (ZYLOPRIM) 300 MG tablet Take 200 mg by mouth 1 (one) time each day 03/01/20 16 Active albuterol HFA (PROVENTIL HFA;VENTOLIN HFA) 108 [...] tablets by mouth twice a day Active Multiple Vitamins-Minera ls (PRESERVISION AREDS 2 PO) Take by mouth 1 (one) time each day Active pantoprazole (PROTONIX) 40 MG EC tablet Take 40 mg by mouth 1 (one) time each day before breakfast Do not crush, chew, or split. Active lisinopril 5 MG tablet Take 1 tablet (5 mg total) by mouth 1 (one) time each day 90 tablet 3 07/07/19 23 Active cyclobenzaprine (FLEXERIL) 10 MG tablet Take 10 mg by mouth 2 (two) times a day if needed for muscle spasms Active cetirizine (ZyrTEC) 10 MG chewable tablet Chew 10 mg in the morning. Active aspirin (ST MATTHEW) 81 MG EC tablet Take 81 mg by mouth 1 (one) time each day 04/27/20 24 Active fluticasone (FLONASE) 50 MCG/ACT nasal spray Administer 1 spray into each nostril 1 (one) time each day 12/08/19 25 Active levothyroxine (SYNTHROID, LEVOTHROID) 137 MCG tablet Take 137 mcg by mouth 1 (one) time each day 12/08/19 25 Active clopidogrel (PLAVIX) 75 MG tablet Take 75 mg by mouth 1 (one) time each day Active Calcium Carb-Cholecalci ferol (CALCIUM 600 + D PO) Take by mouth 1 (one) time each day Active fenofibrate (TRICOR) 48 MG tablet Take 48 mg by mouth 1 (one) time each day 025 Discontinued dilTIAZem CD (CARDIZEM CD) 120 MG 24 hr capsule Take 120 mg by mouth 1 (one) time each day 01/13/20 21 025 Discontinued apixaban (ELIQUIS) 2.5 MG tablet Take 5 mg by mouth in the morning and 5 mg in the evening. 025 Discontinued atorvastatin (LIPITOR) 40 MG tablet Take 40 mg by mouth 1 (one) time each day 025 Discontinued Insulin Detemir (LEVEMIR FLEXPEN SC) Inject 6 Units under the skin 1 (one) time each day 025 Discontinued isosorbide mononitrate (IMDUR) 30 MG 24 hr tablet Take 30 mg by mouth 1 (one) time each day 04/27/20 025 Discontinued insulin glargine (LANTUS) 100 UNIT/ML injection Inject 25 Units under the skin in the morning. 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 2 diabetes mellitus 06/03/2022 Secondary hyperparathyroidism of renal origin Morbid obesity 06/03/2022 Stage 3b chronic kidney disease 05/01/2015 Benign prostatic hyperplasia 05/01/2015 Chronic obstructive pulmonary disease 05/01/2015 Resolved Problems Problem Noted Date Diagnosed Date Resolved Date Chronic kidney disease stage 4 06/11/2025 06/11/2025 Dialysis finding 11/02/2019 06/03/2022 Acidosis 05/16/2019 06/03/2022 Acute gouty arthropathy 05/16/2019 12/07/2021 Anemia of chronic renal failure 05/16/2019 06/03/2022 Edema 05/16/2019 06/03/2022 Diabetes mellitus 05/01/2015 06/03/2022 Hypertensive disorder 05/01/20152021 Coronary arteriosclerosis 05/01/2015 Hyperlipidemia 05/01/2015 06/03/2022 Encounters Date Type Department Care Team Description 06/11/2025 11:00 AM SOFTWARE ENGINEER INTERN Office Visit [facility] [address] [place] [address] Ela Welch NP Grade A2 albuminuria (Primary Dx); 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 (HCC); Chronic metabolic acidosis; Secondary hyperparathyroidism of renal origin (HCC); Type 2 diabetes mellitus with diabetic chronic kidney disease, not otherwise specified (HCC); Chronic kidney disease stage 4 (HCC); Stage 3b chronic kidney disease (HCC); Vitamin D deficiency, not otherwise specified 06/07/2025 Documentation Only [facility] [address] [place] [phone] Nikia Rodriguez MA 06/07/2025 Documentation Only [facility] [address] [place] [phone] Connie Peraza 06/07/2025 Documentation Only [facility] [address] [place] [phone] Karmen, Connie 06/06/2025 Telephone [facility], [facility] [address] [place] [phone] Elise Bailey MD 04/09/2025 Telephone [facility], [facility] [address] [place] [phone] Elise Bailey MD from Last 3 Months [...] Years Used Date Smoking Tobacco: Former Cigarettes 0 Q uit: 2014 Smokeless Tobacco: Never Tobacco [...] Sign Reading Time Taken Comments Blood Pressure 118/62 06/11/2025 10:58 AM SOFTWARE ENGINEER INTERN Pulse 52 06/11/2025 10:58 AM SOFTWARE ENGINEER INTERN Temperature 36.6 C (97.9 F) 10/07/2020 11:48 AM CDT Respiratory Rate - - Oxygen Saturation 97% 02/13/2025 10: 45 AM CDT Inhaled Oxygen Concentration - - Weight 78.8 kg (173 lb 12.8 oz) 025 10:58 AM SOFTWARE ENGINEER INTERN Height 162.6 cm (5' 4 ) 06/11/2025 10:5 8 AM SOFTWARE ENGINEER INTERN Body Mass Index 29.83 06/11/2025 10:58 AM SOFTWARE ENGINEER INTERN Plan of Treatment Upcoming Encounters Date Type Department Care Team (Late st Contact Info) Description 10/14/2025 1:30 PM CDT Office Visit [facility] [address] [place] [address] Ela Welch, ABDIRASHID [address] [facility] [address] [place] [address] Health Maintenance Due Date Last Done Comments Diabetes: Ophthalmology Exam 05/16/2019 Diabetes: Pedal Pulse Checked 05/16/2019 Diabetes: Sensory Foot Exam 05/16/2019 Diabetes: Visual Foot Exam 05/16/2019 Diabetes: Hemoglobin A1C 06/20/2024 024, 11/24/2022, 06/16/2020, Additional history exists Pneumococcal Vaccine: 50+ Years Completed 03/03/2016, 10/28/2015, 07/15/2010, Additional history exists Pneumococcal Vaccine: Peds (0 to 5 Years) and At-Risk Patients (6 to 49 Years) Discontinued 03/03/2016, 10/28/2015, 07/15/2010, Additional history exists Influenza Vaccine Completed 05/27/2025, , 12/24/2021, Additional history exists Hepatitis B Vaccine Aged Out No longe r eligible based on patient's age to complete this topic Procedures Procedure Name Priority Date/Time Associated Diagnosis Comments PTH, INTACT Routine 06/06/2025 11:17 AM SOFTWARE ENGINEER INTERN Stage 3b chronic kidney disease (HCC) VITAMIN D 25 HYDROXY Routine 06/06/2025 11:17 AM SOFTWARE ENGINEER INTERN Stage 3b chronic kidney disease (HCC) RENAL FUNCTION PANEL Routine 06/06/2025 11:17 AM SOFTWARE ENGINEER INTERN Stage 3b chronic kidney disease (HCC) CBC Routine 06/06/2025 Stage 3b chronic kidney disease (HCC) URINE ALBUMIN / CREATININE RATIO Routine 06/06/2025 Stage 3b chronic kidney disease (HCC) Grade A2 albuminuria HEMOGLOBIN A1C (EXTERNAL RESULT ENTRY) Routine 11/24/2022 10:23 AM CDT from Last 3 Months or Most Recently Relevant to Health Maintenance Results * Vit D 25 hydroxy (06/06/2025 11:17 AM SOFTWARE ENGINEER INTERN) Vitamin D, 25-OH, Total 52 ng/mL PRINT/EXTERNAL (NON-INTERFACE D LABS) Blood Venous blood / Unknown 06/06/2025 11:17 AM SOFTWARE ENGINEER INTERN Ela Welch NP LAB BLOOD ORDERABLES Final Resu lt Performing Organization Address City/[facility]/ZIP Co de Phone Number PRINT/EXTERNAL (NON-INTERFACED LABS) * PTH, intact (06/06/2025 11:17 AM SOFTWARE ENGINEER INTERN) Parathyroid Hormone, Intact 103.2 pg/mL PRINT/MOLD BLOWER AL (NON-INTERFACE D LABS) Blood Venous blood / Unknown 06/06/2025 11:17 AM SOFTWARE ENGINEER INTERN Ela Welch NP LAB BLOOD ORDERABLES Final Resu lt Performing Organization Address [facility]/ZIP Co de Phone Number PRINT/EXTERNAL (NON-INTERFACED LABS) * Renal function panel (06/06/2025 11:17 AM SOFTWARE ENGINEER INTERN) Glucose 152 mg/dL PRINT/EXTE RNAL (NON-INTERFACE D LABS) BUN 48 mg/dL PRINT/EXTE RNAL (NON-INTERFACE D LABS) Creatinine 1.9 mg/dL PRINT/EXT ERNAL (NON-INTERFACE D LABS) Sodium 141 mEq/L PRINT/EXTE RNAL (NON-INTERFACE D LABS) Potassium 4.9 mEq/L PRINT/EXTE RNAL (NON-INTERFACE D LABS) Chloride 105 PRINT/EXTE RNAL (NON-INTERFACE D LABS) Carbon Dioxide 25 mmol/L PRINT /EXTERNAL (NON-INTERFACE D LABS) Calcium 8.2 mg/dL PRINT/EXTE RNAL (NON-INTERFACE D LABS) Phosphorus, Serum 3.8 mg/dL PRINT/EXTERNAL (NON-INTERFACE D LABS) Albumin (Blood) 3.5 g/dL PRIN T/EXTERNAL (NON-INTERFACE D LABS) eGFR 36 PRINT/EXTE RNAL (NON-INTERFACE D LABS) Blood Venous blood / Unknown 06/06/2025 11:17 AM SOFTWARE ENGINEER INTERN Ela Welch NP LAB BLOOD ORDERABLES Final Resu lt PRINT/EXTERNAL (NON-INTERFACED LABS) * Urine albumin / creatinine ratio (06/06/2025) Microalbumin Urine Random 1 PRINT/EXTERNA L (NON-INTERFAC ED LABS) Creatinine, Urine Random 189 mg/dL PRINT/EXTERNA L (NON-INTERFAC ED LABS) MICROALBUMIN CREAT URINE 5 PRINT/EXTERNA L (NON-INTERFAC ED LABS) Urine Urine specimen obtained by clean catch procedure / Unknown 06/06/2025 Narrative PRINT/EXTERNAL (NON-INTERFACED LABS) - 06/07/2025 2:23 PM SOFTWARE ENGINEER INTERN [facility] Ela Welch NP LAB URINE ORDERABLES Final Resu lt PRINT/EXTERNAL (NON-INTERFACED LABS) * CBC without diff (06/06/2025) WBC 14.32 K/uL PRINT/EXTE RNAL (NON-INTERFACE D LABS) Red Blood Cell Count 3.99 PRINT/EXTERNAL (NON-INTERFACE D LABS) Hemoglobin 12.40 g/dL PRINT/EXT ERNAL (NON-INTERFACE D LABS) Hematocrit 38.6 % PRINT/EXT ERNAL (NON-INTERFACE D LABS) MCV 96.7 PRINT/EXTE RNAL (NON-INTERFACE D LABS) MCH 31.1 PRINT/EXTE RNAL (NON-INTERFACE D LABS) MCHC 32.1 PRINT/EXTE RNAL (NON-INTERFACE D LABS) RDW 17.5 PRINT/EXTE RNAL (NON-INTERFACE D LABS) Platelet Count 375 PRINT /EXTERNAL (NON-INTERFACE D LABS) MPV 10.6 PRINT/EXTE RNAL (NON-INTERFACE D LABS) Absolute Neutrophils 12.09 PRINT/EXTERNAL (NON-INTERFACE D LABS) Absolute Lymphocytes 1.0 PRINT/EXTERNAL (NON-INTERFACE D LABS) Absolute Monocytes 0.9 PRINT/EXTERNAL (NON-INTERFACE D LABS) Absolute Eosinophils 0.2 PRINT/EXTERNAL (NON-INTERFACE D LABS) Absolute Basophils 0.1 PRINT/EXTERNAL (NON-INTERFACE D LABS) Neutrophils 84.4 K/uL PRINT/EX TERNAL (NON-INTERFACE D LABS) Lymphocytes 6.6 PRINT/EX TERNAL (NON-INTERFACE D LABS) Monocytes 6.0 PRINT/EXTE RNAL (NON-INTERFACE D LABS) Eosinophils 1.5 PRINT/EX TERNAL (NON-INTERFACE D LABS) Basophils 0.5 PRINT/EXTE RNAL (NON-INTERFACE D LABS) Blood Venous blood / Unknown 06/06/2025 Narrative PRINT/EXTERNAL (NON-INTERFACED LABS) - 06/07/2025 2:17 PM [facility] Ela Welch NP LAB BLOOD ORDERABLES Edited Res ult - Final PRINT/EXTERNAL (NON-INTERFACED LABS) * Hemoglobin A1C (11/24/2022 10:23 AM CDT) Hemoglobin A1C 8.0 Blood specimen (specimen) Venous blood / Unknown 11/24/2022 10:23 AM CDT Graeme Felipe LAB BLOOD ORDERABLES Final Resu lt from Last 3 Months or Most Recently Relevant to Health Maintenance Insurance [facility] Regions 1,2,3 (VACCN) Care Teams Loom Starter Relationship Specialty Start Date End Date Maureen Samson NP [address] [place] [address] PCP - General 10/02/24
--- OUTSIDE RECORDS SUMMARY | 2025-06-23 00:56 | XMS_ITS | Encounter Summary ---
Author Organization [facility] Address [address] [facility] [place] [address] Care Team Providers Care Rodbuster Name Role Phone Juni Gotti MD Primary Care Provider [phone] Donell Chowdary MD Unavailable Kyle Ramirez MD Unavailable [phone] Encounter Details Date Type Department Care Team (Late st Contact Info) Description 04/10/2024 Outside Records [facility] [address] [facility] [place] [address] Interface, Provider Social History Tobacco Use Types [...] from your doctor or pharmacy? Rarely 03/21/2024 [facility] Utilities Answer Date Recorded In the [...] place to sleep or slept in a chcf (including now)? No 04/13/2024 Health Literacy Answer Date Recorded Health Literacy 1 04/08/2021 Sex and Gender Information Value Date Recorded Sex Assigned at Not on file Legal Sex Male 1:08 PM CDT Gender Identity Not on file Sexual Orientation Not on file documented as of this encounter Plan of Treatment Not on file documented as of this encounter Visit Diagnoses Not on filedocumented in this encounter Additional Health Concerns Assessment Noted Time PHQ-9 Depression Total Score: 0 05/04/20 17 9:53 AM CDT documented as of this encounter Care Teams Rodbuster Relationship Specialty Start Date End Date Juni Gotti MD [address] [place] [address] PCP - General Specialist 04/23/15 [place] [address] [place] [address] Provider Team Nephrology 05/01/15 Kyle Ramirez MD [address] [place] [address] Referring Provider 08/13/15 documented as of this encounter
--- OUTSIDE RECORDS SUMMARY | 2025-06-23 00:56 | XMS_ITS | Encounter Summary ---
Author Organization [facility] Address [address] [place] [address] Phone Care Team Providers Care Category Planner Name Role Phone Maureen Samson NP Primary Care Provider Reason for Visit * Reason Onset Date Comments insurance 01/10/2024 Encounter Details Date Type Department Care Team (Late st Contact Info) Description 01/10/2024 Telephone [facility] [address] [place] [address] Elise Bailey MD [address] [place] [address] Social History Tobacco Use Types Packs/Day Years Used Date Smoking Tobacco: Former Cigarettes 0 Q uit: 2014 Smokeless Tobacco: Never Comments:Smoking [...] Description 10/14/2025 1:30 PM CDT Office Visit [facility] [address] [place] [address] Ela Welch, ABDIRASHID [address] [facility] [address] [place] [address] documented as of this encounter Visit Diagnoses Not on filedocumented in this encounter Care Teams Category Planner Relationship Specialty Start Date End Date Maureen Samson NP [address] [facility] [address] [place] [address] PCP - General 10/02/24 documented as of this encounter
--- OUTSIDE RECORDS SUMMARY | 2025-06-23 00:56 | XMS_ITS | Patient Health Record ---
Author Organization [facility] Address [address] [place] [address] Care Team Providers Care Park Manager Name Role Phone Unruly Landeros Primary Care Provider Unavailab VIVIAN Martinez Unavailable [phone] EDWIN BRAD Unavailable [phone] Allergies Allergen (clinical drug ingredient) Drug/Non Drug Allergy documented on EMR Reaction Allergy Type Onset Date Status vancomycin Vancomycin Unknown Drug Allergy Activ e Reason For Referral No Information Medications Medication SIG (Take, Route, Frequency, Duration) Notes Start Date End Date Status Citalopram Hydrobromide 10 MG 1 tablet Orally Once a day Active Tiotropium [place] Monohydrate 2.5 MCG/ACT 2 puffs Inhalation Once [...] Notes Problem Chronic kidney disease stage 4 (488496672) Chronic kidney disease, stage 4 (severe) (N18.4) Active confirmed Problem Horseshoe kidney (41607660) 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) Active confirmed Problem Enlarged prostate (547441711) Enlarged prostate (N40.0) Active confirmed Problem Elevated PSA (276001625) Elevated PSA (R97.20) Active confirmed Encounters Encounter Location Date Provider Diagnosis [facility] [address] [place] [address] 10/11/2024 VIVIAN BOWLING Elevated PSA R97.20 Assessments Encounter Date Diagnosis (ICD Code) Assessment Notes Treatment Notes Treatment Clinical Notes Section Notes 10/11/2024 Elevated PSA (ICD-10 - R97.20) Plan Of Treatment Pending Test Test Name Order Date PSA, total (cpt 54434) 10/11/2024 PSA, TOTAL (5363) 05/11/2024 Insurance Providers Payer Name Payer Address Payer Phone Subscriber Number Group Number Insured Name Patient Relationship to Insured Coverage Start Date Coverage End Date [employer] [address] [place], [place] [id number] Pounders, José Self - patient is the insured Medical (General) History Medical History History ICD Code arthritis CAD diabetes heart disesase high cholesterol HBP Surgical History Surgery Date(Month/Year) galbladder appendix both knees hernia x2 Stents Hospitalization History Reason Date(Month/Year) pneumonia 04/2024
--- OUTSIDE RECORDS SUMMARY | 2025-06-23 00:56 | XMS_ITS | Clinical Summary ---
Author Organization [facility] Address [address] [place] [address] Care Team Providers Care Labor Economist Name Role Phone Juni Gotti MD Primary Care Provider [phone] Donell Chowdayr MD Unavailable [phone] Kyle Ramirez MD Unavailable [phone] Allergies Active Allergy Reactions Criticality Noted Date [...] from your doctor or pharmacy? Rarely 03/21/2024 [facility] Utilities Answer Date Recorded In the past 12 months has th e [employer], oil, or water [employer] threatened to shut off services in your [...] place to sleep or slept in a senior living (including now)? No 04/13/2024 Health Literacy Answer Date Recorded Health Literacy 1 04/08/2021 Sex and Gender Information Value Date Recorded Sex Assigned at Not on file Legal Sex Male 1:08 PM CDT Gender Identity Not on file Sexual Orientation Not on file Last Filed Vital Signs Vital Sign Reading Time Taken Comments Blood Pressure 112/65 05/09/2024 1:06 PM [employer]IEF ENGINE[employer]ODUCTION Pulse 88 05/09/2024 1:06 PM CHIEF ENGINEER [employer]ODUCTION Temperature 36.8 C (98.2 F) 04/14/2024 7:40 AM CDT Respiratory Rate 18 05/09/2024 1:06 PM CHIEF ENGINEER PRODUCTION Oxygen Saturation 99% 05/09/2024 1:06 PM CHIEF ENGINEER PRODUCTION Inhaled Oxygen Concentration - - Weight 87.6 kg (193 lb 1.6 oz) 05/09/2024 1:06 P M CHIEF ENGINEER PRODUCTION Height 162.6 cm (5' 4 ) 05/09/2024 1:06 PM CHIEF ENGINEER PRODUCTION Body Mass Index 33.15 05/09/2024 1:06 PM CHIEF ENGINEER PRODUCTION Plan of Treatment Health Maintenance Due Date Last Done Comments [...] (RSV) Immunization - pts and pts aged 50 yrs+ (1 - 1-dose 75+ series) 2022 Hemoglobin A1C 06/20/2024 03/21/2024 COVID-19 Vaccine (1 - 2023-2 5 season) 2025 Influenza Series (#1) 2025 05/14/2015 , 04/18/2015 Hepatitis B Vaccine Aged Out No longe r eligible based on patient's age to complete this topic Meningococcal B Vaccine Aged Out No l onger eligible based on patient's age to complete this topic Medical Devices Implanted Type Area Phys Assistant Device Identifier Shelf Expiration Date Model / Serial / Lot Cement Bone Simplex P Radiopaque - [id number] Implanted:Qty: 1 on 05/13/2015 by Eleazar Menjivar MD at [facility] Right: Knee [employer]-381 59 (DO NOT USE) 10/31/2017 6191-1-010 / / [id number] Cement Bone Simplex P Radiopaque - [id number] Implanted:Qty: 1 on 05/13/2015 by Eleazar Menjivar MD at [facility] Right: Knee [employer]-381 59 (DO NOT USE) 08/31/2017 6191-1-010 / / [id number] Pack Femur Distal Poly Mrh Gmrs - [id number] Implanted:Qty: 1 on 06/10/2015 by Eleazar Menjivar MD at [facility] Right: Knee [employer]-381 59 (DO NOT USE) 03/26/2020 6481-2-150 / / [id number] Insert Tibial Knee Mh 10mm - [id number] Implanted:Qty: 1 on 06/10/2015 by Eleazar Menjivar MD at [facility] Right: Knee [employer]-381 59 (DO NOT USE) 11/01/2019 6481-3-210 / / [id number] Cement Simplex P Antibiotic Bone W/Tobramycin - [id number] Implanted:Qty: 1 on 06/10/2015 by Eleazar Menjivar MD at [facility] Right: Knee [employer]-381 59 (DO NOT USE) 08/02/2016 6197-9-010 / / [id number] Cement Simplex P Antibiotic Bone W/Tobramycin - [id number] Implanted:Qty: 2 on 06/10/2015 by Eleazar Menjivar MD at [facility] Right: Knee [employer]-381 59 (DO NOT USE) 08/03/2016 6197-9-010 / / [id number] Fabrics And Material Cutter Knee Stem Fluted 25i321pk - [id number] Implanted:Qty: 1 on 06/10/2015 by Eleazar Menjivar MD at [facility] Right: Knee [employer]-381 59 (DO NOT USE) 04/02/2019 6478-6-695 / / [id number] Baseplate Tibial Knee Sz Small - [id number] Implanted:Qty: 1 on 06/10/2015 by Eleazar Menjivar MD at [facility] Right: Knee [employer]-381 59 (DO NOT USE) 04/22/2020 6481-3-111 / / [id number] Axle Tibial Proximal Mr Standard - [id number] Implanted:Qty: 1 on 06/10/2015 by Eleazar Menjivar MD at [facility] Right: Knee [employer]-381 59 (DO NOT USE) 03/10/2020 6481-2-120 / / [id number] Hinge Tibial Rotating Cmprsn Xsm-Med - [id number] Implanted:Qty: 1 on 06/10/2015 by Eleazar Menjivar MD at [facility] Right: Knee [employer]-381 59 (DO NOT USE) 07/02/2019 6481-2-100 / / [id number] Fabrics [employer] Material Cutter Knee Stem Fluted [id number] - [id number] Implanted:Qty: 1 on 06/10/2015 by Eleazar Menjivar MD at [facility] Right: Knee [employer]-381 59 (DO NOT USE) 04/22/2016 6478-6-715 / / [id number] [employer] Knee Femoral Component Implanted:Qty: 1 on 06/10/2015 by Eleazar Menjivar MD at [facility] Right: Knee [employer]-381 59 (DO NOT USE) 03/02/2019 6481-1-121 / / [id number] Description:With C-code C177 6. Cement Bone Grapevine Hv Radiopq 40gr - [id number] Implanted:Qty: 2 on 04/13/2024 by Eleazar Menjivar MD at [facility] Left: Knee [employer] - 38039_WD [id number] 04/11/2025 600-15-000 / / [id number] Femur Knee Primary Left Sz 5 - [id number] Implanted:Qty: 1 on 04/13/2024 by Eleazar Menjivar MD at [facility] Left: Knee [employer] - 55015_WD [id number] 02/02/2032 [id number] / / [id number] Baseplate Tib Jethro Nprs 5 Stnrd Kn Lft Kl - [id number] Implanted:Qty: 1 on 04/13/2024 by Eleazar Menjivar MD at [facility] Left: Knee [employer] - 55015_WD [id number] 12/07/2031 [id number] / / Insert Tib Jethro Stndrd 12mm Knee Lft Crct - [id number] Implanted:Qty: 1 on 04/13/2024 by Eleazar Menjivar MD at [facility] Left: Knee [employer] - 55015_WD [id number] 04/12/2031 [id number] / / [id number] Total Joint Knee Cmntd [employer] - [id number] Implanted:Qty: 1 on 04/13/2024 by Eleazar Menjivar MD at [facility] Left: Knee [employer] - 55015_Palkion [id number] / / Explanted Type Area Phys Assistant Device Identifier Shelf Expiration Date Model / Serial / Lot Insert Tib Nuvia Cruciate Sub Pe Sz5 Lft 10mm - [id number] Explanted:Qty: 1 on 04/13/2024 by Eleazar Menjivar MD at [facility] Left: Knee [employer] - 55015_WD [id number] 10/28/2031 [id number] / / Procedures Procedure Name Priority Date/Time Associated Diagnosis Comments HEMOGLOBIN A1C Routine 03/21/2024 2:27 PM CDT Preop exam for internal medicine Type 2 diabetes mellitus without complication, with long-term current use of insulin ([facility]) from Last 3 Months or Most Recently Relevant to Health Maintenance Results * (ABNORMAL) HbA1c (03/21/2024 2:27 PM CDT) Hemoglobin A1C 7.7(H) 4.0 - 6.0 % 03/22/2024 12:02 PM CDT [facility] Blood Venipuncture / Unknown 03/21/2024 2:27 PM CDT 03/21/2024 4:27 PM CDT Narrative [facility] - 03/22/2024 12:02 PM CDT Conditions that shorten red cell survival, such as hemolytic anemia or the presence of unstable hemoglobins may yield falsely depressed results. Conditions that increase red cell survival such as iron deficiency anemia may yield elevated results. According to [place] Diabetes Association (ADA) guidelines, HbAlc greater than or equal to 6.5 is the diagnostic limit for diabetes, and the range of 5.7-6.4% is for Increased Risk for Diabetes (Prediabetes). [facility] BLOOD ORDERABLES Final Result [facility] [address] [id number], from Last 3 Months or Most Recently Relevant to Health Maintenance Insurance MEDICARE PART A & B GENERIC [employer]ER[employer] [id number] Advance Directives * Full Code (Latest Code [...] 12:46 PM 05/13/2015 6:56 PM Care Teams Labor Economist Relationship Specialty Start Date End Date Juni Gotti MD [address] [place] [address] PCP - General Specialist 04/23/15 Donell Chowdary MD [address] [place] [address] Provider Team Nephrology 05/01/15 Kyle Ramirez MD [address] [place] [address] Referring Provider 08/13/15
--- OUTSIDE RECORDS SUMMARY | 2025-06-23 00:56 | XMS_ITS | Encounter Summary ---
Author Organization [facility] Address [address] [place] [address] Phone Care Team Providers Care Regulatory Affairs Strategy Specialist Name Role Phone Maureen Samson NP Primary Care Provider [phone] Encounter Details Date Type Department Care Team (Late Contact Info) Description 05/12/2019 Orders Only [facility] [address] [place] [address] Donell Chowdary MD Chronic kidney disease stage 3 (HCC) Social [...] Department Care Team (Late Contact Info) Description 10/14/2025 1:30 PM CDT Office Visit [facility] [address] [place] [address] Ela Welch TUTORING ASSISTANT [address] [place] [address] documented as of this encounter Visit Diagnoses Diagnosis Chronic kidney disease stage 3 (HCC) documented in this encounter Care Teams Regulatory Affairs Strategy Specialist Relationship Specialty Start Date End Date Maureen Samson NP [address] [place] [address] PCP - General 10/02/24 documented as of this encounter
--- OUTSIDE RECORDS SUMMARY | 2025-06-23 00:56 | XMS_ITS | Data Portability ---
Author Organization [facility] Address [address] [address] Assessment Encounter Date Assessment Date Assessment LastModified by Organization Details LastModified Time 10/05/2022 10/05/2022 Preliminary US result is negative. Educated to elevate the LLE due to edema. Follow up with PCP this week. Patient and his daughters agree with this plan of care. [email or web address] Not available 10/05/2022 20:10:28 Plan of Treatment Reminders Order Date Submit Date Provider Last Modified By Organization Details Last Modified Time Details Appointments None recorded. Lab None recorded. Referral None recorded. Procedures None recorded. Surgeries None recorded. Imaging US, duplex, venous, lower extremity - LEFT 2022 023 [email or web address] Not available 17:37:46 Medication Orders None recorded. Patient TargetsNo targets recorded. Patient InstructionsNo instructions recorded. Reason for Referral None Reported. Medical Equipment None Reported. Vitals Date Recorded Body height Body mass index (BMI) Body weight Oxygen saturation Heart rate Respiratory rate Body temperature Systolic And Diastolic Provider Name and Address Organization Details Last Updated DateTime 3 162.56 cm 37 kg/m2 79794.1 6 g 95 % 64 /min 20 /min 97.5 [degF] 142/70 mm[Hg] [facility]CO HAIRSTON [facility] 13:21:51 Social History None recorded. Functional Status None recorded. Mental Status None recorded. Family History Nothing Reported. Medical History No medical history recorded. Past Encounters Encounter ID Performer Location Encounter Start Date Encounter Closed Date Diagnosis/Indication Diagnosis SNOMED-CT Code Diagnosis ICD10 Code Diagnosis IMO Codes Diagnosis Note [id number] MAR[address] DOLORES DELMAR, [facility] [place] ([facility]) [address] [place] [address] 10/05/2022 13:02:05 10/13/2022 16:08:13 Pain of left calf 6450333532 006763 M79.662 Edema of l eft lower limb 411826056 R60.0 [id number] MARIA DOLORES JACOBSEN [facility] [place] ([facility]) [address] [place] [address] 10/05/2022 15:21:40 10/05/2022 15:27:39 Health Concerns Section Related Observation LastModified by Organization Detai ls LastModified Time None Recorded Concern Status LastModified by Organization Details LastModified Time None Recorded Advance Directives Directive None Recorded Payers Insurance Date Sequence Insurance Name Policy Number Policy Townsend Covered Member ID Townsend Member ID Guarantor Name 11/18/2022 [place] - [place] - PART A - [facility] (MEDICARE) José Pounders [id number] José Pounders 10/05/2022 2 [employer] (MEDICARE SUPPLEMENT) José Pounders [id number] José Pounders 11/18/2022 1 [place] José A Pounders [id number] José Pounders 10/05/2022 3 [employer] - MULTIPLAN (INDEMNITY) José Pounders [id number] José Pounders Notes Date Note Type Note Provider Name and Address Organization Details Recorded Time 10/05/2022 text/html Musculoskeletal PainReported by PatientHPIFor location, patient reportspain radiating to the legs leftbut reportsleft knee. For quality, patient reportsdull. For severity, patient reportsworsening. For timing, patient reportsdate of onset: (a few days ago)andconstant.Patie nt takes eliquis dailyROS as noted in the HPI PATIENT REPORTS A PAINFUL KNOT BEHIND HIS LEFT KNEE THAT HAS DECREASED IN SIZE OVER THE LAST MONTH. HOWERVER, HIS LEFT CALF IS SWELLING AND DISCOLORED. SOME TENDERNESS NOTED. PATIENT WAS AT ANOTHER APPT WITH HIS EMAIL MANAGER AND SHE RECOMMEDED HE GET AN ULTRASOUND OF HIS LEFT LOWER LEF TO RULE OUT DVT. MARIA DOLORES JACOBSEN, AIRCRAFT PNEUDRAULICS REPAIRER [address] [place], [address], [facility] 10/05/2022 20:10:40
--- OUTSIDE RECORDS SUMMARY | 2025-06-23 00:56 | XMS_ITS | Patient Health Record ---
Author Organization [facility] Address [address] [place] [address] Care Team Providers Care Sanitarian Inspector Name Role Phone Maureen Samson Primary Care Provider Juan Manuel Servin Unavailable [phone] Allergies Allergen (clinical drug ingredient) Drug/Non Drug Allergy documented on EMR Reaction Allergy Type Onset Date Status morphine Morphine Unknown Drug Allergy Active Results Component Value Reference Range Notes XR Outside CD Reviewed date:05/21/2025 02:42:50 PM Interpretation: Performing Lab: Notes/Report: [id number]=[id number]&org=iSite XR Outside CD Reviewed date:05/21/2025 02:42:50 PM Interpretation: Performing Lab: Notes/Report: [id number]=[id number]&org=iSite Reason For Referral Reason low back pain fractu re of unsp parts lumbosacral spine and pelvis Diagnosis 1 Low back pain (M54.5 0) Referring Provider First Name Maureen Referring Provider Last Name Chapin Referring Provider Speciality Nurse Prac titioner Referred Organization [facility] [place] Referred Provider Juan Manuel French Referred Address [address],[place],[address], Referral Priority Routine Medications Medication SIG (Take, [...] Problem Type II diabetes mellitus without complication (754167555) Type 2 diabetes mellitus without complications (E11.9) Active confirmed Problem Chronic pain (34813307) Other chronic pain (G89.29) Active confirmed Problem Acquired spondylolisthesis (144783236) Spondylolisthesi s, lumbosacral region (M43.17) Active confirmed Problem Long-term current use of insulin (661485303) residential (current) use of insulin (Z79.4) Active confirmed Problem COPD - Chronic obstructive pulmonary disease (07893200) Chronic obstructive pulmonary disease, unspecified COPD type (J44.9) Active confirmed Problem Pathological fracture of vertebra (822846090) Compression fracture of body of thoracic vertebra (M48.54XA) Active confirmed Problem Abnormal gait (09499527) Decreased mobility (R26.89) Active confirmed Vital Signs [...] 10/02/2024 Encounters Encounter Location Date Provider Diagnosis [facility] [place] [address] [place] [address] 10/02/2024 Juan Manuel French Compression fracture of body of thoracic vertebra M48.54XA ; Compression fracture of L1 vertebra, initial encounter S32.010A ; Compression fracture of L2 vertebra, initial encounter S32.020A and Spondylolisthesis, lumbosacral region M43.17 [facility] [place] [address] [place] [address] 11/13/2024 Juan Manuel French Assessments Encounter Date [...] region (ICD-10 - M43.17) Plan Of Treatment No Information Insurance Providers Payer Name Payer Address Payer Phone Subscriber Number Group Number Insured Name Patient Relationship to Insured Coverage Start Date Coverage End Date [place] [address] MARIA ESTHER FER[place]NDO [address] [phone] [id number] José Elliott Self - patient is the insured [employer] [address] [address] BALJ[place] [phone] [id number] José Elliott Self - patient is the insured [employer] [address] [place] [address] [id number] José Elliott Self - patient is the insured Medications Administered Medication Instructions Date of Administration Dosage Notes DEPO-Medrol 10/28/2022 40 mg [facility] [address]29[address]451 3-01 pt tolerated well/instructed to wait 20 min dexAMETHasone 10/28/2022 4 mg [facility] 49268-3 423-00 pt tolerated well/instructed to wait 20 min Rocephin 10/28/2022 1 g [facility] [address] -11 pt tolerated well/instructed to wait 20 min Medical (General) History Medical History History ICD Code High Blood Pressure type II diabetes diabetic neuropathy hyperlipidemia COPD Atrial fibrillation anxiety chronic renal insufficiency depression Surgical History Surgery Date(Month/Year) right knee replacement x2 cholecystectomy hernia repair appendectomy cardiac stents x2 Hospitalization History Reason Date(Month/Year) see surgical history
--- OUTSIDE RECORDS SUMMARY | 2025-06-23 00:56 | XMS_ITS | Encounter Summary ---
Author Organization [facility] Address [address] [place] [address] Care Team Providers Care Air Hammer Operator Name Role Phone Juni Gotti MD Primary Care Provider [phone] Donell Chowdary MD Unavailable [phone] Kyle Ramirez MD Unavailable [phone] Encounter Details Date Type Department Care Team (Late st Contact Info) Description 04/03/2024 Outside Records [facility] [address] [facility] [place] [address] Interface, Provider Social History Tobacco Use Types [...] documented as of this encounter Care Teams Air Hammer Operator Relationship Specialty Start Date End Date Juni Gotti MD [facility] [place] [address] PCP - General Specialist 04/23/15 Donell Chowdary MD [address] [place] [phone] Provider Team Nephrology 05/01/15 Kyle Ramirez MD [address] [place] [address] Referring Provider 08/13/15 documented as of this encounter
--- NOTE | 2025-06-23 01:04 | ECG_ITS ---
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
--- NOTE | 2025-06-23 01:04 | CTR_ITS ---
PROCEDURE INFORMATION: Exam: CT Chest With Contrast; Diagnostic Exam date and time: 06/23/2025 1:27 AM Age: 79 years old Clinical indication: Injury or trauma; Fall; Abdominal wall; Blunt trauma (contusions or hematomas); Prior surgery; Surgery date: 6+ months; Surgery type: Gb. Appy. Ventral hernia. Patient rolled out of bed onto floor. Focal C/O of left chest and abd wall pain. History of copd, ckd, and aaa. ; Additional info: Trauma, L side pain, pleuritic pain TECHNIQUE: Imaging protocol: Diagnostic computed tomography of the chest with contrast. Radiation optimization: All CT scans at this facility use at least one of these dose optimization techniques: automated exposure control; mA and/or kV adjustment per patient size (includes targeted exams where dose is matched to clinical indication); or iterative reconstruction. Contrast material: OMNI 350; Contrast volume: 75 ml; Contrast route: INTRAVENOUS (IV); COMPARISON: CR XR chest 1V portable [id number] 06/28/2024 9:42 PM RADIATION DOSE METRICS: Total DLP (mGy-cm): 2367.25 FINDINGS: Lungs: Calcified granuloma in the right lower lobe. Pleural spaces: No pulmonary contusion or pneumothorax. No acute fractures. Heart: Unremarkable. No cardiomegaly. No pericardial effusion. Lymph nodes: Unremarkable. No enlarged lymph nodes. Vasculature: Unremarkable. No aortic aneurysm. Bones/joints: See Pleural spaces finding. Soft tissues: Unremarkable. PROCEDURE INFORMATION: Exam: CT Abdomen And Pelvis With Contrast Exam date and time: 06/23/2025 1:27 AM Age: 79 years old Clinical indication: Injury or trauma; Fall; Abdominal wall; Blunt trauma (contusions or hematomas); Prior surgery; Surgery date: 6+ months; Surgery type: Gb. Appy. Ventral hernia. Patient rolled out of bed onto floor. Focal C/O of left chest and abd wall pain. History of copd, ckd, and aaa. ; Additional info: Trauma, L side pain, pleuritic pain TECHNIQUE: Imaging protocol: Computed tomography of the abdomen and pelvis with contrast. Radiation optimization: All CT scans at this facility use at least one of these dose optimization techniques: automated exposure control; mA and/or kV adjustment per patient size (includes targeted exams where dose is matched to clinical indication); or iterative reconstruction. Contrast material: OMNI 350; Contrast volume: 75 ml; Contrast route: INTRAVENOUS (IV); COMPARISON: CT abdomen pelvis con [id number] 04/26/2024 11:38 AM RADIATION DOSE METRICS: Total DLP (mGy-cm): 2367.25 FINDINGS: Liver: Mild hepatic cirrhosis. Abdominal ascites. Splenomegaly measuring up to 13.7 cm. Gallbladder and biliary ducts: Normal. No calcified stones. No ductal dilation. Pancreas: Normal. No ductal dilation. Spleen: See Liver finding. Adrenal glands: Normal. No mass. Kidneys and ureters: Horseshoe kidney. Stomach and bowel: Diverticulosis, without acute diverticulitis. No small bowel obstruction. No free air. Appendix: No evidence of appendicitis. Intraperitoneal space: See Liver finding. Vasculature: Infrarenal abdominal aortic aneurysm measures 4.1 x 4.1 cm. Lymph nodes: Unremarkable. No enlarged lymph nodes. Urinary bladder: Unremarkable as visualized. Reproductive: Unremarkable as visualized. Bones/joints: Grade 1 anterolisthesis of L5 on S1 measures 13 mm. Soft tissues: Fat containing left inguinal hernia. Other findings: No acute traumatic findings in the abdomen or pelvis. CT/CT chest abdpel w/*[id number] IMPRESSION: No pulmonary contusion or pneumothorax. No acute fractures. IMPRESSION: 1. No acute traumatic findings in the abdomen or pelvis. 2. Horseshoe kidney. 3. Diverticulosis, without acute diverticulitis. No small bowel obstruction. No free air.
--- NOTE | 2025-06-23 01:05 | ED_ITS ---
HPI - Fall 2 General: Chief Complaint: Fall Stated Complaint: back pain- fall Time Seen by Provider: 06/23/25 00:50 History of Present Illness: Patient is a 79-year-old male with past medical history of hypertension, gout, COPD, HLD, CAD, A-fib who presents to the ED after a fall. Patient states he was reaching onto his nightstand when he states he must of over reached and then proceeded to roll out of bed onto his left side, he did not hit his head, no loss of consciousness, he is on Plavix. He cannot get up and EMS was called, he states the worst of his pain is to the left side of his rib cage andfeels the pain worst on inspiration. He denies any shortness of breath, chest pain, syncope, severe headache just prior to this event. Has otherwise been in his normal state of health just prior. No medications given per EMS. Associated symptoms-after fall: Denies abdominal pain, chest pain or headache(s) Related Data Home Medications ?Medication ?Instructions ?Recorded ?Confirmed allopurinol 300 mg tablet 300 mg PO DAILY 09/03/1904/27 citalopram 40 mg tablet 20 mg PO QAM 09/03/19 tiotropium bromide 18 mcg capsule 1 cap inhalation HÉCTOR LY 09/03/19 05/13/25 with inhalation device (Spiriva with HandiHaler) cholecalciferol (vitamin D3) 25 25 mcg PO DAILY 05/13/25 mcg (1,000 unit) tablet (Vitamin D3) furosemide 40 mg tablet 40 mg PO BID 02/12/21 fenofibrate nanocrystallized 48 mg 145 mg PO DAILY 03/2505/13/25 tablet atorvastatin 80 mg tablet 40 mg PO BEDTIME 04/23/24 cyclobenzaprine 10 mg tablet 10 mg PO TID PRN Muscle S pasm 04/23/24 05/13/25 fluticasone propionate 50 2 spray intranasal DAILY 05/13/25 mcg/actuation nasal spray,suspension cetirizine 10 mg tablet (Zyrtec) 10 mg PO DAILY PRN al lergies 06/29/24 05/13/25 isosorbide mononitrate 30 mg 30 mg PO DAILY 06/29/24 1 07/13/24 tablet,extended release 24 hr vit C 250 mg-vit E 90 mg-zinc 40 1 tab PO BID 06/29/24 05/13/25 mg-copper 1 [id number] capsule (PreserVision AREDS-2) amiodarone 200 mg tablet (Pacerone) 200 mg PO BID 04/0405/13/25 diclofenac sodium 1 % topical gel 4 g topical QID PRN joint pain 04/30/25 05/13/25 hydrocortisone-pramoxine 1 %-1 % 1 applic topical DAVE Y PRN 04/30/25 05/13/25 topical foam Inflammation lidocaine 5 % topical patch 1 patch topical DAILY PRN Pain 04/30/25 05/13/25 mineral oil-hydrophil petrolat 1 applic topical DAILY skin care 04/30/25 05/13/25 topical ointment sennosides 8.6 mg tablet 8.6 mg PO DAILY 04/30/2504/27 tamsulosin 0.4 mg capsule 0.4 mg PO BID 05/10/2505/13 vit B6-mag cit,ox-potassium cit tab PO 05/13/25 3.75 mg-45 mg-45 mg-49.5 mg tablet ER Previous Rx's ?Medication ?Instructions ?Recorded 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,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,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 ea 05/11/23 (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) metoprolol tartrate 50 mg tablet 75 mg (1.5 x 50 mg) P O BID #180 05/16/24 tabs nitroglycerin 0.4 mg sublingual 0.4 mg sublingual Q5M PRN Chest 05/16/24 tablet (Nitrostat) Pain #25 tabs apixaban 5 mg tablet (Eliquis) 5 mg PO BID #180 tabs 0 07/11/24 clopidogrel 75 mg tablet 75 mg PO DAILY #90 tabs 02/25 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 sensor (Dexcom G7 #9 ea 02/13/25 Sensor device) levothyroxine 137 mcg capsule 137 mcg PO DAILY hypothy roididm 04/22/25 #90 caps pantoprazole 40 mg tablet,delayed 40 mg PO BID #60 tab s 04/30/25 release methocarbamol 750 mg tablet 750 mg PO TID #20 tabs oxycodone 5 mg tablet 5 mg PO TID PRN pain #6 tabs 06/23/25 Allergies Allergy/AdvReac Type Severity Reaction Status Date / Time vancomycin Allergy Severe ALGY-Anaphy Verified 06/23/25 00:56 laxis Opioids - Morphine Analogues Allergy Unknown Verified 06/23/25 00:56 Review of Systems 2 General: Reports: 10 or more systems reviewed and unremarkable except in HPI and below Const: Denies: fever(s) or chills Eyes: Denies: change in vision or eye discharge Card: Denies: chest pain, palpitations or swelling of feet/ankles Resp: Denies: dyspnea or productive cough GI: Denies: abdominal pain or diarrhea : Denies: difficulty urinating Musc: Reports: other (Left chest wall pain) Skin/Breast: Denies: rash or jaundice Neuro: Denies: headache(s), numbness in extremities or weakness in extremities Jurgen/Lymph: Denies: easy bruising or easy bleeding PFSH ED 2 PFSH: Medical History (Updated 06/23/25 @ 02:18 by Daron Aleman DO) Positive cardiac stress test COVID-19 05/2022 GERD (gastroesophageal reflux disease) Horseshoe kidney Depression BPH (benign prostatic hyperplasia) Gout Tobacco abuse, in remission Diabetes CKD (chronic kidney disease) COPD (chronic obstructive pulmonary disease) Hyperlipidemia HTN (hypertension) Atrial fibrillation ASHD (arteriosclerotic heart disease) AAA (abdominal aortic aneurysm) Surgical History S/P total knee arthroplasty (04/13/24) left S/P appendectomy S/P cholecystectomy S/P knee replacement right, had post operative infection with repeat surgeries needed in approximately 2011 L. knee replacement in 04/2024 S/P tonsillectomy S/P hernia repair umbilical hernia repair, and R. inguinal hernia repair S/P PTCA (percutaneous transluminal coronary angioplasty) 2 stents in 2009 placed at the [facility] in [place] Family History Father CAD (coronary artery disease) Hypertension Myocardial infarction Social History Smoking and tobacco/nicotine status: former use of tobacco/nicotine Alcohol intake: never Substance/Drug Use: never Additional social history: smoked 2 ppd for apprixmately 50yrs. Physical Exam 2 Narrative: EXAM NARRATIVE: Patient frail but overall well-appearing, nontoxic, vital stable on arrival, afebrile, no acute distress. Primary survey remarkable for intact airway, clear bilateral breath sounds, 2+ pulses throughout, GCS 15, patient exposed. Secondary revealing no signs of head or facial trauma, midface stable, no blood in oropharynx, no apparent dental injury, no C-spine tenderness, neck supple. No anterior chest wall or abdominal tenderness, soft, moderate pain to palpation diffusely to the left side of his rib cage, no thoracic or lumbar midline spinal tenderness, no step-offs. Mild skin tear to right elbow but no pain to palpation of elbow joint and full range of motion. No obvious injuries, deformities to other 3 extremities. Course 2 Vital Signs: Vital signs: Vital Signs Temperature 97.8 F 06/23/25 00:51 Pulse Rate 53 L 06/23/25 00:51 Respiratory Rate 18 06/23/25 01:21 Blood Pressure 121/76 06/23/25 00:51 Pulse Oximetry 95 06/23/25 00:51 MDM - Fall Medical Decision Making -ddx: Rib fracture, pneumothorax, bony contusion, splenic injury, intracranial bleed, coagulopathy - Patient arrives after a roll off bed and landing onto his left side with the worst of his pain localized here, worse on inspiration, and 4 out of 10 pain at this time, primary survey unremarkable, secondary survey as above, will get CT traumatic imaging in setting of being frail and elderly, on Plavix, get basic and coagulopathic labs, EKG, provide oxy and reassess. - Patient with negative CT traumatic imaging for any fractures, internal bleeding, dislocations, excetra. Patient felt improved after oxycodone. Still had some mild pleuritic pain, believed to have a bony contusion on the left side of his rib cage. He has a history of CKD, GFR has been lower before, around baseline, elevated BUN and has had decreased p.o. intake, probably a component of dehydration and mild prerenal azotemia contributing of this, he already has follow-up every few weeks for monitoring of his creatinine and family understanding of need to stay hydrated. He was then deemed stable to be discharged home, given a short-term prescription for Robaxin, oxycodone to use in addition to an incentive spirometer to promote pulmonary hygiene because of his frail and elderly status to prevent secondary pneumonia, encourage PCP follow-up in a few days, strict return precautions given, discharged with daughters at bedside. Lab Data 06/23/25 01:19 06/23/25 01:19 Radiology Impressions Chest/Abdomen/Pelvis CT 06/23/25 01:04 IMPRESSION: No pulmonary contusion or pneumothorax. No acute fractures. IMPRESSION: 1. No acute traumatic findings in the abdomen or pelvis. 2. Horseshoe kidney. 3. Diverticulosis, without acute diverticulitis. No small bowel obstruction. No free air. Head CT 06/23/25 01:11 IMPRESSION: No acute intracranial hemorrhage. No midline shift or mass effect. Laboratory Results WBC 13.33 10^3/uL (3.29-11.43) H 06/23/25 01:19 RBC 3.79 10^6/uL (3.85-5.65) L 06/23/25 01:19 Hgb 11.80 g/dL (11.27-16.99) 06/23/25 01:19 Hct 37.1 % (37-53) 06/23/25 01:19 MCV 97.9 fl (82-101) 06/23/25 01:19 MCH 31.1 pg (27-33) 06/23/25 01:19 MCHC 31.8 g/dL (30-55) 06/23/25 01:19 RDW 18.3 % (12.1-15.1) H 06/23/25 01:19 Plt Count 252 10^3/cmm (157-399) 06/23/25 01:19 MPV 10.9 fL (7.4-10.4) H 06/23/25 01:19 Neut % (Auto) 82.8 % 06/23/25 01:19 Lymph % (Auto) 7.7 % 06/23/25 01:19 Towns % (Auto) 7.2 % 06/23/25 01:19 Eos % (Auto) 1.4 % 06/23/25 01:19 Baso % (Auto) 0.3 % 06/23/25 01:19 Neut # (Auto) 11.04 10^3/uL (1.8-7.7) H 06/23/25 01:19 Lymph # (Auto) 1.0 10^3/uL (0.8-4.8) 06/23/25 01:19 Towns # (Auto) 1.0 10^3/uL (0.2-0.9) H 06/23/25 01:19 Eos # (Auto) 0.2 10^3/uL (0.0-0.8) 06/23/25 01:19 Baso # (Auto) 0.0 10^3/uL (0.0-0.1) 06/23/25 01:19 Nucleated RBC % (auto) 0 % 06/23/25 01:19 Nucleated RBCs # 0.0 /100WBC 06/23/25 01:19 PT 15.50 SECONDS (12.1-14.9) H 06/23/25 01:19 INR 1.15 (0.8-1.2) 06/23/25 01:19 APTT 36.0 SECONDS (23.9-36.7) 06/23/25 01:19 Sodium 136 mmol/L (136-145) 06/23/25 01:19 Potassium 5.1 mmol/L (3.5-5.1) 06/23/25 01:19 Chloride 103 mmol/L (98-107) 06/23/25 01:19 Carbon Dioxide 20 mmol/L (22-29) L 06/23/25 01:19 Anion Gap 18.1 (5-19) 06/23/25 01:19 BUN 51 mg/dL (8-23) H 06/23/25 01:19 Creatinine 2.6 mg/dL (0.7-1.2) H 06/23/25 01:19 GFR Calculation Not Reportable 06/23/25 01:19 Glucose 140 mg/dL (65-115) H 06/23/25 01:19 Calculated Osmolality 298 mOsm/kg (285-295) H 06/23/25 01:19 Calcium 8.1 mg/dL (8.5-10.5) L 06/23/25 01:19 All radiology interpretation(s) finalized by discharge Discharge Plan Discharge Patient Disposition: Home Clinical Impression: Fall, Rib pain on left side Condition: Stable Prescriptions: New oxycodone 5 mg tablet 5 mg PO TID PRN (Reason: pain) Qty: 6 0RF methocarbamol 750 mg tablet 750 mg PO TID Qty: 20 0RF No Action citalopram 40 mg tablet 20 mg PO QAM allopurinol 300 mg tablet 300 mg PO DAILY Spiriva with HandiHaler 18 mcg capsule, w/inhalation device 1 cap INHALATION DAILY furosemide 40 mg tablet 40 mg PO BID tamsulosin 0.4 mg capsule 0.4 mg PO BID Eliquis 5 mg tablet 5 mg PO BID Qty: 180 3RF clopidogrel 75 mg tablet 75 mg PO DAILY Qty: 90 0RF vit B6-mag cit,oxid-potass cit 3.75-45-45-49.5 mg tablet extended release PO levothyroxine 137 mcg capsule 137 mcg PO DAILY Qty: 90 3RF (DME) 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 CONTACT [employer] [facility] AT FOR REPLACEMENT OF DAMAGED/MALFUNCTIONING SENSORS. Rx Instructions: USE 1 SENSOR UNDER THE SKIN EVERY 10 DAYS CHANGE SENSOR/SITE EVERY 10 DAYS. CONTACT [employer] [facility] FOR REPLACEMENT OF DAMAGED/MALFUNCTIONING SENSORS. cholecalciferol (vitamin D3) [Vitamin D3] 25 mcg (1,000 unit) Tablet 25 mcg PO DAILY fenofibrate nanocrystallized 48 mg tablet 145 mg PO DAILY cyclobenzaprine 10 mg Tablet 10 mg PO TID PRN (Reason: Muscle Spasm) atorvastatin 80 mg Tablet 40 mg PO BEDTIME fluticasone propionate 50 mcg/actuation [employer],Suspension 2 spray INTRANASAL DAILY Rx Instructions: administer into each nostril sennosides 8.6 mg Tablet 8.6 mg PO DAILY Aquaphor Ointment 1 applic TOPICAL DAILY hydrocortisone-pramoxine 1-1 % Foam 1 applic TOPICAL DAILY PRN (Reason: Inflammation) lidocaine 5 % Adhesive Patch,Medicated 1 patch TOPICAL DAILY PRN (Reason: Pain) Rx Instructions: leave on most painful area for up to 12 hrs diclofenac sodium 1 % Gel 4 g TOPICAL QID PRN (Reason: joint pain) amiodarone [Pacerone] 200 mg tablet 200 mg PO BID pantoprazole 40 mg tablet,delayed release (DR/EC) 40 mg PO BID Qty: 60 0RF isosorbide mononitrate 30 mg tablet extended release 24 hr 30 mg PO DAILY cetirizine [Zyrtec] 10 mg Tablet 10 mg PO DAILY PRN (Reason: allergies) PreserVision AREDS-2 250-90-40-1 mg Capsule 1 tab PO BID Discharge Orders: Discharge ED (Routine); Ordered 06/23/25 Ordered By: Daron Aleman Referrals: Laron Carroll MD [Primary Care Provider, [facility]] Discharge Diet: Advance as tolerated Discharge Activity: Resume usual activity Patient Instructions: Opioid Safety, Pain Management, Patient Portal & Amena Instructions Activity Restrictions/Additional Instructions: You were seen after your fall, you were evaluated with labs and CT imaging that did not show any concerns for fractures, dislocations or internal bleeding at this time. Due to your left-sided chest wall pain and bruising, you most likely have contusions of some of your middle ribs on the left side. It is very important that you keep breathing deeply, use the incentive spirometer every 2 hours to encourage deep breaths. For the pain, use Tylenol 650 mg every 6 hours as needed, for breakthrough pain on top of this, use oxycodone 5 mg, do not drive or operate heavy machinery with this medication as it can be sedating. In addition, use the Robaxin, 750 mg every 8 hours as needed for any spasms or cramps that develop, do not take this with any other muscle relaxant you might have been prescribed. Follow-up with your primary care physician early next week for reevaluation of your symptoms. Your kidney function was also slightly decreased, this is most likely in setting of dehydration, ensure you stay as hydrated and nourished as possible. Return to the ED with recurrent falls, severe bleeding, episodes of passing out, difficulties breathing, any other emergent concerns. Print Language: Sinhala Coding Level of Care Code ED Business Project Analyst for Lesa Thorpe
--- NOTE | 2025-06-23 01:11 | CTR_ITS ---
PROCEDURE INFORMATION: Exam: CT Head Without Contrast Exam date and time: 06/23/2025 1:24 AM Age: 79 years old Clinical indication: Injury or trauma; Fall; Blunt trauma (contusions or hematomas); Patient rolled out of bed onto floor. No direct head strike. Anticoagulated. ; Additional info: Fall, on plavix TECHNIQUE: Imaging protocol: Computed tomography of the head without contrast. Radiation optimization: All CT scans at this facility use at least one of these dose optimization techniques: automated exposure control; mA and/or kV adjustment per patient size (includes targeted exams where dose is matched to clinical indication); or iterative reconstruction. COMPARISON: CT head wo con* [id number] 08/24/2024 12:21 AM RADIATION DOSE METRICS: Total DLP (mGy-cm): 1061.5 FINDINGS: Brain: No acute intracranial hemorrhage. No midline shift or mass effect. No acute territorial infarct. Global age-related cerebral atrophy. Chronic, age related microangiopathy, consistent periventricular and subcortical white matter hypoattenuation. Cerebral ventricles: No ventriculomegaly. Paranasal sinuses: Visualized sinuses are unremarkable. No fluid levels. Mastoid air cells: Visualized mastoid air cells are well aerated. Bones: Unremarkable. No acute fracture. Soft tissues: Unremarkable. CT/CT head wo con* [id number] IMPRESSION: No acute intracranial hemorrhage. No midline shift or mass effect.
[2025-06-23 01:21] VITALS: RESP 18
[2025-06-23] MEDS: oxyCODONE 5 mg IR Tab/Cap PO (01:21)
[2025-06-23] MEDS: iohexol 350 mg/mL 500 mL Btl (per mL) IV (01:27)
[2025-06-23 01:30] LABS: Hematocrit 37.1 % (37-53); Hemoglobin 11.80 g/dL (11.27-16.99); Mean Corpuscular HGB Conc 31.8 g/dL (30-55); Mean Corpuscular Hemoglobin 31.1 pg (27-33); Mean Corpuscular Volume 97.9 fl (82-101); Nucleated Red Blood Cells % 0 %; Platelet Count 252 10^3/cmm (157-399); Red Blood Count 3.79 10^6/uL (3.85-5.65); White Blood Count 13.33 10^3/uL (3.29-11.43)
[2025-06-23 01:37] LABS: INR 1.15 (0.8-1.2); Prothrombin Time 15.50 SECONDS (12.1-14.9)
[2025-06-23 01:38] LABS: Partial Thromboplastin Time 36.0 SECONDS (23.9-36.7)
[2025-06-23 01:43] LABS: Anion Gap 18.1 (5-19); Blood Urea Nitrogen 51 mg/dL (8-23); Calcium 8.1 mg/dL (8.5-10.5); Carbon Dioxide 20 mmol/L (22-29); Chloride 103 mmol/L (98-107); Glucose 140 mg/dL (65-115); Osmolality Calculated 298 mOsm/kg (285-295); Potassium 5.1 mmol/L (3.5-5.1); Sodium 136 mmol/L (136-145)
[2025-06-23 02:55] VITALS: BP 92/54; PULSE 54; RESP 16; O2SAT 94
== END 2025-06-23 02:56 | disposition home or self-care (01) ==
PROVIDERS: Emergency Provider Student in an Organized Health Care Education/Training Program; PCP Family Medicine Geriatric Medicine
DX: R07.89 Other chest pain (principal); W19.XXXA Unspecified fall, initial encounter; Z79.01 Long term (current) use of anticoagulants; Z79.02 Long term (current) use of antithrombotics/antiplatelets; Z87.891 Personal history of nicotine dependence; J44.9 Chronic obstructive pulmonary disease, unspecified; E78.5 Hyperlipidemia, unspecified; E11.22 Type 2 diabetes mellitus with diabetic chronic kidney disease; I12.9 Hypertensive chronic kidney disease with stage 1 through stage 4 chronic kidney disease, or unspecified chronic kidney disease; N18.9 Chronic kidney disease, unspecified
CPT/HCPCS: 36415; 70450; 71260; 74177; 80048; 85025; 85610; 85730; 93005; 99285; J9999